=== PATIENT | male | born 1955 | race Caucasian/White ===

== ENCOUNTER 2016-07-08 16:25 | Emergency (ER) | payer OTHER ==
[~2016-07-08 16:25] MED LIST: ABH GEL TOP; ALBU1AER INH; ASPI81TA82 PO; ATOR10 PO; BUSP5 PO; CITA20 PO; GLUCTAB PO; LISI40TA PO; MECL-62 PO; METO50TA PO; NITR0.4S SL; NOVOLOGP2 SQ; OLAN5 PO; PALI156P IM; PHEN100S PO; SODI1 PO; TIMO0.5S29 EACH EYE; WARF5TAB PO; ZYPR10TA PO; ZYPR10TA9 PO
[2016-07-08 17:13] VITALS: BP 183/107; PULSE 86; RESP 16; TEMP 98.1; O2SAT 98
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
[2016-07-08] MEDS ORDERED: MI-ASUS PO (18:15)
[2016-07-08] MEDS ORDERED: METO50TA PO (18:15)
[2016-07-08] MEDS ORDERED: OLAN10TA11 SL (18:15)
[2016-07-08] MEDS ORDERED: TIMO0.5S5 EACH EYE (18:15)
[2016-07-08] MEDS ORDERED: LISI-515 PO (18:15)
[2016-07-08] MEDS ORDERED: PERM5CRE TOPICAL (18:15)
[2016-07-08] MEDS ORDERED: MILKSUS PO (18:15)
[2016-07-08] MEDS ORDERED: ASPI1TAB91 PO (18:15)
[2016-07-08] MEDS ORDERED: ALBUAER3 INH (18:15)
[2016-07-08] MEDS ORDERED: BUSP5TAB PO (18:15)
[2016-07-08] MEDS ORDERED: ATOR10TA15 PO (18:15)
[2016-07-08] MEDS ORDERED: [UNRECOGNIZED DRUG - CODE] TOPICAL (18:15)
[2016-07-08] MEDS ORDERED: TYLE650T9 PO (18:15)
[2016-07-08] MEDS ORDERED: IBUP-232 PO (18:15)
[2016-07-08] MEDS ORDERED: CITA20TA4 PO (18:15)
[2016-07-08] MEDS ORDERED: PALI156P IM (18:15)
[2016-07-08] MEDS ORDERED: DILA125S PO (18:15)
[2016-07-08] MEDS ORDERED: METF1000 PO (18:15)
[2016-07-08 19:20] VITALS: BP 169/78; PULSE 62; RESP 16; O2SAT 98
[2016-07-08 20:13] LABS: AUTOMATED NEUTROPHIL # 2.8 TH/MM3 (1.8-7.7); BASOPHIL % 0.7 % (0.0-2.0); EOSINOPHIL # 0.2 TH/MM3 (0-0.4); EOSINOPHIL % 3.8 % (0.0-4.0); HEMATOCRIT 37.6 % (39.0-51.0); LYMPH % 27.9 % (9.0-44.0); LYMPHOCYTE # 1.4 TH/MM3 (1.0-4.8); MEAN CELL VOLUME 94.9 FL (80.0-100.0); MEAN CORPUSCULAR HEMOGLOBIN 32.1 PG (27.0-34.0); MEAN CORPUSCULAR HGB CONC 33.8 % (32.0-36.0); MONO % 11.8 % (0.0-8.0); NEUT % 55.8 % (16.0-70.0); PLATELET COUNT 125 TH/MM3 (150-450); RED BLOOD COUNT 3.96 MIL/MM3 (4.50-5.90); RED CELL DISTRIBUTION WIDTH 14.8 % (11.6-17.2)
[2016-07-08 20:20] LABS: ANION GAP 6 MEQ/L (5-15)
[2016-07-08 20:23] LABS: ALKALINE PHOSPHATASE 71 U/L (45-117); ALT (GPT) 27 U/L (12-78); AST (GOT) 13 U/L (15-37); BICARBONATE 29.3 MEQ/L (21.0-32.0); BLOOD UREA NITROGEN 22 MG/DL (7-18); CHLORIDE 102 MEQ/L (98-107); GLOMERULAR FILTRATION RATE 117 ML/MIN (>89); POTASSIUM 3.7 MEQ/L (3.5-5.1); SODIUM (NA) 137 MEQ/L (136-145); TOTAL BILIRUBIN ADULT 0.2 MG/DL (0.2-1.0)
[2016-07-08 20:49] LABS: HEMO FLAGS AUTO DIFF
[2016-07-08 20:50] LABS: PLATELET ESTIMATE SMEAR LOW (NORMAL); PLATELET MORPHOLOGY NORMAL (NORMAL); SCAN/DIFF AUTO DIFF CONFIRMED
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
[2016-07-09 02:16] LABS: BLOOD, URINE SMALL (NEG); COMMENT (UR) CULTURE INDICATED; CULTURE IF INDICATED CULTURE INDICATED; GLUCOSE,URINE TRACE mg/dL (NEG); KETONE, URINE TRACE mg/dL (NEG); MUCUS URINE FEW /lpf (OCC); NITRITE,URINE NEG (NEG); SQUAMOUS EPITHELIAL CELL URINE 1 /hpf (0-5); URINE COLOR YELLOW (YELLW/STRAW)
[2016-07-09 03:30] VITALS: BP 152/74; PULSE 78; RESP 16; O2SAT 97
[2016-07-09 03:59] LABS: AMPHETAMINE, URINE NEG (NEG); BARBITURATES, URINE NEG (NEG); COCAINE, URINE NEG (NEG)
[2016-07-09 07:07] VITALS: BP 190/87; PULSE 93; RESP 18; TEMP 98.8; O2SAT 98
[2016-07-09 11:13] VITALS: BP 136/88; TEMP 97.8
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
== END 2016-07-09 11:00 ==
LOC: NEPA 16:25
DX: Z02.89 Encounter for other administrative examinations (principal); F25.0 Schizoaffective disorder, bipolar type; F03.90 Unspecified dementia, unspecified severity, without behavioral disturbance, psychotic disturbance, mood disturbance, and anxiety; N39.0 Urinary tract infection, site not specified; B95.2 Enterococcus as the cause of diseases classified elsewhere; I48.92 Unspecified atrial flutter; I10 Essential (primary) hypertension; E11.9 Type 2 diabetes mellitus without complications; E07.9 Disorder of thyroid, unspecified; Z79.84 Long term (current) use of oral hypoglycemic drugs; Z87.39 Personal history of other diseases of the musculoskeletal system and connective tissue; Z87.09 Personal history of other diseases of the respiratory system; Z86.59 Personal history of other mental and behavioral disorders; Z86.69 Personal history of other diseases of the nervous system and sense organs; Z87.448 Personal history of other diseases of urinary system
CPT/HCPCS: 80053; 80307; 80320; 81001; 85025; 87077; 87086; 87186; 99284

== ENCOUNTER 2016-07-17 15:38 | Inpatient (IN) | payer OTHER, MEDICAID ==
[~2016-07-17] VITALS: Ht 180.3 cm; Wt 81.0 kg
[~2016-07-17 15:38] MED LIST changes: -ABH GEL TOP; -ALBU1AER INH; +ALBUAER3 INH; +ASPI1TAB91 PO; -ASPI81TA82 PO; -ATOR10 PO; +ATOR10TA15 PO; -BUSP5 PO; +BUSP5TAB PO; -CITA20 PO; +CITA20TA4 PO; +DILA125S PO; -GLUCTAB PO; +IBUP-232 PO; +LISI-515 PO; -LISI40TA PO; -MECL-62 PO; +METF1000 PO; +MI-ASUS PO; +MILKSUS PO; -NITR0.4S SL; -NOVOLOGP2 SQ; +OLAN10TA11 SL; -OLAN5 PO; +PERM5CRE TOPICAL; -PHEN100S PO; -SODI1 PO; -TIMO0.5S29 EACH EYE; +TIMO0.5S5 EACH EYE; +TYLE650T9 PO; -WARF5TAB PO; -ZYPR10TA PO; -ZYPR10TA9 PO; +[UNRECOGNIZED DRUG - CODE] TOPICAL
[2016-07-17 16:27] VITALS: BP 149/89; PULSE 70; RESP 18; TEMP 96.6; O2SAT 95
--- NOTE | 2016-07-17 16:42 | PD ---
HPI Chief Complaint: Psychiatric Symptoms Time Seen by Provider: 16:42 Travel History International Travel<30 days: No (UNABLE TO OBTAIN) Contact w/Intl Traveler<30days: No Traveled to known affect area: No History of Present Illness HPI 60-year-old male is brought to the emergency department under [employer] act. Patient is not cooperative with my assessment. He yells no when I ask him if he is suicidal homicidal. Asked about alcohol consumption, he tells me "you are the one who drinks." Patient denies any current pain. Denies any acute medical needs. He wants to go home. PFSH Past Medical History Arthritis: Yes Asthma: Yes Blood Disorders: No Anxiety: Yes Depression: Yes Heart Rhythm Problems: Yes (ATRIAL FLUTTER) High Cholesterol: Yes Chest Pain: Yes Congestive Heart Failure: No COPD: Yes Cerebrovascular Accident: No Diabetes: Yes Diminished Hearing: No Endocrine: Yes Gastrointestinal Disorders: No Glaucoma: Yes Genitourinary: Yes Hypertension: Yes Implanted Vascular Access Dvce: Yes Musculoskeletal: Yes Neurologic: Yes Psychiatric: Yes Respiratory: Yes (PE/ASTHMA) Immunizations Current: Yes Radiation Therapy: Yes Schizophrenia: Yes Sleep Apnea: No Thyroid Disease: Yes Past Surgical History Cardiac Surgery: Yes (PACEMAKER) Neurologic Surgery: No Pacemaker: Yes Thoracic Surgery: Yes Other Surgery: Yes Family History Family Hypercholesterolemia: Yes Social History Alcohol Use: Yes (RARE) Tobacco Use: No Substance Use: Yes Allergies-Medications (Allergen,Severity, Reaction): Coded Allergies: Haldol (Verified Allergy, Severe, 07/17/16) Penicillin (Verified Allergy, Severe, 07/17/16) Phenothiazines (Verified Allergy, Severe, 07/17/16) Thorazine (Verified Allergy, Severe, 07/17/16) Uncoded Allergies: BUTYROPHENONES (Allergy, Severe, 01/09/12) Reported Meds & Prescriptions Reported Meds & Active Scripts Active Reported Ibuprofen 600 Mg Tab 600 Mg PO Q6H PRN Milk of Magnesia Liq (Magnesium Hydroxide) 400 Mg/5 Ml Susp 30 Ml PO DAILY PRN Mi-Acid Liq (Ffhsizqi-Muelcnmex-Wvxlasntwps Liq) 200-200-20 Mg/5 Ml Susp 30 Ml PO Q6HR PRN Take between meals or as directed. Shake well. Maximum 120 ml/24 hrs. Proair Hfa 8.5 GM Inh (Albuterol Sulfate) 90 Mcg/Act Aer 2 Puff INH Q4HR PRN 108 mcg/actuation Tylenol 8 Hour Arthritis (Acetaminophen) 650 Mg Tab 650 Mg PO Q4HR PRN Invega Sustenna Inj (Paliperidone Palmitate) 156 Mg/Ml Inj 156 Mg IM MONTHLY Olanzapine Odt (Olanzapine) 10 Mg Tab 10 Mg SL HS Atorvastatin (Atorvastatin Calcium) 10 Mg Tab 10 Mg PO HS Buspirone (Buspirone HCl) 5 Mg Tab 5 Mg PO TID Dilantin-125 Liq (Phenytoin) 125 Mg/5 Ml Susp 250 Mg PO TID Metoprolol Tartrate 50 Mg Tab 50 Mg PO BID Metformin (Metformin HCl) 1,000 Mg Tab 1,000 Mg PO BID With meals Qc Hydrocortisone (Hydrocortisone (Topical)) 1 % Cre 1 Applic TOPICAL BID Apply film to face Lisinopril 20 Mg Tab 20 Mg PO DAILY Aspirin Adult Low Strength (Aspirin) 81 Mg Tabdr 81 Mg PO DAILY Citalopram (Citalopram Hydrobromide) 20 Mg Tab 20 Mg PO DAILY Permethrin Topical (Permethrin) 5% Cream 1 Applic TOPICAL DAILY 7 Days Apply to affected kristy of the legs Timoptic Opth Drops (Timolol Opth Drops) 0.5 % Soln 1 Drop EACH EYE DAILY Review of Systems Except as stated in HPI: all other systems reviewed are Neg Physical Exam Narrative GENERAL: Well-nourished, well-developed elderly male patient, ambulatory no acute distress SKIN: Warm and dry. HEAD: Normocephalic. Atraumatic EYES: No scleral icterus. No injection or drainage. NECK: Supple, trachea midline. No JVD or lymphadenopathy. CARDIOVASCULAR: Regular rate and rhythm without murmurs, gallops, or rubs. RESPIRATORY: Breath sounds equal bilaterally. No accessory muscle use. GASTROINTESTINAL: Abdomen soft, non-tender, nondistended. MUSCULOSKELETAL: No cyanosis, or edema. BACK: Nontender without obvious deformity. No CVA tenderness. Data Data Last Documented VS Vital Signs Date Time Temp Pulse Resp B/P Pulse Ox O2 Delivery O2 Flow Rate FiO2 07/17/16 20:19 76 18 149/68 95 Room Air 07/17/16 16:27 96.6 Orders Complete Blood Count With Diff (07/17/16 15:58) Comprehensive Metabolic Panel (07/17/16 15:58) Urinalysis - C+S If Indicated (07/17/16 15:58) Drug Screen, Random Urine (07/17/16 15:58) Alcohol (Ethanol) (07/17/16 15:58) Psych Screen (07/17/16 15:58) Cath For Specimen (07/17/16 20:31) Labs Laboratory Tests Test 07/17/16 16:24 White Blood Count 3.3 TH/MM3 Red Blood Count 4.06 MIL/MM3 Hemoglobin 12.7 GM/DL Hematocrit 38.7 % Mean Corpuscular Volume 95.2 FL Mean Corpuscular Hemoglobin 31.2 PG Mean Corpuscular Hemoglobin 32.8 % Concent Red Cell Distribution Width 14.8 % Platelet Count 190 TH/MM3 Mean Platelet Volume 8.5 FL Neutrophils (%) (Auto) 55.9 % Lymphocytes (%) (Auto) 27.0 % Monocytes (%) (Auto) 10.6 % Eosinophils (%) (Auto) 5.5 % Basophils (%) (Auto) 1.0 % Neutrophils # (Auto) 1.9 TH/MM3 Lymphocytes # (Auto) 0.9 TH/MM3 Monocytes # (Auto) 0.4 TH/MM3 Eosinophils # (Auto) 0.2 TH/MM3 Basophils # (Auto) 0.0 TH/MM3 CBC Comment DIFF FINAL Differential Comment Sodium Level 140 MEQ/L Potassium Level 4.1 MEQ/L Chloride Level 104 MEQ/L Carbon Dioxide Level 30.5 MEQ/L Anion Gap 6 MEQ/L Blood Urea Nitrogen 19 MG/DL Creatinine 0.71 MG/DL Estimat Glomerular Filtration 113 ML/MIN Rate Random Glucose 146 MG/DL Calcium Level 8.7 MG/DL Total Bilirubin 0.2 MG/DL Aspartate Amino Transf 52 U/L (AST/SGOT) Alanine Aminotransferase 60 U/L (ALT/SGPT) Alkaline Phosphatase 72 U/L Total Protein 8.3 GM/DL Albumin 3.3 GM/DL Ethyl Alcohol Level LESS THAN 3 MG/DL MDM Medical Decision Making Medical Screen Exam Complete: Yes Emergency Medical Condition: Yes Medical Record Reviewed: Yes Differential Diagnosis Mood disorder versus personality disorder versus adjustment reaction disorder versus dementia Narrative Course 60-year-old male presents to emergency department for evaluation under [employer] act. Patient has history of dementia as well as schizoaffective disorder. He is uncooperative with exam but appears without distress. Vital signs are stable. Lab work is without acute concern. Patient is medically cleared to undergo psychiatric screening for further evaluation and disposition. Mental health screening discussed with the patient. Psychiatric screen ordered. Diagnosis Primary Impression: Dementia Qualified Code: F03.91 - Dementia with behavioral disturbance, unspecified dementia type Additional Impression: Schizoaffective disorder Qualified Code: F25.9 - Schizoaffective disorder, unspecified type Condition: Stable Ruth Alvarez Jul 17, 2016 16:42
[2016-07-17 18:22] LABS: AUTOMATED NEUTROPHIL # 1.9 TH/MM3 (1.8-7.7); EOSINOPHIL # 0.2 TH/MM3 (0-0.4); EOSINOPHIL % 5.5 % (0.0-4.0); HEMATOCRIT 38.7 % (39.0-51.0); HEMO FLAGS DIFF FINAL; LYMPHOCYTE # 0.9 TH/MM3 (1.0-4.8); MEAN CELL VOLUME 95.2 FL (80.0-100.0); MEAN CORPUSCULAR HEMOGLOBIN 31.2 PG (27.0-34.0); MEAN CORPUSCULAR HGB CONC 32.8 % (32.0-36.0); MONO % 10.6 % (0.0-8.0); NEUT % 55.9 % (16.0-70.0); PLATELET COUNT 190 TH/MM3 (150-450); RED BLOOD COUNT 4.06 MIL/MM3 (4.50-5.90); RED CELL DISTRIBUTION WIDTH 14.8 % (11.6-17.2); WHITE BLOOD COUNT 3.3 TH/MM3 (4.0-11.0)
[2016-07-17 18:29] LABS: ALKALINE PHOSPHATASE 72 U/L (45-117); TOTAL BILIRUBIN ADULT 0.2 MG/DL (0.2-1.0)
[2016-07-17 19:07] LABS: ALT (GPT) 60 U/L (12-78); ANION GAP 6 MEQ/L (5-15); AST (GOT) 52 U/L (15-37); BICARBONATE 30.5 MEQ/L (21.0-32.0); BLOOD UREA NITROGEN 19 MG/DL (7-18); CHLORIDE 104 MEQ/L (98-107); GLOMERULAR FILTRATION RATE 113 ML/MIN (>89); POTASSIUM 4.1 MEQ/L (3.5-5.1); SODIUM (NA) 140 MEQ/L (136-145)
[2016-07-17 20:19] VITALS: BP 149/68; PULSE 76; RESP 18; O2SAT 95
[2016-07-17 23:12] LABS: BACTERIA, URINE RARE /hpf; BLOOD, URINE NEG (NEG); COMMENT (UR) CULTURE INDICATED; CULTURE IF INDICATED CULTURE INDICATED; GLUCOSE,URINE TRACE mg/dL (NEG); KETONE, URINE 10 mg/dL (NEG); MUCUS URINE FEW /lpf (OCC); NITRITE,URINE NEG (NEG); URINE COLOR YELLOW (YELLW/STRAW)
[2016-07-17 23:14] LABS: AMPHETAMINE, URINE NEG (NEG); BARBITURATES, URINE NEG (NEG); COCAINE, URINE NEG (NEG)
[2016-07-17 23:28] VITALS: BP 165/75; PULSE 60; RESP 18; O2SAT 99
[2016-07-18 02:00] VITALS: BP 114/70; PULSE 51; RESP 18; O2SAT 98
[2016-07-18 06:39] VITALS: BP_SYST 190; BP_SYST 201; BP_DIAS 96; PULSE 66; RESP 18; O2SAT 99
[2016-07-18] MEDS ORDERED: LISINOPRIL 20 MG TAB PO ONE (06:45)
[2016-07-18] MEDS ORDERED: METOPROLOL TARTRATE 50 MG TAB PO ONE (06:45)
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
[2016-07-18] MEDS ORDERED: ALBUTEROL SULFATE 90 MCG/ACT HFA 8 GM INHALER INH PRN (17:30)
[2016-07-18 17:54] VITALS: BP 156/74; PULSE 72; RESP 16; O2SAT 99
[2016-07-18] MEDS: busPIRone HCL 5 MG TAB PO SCH (18:00)
[2016-07-18 18:53] VITALS: BP 159/90; PULSE 62; RESP 16; O2SAT 96
[2016-07-18] MEDS: metFORMIN HCL 500 MG TAB PO SCH (20:56)
[2016-07-18] MEDS: ATORVASTATIN 10 MG TAB PO SCH (20:56)
[2016-07-18] MEDS: PHENYTOIN SUSP 100 MG/4 ML CUP PO SCH (20:56)
[2016-07-18] MEDS: METOPROLOL TARTRATE 50 MG TAB PO SCH (20:56)
[2016-07-18] MEDS ORDERED: OLANZapine ODT 10 MG TAB SL SCH (21:00)
[2016-07-19 06:00] VITALS: BP 129/70; PULSE 63; RESP 18; TEMP 97.3; O2SAT 97
[2016-07-19 07:10] LABS: ANION GAP 8 MEQ/L (5-15); BICARBONATE 28.3 MEQ/L (21.0-32.0); BLOOD UREA NITROGEN 20 MG/DL (7-18); CHLORIDE 104 MEQ/L (98-107); GLOMERULAR FILTRATION RATE 117 ML/MIN (>89); HDL CHOLESTEROL 44.8 MG/DL (40.0-60.0); LDL CHOLESTEROL 108 MG/DL (0-99); POTASSIUM 4.5 MEQ/L (3.5-5.1); SODIUM (NA) 140 MEQ/L (136-145)
[2016-07-19] MEDS: busPIRone HCL 5 MG TAB PO SCH ×3 (10:04→17:22)
[2016-07-19] MEDS: CITALOPRAM HYDROBROMIDE 20 MG TAB PO SCH (10:05)
[2016-07-19] MEDS: metFORMIN HCL 500 MG TAB PO SCH ×2 (10:05→17:22)
[2016-07-19] MEDS: LISINOPRIL 20 MG TAB PO SCH (10:05)
[2016-07-19] MEDS: METOPROLOL TARTRATE 50 MG TAB PO SCH ×2 (10:05→20:31)
[2016-07-19] MEDS: ASPIRIN EC 81 MG TABEC PO SCH (10:06)
[2016-07-19] MEDS: PHENYTOIN SUSP 100 MG/4 ML CUP PO SCH ×3 (10:07→17:22)
[2016-07-19] MEDS: TIMOLOL MALEATE 0.5% OPHT SOLN 5 ML BTL EACH EYE SCH (10:08)
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
[2016-07-19 10:47] LABS: HEMOGLOBIN A1a 1.5 %; HEMOGLOBIN A1b 0.9 %; HEMOGLOBIN LA1C 1.9 %; HEMOGLOBIN P3 4.1 %
[2016-07-19] MEDS: PALIPERIDONE PALMITATE 156 MG/ML SYRINGE IM SCH ×2 (12:16→14:40)
--- NOTE | 2016-07-19 14:37 | PD.CONS ---
HPI Service [facility] Consult Requested By Psychiatry Reason for Consult Medical management, possible UTI Primary Care Physician Unknown Diagnoses: History of Present Illness This is a 60-year-old male with history of dementia, schizophrenia, depression, diabetes mellitus, hypertension, seizures, COPD, atrial flutter who presented to the ED because patient was aggressive, inappropriate behavior and belligerent. Patient was then transferred to psychiatry. Patient is a very poor historian. Denies any chest pain, shortness of breath, nausea, vomiting, urinary symptoms including dysuria, frequency or urgency. No fever or chills, no lower back pain, no lower abdominal pain. Patient says that he does not want to be restarted on Dilantin. Review of Systems ROS Limitations: Poor Historian, Other Past Family Social History Allergies: Coded Allergies: Haldol (Verified Allergy, Severe, 07/17/16) Penicillin (Verified Allergy, Severe, 07/17/16) Phenothiazines (Verified Allergy, Severe, 07/17/16) Thorazine (Verified Allergy, Severe, 07/17/16) Uncoded Allergies: BUTYROPHENONES (Allergy, Severe, 01/09/12) Past Medical History Dementia Schizophrenia Anxiety Depression Diabetes mellitus Hypertension Atrial flutter Dyslipidemia Seizures COPD Dyslipidemia Pulmonary embolism NSTEMI Past Surgical History Cardiac catheterization Reported Medications Ibuprofen 600 Mg Tab 600 Mg PO Q6H PRN Milk of Magnesia Liq (Magnesium Hydroxide) 400 Mg/5 Ml Susp 30 Ml PO DAILY PRN Mi-Acid Liq (Anpcdeds-Grjzdhqpk-Xculxytedni Liq) 200-200-20 Mg/5 Ml Susp 30 Ml PO Q6HR PRN Take between meals or as directed. Shake well. Maximum 120 ml/24 hrs. Proair Hfa 8.5 GM Inh (Albuterol Sulfate) 90 Mcg/Act Aer 2 Puff INH Q4HR PRN 108 mcg/actuation Tylenol 8 Hour Arthritis (Acetaminophen) 650 Mg Tab 650 Mg PO Q4HR PRN Invega Sustenna Inj (Paliperidone Palmitate) 156 Mg/Ml Inj 156 Mg IM MONTHLY Olanzapine Odt (Olanzapine) 10 Mg Tab 10 Mg SL HS Atorvastatin (Atorvastatin Calcium) 10 Mg Tab 10 Mg PO HS Buspirone (Buspirone HCl) 5 Mg Tab 5 Mg PO TID Dilantin-125 Liq (Phenytoin) 125 Mg/5 Ml Susp 250 Mg PO TID Metoprolol Tartrate 50 Mg Tab 50 Mg PO BID Metformin (Metformin HCl) 1,000 Mg Tab 1,000 Mg PO BID With meals Qc Hydrocortisone (Hydrocortisone (Topical)) 1 % Cre 1 Applic TOPICAL BID Apply film to face Lisinopril 20 Mg Tab 20 Mg PO DAILY Aspirin Adult Low Strength (Aspirin) 81 Mg Tabdr 81 Mg PO DAILY Citalopram (Citalopram Hydrobromide) 20 Mg Tab 20 Mg PO DAILY Permethrin Topical (Permethrin) 5% Cream 1 Applic TOPICAL DAILY 7 Days Apply to affected kristy of the legs Timoptic Opth Drops (Timolol Opth Drops) 0.5 % Soln 1 Drop EACH EYE DAILY Family History Father of a heart attack Social History Patient denies smoking, significant alcohol intake or use of any illicit drugs. Physical Exam Vital Signs Vital Signs Date Time Temp Pulse Resp B/P Pulse Ox O2 Delivery O2 Flow Rate FiO2 07/19/16 06:00 97.3 63 18 129/70 97 07/18/16 18:53 62 16 159/90 96 07/18/16 17:54 72 16 156/74 99 Physical Exam Not in distress, well-nourished, looks stated age PERRL, pink conjunctiva without injection, anicteric Nose without bleeding, airway patent, oropharynx clear Supple neck, no masses or thyromegaly, trachea midline Normal rate and regular rhythm, no murmurs gallops or rubs appreciated. Clear to auscultation and symmetric bilaterally, normal respiratory effort. Normal bowel sounds, soft, non-tender, nondistended, no guarding. Extremities without clubbing, cyanosis, or edema. No rash of generalized distribution. Skin is warm and dry. AAO x3, no cranial nerve deficits, moves all 4 extremities Laboratory Laboratory Tests Test 07/19/16 05:20 Sodium Level 140 Potassium Level 4.5 Chloride Level 104 Carbon Dioxide Level 28.3 Anion Gap 8 Blood Urea Nitrogen 20 Creatinine 0.69 Estimat Glomerular Filtration 117 Rate Random Glucose 105 Hemoglobin A1c 7.1 Calcium Level 8.8 Triglycerides Level 109 Cholesterol Level 175 LDL Cholesterol 108 HDL Cholesterol 44.8 Cholesterol/HDL Ratio 3.90 Date/Time Procedure Status Source Growth 07/17/16 21:25 Urine Culture - Preliminary Resulted Urine Random Urine Group D Enterococcus Result Diagram: 07/17/16 1624 07/19/16 0520 Assessment and Plan Assessment and Plan This is a 60-year-old male omitted the psych unit for schizoaffective disorder, we are being consulted for medical comanagement of COPD, atrial flutter and possible UTI. Schizoaffective disorder, bipolar type-further management per psychiatry UTI-possibly symptomatic UTI, review of previous records done, or analysis was positive, urine culture grew Enterococcus faecalis, sensitive to Macrobid, start Macrobid for 2 weeks. Check CBC and BMP. History of COPD-not in exacerbation, continue albuterol Dyslipidemia-restart statin History of seizures-continue phenytoin, check Dilantin levels. Hypertension-restart metoprolol, lisinopril, clonidine as needed Diabetes mellitus-restart metformin Thank you very much for this consult, will follow along with you. Ade Pandey MD Jul 19, 2016 14:37
[2016-07-19] MEDS ORDERED: cloNIDine HCL 0.1 MG TAB PO PRN (14:45)
[2016-07-19] MEDS: NITROFURANTOIN MONOHYD MACROCR 100 MG CAP PO SCH (17:22)
--- NOTE | 2016-07-19 17:33 | EKG ---
Date Performed: 07/19/2016 Time Performed: 11:46:49 PTAGE: 60 years EKG: SINUS BRADYCARDIA POSSIBLE LEFT ATRIAL ENLARGEMENT INDETERMINATE AXIS RIGHT BUNDLE BRANCH B LOCK When compared to previous tracing, the sinus tachycardia has Resolved and the premature atrial c ontractions are no longer Evident. the patient now actually has sinus Bradycardia, but when Allowing for the difference in technique there is probably no other Significant serial change. ABNORMAL ECG PREVIOUS TRACING : 12/21/2015 20.10 DOCTOR: Tahira Fraga Interpretating Date/Time 07/19/2016 17:32:51
[2016-07-19 19:34] VITALS: BP 142/82; PULSE 60; RESP 17; TEMP 98; O2SAT 98
[2016-07-19] MEDS: OLANZapine ODT 15 MG TAB SL SCH (20:30)
[2016-07-19] MEDS: ATORVASTATIN 10 MG TAB PO SCH (20:30)
[2016-07-20 05:12] VITALS: BP 127/60; PULSE 58; RESP 18; TEMP 97.8; O2SAT 98
[2016-07-20] MEDS: ASPIRIN EC 81 MG TABEC PO SCH (08:53)
[2016-07-20] MEDS: METOPROLOL TARTRATE 50 MG TAB PO SCH ×2 (08:54→21:21)
[2016-07-20] MEDS: LISINOPRIL 20 MG TAB PO SCH (08:54)
[2016-07-20] MEDS: NITROFURANTOIN MONOHYD MACROCR 100 MG CAP PO SCH ×2 (08:54→17:55)
[2016-07-20] MEDS: metFORMIN HCL 500 MG TAB PO SCH ×2 (08:54→17:55)
[2016-07-20] MEDS: busPIRone HCL 5 MG TAB PO SCH ×3 (08:54→17:55)
[2016-07-20] MEDS: PHENYTOIN SUSP 100 MG/4 ML CUP PO SCH ×3 (08:54→17:55)
[2016-07-20] MEDS: CITALOPRAM HYDROBROMIDE 20 MG TAB PO SCH (08:54)
[2016-07-20] MEDS: TIMOLOL MALEATE 0.5% OPHT SOLN 5 ML BTL EACH EYE SCH (09:00)
--- NOTE | 2016-07-20 13:07 | HHI.PR ---
Subjective Remarks Follow-up COPD, UTI, diabetes mellitus and seizure history. Patient seen in inpatient psychiatric center. Offers no specific complaints. Appears to be in no acute distress. Objective Vitals Vital Signs Date Time Temp Pulse Resp B/P Pulse Ox O2 Delivery O2 Flow Rate FiO2 07/20/16 05:12 97.8 58 18 127/60 98 07/19/16 19:34 98.0 60 17 142/82 98 I/O 07/19/16 07/19/16 07/19/16 07/20/16 07/20/16 07/20/16 07:00 15:00 23:00 07:00 15:00 23:00 Intake Total 590 ml Balance 590 ml Intake Oral 590 ml # Voids 1 Result Diagram: 07/17/16 1624 07/19/16 0520 Objective Remarks Not in distress, well-nourished, looks stated age PERRL, pink conjunctiva without injection, anicteric Nose without bleeding, airway patent, oropharynx clear Supple neck, no masses or thyromegaly, trachea midline Normal rate and regular rhythm, no murmurs gallops or rubs appreciated. Clear to auscultation and symmetric bilaterally, normal respiratory effort. Normal bowel sounds, soft, non-tender, nondistended, no guarding. Extremities without clubbing, cyanosis, or edema. No rash of generalized distribution. Skin is warm and dry. AAO x3, no cranial nerve deficits, moves all 4 extremities A/P Assessment and Plan This is a 60-year-old male omitted the psych unit for schizoaffective disorder, we are being consulted for medical comanagement of COPD, atrial flutter and possible UTI. Schizoaffective disorder, bipolar type-further management per psychiatry UTI-possibly symptomatic UTI, review of previous records done, Urine analysis was positive, urine culture grew Enterococcus faecalis, sensitive to Macrobid, start Macrobid for 2 weeks. History of COPD-not in exacerbation, continue albuterol Dyslipidemia- continue statin History of seizures-continue phenytoin, Dilantin levels ordered and pending. Hypertension-restart metoprolol, lisinopril, clonidine as needed Diabetes mellitus- continue metformin Hemoglobin A1c 7.1 Will add sliding scale insulin coverage and continue to monitor DVT prophylaxis patient is ambulatory Plan of care discussed with RN, patient and Dr. Pandey. Norah Yusuf Jul 20, 2016 13:07
[2016-07-20] MEDS ORDERED: GLUCAGON 1 MG/ML VIAL OTHER PRN (13:15)
[2016-07-20] MEDS ORDERED: DEXTROSE 50% IN WATER 50 ML VIAL(D50) IV PUSH PRN (13:15)
--- NOTE | 2016-07-20 15:56 | HHI.PYPN ---
Subjective Remarks This is a second opinion for Dr. Mckee. Patient was seen admission note reviewed. Patient received Invega Sustenna shot on 06/21 per record. Today, patient is very room mood irritable and threatening. He yells at me multiple times to get out of the room. Appears to have a rash on his right leg and is spending his time itching it. Possibly urinated on the floor. Urine drug screen was negative. Patient would not answer other questions. Last vital signs are stable Objective Alert: Yes [place]: Person (ox4) Mood: Other (labile) Affect: Other (labile) Memory Intact: Comment (no significant impairment) Hallucinations: Other (deneis any) Delusions: Yes (re a girlfriend at [employer] [facility] [facility] [facility]) Delusion Type: Paranoid Suicidal: Ideation (deneis any) Homicidal: Ideation (deneis any) Insight/Judgement Poor Labs Date/Time Procedure Status Source Growth 07/17/16 21:25 Urine Culture - Preliminary Resulted Urine Random Urine Group D Enterococcus Vitals/IOs Vital Signs Date Time Temp Pulse Resp B/P Pulse Ox O2 Delivery O2 Flow Rate FiO2 07/20/16 05:12 97.8 58 18 127/60 98 07/18/16 06:39 Room Air Intake and Output 07/19/16 07/19/16 07/20/16 08:00 16:00 00:00 Intake Total 590 ml Balance 590 ml Assessment & Plan Problem List: (1) Schizoaffective disorder, bipolar type ICD Code: F25.0 Assessment & Plan If last injection was in June 21 he is due for his next invega. Consider administrating on Friday. Continue to redirect patient. Hydrocortisone cream was ordered for a rash. Justification for Cont. Inpt. Patient would decompensate in a less restrictive setting Request HC Surrog/Guard Advoc?: No Vishnu Small DO Jul 20, 2016 15:56
[2016-07-20] MEDS: INSULIN ASPART SUPPLEMENTAL SCALE SQ SCH ×2 (16:00→21:00)
[2016-07-20] MEDS: HYDROCORTISONE 1% CREAM 30 GM TOPICAL SCH (17:00)
[2016-07-20] MEDS ORDERED: PERMETHRIN 5% CREAM 60 GM TOP ONE (18:00)
[2016-07-20 18:59] VITALS: BP 154/76; PULSE 64; RESP 18; O2SAT 98
[2016-07-20] MEDS: OLANZapine ODT 15 MG TAB SL SCH (21:00)
[2016-07-20] MEDS: ATORVASTATIN 10 MG TAB PO SCH (21:21)
[2016-07-21 05:30] VITALS: BP 131/83; PULSE 68; RESP 17; TEMP 98.6; O2SAT 97
[2016-07-21] MEDS: INSULIN ASPART SUPPLEMENTAL SCALE SQ SCH ×4 (06:21→21:00)
[2016-07-21] MEDS: HYDROCORTISONE 1% CREAM 30 GM TOPICAL SCH (09:00)
[2016-07-21] MEDS: TIMOLOL MALEATE 0.5% OPHT SOLN 5 ML BTL EACH EYE SCH (09:00)
[2016-07-21] MEDS: METOPROLOL TARTRATE 50 MG TAB PO SCH ×3 (09:03→21:13)
[2016-07-21] MEDS: NITROFURANTOIN MONOHYD MACROCR 100 MG CAP PO SCH ×2 (09:03→17:27)
[2016-07-21] MEDS: LISINOPRIL 20 MG TAB PO SCH (09:04)
[2016-07-21] MEDS: PHENYTOIN SUSP 100 MG/4 ML CUP PO SCH ×3 (09:04→17:27)
[2016-07-21] MEDS: busPIRone HCL 5 MG TAB PO SCH ×3 (09:04→17:27)
[2016-07-21] MEDS: metFORMIN HCL 500 MG TAB PO SCH ×2 (09:04→17:27)
[2016-07-21] MEDS: ASPIRIN EC 81 MG TABEC PO SCH (09:04)
[2016-07-21] MEDS: CITALOPRAM HYDROBROMIDE 20 MG TAB PO SCH (09:04)
--- NOTE | 2016-07-21 14:04 | HHI.PR ---
Subjective Remarks Follow-up UTI, Hypertension, Diabetes mellitus and ? scabies Alert to self, ambulating in halls with shuffling Gait. Patient refusing to be evaluated refusing to answer questions or participate in exam. Patient is also refused laboratory draws 2 days and is being selective on which medication he takes. Objective Vitals Vital Signs Date Time Temp Pulse Resp B/P Pulse Ox O2 Delivery O2 Flow Rate FiO2 07/21/16 05:30 98.6 68 17 131/83 97 07/20/16 18:59 64 18 154/76 98 I/O 07/20/16 07/20/16 07/20/16 07/21/16 07/21/16 07/21/16 07:00 15:00 23:00 07:00 15:00 23:00 Intake Total 150 ml Balance 150 ml Intake Oral 150 ml Result Diagram: 07/17/16 1624 07/19/16 0520 Objective Remarks Not in distress, well-nourished, looks stated age Extremities without clubbing, cyanosis, or edema. Unable to fully assess skin. Upper extremity secondary seen most down on and lower she weighs from knee down do not appear to have any rash or excoriated areas. moves all 4 extremities Seen ambulating in halls A/P Assessment and Plan This is a 60-year-old male patient in the psych unit for schizoaffective disorder, we are being consulted for medical comanagement of COPD, atrial flutter and possible UTI. Schizoaffective disorder, bipolar type-further management per psychiatry UTI-possibly symptomatic UTI, review of previous records done, Urine analysis was positive, urine culture grew Enterococcus faecalis, sensitive to Macrobid, start Macrobid for 2 weeks. History of COPD-not in exacerbation, continue albuterol Dyslipidemia- continue statin History of seizures-continue phenytoin, Dilantin levels ordered and pending. Hypertension-restart metoprolol, lisinopril, clonidine as needed Diabetes mellitus- continue metformin Hemoglobin A1c 7.1 Will add sliding scale insulin coverage and continue to monitor Question scabies treated with permethrin 1 recommend reevaluation in 14 days DVT prophylaxis patient is ambulatory Patient refusing to be evaluated refusing to answer questions or participate in exam. Patient is also refused laboratory draws 2 days and is being selective on which medication he takes. Plan of care discussed with RN Patient appears in no acute distress will sign off. Patient's condition changes or further assistance is needed please reconsult Written by Norah Yusuf, acting as scribe for Dr. Pandey on 07/21/16 at 14:00. The documentation accurately reflects the work performed [id number] by me on at 14:00 Norah Yusuf Jul 21, 2016 14:04 Ade Pandey MD Jul 21, 2016 14:32
--- NOTE | 2016-07-21 15:04 | HHI.PYPN ---
Subjective Remarks Patient was seen and case discussed with nursing. Patient's behavior has markedly improved. He is no longer confrontational irritable or rude. Asking about discharge. Continues to have poor insight into his admission. Not urinating on himself. Compliant with medications. Sexually inappropriate at times per nursing. Objective Alert: Yes [place]: Person (ox4) Mood: Other (labile) Affect: Other (labile) Memory Intact: Comment (no significant impairment) Hallucinations: Other (deneis any) Delusions: Yes (re a girlfriend at [facility]) Delusion Type: Paranoid Suicidal: Ideation (deneis any) Homicidal: Ideation (deneis any) Insight/Judgement Poor Labs Date/Time Procedure Status Source Growth 07/17/16 21:25 Urine Culture - Final Complete Urine Random Urine Enterococcus Faecalis Vitals/IOs Vital Signs Date Time Temp Pulse Resp B/P Pulse Ox O2 Delivery O2 Flow Rate FiO2 07/21/16 05:30 98.6 68 17 131/83 97 07/18/16 06:39 Room Air Intake and Output 07/20/16 07/20/16 07/21/16 08:00 16:00 00:00 Intake Total 150 ml Balance 150 ml Assessment & Plan Problem List: (1) Schizoaffective disorder, bipolar type ICD Code: F25.0 Assessment & Plan Continue current treatment plan Justification for Cont. Inpt. Patient would decompensate in a less restrictive setting Request HC Surrog/Guard Advoc?: No Vishnu Small DO Jul 21, 2016 15:04
[2016-07-21 18:41] VITALS: BP 137/62; PULSE 65; RESP 18; O2SAT 96
[2016-07-21] MEDS: ATORVASTATIN 10 MG TAB PO SCH ×2 (21:00→21:13)
[2016-07-21] MEDS: OLANZapine ODT 15 MG TAB SL SCH (21:00)
[2016-07-22 05:42] VITALS: PULSE 55; RESP 16; TEMP 97.7; O2SAT 96
[2016-07-22] MEDS: INSULIN ASPART SUPPLEMENTAL SCALE SQ SCH ×4 (06:38→21:00)
[2016-07-22] MEDS: TIMOLOL MALEATE 0.5% OPHT SOLN 5 ML BTL EACH EYE SCH (09:00)
[2016-07-22] MEDS: METOPROLOL TARTRATE 50 MG TAB PO SCH ×2 (09:00→21:00)
[2016-07-22] MEDS: metFORMIN HCL 500 MG TAB PO SCH ×2 (09:00→19:12)
[2016-07-22] MEDS: LISINOPRIL 20 MG TAB PO SCH (09:00)
[2016-07-22] MEDS: PHENYTOIN SUSP 100 MG/4 ML CUP PO SCH ×3 (09:00→18:00)
[2016-07-22] MEDS: ASPIRIN EC 81 MG TABEC PO SCH (09:00)
[2016-07-22] MEDS: CITALOPRAM HYDROBROMIDE 20 MG TAB PO SCH (09:00)
[2016-07-22] MEDS: busPIRone HCL 5 MG TAB PO SCH ×3 (09:00→19:12)
[2016-07-22] MEDS: HYDROCORTISONE 1% CREAM 30 GM TOPICAL SCH (09:00)
[2016-07-22] MEDS: NITROFURANTOIN MONOHYD MACROCR 100 MG CAP PO SCH ×2 (09:00→19:12)
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
[2016-07-22] MEDS: ATORVASTATIN 10 MG TAB PO SCH (21:00)
[2016-07-22] MEDS: OLANZapine ODT 15 MG TAB SL SCH (21:00)
[2016-07-23 05:49] VITALS: BP 132/83; PULSE 96; RESP 16; TEMP 97.9; O2SAT 96
[2016-07-23] MEDS: INSULIN ASPART SUPPLEMENTAL SCALE SQ SCH ×4 (07:00→20:56)
[2016-07-23 09:00] VITALS: BP 129/63; PULSE 86
[2016-07-23] MEDS: HYDROCORTISONE 1% CREAM 30 GM TOPICAL SCH (09:00)
[2016-07-23] MEDS: TIMOLOL MALEATE 0.5% OPHT SOLN 5 ML BTL EACH EYE SCH (09:00)
[2016-07-23] MEDS: PHENYTOIN SUSP 100 MG/4 ML CUP PO SCH ×3 (09:20→18:07)
[2016-07-23] MEDS: CITALOPRAM HYDROBROMIDE 20 MG TAB PO SCH (09:20)
[2016-07-23] MEDS: ASPIRIN EC 81 MG TABEC PO SCH (09:20)
[2016-07-23] MEDS: NITROFURANTOIN MONOHYD MACROCR 100 MG CAP PO SCH ×2 (09:20→18:10)
[2016-07-23] MEDS: busPIRone HCL 5 MG TAB PO SCH ×3 (09:21→18:10)
[2016-07-23] MEDS: metFORMIN HCL 500 MG TAB PO SCH ×2 (09:21→18:00)
[2016-07-23] MEDS: LISINOPRIL 20 MG TAB PO SCH (09:25)
[2016-07-23] MEDS: METOPROLOL TARTRATE 50 MG TAB PO SCH ×2 (09:25→20:52)
--- NOTE | 2016-07-23 14:54 | HHI.PYPN ---
Subjective Remarks Patient seen on unit with floor staff, continues angry irritable with mixed compliance with medication. There appears to be somewhat cooperative with the at bedtime Zyprexa will increase that to 20 mg at bedtime. Patient did get his Invega Sustenna injection. For now continue treatment Review of Systems Except as stated in HPI: all other systems reviewed are Neg Objective Alert: Yes [place]: Person (ox4) Mood: Other (labile) Affect: Other (labile) Memory Intact: Comment (no significant impairment) Hallucinations: Other (deneis any) Delusions: Yes (re a girlfriend at [employer]) Delusion Type: Paranoid Suicidal: Ideation (deneis any) Homicidal: Ideation (deneis any) Insight/Judgement Very poor Vitals/IOs Vital Signs Date Time Temp Pulse Resp B/P Pulse Ox O2 Delivery O2 Flow Rate FiO2 07/23/16 09:00 86 129/63 07/23/16 05:49 97.9 16 96 Intake and Output 07/22/16 07/22/16 07/23/16 08:00 16:00 00:00 Intake Total 360 ml Balance 360 ml Assessment & Plan Problem List: (1) Schizoaffective disorder, bipolar type ICD Code: F25.0 Assessment & Plan Estimated LOS: days patient continue psychotic angry irritable with poor compliance medication. Though he does seem to take his at bedtime Zyprexa will increase that to 20 mg Justification for Cont. Inpt. At this and the patient was really decompensate if placed in a lower level of care Discharge Planning To be determined Request HC Surrog/Guard Advoc?: No Phil Mckee MD Jul 23, 2016 14:54
[2016-07-23 20:00] VITALS: BP 112/79; PULSE 81; RESP 18; TEMP 98.2
[2016-07-23] MEDS: ATORVASTATIN 10 MG TAB PO SCH (20:52)
[2016-07-23] MEDS: OLANZapine ODT 20 MG TAB SL SCH (20:55)
[2016-07-24 06:20] VITALS: BP 101/63; PULSE 72; RESP 18; TEMP 99; O2SAT 96
[2016-07-24] MEDS: INSULIN ASPART SUPPLEMENTAL SCALE SQ SCH ×4 (06:29→21:00)
[2016-07-24] MEDS: ASPIRIN EC 81 MG TABEC PO SCH (08:35)
[2016-07-24] MEDS: TIMOLOL MALEATE 0.5% OPHT SOLN 5 ML BTL EACH EYE SCH (08:35)
[2016-07-24] MEDS: CITALOPRAM HYDROBROMIDE 20 MG TAB PO SCH (08:35)
[2016-07-24] MEDS: busPIRone HCL 5 MG TAB PO SCH ×4 (08:35→17:18)
[2016-07-24] MEDS: PHENYTOIN SUSP 100 MG/4 ML CUP PO SCH ×4 (08:35→17:18)
[2016-07-24] MEDS: metFORMIN HCL 500 MG TAB PO SCH ×2 (08:35→17:18)
[2016-07-24] MEDS: LISINOPRIL 20 MG TAB PO SCH (08:36)
[2016-07-24] MEDS: NITROFURANTOIN MONOHYD MACROCR 100 MG CAP PO SCH ×2 (08:36→17:18)
[2016-07-24] MEDS: HYDROCORTISONE 1% CREAM 30 GM TOPICAL SCH ×2 (08:36→11:05)
[2016-07-24] MEDS: METOPROLOL TARTRATE 50 MG TAB PO SCH ×2 (08:36→21:00)
--- NOTE | 2016-07-24 12:03 | HHI.PYPN ---
Subjective Remarks Patient seen in his room with nurse Juwan, chart reviewed. This time patient sitting quietly in his room calm cooperative with me with poor to fair eye contact. However earlier this morning patient became very angry and violent with nurse Juwan who is offering him his a.m. medications denying that he needs them, stating that approximately sleep, telling her to "get the fuck away from me", staff states she has also had some sexually inappropriate comments to female staff. With me he is somewhat grandiose with unrealistic expectations of wanting to leave getting a part-time job staying at the [employer], continues to show mixed compliance with medications. Patient is scheduled for [facility] tomorrow this may opinion with the patient's mood lability and irritability inappropriate behaviors and questionable compliance medication and his long history mental illness that he continues to meet criteria for involuntary hospitalization, thus will bring him to [facility] tomorrow Review of Systems Except as stated in HPI: all other systems reviewed are Neg Objective Alert: Yes [place]: Person (ox4) Mood: Other (labile) Affect: Other (labile) Memory Intact: Comment (no significant impairment) Hallucinations: Other (deneis any) Delusions: Yes (re a girlfriend at [facility]) Delusion Type: Paranoid Suicidal: Ideation (deneis any) Homicidal: Ideation (deneis any) Insight/Judgement Very poor Vitals/IOs Vital Signs Date Time Temp Pulse Resp B/P Pulse Ox O2 Delivery O2 Flow Rate FiO2 07/24/16 06:20 99.0 72 18 101/63 96 Assessment & Plan Problem List: (1) Schizoaffective disorder, bipolar type ICD Code: F25.0 Assessment & Plan Estimated LOS: days patient remains paranoid grandiose delusional, explosive and irritable, with partial compliance medication Justification for Cont. Inpt. At this time patient would significantly decompensate if placed in the lower level of care Discharge Planning To be determined Request HC Surrog/Guard Advoc?: No Phil Mckee MD Jul 24, 2016 12:03
[2016-07-24] MEDS: ATORVASTATIN 10 MG TAB PO SCH (21:00)
[2016-07-24] MEDS: OLANZapine ODT 20 MG TAB SL SCH (21:00)
[2016-07-25 06:05] VITALS: BP 139/95; PULSE 85; RESP 18; TEMP 98.5; O2SAT 97
[2016-07-25] MEDS: INSULIN ASPART SUPPLEMENTAL SCALE SQ SCH ×4 (06:42→21:00)
[2016-07-25] MEDS: LISINOPRIL 20 MG TAB PO SCH (09:00)
[2016-07-25] MEDS: NITROFURANTOIN MONOHYD MACROCR 100 MG CAP PO SCH ×2 (09:00→18:00)
[2016-07-25] MEDS: TIMOLOL MALEATE 0.5% OPHT SOLN 5 ML BTL EACH EYE SCH (09:00)
[2016-07-25] MEDS: metFORMIN HCL 500 MG TAB PO SCH ×2 (09:00→18:00)
[2016-07-25] MEDS: CITALOPRAM HYDROBROMIDE 20 MG TAB PO SCH (09:00)
[2016-07-25] MEDS: ASPIRIN EC 81 MG TABEC PO SCH (09:00)
[2016-07-25] MEDS: busPIRone HCL 5 MG TAB PO SCH ×3 (09:00→18:00)
[2016-07-25] MEDS: METOPROLOL TARTRATE 50 MG TAB PO SCH ×2 (09:00→21:00)
[2016-07-25] MEDS: PHENYTOIN SUSP 100 MG/4 ML CUP PO SCH ×3 (09:00→18:00)
--- NOTE | 2016-07-25 14:18 | HHI.PYPN ---
Subjective Remarks Patient seen in [place] [facility] today, retained by Judge Lopez, guardian advocate appointed. Patient continues to show no insight into his issues was loud at times somewhat irritable and angry. Staying all he wanted to do is get an apartment and get a part-time job. Denying any responsibility for his behaviors that led to this hospitalization. There is overall compliant with his medications Review of Systems Except as stated in HPI: all other systems reviewed are Neg Objective Alert: Yes [place]: Person (ox4) Mood: Other (labile) Affect: Other (labile) Memory Intact: Comment (no significant impairment) Hallucinations: Other (deneis any) Delusions: Yes (re a girlfriend at [facility]) Delusion Type: Paranoid Suicidal: Ideation (deneis any) Homicidal: Ideation (deneis any) Insight/Judgement Very poor Vitals/IOs Vital Signs Date Time Temp Pulse Resp B/P Pulse Ox O2 Delivery O2 Flow Rate FiO2 07/25/16 06:05 98.5 85 18 139/95 97 Assessment & Plan Problem List: (1) Schizoaffective disorder, bipolar type ICD Code: F25.0 Assessment & Plan Estimated LOS: days patient remained psychotic irritable angry and labile. Patient retained by Justice Lopez guardian advocate appointed Justification for Cont. Inpt. At this time patient will decompensate if placed in the lower level of care Discharge Planning To be determined Request HC Surrog/Guard Advoc?: No Phil Mckee MD Jul 25, 2016 14:18
[2016-07-25 18:00] VITALS: BP 100/73; PULSE 71; RESP 18; TEMP 97.2; O2SAT 96
[2016-07-25] MEDS: OLANZapine ODT 20 MG TAB SL SCH (21:00)
[2016-07-25] MEDS: ATORVASTATIN 10 MG TAB PO SCH (21:00)
[2016-07-26 05:50] VITALS: BP 132/76; PULSE 61; RESP 17; TEMP 98.4; O2SAT 98
[2016-07-26] MEDS: INSULIN ASPART SUPPLEMENTAL SCALE SQ SCH ×4 (06:56→20:55)
[2016-07-26] MEDS: metFORMIN HCL 500 MG TAB PO SCH ×2 (09:00→17:27)
[2016-07-26] MEDS: HYDROCORTISONE 1% CREAM 30 GM TOPICAL SCH (09:00)
[2016-07-26] MEDS: TIMOLOL MALEATE 0.5% OPHT SOLN 5 ML BTL EACH EYE SCH (09:00)
[2016-07-26] MEDS: PHENYTOIN SUSP 100 MG/4 ML CUP PO SCH ×3 (09:00→17:27)
[2016-07-26] MEDS: CITALOPRAM HYDROBROMIDE 20 MG TAB PO SCH (09:00)
[2016-07-26] MEDS: ASPIRIN EC 81 MG TABEC PO SCH (09:00)
[2016-07-26] MEDS: busPIRone HCL 5 MG TAB PO SCH ×3 (09:00→17:26)
[2016-07-26] MEDS: LISINOPRIL 20 MG TAB PO SCH (09:07)
[2016-07-26] MEDS: NITROFURANTOIN MONOHYD MACROCR 100 MG CAP PO SCH ×2 (09:08→17:27)
[2016-07-26] MEDS: METOPROLOL TARTRATE 50 MG TAB PO SCH ×2 (09:08→20:55)
--- NOTE | 2016-07-26 14:11 | HHI.PYPN ---
Subjective Remarks Patient seen in his room with nurse Juwan, chart review, patient continues labile irritable loud attempts to be intimidating and threatening, continues with an appropriate site for remarks focused towards female staff. Showing no insight into these issues. Will increase at bedtime Zyprexa to 40 mg. Review of Systems Except as stated in HPI: all other systems reviewed are Neg Objective Alert: Yes [place]: Person (ox4) Mood: Other (labile) Affect: Other (labile) Memory Intact: Comment (no significant impairment) Hallucinations: Other (deneis any) Delusions: Yes (re a girlfriend at [facility]) Delusion Type: Paranoid Suicidal: Ideation (deneis any) Homicidal: Ideation (deneis any) Insight/Judgement Very poor Vitals/IOs Vital Signs Date Time Temp Pulse Resp B/P Pulse Ox O2 Delivery O2 Flow Rate FiO2 07/26/16 05:50 98.4 61 17 132/76 98 Intake and Output 07/25/16 07/25/16 07/26/16 08:00 16:00 00:00 Intake Total 0 ml 360 ml Output Total 0 ml Balance 0 ml 360 ml Assessment & Plan Problem List: (1) Schizoaffective disorder, bipolar type ICD Code: F25.0 Assessment & Plan Estimated LOS: days patient continues loud and labile psychotic features with increased paranoia. Will increase at bedtime Zyprexa 40 mg Justification for Cont. Inpt. This time patient would significantly decompensated placed on the lower level of care Discharge Planning To be determined Request HC Surrog/Guard Advoc?: No Phil Mckee MD Jul 26, 2016 14:11
[2016-07-26 15:59] VITALS: BP 172/85; PULSE 83; RESP 16; TEMP 98.2; O2SAT 96
[2016-07-26] MEDS: ACETAMINOPHEN 325 MG TAB PO PRN (17:57)
[2016-07-26 18:59] VITALS: BP 127/67; PULSE 63; RESP 16; O2SAT 97
[2016-07-26] MEDS: OLANZapine ODT 20 MG TAB SL SCH (20:34)
[2016-07-26] MEDS: ATORVASTATIN 10 MG TAB PO SCH (20:55)
[2016-07-27] MEDS: INSULIN ASPART SUPPLEMENTAL SCALE SQ SCH ×4 (06:14→21:00)
[2016-07-27] MEDS: HYDROCORTISONE 1% CREAM 30 GM TOPICAL SCH (09:00)
[2016-07-27] MEDS: CITALOPRAM HYDROBROMIDE 20 MG TAB PO SCH (09:20)
[2016-07-27] MEDS: ASPIRIN EC 81 MG TABEC PO SCH (09:20)
[2016-07-27] MEDS: metFORMIN HCL 500 MG TAB PO SCH ×2 (09:21→17:54)
[2016-07-27] MEDS: METOPROLOL TARTRATE 50 MG TAB PO SCH ×2 (09:21→21:00)
[2016-07-27] MEDS: NITROFURANTOIN MONOHYD MACROCR 100 MG CAP PO SCH ×2 (09:21→17:54)
[2016-07-27] MEDS: TIMOLOL MALEATE 0.5% OPHT SOLN 5 ML BTL EACH EYE SCH (09:21)
[2016-07-27] MEDS: LISINOPRIL 20 MG TAB PO SCH (09:21)
[2016-07-27] MEDS: busPIRone HCL 5 MG TAB PO SCH ×3 (09:21→17:53)
[2016-07-27] MEDS: PHENYTOIN SUSP 100 MG/4 ML CUP PO SCH ×3 (09:37→17:53)
--- NOTE | 2016-07-27 18:11 | HHI.PYPN ---
Subjective Remarks Pt seen and discussed with staff. He is compliant with medications. Disorganization is decreasing and he is more cooperative with treatment. No SI/ HI Objective Alert: Yes [place]: Person, Place, Date Mood: Calm Affect: Flat Memory Intact: Comment (no significant impairment) Hallucinations: Other (deneis any) Delusions: Yes (re a girlfriend at [facility]) Delusion Type: Paranoid Suicidal: Ideation (deneis any) Homicidal: Ideation (deneis any) Insight/Judgement limited Vitals/IOs Vital Signs Date Time Temp Pulse Resp B/P Pulse Ox O2 Delivery O2 Flow Rate FiO2 07/26/16 18:59 63 16 127/67 97 07/26/16 15:59 98.2 Assessment & Plan Problem List: (1) Schizoaffective disorder, bipolar type ICD Code: F25.0 Assessment & Plan Continue current tx plan. Estimated LOS: days Justification for Cont. Inpt. impairments in reality, risk of decompensating. Request HC Surrog/Guard Advoc?: Carole Vazquez MD Jul 27, 2016 18:10
[2016-07-27] MEDS: ATORVASTATIN 10 MG TAB PO SCH (21:00)
[2016-07-27] MEDS: OLANZapine ODT 20 MG TAB SL SCH (21:00)
[2016-07-27 22:07] VITALS: BP 136/73; PULSE 83; RESP 16; O2SAT 95
[2016-07-28] MEDS: INSULIN ASPART SUPPLEMENTAL SCALE SQ SCH ×4 (06:27→20:03)
[2016-07-28] MEDS: PHENYTOIN SUSP 100 MG/4 ML CUP PO SCH ×3 (08:56→17:26)
[2016-07-28] MEDS: CITALOPRAM HYDROBROMIDE 20 MG TAB PO SCH (08:57)
[2016-07-28] MEDS: metFORMIN HCL 500 MG TAB PO SCH ×2 (08:57→17:27)
[2016-07-28] MEDS: ASPIRIN EC 81 MG TABEC PO SCH (08:57)
[2016-07-28] MEDS: LISINOPRIL 20 MG TAB PO SCH (08:57)
[2016-07-28] MEDS: METOPROLOL TARTRATE 50 MG TAB PO SCH ×2 (08:57→20:03)
[2016-07-28] MEDS: busPIRone HCL 5 MG TAB PO SCH ×3 (08:57→17:26)
[2016-07-28] MEDS: NITROFURANTOIN MONOHYD MACROCR 100 MG CAP PO SCH ×2 (08:57→17:26)
[2016-07-28] MEDS: TIMOLOL MALEATE 0.5% OPHT SOLN 5 ML BTL EACH EYE SCH (09:00)
[2016-07-28] MEDS: HYDROCORTISONE 1% CREAM 30 GM TOPICAL SCH (09:08)
--- NOTE | 2016-07-28 19:58 | HHI.PYPN ---
Subjective Remarks Pt seen and discussed with staff. He is compliant with medication and is tolerating them without side effects. No agitation or aggression. Insight into illness is poor. He expresses that he doesn't want to take medications because they will kill him. No SI/HI. Objective Alert: Yes [place]: Person, Place, Date Mood: Calm Affect: Flat Memory Intact: Comment (no significant impairment) Hallucinations: Other (deneis any) Delusions: Yes (re a girlfriend at [facility]) Delusion Type: Paranoid Suicidal: Ideation (deneis any) Homicidal: Ideation (deneis any) Insight/Judgement limited Vitals/IOs Vital Signs Date Time Temp Pulse Resp B/P Pulse Ox O2 Delivery O2 Flow Rate FiO2 07/27/16 22:07 83 16 136/73 95 07/26/16 15:59 98.2 Intake and Output 07/27/16 07/27/16 07/28/16 08:00 16:00 00:00 Intake Total 440 ml Balance 440 ml Assessment & Plan Problem List: (1) Schizoaffective disorder, bipolar type ICD Code: F25.0 Assessment & Plan Continue current tx plan. Estimated LOS: days Justification for Cont. Inpt. impairments in self care Request HC Surrog/Guard Advoc?: Carole Vazquez MD Jul 28, 2016 19:58
[2016-07-28] MEDS: OLANZapine ODT 20 MG TAB SL SCH (20:03)
[2016-07-28] MEDS: ATORVASTATIN 10 MG TAB PO SCH (20:03)
[2016-07-28 21:16] VITALS: BP 110/58; PULSE 75; TEMP 98.4; O2SAT 94
[2016-07-29 05:26] VITALS: BP 106/54; PULSE 56; RESP 15; TEMP 97.9; O2SAT 91
[2016-07-29] MEDS: INSULIN ASPART SUPPLEMENTAL SCALE SQ SCH ×4 (06:33→20:25)
[2016-07-29] MEDS: LISINOPRIL 20 MG TAB PO SCH (09:00)
[2016-07-29] MEDS: METOPROLOL TARTRATE 50 MG TAB PO SCH ×2 (09:00→20:25)
[2016-07-29] MEDS: TIMOLOL MALEATE 0.5% OPHT SOLN 5 ML BTL EACH EYE SCH (09:00)
[2016-07-29] MEDS: HYDROCORTISONE 1% CREAM 30 GM TOPICAL SCH (09:00)
[2016-07-29] MEDS: PHENYTOIN SUSP 100 MG/4 ML CUP PO SCH ×3 (09:35→17:40)
[2016-07-29] MEDS: CITALOPRAM HYDROBROMIDE 20 MG TAB PO SCH (09:35)
[2016-07-29] MEDS: busPIRone HCL 5 MG TAB PO SCH ×3 (09:35→17:40)
[2016-07-29] MEDS: NITROFURANTOIN MONOHYD MACROCR 100 MG CAP PO SCH ×2 (09:35→17:38)
[2016-07-29] MEDS: ASPIRIN EC 81 MG TABEC PO SCH (09:35)
[2016-07-29] MEDS: metFORMIN HCL 500 MG TAB PO SCH ×2 (09:35→17:39)
--- NOTE | 2016-07-29 15:19 | HHI.PYPN ---
Subjective Remarks Patient discussed with treatment team, chart review, patient seen on unit patient continues to be compliant with medications that resistance to acknowledging his need for compliance as an outpatient. He is on his angry with me today as last week, who still wishes to be in the community. Also still showing some sexually inappropriate behaviors, stating he is somewhat upset at the fact that female staff to not allow him to help them. For now continue medication no change Review of Systems Except as stated in HPI: all other systems reviewed are Neg Objective Alert: Yes [place]: Person, Place, Date Mood: Calm Affect: Flat Memory Intact: Comment (no significant impairment) Hallucinations: Other (deneis any) Delusions: Yes (re a girlfriend at [facility]) Delusion Type: Paranoid Suicidal: Ideation (deneis any) Homicidal: Ideation (deneis any) Insight/Judgement Poor Vitals/IOs Vital Signs Date Time Temp Pulse Resp B/P Pulse Ox O2 Delivery O2 Flow Rate FiO2 07/29/16 05:26 97.9 56 15 106/54 91 Assessment & Plan Problem List: (1) Schizoaffective disorder, bipolar type ICD Code: F25.0 Assessment & Plan Estimated LOS: days while patient's somewhat improved remains vigilant paranoid irritable with poor compliance medication Justification for Cont. Inpt. At this time patient would significantly decompensate if placed a lower level of care Discharge Planning To be determined Request HC Surrog/Guard Advoc?: No Phil Mckee MD Jul 29, 2016 15:19
[2016-07-29 19:00] VITALS: BP 112/64; PULSE 73; RESP 20; TEMP 98.4; O2SAT 97
[2016-07-29] MEDS: ALUMINUM/MAGNESIUM/SIMETH 30 ML CUP PO PRN (20:24)
[2016-07-29] MEDS: OLANZapine ODT 20 MG TAB SL SCH (20:24)
[2016-07-29] MEDS: ATORVASTATIN 10 MG TAB PO SCH (20:25)
[2016-07-30] MEDS: ACETAMINOPHEN 325 MG TAB PO PRN (06:04)
[2016-07-30] MEDS: INSULIN ASPART SUPPLEMENTAL SCALE SQ SCH ×4 (06:05→20:44)
[2016-07-30 06:29] VITALS: BP 135/81; PULSE 62; RESP 17; TEMP 99.1
--- NOTE | 2016-07-30 08:51 | HHI.PYPN ---
Subjective Remarks Patient seen in his room with nurse Genia, chart review, patient calmer and more cooperative with me decrease in the range and intensity of his affect. There is a marked increase also is vigilance and paranoia. He is now compliant with medications. Appears willing to discuss [facility] placement perhaps it Palma Solabal has supposed to Arlette holman Review of Systems Except as stated in HPI: all other systems reviewed are Neg Objective Alert: Yes [place]: Person, Place, Date Mood: Calm Affect: Flat Memory Intact: Comment (no significant impairment) Hallucinations: Other (deneis any) Delusions: Yes (re a girlfriend at [facility]) Delusion Type: Paranoid (slightly decreased) Suicidal: Ideation (deneis any) Homicidal: Ideation (deneis any) Insight/Judgement Poor Vitals/IOs Vital Signs Date Time Temp Pulse Resp B/P Pulse Ox O2 Delivery O2 Flow Rate FiO2 07/30/16 06:29 99.1 62 17 135/81 07/29/16 19:00 97 Assessment & Plan Problem List: (1) Schizoaffective disorder, bipolar type ICD Code: F25.0 Assessment & Plan Estimated LOS: days patient showing some improvement, his psychosis paranoia vigilance is somewhat softening, patient continues compliant with medications for now continue treatment Justification for Cont. Inpt. If this and the patient would significantly decompensate if placed in the lower level of care Discharge Planning To be determined Request HC Surrog/Guard Advoc?: No Phil Mckee MD Jul 30, 2016 08:51
[2016-07-30] MEDS: busPIRone HCL 5 MG TAB PO SCH ×3 (09:00→18:00)
[2016-07-30] MEDS: TIMOLOL MALEATE 0.5% OPHT SOLN 5 ML BTL EACH EYE SCH (09:00)
[2016-07-30] MEDS: PHENYTOIN SUSP 100 MG/4 ML CUP PO SCH ×3 (09:19→17:52)
[2016-07-30] MEDS: NITROFURANTOIN MONOHYD MACROCR 100 MG CAP PO SCH ×2 (09:20→17:53)
[2016-07-30] MEDS: HYDROCORTISONE 1% CREAM 30 GM TOPICAL SCH (09:20)
[2016-07-30] MEDS: LISINOPRIL 20 MG TAB PO SCH (09:21)
[2016-07-30] MEDS: metFORMIN HCL 500 MG TAB PO SCH ×2 (09:21→17:53)
[2016-07-30] MEDS: METOPROLOL TARTRATE 50 MG TAB PO SCH ×2 (09:21→20:44)
[2016-07-30] MEDS: ASPIRIN EC 81 MG TABEC PO SCH (09:21)
[2016-07-30] MEDS: CITALOPRAM HYDROBROMIDE 20 MG TAB PO SCH (09:22)
[2016-07-30] MEDS: ALUMINUM/MAGNESIUM/SIMETH 30 ML CUP PO PRN (10:40)
[2016-07-30 13:00] VITALS: TEMP 98.5
[2016-07-30 19:30] VITALS: BP 106/56; PULSE 54; RESP 18; TEMP 98.1; O2SAT 97
[2016-07-30] MEDS: OLANZapine ODT 20 MG TAB SL SCH (20:43)
[2016-07-30] MEDS: ATORVASTATIN 10 MG TAB PO SCH (20:44)
[2016-07-31 06:08] VITALS: BP 123/73; PULSE 63; RESP 18; TEMP 97.6; O2SAT 93
[2016-07-31] MEDS: INSULIN ASPART SUPPLEMENTAL SCALE SQ SCH ×4 (06:12→21:00)
[2016-07-31] MEDS: busPIRone HCL 5 MG TAB PO SCH ×3 (08:44→17:51)
[2016-07-31] MEDS: metFORMIN HCL 500 MG TAB PO SCH ×2 (08:44→17:51)
[2016-07-31] MEDS: ASPIRIN EC 81 MG TABEC PO SCH (08:44)
[2016-07-31] MEDS: LISINOPRIL 20 MG TAB PO SCH (08:44)
[2016-07-31] MEDS: METOPROLOL TARTRATE 50 MG TAB PO SCH ×2 (08:44→21:00)
[2016-07-31] MEDS: NITROFURANTOIN MONOHYD MACROCR 100 MG CAP PO SCH ×2 (08:44→17:51)
[2016-07-31] MEDS: PHENYTOIN SUSP 100 MG/4 ML CUP PO SCH ×3 (08:45→17:52)
[2016-07-31] MEDS: CITALOPRAM HYDROBROMIDE 20 MG TAB PO SCH (08:54)
[2016-07-31] MEDS: TIMOLOL MALEATE 0.5% OPHT SOLN 5 ML BTL EACH EYE SCH (09:00)
[2016-07-31] MEDS: HYDROCORTISONE 1% CREAM 30 GM TOPICAL SCH (09:00)
--- NOTE | 2016-07-31 13:35 | HHI.PYPN ---
Subjective Remarks Patient seen in his room with floor staff, chart review, patient compliant medications, will need to check his Dilantin level in a.m., continues to be quite willing to take his Zyprexa at bedtime. Is complaining of some nausea and upset in this in the morning he feels somewhat related to his medication. Though the only psychotropic is taking is a small dose of BuSpar in the morning. Still some focus on his past relationship with women though not as intense as prior. For now continue medication no change Review of Systems Except as stated in HPI: all other systems reviewed are Neg Objective Alert: Yes [place]: Person, Place, Date Mood: Calm Affect: Flat Memory Intact: Comment (no significant impairment) Hallucinations: Other (deneis any) Delusions: Yes (re a girlfriend at [facility]) Delusion Type: Paranoid (slightly decreased) Suicidal: Ideation (deneis any) Homicidal: Ideation (deneis any) Insight/Judgement Poor Vitals/IOs Vital Signs Date Time Temp Pulse Resp B/P Pulse Ox O2 Delivery O2 Flow Rate FiO2 07/31/16 06:08 97.6 63 18 123/73 93 Assessment & Plan Problem List: (1) Schizoaffective disorder, bipolar type ICD Code: F25.0 Assessment & Plan Estimated LOS: days patient continues somewhat paranoid vigilant and labile. Though softer today. Compliant medications. Counseling is continuing to work on placement issues Justification for Cont. Inpt. At this time patient will decompensate if placed in the lower level of care Discharge Planning To be determined Request HC Surrog/Guard Advoc?: No Phil Mckee MD Jul 31, 2016 13:35
[2016-07-31 18:52] VITALS: BP 125/66; PULSE 65; RESP 18; TEMP 97.5; O2SAT 97
[2016-07-31] MEDS: ATORVASTATIN 10 MG TAB PO SCH (21:00)
[2016-07-31] MEDS: OLANZapine ODT 20 MG TAB SL SCH (21:00)
[2016-08-01 05:00] VITALS: BP 158/74; PULSE 65; RESP 18; TEMP 98.3; O2SAT 98
[2016-08-01] MEDS: INSULIN ASPART SUPPLEMENTAL SCALE SQ SCH ×2 (06:38→11:00)
[2016-08-01] MEDS: TIMOLOL MALEATE 0.5% OPHT SOLN 5 ML BTL EACH EYE SCH (09:00)
[2016-08-01] MEDS: HYDROCORTISONE 1% CREAM 30 GM TOPICAL SCH (09:00)
[2016-08-01] MEDS: ASPIRIN EC 81 MG TABEC PO SCH (09:59)
[2016-08-01] MEDS: PHENYTOIN SUSP 100 MG/4 ML CUP PO SCH ×4 (09:59→18:00)
[2016-08-01] MEDS: LISINOPRIL 20 MG TAB PO SCH (09:59)
[2016-08-01] MEDS: CITALOPRAM HYDROBROMIDE 20 MG TAB PO SCH (10:00)
[2016-08-01] MEDS: metFORMIN HCL 500 MG TAB PO SCH ×2 (10:00→18:00)
[2016-08-01] MEDS: busPIRone HCL 5 MG TAB PO SCH ×4 (10:00→18:00)
[2016-08-01] MEDS: METOPROLOL TARTRATE 50 MG TAB PO SCH ×2 (10:00→20:56)
[2016-08-01] MEDS: NITROFURANTOIN MONOHYD MACROCR 100 MG CAP PO SCH ×2 (10:00→18:00)
[2016-08-01] MEDS: ONDANSETRON ODT 4 MG TAB PO PRN (12:18)
--- NOTE | 2016-08-01 12:55 | HHI.PYPN ---
Subjective Remarks Patient seen in his room with floor staff, patient sitting on chair by window, chart reviewed, it appears patient another episode of emesis around lunchtime. This is about his third in the past few days. Patient does not complain of any abdominal pain at this time he is calm pleasant cooperative with me. We will have the hospitalist reconsult to assess and treat. Patient continues to be willing to look at [facility] placements I have talked with counselor Amanuel and he states patient has been refused from a few [facility]. For now continue treatment Review of Systems Except as stated in HPI: all other systems reviewed are Neg Objective Alert: Yes [place]: Person, Place, Date Mood: Calm Affect: Flat Memory Intact: Comment (no significant impairment) Hallucinations: Other (deneis any) Delusions: Yes (re a girlfriend at [facility]) Delusion Type: Paranoid (slightly decreased) Suicidal: Ideation (deneis any) Homicidal: Ideation (deneis any) Insight/Judgement Poor Vitals/IOs Vital Signs Date Time Temp Pulse Resp B/P Pulse Ox O2 Delivery O2 Flow Rate FiO2 08/01/16 05:00 98.3 65 18 158/74 98 Assessment & Plan Problem List: (1) Schizoaffective disorder, bipolar type ICD Code: F25.0 Assessment & Plan Estimated LOS: days patient somewhat calmer at this time. Is coping with his somatic issues related to some fairly frequent episodes of emesis. We'll's reconsult Justification for Cont. Inpt. At this time the patient was significantly decompensate if placed in a lower level of care Discharge Planning To be determined Request HC Surrog/Guard Advoc?: No Phil Mckee MD Aug 01, 2016 12:55
--- NOTE | 2016-08-01 16:59 | HHI.PR ---
Subjective Remarks Follow-up UTI, Diabetes mellitus and reconsult for nausea/vomiting Patient evaluated resting in bed comfortably. Patient reports he had some nausea earlier but has resolved. Patient reports he does tend to get nausea and vomiting from time to time chronically this is nothing new or out of the ordinary. Patient denies diarrhea or abdominal pain. RN did witness vomitus material reports that is consistent with undigested food no signs of bright red blood or coffee-ground to the emesis. Patient denies chest pain shortness of breath fevers or chills Objective Vitals Vital Signs Date Time Temp Pulse Resp B/P Pulse Ox O2 Delivery O2 Flow Rate FiO2 08/01/16 05:00 98.3 65 18 158/74 98 07/31/16 18:52 97.5 65 18 125/66 97 Objective Remarks GENERAL: This is a well-nourished, well-developed patient, in no apparent distress. CARDIOVASCULAR: Regular rate and rhythm without murmurs, gallops, or rubs. RESPIRATORY: Clear to auscultation. Breath sounds equal bilaterally. No wheezes , rales, or rhonchi. GASTROINTESTINAL: Abdomen soft, non-tender, nondistended. Normal active bowel sounds MUSCULOSKELETAL: Extremities without clubbing, cyanosis, or edema. NEURO: No focal deficits identified Moves all ext x4 A/P Assessment and Plan This is a 60-year-old male patient in the psych unit for schizoaffective disorder, we are being consulted for medical comanagement of COPD, atrial flutter and possible UTI. Schizoaffective disorder, bipolar type-further management per psychiatry Nausea/vomiting Continue Zofran as needed Patient will complete his course of Macrobid 08/02/2016 which may be contributing to his GI upset Patient denies diarrhea We'll check CBC and CMP UTI-urine culture grew Enterococcus faecalis, sensitive to Macrobid- Macrobid. Date 08/02/2016 This may be continued contributing to patient's GI upset will discontinue tomorrow History of COPD-not in exacerbation Dyslipidemia- continue statin History of seizures-continue phenytoin, Dilantin levels ordered and pending. Continue metoprolol, lisinopril, clonidine as needed Diabetes mellitus- continue metformin Hemoglobin A1c 7.1 DC sliding scale insulin coverage as patient has not required coverage DVT prophylaxis patient is ambulatory Discussed plan of care with patient and RN Written by Norah Yusuf, acting as scribe for Dr. Wheatley on 08/01/16 at 15 :58. The documentation accurately reflects the work performed [id number] by me on at 15:58. Norah Yusuf Aug 01, 2016 16:59 Nahid Wheatley DO Aug 01, 2016 18:37
[2016-08-01 18:00] VITALS: BP 96/54; PULSE 67; RESP 20; TEMP 97.6; O2SAT 96
[2016-08-01] MEDS: ATORVASTATIN 10 MG TAB PO SCH (20:57)
[2016-08-01] MEDS: OLANZapine ODT 20 MG TAB SL SCH (20:57)
[2016-08-02 05:20] VITALS: BP 99/52; PULSE 57; RESP 15; TEMP 97.7
[2016-08-02] MEDS: PHENYTOIN SUSP 100 MG/4 ML CUP PO SCH ×3 (08:47→18:00)
[2016-08-02] MEDS: NITROFURANTOIN MONOHYD MACROCR 100 MG CAP PO SCH (08:51)
[2016-08-02] MEDS: metFORMIN HCL 500 MG TAB PO SCH ×2 (08:51→18:00)
[2016-08-02] MEDS: ASPIRIN EC 81 MG TABEC PO SCH (08:51)
[2016-08-02] MEDS: LISINOPRIL 20 MG TAB PO SCH (08:51)
[2016-08-02] MEDS: METOPROLOL TARTRATE 50 MG TAB PO SCH ×2 (08:51→20:22)
[2016-08-02] MEDS: CITALOPRAM HYDROBROMIDE 20 MG TAB PO SCH (08:52)
[2016-08-02] MEDS: busPIRone HCL 5 MG TAB PO SCH ×3 (08:52→18:00)
[2016-08-02] MEDS: TIMOLOL MALEATE 0.5% OPHT SOLN 5 ML BTL EACH EYE SCH (08:52)
[2016-08-02] MEDS: HYDROCORTISONE 1% CREAM 30 GM TOPICAL SCH (09:00)
--- NOTE | 2016-08-02 11:52 | HHI.PR ---
Blank section for building Patient continues to refuse lab work unable to obtain CBC or BMP for further evaluation. Patient is no longer having nausea or vomiting today appears medically stable will sign off. If further assistance is needed or patient's condition changes please reconsult. Thank you Norah Yusuf Aug 02, 2016 11:52
--- NOTE | 2016-08-02 13:55 | HHI.PYPN ---
Subjective Remarks Patient seen in room with nurse Madelin, chart reviewed, patient today shown no nausea or vomiting. His calm cooperative tolerated his breakfast and lunch without difficulty. He continues compliant with medications. Staff noticed that he has been somewhat "on stage" with all the student nurses on the unit at this time. Did advise him to maintain appropriate boundaries and do control this behavior. He responded positively to that Review of Systems Except as stated in HPI: all other systems reviewed are Neg Objective Alert: Yes [place]: Person, Place, Date Mood: Calm Affect: Flat Memory Intact: Comment (no significant impairment) Hallucinations: Other (deneis any) Delusions: Yes (re a girlfriend at [facility]) Delusion Type: Paranoid (slightly decreased) Suicidal: Ideation (deneis any) Homicidal: Ideation (deneis any) Insight/Judgement Poor Vitals/IOs Vital Signs Date Time Temp Pulse Resp B/P Pulse Ox O2 Delivery O2 Flow Rate FiO2 08/02/16 05:20 97.7 57 15 99/52 08/01/16 18:00 96 Assessment & Plan Problem List: (1) Schizoaffective disorder, bipolar type ICD Code: F25.0 Assessment & Plan Estimated LOS: days patient face somewhat labile although softening, compliant medications, nausea and vomiting appears to have diminished Justification for Cont. Inpt. At this time patient will decompensate if placed in the lower level of care Discharge Planning To be determined Request HC Surrog/Guard Advoc?: No Phil Mckee MD Aug 02, 2016 13:55
[2016-08-02 19:08] VITALS: BP 91/56; PULSE 72; RESP 17; TEMP 96.9; O2SAT 97
[2016-08-02] MEDS: OLANZapine ODT 20 MG TAB SL SCH (20:22)
[2016-08-02] MEDS: ATORVASTATIN 10 MG TAB PO SCH (20:22)
[2016-08-03 06:09] VITALS: BP 118/74; PULSE 56; RESP 18; TEMP 97.6
[2016-08-03] MEDS: ASPIRIN EC 81 MG TABEC PO SCH (08:49)
[2016-08-03] MEDS: busPIRone HCL 5 MG TAB PO SCH ×3 (08:49→17:10)
[2016-08-03] MEDS: TIMOLOL MALEATE 0.5% OPHT SOLN 5 ML BTL EACH EYE SCH (08:50)
[2016-08-03] MEDS: metFORMIN HCL 500 MG TAB PO SCH ×2 (08:50→17:10)
[2016-08-03] MEDS: LISINOPRIL 20 MG TAB PO SCH (08:50)
[2016-08-03] MEDS: PHENYTOIN SUSP 100 MG/4 ML CUP PO SCH ×3 (08:50→17:10)
[2016-08-03] MEDS: CITALOPRAM HYDROBROMIDE 20 MG TAB PO SCH (08:57)
[2016-08-03] MEDS: METOPROLOL TARTRATE 50 MG TAB PO SCH ×2 (08:57→21:42)
[2016-08-03] MEDS: HYDROCORTISONE 1% CREAM 30 GM TOPICAL SCH (08:57)
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
--- NOTE | 2016-08-03 17:48 | HHI.PR ---
Subjective Remarks Reconsult for rash. Patient evaluated in room with Dr. Rios and RN present. Limited exam due to patient's lack of cooperation. Patient denies itching, but visually scratching. Objective Vitals Vital Signs Date Time Temp Pulse Resp B/P Pulse Ox O2 Delivery O2 Flow Rate FiO2 08/03/16 06:09 97.6 56 18 118/74 08/02/16 19:08 96.9 72 17 91/56 97 Objective Remarks GENERAL: This is a well-nourished, well-developed patient, in no apparent distress. SKIN: exam limited due to patient lack of cooperation, multiple healing scabbed areas through bilateral lower extremities from area of midthigh down RESPIRATORY: equal rise bilaterally no use of accessory muscle use GASTROINTESTINAL: Abdomen soft, non-tender, nondistended. MUSCULOSKELETAL: Extremities without clubbing, cyanosis, or edema. NEURO: No focal deficits identified Moves all ext x4 A/P Assessment and Plan This is a 60-year-old male patient in the psych unit for schizoaffective disorder, we are being consulted for medical comanagement of COPD, atrial flutter and possible UTI. Schizoaffective disorder, bipolar type-further management per psychiatry Healing rash will retreat for scabies with permethrin last treatment07/20/2016 DC hydrocortisone as patient has been this since 07/20/2016 History of COPD-not in exacerbation Dyslipidemia- continue statin History of seizures-continue phenytoin, Dilantin levels ordered but patient refusing lab draw Continue metoprolol, lisinopril, clonidine as needed Diabetes mellitus- continue metformin Hemoglobin A1c 7.1 DVT prophylaxis patient is ambulatory Discussed plan of care with patient and RN Written by Norah Yusuf, acting as scribe for Dr. Rios on 08/03/16 at 17:47. Attending Statement patient was reevaluated for the rash. patient is not cooperative with the exam but rash noted on both lower extremities and he was scratching the rash at the time. will retreat with permethrin and monitor the response. rest of the assessment and plan as noted above. Norah Yusuf Aug 03, 2016 17:48 Toribio Rios MD Aug 03, 2016 18:02
[2016-08-03] MEDS ORDERED: PERMETHRIN 5% CREAM 60 GM TOPICAL ONE (18:00)
[2016-08-03 18:54] VITALS: BP 107/73; PULSE 77; RESP 18; TEMP 97.5; O2SAT 100
[2016-08-03] MEDS: OLANZapine ODT 20 MG TAB SL SCH (21:00)
[2016-08-03] MEDS: ATORVASTATIN 10 MG TAB PO SCH (21:42)
[2016-08-03] MEDS: IBUPROFEN 600 MG TAB PO PRN (21:42)
[2016-08-03 22:45] VITALS: BP 128/93; PULSE 77; RESP 16; TEMP 97.6; O2SAT 92
[2016-08-04] MEDS: IBUPROFEN 600 MG TAB PO PRN ×2 (00:23→22:00)
[2016-08-04 06:02] VITALS: BP 129/60; PULSE 51; RESP 18; TEMP 97.7; O2SAT 97
[2016-08-04] MEDS: busPIRone HCL 5 MG TAB PO SCH ×3 (08:36→17:43)
[2016-08-04] MEDS: metFORMIN HCL 500 MG TAB PO SCH ×2 (08:36→17:43)
[2016-08-04] MEDS: CITALOPRAM HYDROBROMIDE 20 MG TAB PO SCH (08:36)
[2016-08-04] MEDS: LISINOPRIL 20 MG TAB PO SCH (08:36)
[2016-08-04] MEDS: ASPIRIN EC 81 MG TABEC PO SCH (08:36)
[2016-08-04] MEDS: METOPROLOL TARTRATE 50 MG TAB PO SCH ×2 (08:36→21:00)
[2016-08-04] MEDS: TIMOLOL MALEATE 0.5% OPHT SOLN 5 ML BTL EACH EYE SCH (08:37)
[2016-08-04] MEDS: PHENYTOIN SUSP 100 MG/4 ML CUP PO SCH ×3 (08:37→17:43)
--- NOTE | 2016-08-04 13:08 | HHI.PYPN ---
Subjective Remarks Patient is seen and case discussed with nursing. Patient is less irritable today. He refuse to take his afternoon medications for the nurse. I asked him if he ate lunch and he said he did not. Patient said he is gaining his promise that if we give him lunch right now, he will take his medications. Denies auditory visual hallucinations. He remains perseverative on discharge Objective Alert: Yes [place]: Person, Place, Date Mood: Calm Affect: Flat Memory Intact: Comment (no significant impairment) Hallucinations: Other (deneis any) Delusions: Yes (re a girlfriend at [facility] [facility] [employer] [facility]) Delusion Type: Paranoid (slightly decreased) Suicidal: Ideation (deneis any) Homicidal: Ideation (deneis any) Insight/Judgement Poor Vitals/IOs Vital Signs Date Time Temp Pulse Resp B/P Pulse Ox O2 Delivery O2 Flow Rate FiO2 08/04/16 06:02 97.7 51 18 129/60 97 Assessment & Plan Problem List: (1) Schizoaffective disorder, bipolar type ICD Code: F25.0 Assessment & Plan Continue current treatment plan Justification for Cont. Inpt. Patient would decompensate in a less restrictive setting Request HC Surrog/Guard Advoc?: No Vishnu Small DO Aug 04, 2016 13:08
[2016-08-04 19:14] VITALS: BP 125/60; PULSE 69; RESP 18; TEMP 97.6; O2SAT 98
[2016-08-04] MEDS: ATORVASTATIN 10 MG TAB PO SCH (21:00)
[2016-08-04] MEDS: OLANZapine ODT 20 MG TAB SL SCH (21:00)
[2016-08-05 05:36] VITALS: BP 124/58; PULSE 50; RESP 16; TEMP 98; O2SAT 98
[2016-08-05] MEDS: TIMOLOL MALEATE 0.5% OPHT SOLN 5 ML BTL EACH EYE SCH (09:00)
[2016-08-05] MEDS: LISINOPRIL 20 MG TAB PO SCH (09:25)
[2016-08-05] MEDS: PHENYTOIN SUSP 100 MG/4 ML CUP PO SCH ×3 (09:25→17:19)
[2016-08-05] MEDS: metFORMIN HCL 500 MG TAB PO SCH ×2 (09:25→17:19)
[2016-08-05] MEDS: ASPIRIN EC 81 MG TABEC PO SCH (09:25)
[2016-08-05] MEDS: METOPROLOL TARTRATE 50 MG TAB PO SCH ×2 (09:25→20:10)
[2016-08-05] MEDS: CITALOPRAM HYDROBROMIDE 20 MG TAB PO SCH (09:26)
[2016-08-05] MEDS: busPIRone HCL 5 MG TAB PO SCH ×3 (09:26→17:18)
--- NOTE | 2016-08-05 11:46 | HHI.PR ---
Subjective Remarks Follow-up scabies Status post permethrin treatment 2 Patient reports occasional itching not as bad as it had been. Dry flaking skin evident. Patient offers no medical complaints denies chest pain shortness of breath nausea vomiting fevers chills diarrhea or constipation Objective Vitals Vital Signs Date Time Temp Pulse Resp B/P Pulse Ox O2 Delivery O2 Flow Rate FiO2 08/05/16 05:36 98.0 50 16 124/58 98 08/04/16 19:14 97.6 69 18 125/60 98 Objective Remarks GENERAL: This is a well-nourished, well-developed patient, in no apparent distress. SKIN: multiple healing scabbed areas through bilateral lower extremities, also dry scaling skin bilateral lower extremities noted RESPIRATORY: equal rise bilaterally no use of accessory muscle use Cardiovascular: Regular rate and rhythm no murmurs gallops or rubs GASTROINTESTINAL: Abdomen soft, non-tender, nondistended. MUSCULOSKELETAL: Extremities without clubbing, cyanosis, or edema. NEURO: No focal deficits identified Moves all ext x4 Psychiatric: calm and cooperative at this time A/P Assessment and Plan This is a 60-year-old male patient in the psych unit for schizoaffective disorder, we are being consulted for medical comanagement of COPD, atrial flutter and possible UTI. Schizoaffective disorder, bipolar type-further management per psychiatry Healing rash will retreat for scabies s/p permethrin x 2 DC hydrocortisone as patient has been this since 07/20/2016 Dry skin- Eucerin cream as needed History of COPD-not in exacerbation Dyslipidemia- continue statin History of seizures-continue phenytoin, Dilantin levels ordered but patient refusing lab draw Continue metoprolol, lisinopril, clonidine as needed Diabetes mellitus- continue metformin Hemoglobin A1c 7.1 DVT prophylaxis patient is ambulatory Discussed plan of care with patient and RN Patient appears medically stable will sign off. Patient's condition changes or further assistance is needed please reconsult. Thank you Written by Norah Yusuf, acting as scribe for Dr. Escalante on 08/05/16 at 11:45. The documentation accurately reflects the work performed [id number] by me on at 1145 Norah Yusuf Aug 05, 2016 11:46 Jerome Escalante MD Aug 06, 2016 08:54
--- NOTE | 2016-08-05 15:07 | HHI.PYPN ---
Subjective Remarks Patient discussed with treatment team, chart review, seen on unit. Patient continues somewhat volatile but calm with me continue to work on placement issues. Compliant medications. Review of Systems Except as stated in HPI: all other systems reviewed are Neg Objective Alert: Yes [place]: Person, Place, Date Mood: Calm Affect: Flat Memory Intact: Comment (no significant impairment) Hallucinations: Other (deneis any) Delusions: Yes (re a girlfriend at [facility]) Delusion Type: Paranoid (slightly decreased) Suicidal: Ideation (deneis any) Homicidal: Ideation (deneis any) Insight/Judgement Very poor Vitals/IOs Vital Signs Date Time Temp Pulse Resp B/P Pulse Ox O2 Delivery O2 Flow Rate FiO2 08/05/16 05:36 98.0 50 16 124/58 98 Assessment & Plan Problem List: (1) Schizoaffective disorder, bipolar type ICD Code: F25.0 Assessment & Plan Estimated LOS: days patient somewhat calmer today so still labile. Continues to agree with placement issues Justification for Cont. Inpt. At this time patient would significantly decompensated place to the lower level of care Discharge Planning To be determined Request HC Surrog/Guard Advoc?: No Phil Mckee MD Aug 05, 2016 15:07
[2016-08-05 19:57] VITALS: BP 118/63; PULSE 59; RESP 16; TEMP 97.5; O2SAT 98
[2016-08-05] MEDS: OLANZapine ODT 20 MG TAB SL SCH (20:09)
[2016-08-05] MEDS: ATORVASTATIN 10 MG TAB PO SCH (20:10)
[2016-08-06 05:40] VITALS: BP 106/59; PULSE 84; RESP 18; TEMP 98.4; O2SAT 100
[2016-08-06] MEDS: LISINOPRIL 20 MG TAB PO SCH (09:00)
[2016-08-06] MEDS: TIMOLOL MALEATE 0.5% OPHT SOLN 5 ML BTL EACH EYE SCH (09:00)
[2016-08-06] MEDS: METOPROLOL TARTRATE 50 MG TAB PO SCH ×2 (09:00→20:45)
[2016-08-06] MEDS: metFORMIN HCL 500 MG TAB PO SCH ×2 (09:10→17:22)
[2016-08-06] MEDS: CITALOPRAM HYDROBROMIDE 20 MG TAB PO SCH (09:10)
[2016-08-06] MEDS: busPIRone HCL 5 MG TAB PO SCH ×3 (09:10→17:21)
[2016-08-06] MEDS: PHENYTOIN SUSP 100 MG/4 ML CUP PO SCH ×3 (09:10→17:11)
[2016-08-06] MEDS: ASPIRIN EC 81 MG TABEC PO SCH (09:10)
--- NOTE | 2016-08-06 10:09 | HHI.PYPN ---
Subjective Remarks Patient seen in room with nurse Michael, chart review. It appears patient continues to be intrusive with females on the unit making and appropriate sexual remarks yesterday evening. Patient showing no insight into this continues to voice desire at times to live independently. Patient compliant with his Zyprexa. Upon review of medications patient did also take the Invega Sustenna on 07/19 at 156 mg. He tolerated that well. However I feel is still showing mood lability little insight. Will offer the Invega Sustenna at 3 weeks and increase the dose to 234 mg thus will offer him the medication on 08/09 continue other medications no change Review of Systems Except as stated in HPI: all other systems reviewed are Neg Objective Alert: Yes [place]: Person, Place, Date Mood: Calm Affect: Flat Memory Intact: Comment (no significant impairment) Hallucinations: Other (deneis any) Delusions: Yes (re a girlfriend at [facility]) Delusion Type: Paranoid (slightly decreased) Suicidal: Ideation (deneis any) Homicidal: Ideation (deneis any) Insight/Judgement Poor Vitals/IOs Vital Signs Date Time Temp Pulse Resp B/P Pulse Ox O2 Delivery O2 Flow Rate FiO2 08/06/16 05:40 98.4 84 18 106/59 100 Assessment & Plan Problem List: (1) Schizoaffective disorder, bipolar type ICD Code: F25.0 Assessment & Plan Estimated LOS: days patient continue somewhat psychotic, intrusive, with little insight. She medication adjustments above Justification for Cont. Inpt. At this time patient would significantly decompensate if placed in a lower level of care Discharge Planning To be determined Request HC Surrog/Guard Advoc?: No Phil Mckee MD Aug 06, 2016 10:09
[2016-08-06] MEDS: ATORVASTATIN 10 MG TAB PO SCH (20:45)
[2016-08-06] MEDS: OLANZapine ODT 20 MG TAB SL SCH (20:45)
[2016-08-06 21:15] VITALS: BP 143/70; PULSE 67; RESP 18; TEMP 98.9; O2SAT 96
[2016-08-06 22:35] VITALS: BP 139/89; PULSE 60; RESP 16; TEMP 97.6; O2SAT 94
[2016-08-06 23:30] VITALS: BP 104/50; PULSE 50; RESP 18; TEMP 97.6; O2SAT 94
[2016-08-07] VITALS (7 sets, daily range): BP systolic 110–138; BP diastolic 50–79; PULSE 56–85; RESP 14–18; TEMP 97.3–98.3; O2SAT 96–99
[2016-08-07] MEDS: metFORMIN HCL 500 MG TAB PO SCH ×2 (08:49→18:00)
[2016-08-07] MEDS: PHENYTOIN SUSP 100 MG/4 ML CUP PO SCH ×3 (08:49→18:00)
[2016-08-07] MEDS: TIMOLOL MALEATE 0.5% OPHT SOLN 5 ML BTL EACH EYE SCH (08:49)
[2016-08-07] MEDS: CITALOPRAM HYDROBROMIDE 20 MG TAB PO SCH (08:49)
[2016-08-07] MEDS: LISINOPRIL 20 MG TAB PO SCH (08:49)
[2016-08-07] MEDS: busPIRone HCL 5 MG TAB PO SCH ×3 (08:49→18:00)
[2016-08-07] MEDS: METOPROLOL TARTRATE 50 MG TAB PO SCH ×2 (08:49→21:36)
[2016-08-07] MEDS: ASPIRIN EC 81 MG TABEC PO SCH (08:49)
--- NOTE | 2016-08-07 13:55 | HHI.PYPN ---
Subjective Remarks Patient seen on 2499, patient transferred to this unit due to increasing falls. Stating he at times gets somewhat dizzy. At the present time patient seen in May with staff. Continues somewhat irritable and some inappropriate comments towards female staff and patients. I again advised him of the need to for appropriate respect and boundaries towards females. He also continues with some severely dry skin and rashes. We did discuss with the hospitalist reapply applying scabies treatment team he felt that at this time it was too soon since he had been treated on August 03July. Patient due for repeat in vagueness sustained on 2/3 Review of Systems Except as stated in HPI: all other systems reviewed are Neg Objective Alert: Yes [place]: Person, Place, Date Mood: Calm Affect: Flat Memory Intact: Comment (no significant impairment) Hallucinations: Other (deneis any) Delusions: Yes (re a girlfriend at [facility]) Delusion Type: Paranoid (slightly decreased) Suicidal: Ideation (deneis any) Homicidal: Ideation (deneis any) Insight/Judgement Very poor Vitals/IOs Vital Signs Date Time Temp Pulse Resp B/P Pulse Ox O2 Delivery O2 Flow Rate FiO2 08/07/16 06:05 98.3 56 18 117/68 98 Assessment & Plan Problem List: (1) Schizoaffective disorder, bipolar type ICD Code: F25.0 Assessment & Plan Estimated LOS: days patient continues irritable somewhat paranoid and inappropriate. The patient seen by the hospitalist now to for his pruritus of very dry skin. See see treatment changes and precautions above. After discussing patient's behavior and resistance to treatment. We feel it is appropriate to start state referral packet for this gentleman Justification for Cont. Inpt. At this time patient was significantly decompensated placed in a lower level of care Discharge Planning To be determined we'll start state referral packet Request HC Surrog/Guard Advoc?: No Phil Mckee MD Aug 07, 2016 13:55
[2016-08-07] MEDS: BETAMETHASONE/CLOTRIMAZOLE CREAM 15 GM TOPICAL SCH ×2 (14:00→21:37)
[2016-08-07] MEDS ORDERED: hydrOXYzine HCL 10 MG TAB PO PRN (14:00)
[2016-08-07] MEDS: LACTIC ACID (AMMONIUM LACTATE) 12% LOTION 225 GM BTL TOPICAL SCH ×2 (14:00→21:37)
[2016-08-07] MEDS: hydrOXYzine HCL 10 MG TAB PO SCH ×2 (14:00→21:36)
--- NOTE | 2016-08-07 16:27 | HHI.PR ---
Subjective Remarks Follow-up dermatitis. Requested by patient's attending to evaluated patient secondary to continued itching. Patient has been scratching anterior thighs. Objective Vitals Vital Signs Date Time Temp Pulse Resp B/P Pulse Ox O2 Delivery O2 Flow Rate FiO2 08/07/16 06:05 98.3 56 18 117/68 98 08/07/16 03:35 97.4 59 18 138/65 96 08/06/16 23:30 97.6 50 18 104/50 94 08/06/16 22:35 97.6 60 16 139/89 94 08/06/16 21:15 98.9 67 18 143/70 96 Objective Remarks GENERAL: This is a well-nourished, well-developed patient, in no apparent distress. SKIN: multiple healing scabbed areas through bilateral lower extremities, also dry scaling skin bilateral lower extremities noted RESPIRATORY: equal rise bilaterally no use of accessory muscle use Cardiovascular: Regular rate and rhythm no murmurs gallops or rubs GASTROINTESTINAL: Abdomen soft, non-tender, nondistended. MUSCULOSKELETAL: Extremities without clubbing, cyanosis, or edema. Tinea pedis noted NEURO: No focal deficits identified Moves all ext x4 Psychiatric: calm and cooperative at this time A/P Assessment and Plan This is a 60-year-old male patient in the psych unit for schizoaffective disorder, we are being consulted for medical comanagement of COPD, atrial flutter and possible UTI. Schizoaffective disorder, bipolar type-further management per psychiatry Healing rash from scabies s/p permethrin x 2 DC hydrocortisone as patient has been this since 07/20/2016 Dry skin- Eucerin cream as needed. Add Lac-Hydrin Tinea pedis. Lotrimin cream. History of COPD-not in exacerbation Dyslipidemia- continue statin History of seizures-continue phenytoin, Dilantin levels ordered but patient refusing lab draw Continue metoprolol, lisinopril, clonidine as needed Diabetes mellitus- continue metformin Hemoglobin A1c 7.1 DVT prophylaxis patient is ambulatory Jerome Escalante MD Aug 07, 2016 16:27 The documentation accurately reflects the work performed [id number] by me on at 1145 Inpatient MDM [No output description is provided] Norah Yusuf Aug 05, 2016 11:46 Jerome Escalante MD A/P Assessment and Plan This is a 60-year-old male patient in the psych unit for schizoaffective disorder, we are being consulted for medical comanagement of COPD, atrial flutter and possible UTI. Schizoaffective disorder, bipolar type-further management per psychiatry Healing rash will retreat for scabies s/p permethrin x 2 DC hydrocortisone as patient has been this since 07/20/2016 Dry skin- Eucerin cream as needed History of COPD-not in exacerbation Dyslipidemia- continue statin History of seizures-continue phenytoin, Dilantin levels ordered but patient refusing lab draw Continue metoprolol, lisinopril, clonidine as needed Diabetes mellitus- continue metformin Hemoglobin A1c 7.1 DVT prophylaxis patient is ambulatory Discussed plan of care with patient and RN Patient appears medically stable will sign off. Patient's condition changes or further assistance is needed please reconsult. Thank you Written by Norah Yusuf, acting as scribe for Dr. Escalante on 08/05/16 at 11:45. The documentation accurately reflects the work performed [id number] by me on at 1145 Jerome Escalante MD Aug 07, 2016 16:27
[2016-08-07] MEDS: OLANZapine ODT 20 MG TAB SL SCH (21:00)
[2016-08-07] MEDS: ATORVASTATIN 10 MG TAB PO SCH (21:36)
[2016-08-08 02:30] VITALS: BP 117/71; PULSE 57; RESP 16; TEMP 98.1; O2SAT 95
[2016-08-08] MEDS: hydrOXYzine HCL 10 MG TAB PO SCH ×2 (05:24→13:12)
[2016-08-08 05:38] VITALS: BP 164/82; PULSE 54; RESP 16; TEMP 97.2
[2016-08-08 06:11] VITALS: BP 164/82; PULSE 54; RESP 16; TEMP 97.2; O2SAT 94
[2016-08-08] MEDS: busPIRone HCL 5 MG TAB PO SCH ×3 (08:43→17:01)
[2016-08-08] MEDS: TIMOLOL MALEATE 0.5% OPHT SOLN 5 ML BTL EACH EYE SCH (08:43)
[2016-08-08] MEDS: CITALOPRAM HYDROBROMIDE 20 MG TAB PO SCH (08:44)
[2016-08-08] MEDS: ASPIRIN EC 81 MG TABEC PO SCH (08:48)
[2016-08-08] MEDS: METOPROLOL TARTRATE 50 MG TAB PO SCH ×2 (08:48→20:10)
[2016-08-08] MEDS: PHENYTOIN SUSP 100 MG/4 ML CUP PO SCH ×2 (08:48→13:00)
[2016-08-08] MEDS: metFORMIN HCL 500 MG TAB PO SCH ×2 (08:48→17:09)
[2016-08-08] MEDS: LACTIC ACID (AMMONIUM LACTATE) 12% LOTION 225 GM BTL TOPICAL SCH ×2 (08:49→20:11)
[2016-08-08] MEDS: LISINOPRIL 20 MG TAB PO SCH (08:49)
[2016-08-08] MEDS: BETAMETHASONE/CLOTRIMAZOLE CREAM 15 GM TOPICAL SCH ×2 (08:49→20:11)
--- NOTE | 2016-08-08 12:00 | HHI.PYPN ---
Subjective Remarks Patient seen in [address], patient retained by Carton Repairer Demetrius. Patient continues somewhat irritable labile tray no insight into his disease. Stating he wants to be discharged to his own apartment and get . Patient due for follow-up vagueness of stating injection tomorrow. Patient compliant medications Review of Systems Except as stated in HPI: all other systems reviewed are Neg Objective Alert: Yes [place]: Person, Place, Date Mood: Calm Affect: Flat Memory Intact: Comment (no significant impairment) Hallucinations: Other (deneis any) Delusions: Yes (re a girlfriend at [facility]) Delusion Type: Paranoid (slightly decreased) Suicidal: Ideation (deneis any) Homicidal: Ideation (deneis any) Insight/Judgement Poor Vitals/IOs Vital Signs Date Time Temp Pulse Resp B/P Pulse Ox O2 Delivery O2 Flow Rate FiO2 08/08/16 06:11 97.2 54 16 164/82 94 Intake and Output 08/07/16 08/07/16 08/08/16 08:00 16:00 00:00 Intake Total 630 ml Balance 630 ml Assessment & Plan Problem List: (1) Schizoaffective disorder, bipolar type ICD Code: F25.0 Assessment & Plan Estimated LOS: days patient continues labile irritable psychotic, compliant medications, for now continue treatment Justification for Cont. Inpt. At this time patient would decompensate if placed on the lower level of care Discharge Planning To be determined Request HC Surrog/Guard Advoc?: No Phil Mckee MD Aug 08, 2016 12:00
--- NOTE | 2016-08-08 14:49 | HHI.PR ---
Subjective Remarks Follow up visit dizziness, unsteadiness, pruritus/ urticaria, orthostatic BP. Pt. seen today. As per RN report, episode of dizziness and unsteady gait, ? fall with ambulation./ Pt. states he is not dizzy when he has walker but confirms that he is unsteady on his feet. Appears slightly drowsy and lethargic. Reports itching has improved. Started on atarax yesterday. Denies pain or discomfort. denies SOB/ dyspnea, fevers, chills, n/v/d. Denies chest pain, headaches, palpitations. Objective Vitals Vital Signs Date Time Temp Pulse Resp B/P Pulse Ox O2 Delivery O2 Flow Rate FiO2 08/08/16 06:11 97.2 54 16 164/82 94 08/08/16 05:38 97.2 54 16 164/82 08/08/16 02:30 98.1 57 16 117/71 95 08/07/16 22:30 69 16 136/72 98 111/67 113/66 08/07/16 19:20 97.3 85 18 119/67 99 08/07/16 18:00 69 110/59 117/70 119/68 I/O 08/07/16 08/07/16 08/07/16 08/08/16 08/08/16 08/08/16 07:00 15:00 23:00 07:00 15:00 23:00 Intake Total 630 ml 360 ml Balance 630 ml 360 ml Intake Oral 630 ml 360 ml # Voids 1 Objective Remarks GENERAL: This is a well-nourished, well-developed patient, in no apparent distress, drowsy. SKIN: multiple erythematous macular dermatitis, previously had scabies but was treated 2x. Dry skin. CARDIOVASCULAR: Regular rate and rhythm without murmurs, gallops, or rubs. RESPIRATORY: Clear to auscultation. Breath sounds equal bilaterally. No wheezes , rales, or rhonchi. GASTROINTESTINAL: Abdomen soft, non-tender, nondistended. Normal active bowel sounds MUSCULOSKELETAL: Extremities without clubbing, cyanosis, or edema. NEURO: Alert to name call and commands, drowsy. Moves all ext x4. A/P Problem List: (1) History of schizoaffective disorder ICD Code: Z86.59 Status: Acute (2) Orthostatic dizziness ICD Code: R42 Status: Chronic (3) Dyslipidemia ICD Code: E78.5 Status: Chronic (4) DM type 2 (diabetes mellitus, type 2) ICD Code: E11.9 Status: Chronic (5) Orthostatic hypotension ICD Code: I95.1 Status: Acute Assessment and Plan This is a 60-year-old male patient in the psych unit for schizoaffective disorder, we are being consulted for medical comanagement of COPD, atrial flutter and possible UTI. Schizoaffective disorder, bipolar type-further management per psychiatry HTN Orthostatic hypotension -dizziness, unsteady gait. - Repeat orthostatic BP - Parameters with BP meds - Check CBC, CMP, Dilantin level, magnesium - PT Healing rash from scabies s/p permethrin x 2 DC hydrocortisone as patient has been this since 07/20/2016 DC Atarax secondary to drowsiness, maybe attributing to dizziness and increased risk for fall Dry skin- Eucerin cream as needed. Add Lac-Hydrin Tinea pedis. Lotrimin cream. History of COPD-not in exacerbation Dyslipidemia- continue statin History of seizures-continue phenytoin, Dilantin levels ordered Continue metoprolol, lisinopril, clonidine as needed Diabetes mellitus- continue metformin Hemoglobin A1c 7.1 Written by Brett Walker, acting as scribe for Dr. Escalante on 08/08/16 at 14:31. The documentation accurately reflects the work performed [id number] by me on at 16:22. Brett Saez Aug 08, 2016 14:49 Jerome Escalante MD Aug 08, 2016 16:22
[2016-08-08 16:14] LABS: AUTOMATED NEUTROPHIL # 1.5 TH/MM3 (1.8-7.7); BASOPHIL % 0.9 % (0.0-2.0); EOSINOPHIL # 0.1 TH/MM3 (0-0.4); EOSINOPHIL % 4.2 % (0.0-4.0); HEMATOCRIT 33.5 % (39.0-51.0); HEMO FLAGS DIFF FINAL; LYMPH % 34.5 % (9.0-44.0); MEAN CELL VOLUME 96.8 FL (80.0-100.0); MEAN CORPUSCULAR HEMOGLOBIN 33.3 PG (27.0-34.0); MEAN CORPUSCULAR HGB CONC 34.4 % (32.0-36.0); MONO % 9.5 % (0.0-8.0); NEUT % 50.9 % (16.0-70.0); PLATELET COUNT 104 TH/MM3 (150-450); RED BLOOD COUNT 3.46 MIL/MM3 (4.50-5.90); RED CELL DISTRIBUTION WIDTH 14.8 % (11.6-17.2); WHITE BLOOD COUNT 2.9 TH/MM3 (4.0-11.0)
[2016-08-08 16:38] LABS: ALT (GPT) 23 U/L (12-78); ANION GAP 4 MEQ/L (5-15); AST (GOT) 11 U/L (15-37); BICARBONATE 32.2 MEQ/L (21.0-32.0); BLOOD UREA NITROGEN 20 MG/DL (7-18); CHLORIDE 99 MEQ/L (98-107); GLOMERULAR FILTRATION RATE 119 ML/MIN (>89); MAGNESIUM 1.4 MG/DL (1.5-2.5); POTASSIUM 4.2 MEQ/L (3.5-5.1); SODIUM (NA) 135 MEQ/L (136-145)
[2016-08-08 16:40] LABS: ALKALINE PHOSPHATASE 66 U/L (45-117); TOTAL BILIRUBIN ADULT 0.2 MG/DL (0.2-1.0)
[2016-08-08] MEDS: ATORVASTATIN 10 MG TAB PO SCH (20:11)
[2016-08-08] MEDS: OLANZapine ODT 20 MG TAB SL SCH (20:11)
[2016-08-08] MEDS: MAGNESIUM OXIDE 400 MG TAB PO SCH (20:13)
[2016-08-09] MEDS: ONDANSETRON ODT 4 MG TAB PO PRN ×3 (01:54→17:48)
[2016-08-09 05:09] VITALS: BP 131/77; PULSE 62; RESP 16; TEMP 97.6
[2016-08-09 07:05] LABS: BICARBONATE 32.7 MEQ/L (21.0-32.0); MAGNESIUM 1.5 MG/DL (1.5-2.5); POTASSIUM 5.1 MEQ/L (3.5-5.1)
[2016-08-09 08:00] VITALS: BP_SYST 134; BP_SYST 140; BP_SYST 141; BP_DIAS 67; BP_DIAS 71; BP_DIAS 73; PULSE 69; O2SAT 96
[2016-08-09] MEDS: LACTIC ACID (AMMONIUM LACTATE) 12% LOTION 225 GM BTL TOPICAL SCH ×2 (09:00→21:02)
[2016-08-09] MEDS: TIMOLOL MALEATE 0.5% OPHT SOLN 5 ML BTL EACH EYE SCH (09:00)
[2016-08-09] MEDS: LISINOPRIL 20 MG TAB PO SCH (09:00)
[2016-08-09] MEDS: MAGNESIUM OXIDE 400 MG TAB PO SCH ×2 (09:00→21:01)
[2016-08-09] MEDS: METOPROLOL TARTRATE 50 MG TAB PO SCH ×2 (09:00→21:02)
[2016-08-09] MEDS: BETAMETHASONE/CLOTRIMAZOLE CREAM 15 GM TOPICAL SCH ×2 (09:00→21:02)
[2016-08-09] MEDS: ASPIRIN EC 81 MG TABEC PO SCH (10:38)
[2016-08-09] MEDS: metFORMIN HCL 500 MG TAB PO SCH ×2 (10:38→17:48)
[2016-08-09] MEDS: busPIRone HCL 5 MG TAB PO SCH ×3 (10:40→17:48)
[2016-08-09] MEDS: CITALOPRAM HYDROBROMIDE 20 MG TAB PO SCH (10:40)
[2016-08-09] MEDS: IBUPROFEN 600 MG TAB PO PRN ×2 (10:42→17:48)
[2016-08-09 11:00] VITALS: BP_SYST 130; BP_SYST 136; BP_DIAS 69; BP_DIAS 70; BP_DIAS 71; PULSE 69; RESP 13; O2SAT 97
[2016-08-09] MEDS: PALIPERIDONE PALMITATE 234 MG/1.5 ML SYRINGE IM SCH (13:43)
--- NOTE | 2016-08-09 13:43 | HHI.PYPN ---
Subjective Remarks Patient seen in room with floor staff, patient continues somewhat irritable and nauseated. Of notices elevated Dilantin levels Marino's input on whole serial Dilantin levels on the process is level ordered for tomorrow morning. Otherwise continue other medications no change Review of Systems Except as stated in HPI: all other systems reviewed are Neg Objective Alert: Yes [place]: Person, Place, Date Mood: Calm Affect: Flat Memory Intact: Comment (no significant impairment) Hallucinations: Other (deneis any) Delusions: Yes (re a girlfriend at [facility]) Delusion Type: Paranoid (slightly decreased) Suicidal: Ideation (deneis any) Homicidal: Ideation (deneis any) Insight/Judgement Poor Labs Test 08/08/16 08/09/16 15:35 06:03 White Blood Count 2.9 TH/MM3 Red Blood Count 3.46 MIL/MM3 Hemoglobin 11.5 GM/DL Hematocrit 33.5 % Mean Corpuscular Volume 96.8 FL Mean Corpuscular Hemoglobin 33.3 PG Mean Corpuscular Hemoglobin 34.4 % Concent Red Cell Distribution Width 14.8 % Platelet Count 104 TH/MM3 Mean Platelet Volume 7.9 FL Neutrophils (%) (Auto) 50.9 % Lymphocytes (%) (Auto) 34.5 % Monocytes (%) (Auto) 9.5 % Eosinophils (%) (Auto) 4.2 % Basophils (%) (Auto) 0.9 % Neutrophils # (Auto) 1.5 TH/MM3 Lymphocytes # (Auto) 1.0 TH/MM3 Monocytes # (Auto) 0.3 TH/MM3 Eosinophils # (Auto) 0.1 TH/MM3 Basophils # (Auto) 0.0 TH/MM3 CBC Comment DIFF FINAL Differential Comment Sodium Level 135 MEQ/L 135 MEQ/L Potassium Level 4.2 MEQ/L 5.1 MEQ/L Chloride Level 99 MEQ/L 99 MEQ/L Carbon Dioxide Level 32.2 MEQ/L 32.7 MEQ/L Anion Gap 4 MEQ/L 3 MEQ/L Blood Urea Nitrogen 20 MG/DL 31 MG/DL Creatinine 0.68 MG/DL 0.90 MG/DL Estimat Glomerular Filtration 119 ML/MIN 86 ML/MIN Rate Random Glucose 104 MG/DL 108 MG/DL Calcium Level 8.4 MG/DL 8.6 MG/DL Magnesium Level 1.4 MG/DL 1.5 MG/DL Total Bilirubin 0.2 MG/DL Aspartate Amino Transf 11 U/L (AST/SGOT) Alanine Aminotransferase 23 U/L (ALT/SGPT) Alkaline Phosphatase 66 U/L Total Protein 7.4 GM/DL Albumin 3.0 GM/DL Phenytoin (Dilantin) Level 31.4 MCG/ML 30.6 MCG/ML Vitals/IOs Vital Signs Date Time Temp Pulse Resp B/P Pulse Ox O2 Delivery O2 Flow Rate FiO2 08/09/16 05:09 97.6 62 16 131/77 08/08/16 06:11 94 Intake and Output 08/08/16 08/08/16 08/09/16 08:00 16:00 00:00 Intake Total 360 ml 480 ml Balance 360 ml 480 ml Assessment & Plan Problem List: (1) Schizoaffective disorder, bipolar type ICD Code: F25.0 Assessment & Plan Estimated LOS: days patient continues somewhat irritable labile, though coping with our monitoring of his elevated Dilantin level. Level to be checked again tomorrow morning for now continue holding the Dilantin Justification for Cont. Inpt. At this point patient would significantly decompensate if placed in the lower level of care Discharge Planning To be determined Request HC Surrog/Guard Advoc?: No Phil Mckee MD Aug 09, 2016 13:43
[2016-08-09 15:26] VITALS: BP_SYST 133; BP_SYST 134; BP_SYST 143; BP_DIAS 56; BP_DIAS 63; BP_DIAS 65; PULSE 73; RESP 17; TEMP 98.7; O2SAT 96
--- NOTE | 2016-08-09 15:41 | HHI.PR ---
Subjective Remarks Follow-up Dilantin toxicity. He is more awake and alert today speech not slurred. Still unsteady on his feet with no fall today. Discussed with RN Objective Vitals Vital Signs Date Time Temp Pulse Resp B/P Pulse Ox O2 Delivery O2 Flow Rate FiO2 08/09/16 15:26 98.7 73 17 143/63 96 134/65 133/56 08/09/16 11:00 69 13 130/70 97 136/71 136/69 08/09/16 08:00 69 134/67 96 140/71 141/73 08/09/16 05:09 97.6 62 16 131/77 I/O 08/08/16 08/08/16 08/08/16 08/09/16 08/09/16 08/09/16 07:00 15:00 23:00 07:00 15:00 23:00 Intake Total 360 ml 480 ml 360 ml Balance 360 ml 480 ml 360 ml Intake Oral 360 ml 480 ml Lipid 360 ml # Voids 1 4 # Bowel Movements 1 Result Diagram: 08/08/16 1535 08/09/16 0603 Objective Remarks GENERAL: This is a well-nourished, well-developed patient, in no apparent distress. SKIN: multiple healing scabbed areas through bilateral lower extremities, also dry scaling skin bilateral lower extremities noted RESPIRATORY: equal rise bilaterally no use of accessory muscle use Cardiovascular: Regular rate and rhythm no murmurs gallops or rubs GASTROINTESTINAL: Abdomen soft, non-tender, nondistended. MUSCULOSKELETAL: Extremities without clubbing, cyanosis, or edema. Tinea pedis noted NEURO: No focal deficits identified Moves all ext x4 Psychiatric: calm and cooperative at this time Procedures none A/P Problem List: (1) History of schizoaffective disorder ICD Code: Z86.59 Status: Acute (2) Orthostatic dizziness ICD Code: R42 Status: Chronic (3) Dyslipidemia ICD Code: E78.5 Status: Chronic (4) DM type 2 (diabetes mellitus, type 2) ICD Code: E11.9 Status: Chronic (5) Orthostatic hypotension ICD Code: I95.1 Status: Acute Assessment and Plan This is a 60-year-old male patient in the psych unit for schizoaffective disorder, we are being consulted for medical comanagement of COPD, atrial flutter and possible UTI. Schizoaffective disorder, bipolar type-further management per psychiatry HTN Orthostatic hypotension -dizziness, unsteady gait secondary to Dilantin toxicity - Repeat orthostatic BP improved - Parameters with BP meds -Repeat corrective Dilantin 42. Continue to hold Dilantin once uncorrected level is 14 May restart 100 mg 3 times a day - PT. Fall precautions Healing rash from scabies s/p permethrin x 2 DC hydrocortisone as patient has been this since 07/20/2016 DC Atarax secondary to drowsiness, maybe attributing to dizziness and increased risk for fall. Start Claritin which is nonsedating Dry skin- Eucerin cream as needed. Add Lac-Hydrin Tinea pedis. Lotrimin cream. History of COPD-not in exacerbation Dyslipidemia- continue statin History of seizures-continue phenytoin, Dilantin levels ordered Continue metoprolol, lisinopril, clonidine as needed Diabetes mellitus- continue metformin Hemoglobin A1c 7.1 DVT prophylaxis with Lovenox Jerome Escalante MD Aug 09, 2016 15:41
[2016-08-09] MEDS: LORATADINE 10 MG TAB PO SCH (15:45)
[2016-08-09 19:30] VITALS: BP 143/63; PULSE 73; RESP 17; TEMP 98.7; O2SAT 96
[2016-08-09] MEDS: OLANZapine ODT 20 MG TAB SL SCH (21:00)
[2016-08-09] MEDS: ATORVASTATIN 10 MG TAB PO SCH (21:02)
[2016-08-10] MEDS: ENOXAPARIN SODIUM 40 MG/0.4 ML SYRINGE SQ SCH (05:41)
[2016-08-10 05:56] VITALS: BP 108/52; PULSE 54; RESP 16; TEMP 98; O2SAT 100
[2016-08-10] MEDS: METOPROLOL TARTRATE 50 MG TAB PO SCH ×2 (08:36→21:21)
[2016-08-10] MEDS: LISINOPRIL 20 MG TAB PO SCH (08:37)
[2016-08-10] MEDS: MAGNESIUM OXIDE 400 MG TAB PO SCH ×2 (09:17→21:20)
[2016-08-10] MEDS: metFORMIN HCL 500 MG TAB PO SCH ×2 (09:17→18:17)
[2016-08-10] MEDS: busPIRone HCL 5 MG TAB PO SCH ×3 (09:17→18:16)
[2016-08-10] MEDS: LORATADINE 10 MG TAB PO SCH (09:17)
[2016-08-10] MEDS: ASPIRIN EC 81 MG TABEC PO SCH (09:17)
[2016-08-10] MEDS: CITALOPRAM HYDROBROMIDE 20 MG TAB PO SCH (09:17)
[2016-08-10] MEDS: LACTIC ACID (AMMONIUM LACTATE) 12% LOTION 225 GM BTL TOPICAL SCH ×2 (09:23→21:00)
[2016-08-10] MEDS: MAGNESIUM HYDROXIDE SUSP 30 ML CUP PO PRN (09:23)
[2016-08-10] MEDS: EUCERIN CREAM 120 GM JAR TOPICAL PRN (09:24)
[2016-08-10] MEDS: BETAMETHASONE/CLOTRIMAZOLE CREAM 15 GM TOPICAL SCH ×2 (09:24→21:21)
[2016-08-10] MEDS: TIMOLOL MALEATE 0.5% OPHT SOLN 5 ML BTL EACH EYE SCH ×2 (09:25→18:03)
[2016-08-10] MEDS: ONDANSETRON ODT 4 MG TAB PO PRN (13:31)
--- NOTE | 2016-08-10 13:38 | HHI.PYPN ---
Subjective Remarks Pt seen and discussed with staff. He is compliant with medications and tolerating without side effects. He remains on 1:1 due to falls risk. No aggression or agitation. No SI/HI Objective Alert: Yes [place]: Person, Place, Date Mood: Calm Affect: Flat Memory Intact: Comment (no significant impairment) Hallucinations: Other (deneis any) Delusions: Yes (re a girlfriend at [facility]) Delusion Type: Paranoid (slightly decreased) Suicidal: Ideation (deneis any) Homicidal: Ideation (deneis any) Insight/Judgement limited Labs Test 08/10/16 08:27 Phenytoin (Dilantin) Level 27.1 MCG/ML Vitals/IOs Vital Signs Date Time Temp Pulse Resp B/P Pulse Ox O2 Delivery O2 Flow Rate FiO2 08/10/16 05:56 98.0 54 16 108/52 100 Intake and Output 08/09/16 08/09/16 08/10/16 08:00 16:00 00:00 Intake Total 360 ml 840 ml Balance 360 ml 840 ml Assessment & Plan Problem List: (1) Schizoaffective disorder, bipolar type ICD Code: F25.0 Assessment & Plan Continue current tx plan. Estimated LOS: days Justification for Cont. Inpt. impairments in self care. Request HC Surrog/Guard Advoc?: Carole Vazquez MD Aug 10, 2016 13:38
--- NOTE | 2016-08-10 15:36 | HHI.PR ---
Subjective Remarks Follow-up visit Dilantin toxicity, unsteady gait, dizziness, pruritus. Patient seen today. Awake and alert. Responsive and follows commands. Continue to have pruritus. Reports occasional dizziness. As per staff, continues to have unsteady gait, needs supervision when getting out of bed and with ambulation. Otherwise, denies pain and discomfort. Denies SOB/ dyspnea. Denies chest pain , palpitations, headaches. Denies fevers, chills, n/v/d. Objective Vitals Vital Signs Date Time Temp Pulse Resp B/P Pulse Ox O2 Delivery O2 Flow Rate FiO2 08/10/16 05:56 98.0 54 16 108/52 100 08/09/16 19:30 98.7 73 17 143/63 96 08/09/16 18:48 20 I/O 08/09/16 08/09/16 08/09/16 08/10/16 08/10/16 08/10/16 07:00 15:00 23:00 07:00 15:00 23:00 Intake Total 360 ml 840 ml 120 ml 600 ml Balance 360 ml 840 ml 120 ml 600 ml Intake Oral 840 ml 120 ml 600 ml Lipid 360 ml # Voids 2 2 # Bowel Movements 0 0 Result Diagram: 08/08/16 1535 08/09/16 0603 Objective Remarks GENERAL: This is a well-nourished, well-developed patient, in no apparent distress, drowsy. SKIN: multiple erythematous macular dermatitis, previously had scabies but was treated 2x. Dry skin. Improved. CARDIOVASCULAR: Regular rate and rhythm without murmurs, gallops, or rubs. RESPIRATORY: Clear to auscultation. Breath sounds equal bilaterally. No wheezes , rales, or rhonchi. GASTROINTESTINAL: Abdomen soft, non-tender, nondistended. Normal active bowel sounds MUSCULOSKELETAL: Extremities without clubbing, cyanosis, or edema. NEURO: Alert and awake and responsive to questions and commands. Moves all ext x4. Procedures none A/P Problem List: (1) History of schizoaffective disorder ICD Code: Z86.59 Status: Acute (2) Orthostatic dizziness ICD Code: R42 Status: Chronic (3) Dyslipidemia ICD Code: E78.5 Status: Chronic (4) DM type 2 (diabetes mellitus, type 2) ICD Code: E11.9 Status: Chronic (5) Orthostatic hypotension ICD Code: I95.1 Status: Acute Assessment and Plan This is a 60-year-old male patient in the psych unit for schizoaffective disorder, we are being consulted for medical comanagement of COPD, atrial flutter and possible UTI. Schizoaffective disorder, bipolar type-further management per psychiatry Dilantin toxicity - previous Dilantin level was 31.4, 30.6 --> 27.1 today - Continues to be dizzy. Monitor for increased risk for falls. - Continue to recheck Dilantin levels HTN Orthostatic hypotension -dizziness, unsteady gait. - Repeat orthostatic BP - Parameters with BP meds Healing rash from scabies s/p permethrin x 2 -DC hydrocortisone as patient has been this since 07/20/2016 -DC Atarax secondary to drowsiness, maybe attributing to dizziness and increased risk for fall - Start Claritin Dry skin- Eucerin cream as needed. Add Lac-Hydrin Tinea pedis. Lotrimin cream. History of COPD-not in exacerbation Dyslipidemia- continue statin History of seizures-continue phenytoin, Dilantin levels ordered Continue metoprolol, lisinopril, clonidine as needed Diabetes mellitus- continue metformin Hemoglobin A1c 7.1 DVT prophylaxis with Lovenox Written by Brett Walker, acting as scribe for Dr. Escalante on 08/10/16 at 14:51. The documentation accurately reflects the work performed [id number] by me on at 15:44. Brett Saez Aug 10, 2016 15:36 Jerome Escalante MD Aug 10, 2016 15:44
[2016-08-10 19:00] VITALS: BP 120/51; PULSE 66; RESP 16; TEMP 98.7; O2SAT 92
[2016-08-10] MEDS: OLANZapine ODT 20 MG TAB SL SCH (21:00)
[2016-08-10] MEDS: ATORVASTATIN 10 MG TAB PO SCH (21:21)
[2016-08-11 05:09] VITALS: BP 131/75; PULSE 57; RESP 18; TEMP 97.1; O2SAT 92
[2016-08-11] MEDS: ENOXAPARIN SODIUM 40 MG/0.4 ML SYRINGE SQ SCH (06:00)
[2016-08-11 09:27] VITALS: BP 140/80; PULSE 81
[2016-08-11] MEDS: LISINOPRIL 20 MG TAB PO SCH (09:28)
[2016-08-11] MEDS: LORATADINE 10 MG TAB PO SCH (09:29)
[2016-08-11] MEDS: busPIRone HCL 5 MG TAB PO SCH ×3 (09:29→18:00)
[2016-08-11] MEDS: METOPROLOL TARTRATE 50 MG TAB PO SCH ×2 (09:29→20:40)
[2016-08-11] MEDS: ASPIRIN EC 81 MG TABEC PO SCH (09:29)
[2016-08-11] MEDS: CITALOPRAM HYDROBROMIDE 20 MG TAB PO SCH (09:29)
[2016-08-11] MEDS: MAGNESIUM OXIDE 400 MG TAB PO SCH ×2 (09:29→20:40)
[2016-08-11] MEDS: metFORMIN HCL 500 MG TAB PO SCH ×2 (09:29→18:00)
[2016-08-11] MEDS: BETAMETHASONE/CLOTRIMAZOLE CREAM 15 GM TOPICAL SCH ×2 (09:33→20:41)
[2016-08-11] MEDS: LACTIC ACID (AMMONIUM LACTATE) 12% LOTION 225 GM BTL TOPICAL SCH ×2 (09:33→20:41)
--- NOTE | 2016-08-11 10:35 | HHI.PR ---
Subjective Remarks F/u dilantin toxicity. Refused lab draw but later consented. Less itching dw RN Objective Vitals Vital Signs Date Time Temp Pulse Resp B/P Pulse Ox O2 Delivery O2 Flow Rate FiO2 08/11/16 09:27 81 140/80 08/11/16 05:09 97.1 57 18 131/75 92 08/10/16 19:00 98.7 66 16 120/51 92 I/O 08/10/16 08/10/16 08/10/16 08/11/16 08/11/16 08/11/16 07:00 15:00 23:00 07:00 15:00 23:00 Intake Total 120 ml 1440 ml 960 ml 0 ml 480 ml Balance 120 ml 1440 ml 960 ml 0 ml 480 ml Intake Oral 120 ml 1440 ml 960 ml 0 ml 480 ml # Voids 2 4 1 1 # Bowel Movements 0 Result Diagram: 08/08/16 1535 08/09/16 0603 Objective Remarks GENERAL: This is a well-nourished, well-developed patient, in no apparent distress. SKIN: multiple healing scabbed areas through bilateral lower extremities, also dry scaling skin bilateral lower extremities noted RESPIRATORY: equal rise bilaterally no use of accessory muscle use Cardiovascular: Regular rate and rhythm no murmurs gallops or rubs GASTROINTESTINAL: Abdomen soft, non-tender, nondistended. MUSCULOSKELETAL: Extremities without clubbing, cyanosis, or edema. Tinea pedis noted NEURO: No focal deficits identified Moves all ext x4 Psychiatric: calm and cooperative at this time Procedures none A/P Problem List: (1) History of schizoaffective disorder ICD Code: Z86.59 Status: Acute (2) Orthostatic dizziness ICD Code: R42 Status: Chronic (3) Dyslipidemia ICD Code: E78.5 Status: Chronic (4) DM type 2 (diabetes mellitus, type 2) ICD Code: E11.9 Status: Chronic (5) Orthostatic hypotension ICD Code: I95.1 Status: Acute Assessment and Plan This is a 60-year-old male patient in the psych unit for schizoaffective disorder, we are being consulted for medical comanagement of COPD, atrial flutter and possible UTI. Schizoaffective disorder, bipolar type-further management per psychiatry Dilantin toxicity - previous Dilantin level was 31.4, 30.6 --> 27.1 today is pending - Continues to be dizzy. Monitor for increased risk for falls. - Continue to recheck Dilantin levels. Restart 100 mg tid when uncorrected level is 14 or less HTN Orthostatic hypotension -dizziness, unsteady gait. - Repeat orthostatic BP improved. Fall precautions - Parameters with BP meds Healing rash from scabies s/p permethrin x 2 -DC hydrocortisone as patient has been this since 07/20/2016 -DC Atarax secondary to drowsiness, maybe attributing to dizziness and increased risk for fall -Ct Claritin Dry skin- Eucerin cream as needed. Add Lac-Hydrin Tinea pedis. Lotrimin cream. History of COPD-not in exacerbation Dyslipidemia- continue statin History of seizures-restart phenytoin when level therapeutic. Counselled re compliance Continue metoprolol, lisinopril, clonidine as needed Diabetes mellitus- continue metformin Hemoglobin A1c 7.1 DVT prophylaxis with Lovenox Jerome Escalante MD Aug 11, 2016 10:35
--- NOTE | 2016-08-11 15:46 | HHI.PYPN ---
Subjective Remarks Pt seen and discussed with staff. He refused dilantin level this morning and states that he has too much medicines in his body. No SI/HI. No behavioral problems. Compliant with medications. Objective Alert: Yes [place]: Person, Place, Date Mood: Calm Affect: Flat Memory Intact: Comment (no significant impairment) Hallucinations: Other (deneis any) Delusions: Yes (re a girlfriend at [facility]) Delusion Type: Paranoid (slightly decreased) Suicidal: Ideation (deneis any) Homicidal: Ideation (deneis any) Insight/Judgement poor Vitals/IOs Vital Signs Date Time Temp Pulse Resp B/P Pulse Ox O2 Delivery O2 Flow Rate FiO2 08/11/16 09:27 81 140/80 08/11/16 05:09 97.1 18 92 Intake and Output 08/10/16 08/10/16 08/11/16 08:00 16:00 00:00 Intake Total 720 ml 840 ml 960 ml Balance 720 ml 840 ml 960 ml Assessment & Plan Problem List: (1) Schizoaffective disorder, bipolar type ICD Code: F25.0 Assessment & Plan Continue current tx plan. Discussed with pt importance of labs with pt who agrees to allow them. Estimated LOS: days Justification for Cont. Inpt. impairments in reality construction and risk of decompensation. Request HC Surrog/Guard Advoc?: No Carole Gold MD Aug 11, 2016 15:46
[2016-08-11 19:31] VITALS: BP 117/64; PULSE 68; RESP 16
[2016-08-11] MEDS: OLANZapine ODT 20 MG TAB SL SCH (20:40)
[2016-08-11] MEDS: ATORVASTATIN 10 MG TAB PO SCH (20:40)
[2016-08-12 05:14] VITALS: BP 107/63; PULSE 49; RESP 18; TEMP 98.2; O2SAT 97
[2016-08-12] MEDS: ENOXAPARIN SODIUM 40 MG/0.4 ML SYRINGE SQ SCH (06:00)
[2016-08-12] MEDS: METOPROLOL TARTRATE 50 MG TAB PO SCH ×2 (09:00→21:15)
[2016-08-12] MEDS: MAGNESIUM OXIDE 400 MG TAB PO SCH ×2 (09:07→21:16)
[2016-08-12] MEDS: LORATADINE 10 MG TAB PO SCH (09:08)
[2016-08-12] MEDS: metFORMIN HCL 500 MG TAB PO SCH ×2 (09:08→18:09)
[2016-08-12] MEDS: CITALOPRAM HYDROBROMIDE 20 MG TAB PO SCH (09:08)
[2016-08-12] MEDS: busPIRone HCL 5 MG TAB PO SCH ×3 (09:09→18:09)
[2016-08-12] MEDS: ASPIRIN EC 81 MG TABEC PO SCH (09:09)
[2016-08-12] MEDS: LISINOPRIL 20 MG TAB PO SCH (09:09)
[2016-08-12] MEDS: TIMOLOL MALEATE 0.5% OPHT SOLN 5 ML BTL EACH EYE SCH (09:11)
[2016-08-12] MEDS: BETAMETHASONE/CLOTRIMAZOLE CREAM 15 GM TOPICAL SCH ×2 (09:11→21:17)
[2016-08-12] MEDS: LACTIC ACID (AMMONIUM LACTATE) 12% LOTION 225 GM BTL TOPICAL SCH ×2 (09:12→21:17)
[2016-08-12] MEDS: PHENYTOIN SUSP 100 MG/4 ML CUP PO SCH ×2 (14:33→21:17)
--- NOTE | 2016-08-12 15:40 | HHI.PR ---
Subjective Remarks Follow-up visit Dilantin toxicity, unsteady gait, dizziness, pruritus. Patient seen today. Awake and alert. Reports less itching. Denies any dizziness, headache. Denies pain and discomfort. Denies SOB/ dyspnea. Denies chest pain, palpitations. Denies fevers, chills, n/v/d. Objective Vitals Vital Signs Date Time Temp Pulse Resp B/P Pulse Ox O2 Delivery O2 Flow Rate FiO2 08/12/16 05:14 98.2 49 18 107/63 97 08/11/16 19:31 68 16 117/64 I/O 08/11/16 08/11/16 08/11/16 08/12/16 08/12/16 08/12/16 07:00 15:00 23:00 07:00 15:00 23:00 Intake Total 0 ml 480 ml 360 ml Balance 0 ml 480 ml 360 ml Intake Oral 0 ml 480 ml Oral Supplement 360 ml # Voids 1 2 3 Result Diagram: 08/08/16 1535 08/09/16 0603 Objective Remarks GENERAL: This is a well-nourished, well-developed patient, in no apparent distress. SKIN: multiple erythematous macular dermatitis, previously had scabies, healed. Dry skin. Improved. CARDIOVASCULAR: Regular rate and rhythm without murmurs, gallops, or rubs. RESPIRATORY: Clear to auscultation. Breath sounds equal bilaterally. No wheezes , rales, or rhonchi. GASTROINTESTINAL: Abdomen soft, non-tender, nondistended. Normal active bowel sounds MUSCULOSKELETAL: Extremities without clubbing, cyanosis, or edema. NEURO: Alert and awake and responsive to questions and commands. Moves all ext x4. Procedures none A/P Problem List: (1) History of schizoaffective disorder ICD Code: Z86.59 Status: Acute (2) Orthostatic dizziness ICD Code: R42 Status: Chronic (3) Dyslipidemia ICD Code: E78.5 Status: Chronic (4) DM type 2 (diabetes mellitus, type 2) ICD Code: E11.9 Status: Chronic (5) Orthostatic hypotension ICD Code: I95.1 Status: Acute Assessment and Plan This is a 60-year-old male patient in the psych unit for schizoaffective disorder, we are being consulted for medical comanagement of COPD, atrial flutter and possible UTI. Schizoaffective disorder, bipolar type-further management per psychiatry Dilantin toxicity - previous Dilantin level was 31.4, 30.6 --> 27.1 --> 15.3 today - Denies dizziness. Continue to have unsteady gait, risk for falls. Continue with walker use. Assist with ambulation/ and ADLs - Restart Dilantin 200 mg every 8 hours. - Recheck levels tomorrow HTN Orthostatic hypotension -dizziness, unsteady gait. - Parameters with BP meds lisinopril, metoprolol. Healing rash from scabies s/p permethrin x 2 -DC hydrocortisone as patient has been this since 07/20/2016 -DC Atarax secondary to drowsiness, maybe attributing to dizziness and increased risk for fall - continue Claritin. Improving Dry skin- Eucerin cream as needed. Add Lac-Hydrin Tinea pedis. Lotrimin cream. History of COPD-not in exacerbation Dyslipidemia- continue statin History of seizures-continue phenytoin, Dilantin levels ordered Continue metoprolol, lisinopril, clonidine as needed Diabetes mellitus- continue metformin Hemoglobin A1c 7.1 Written by Brett Walker, acting as scribe for Dr. Magana on 08/12/16 at 14: 50. The documentation accurately reflects the work performed [id number] by me, Dr. Magana on 08/12/16 at 14:50. Brett Saez Aug 12, 2016 15:39 Salvador Magana MD Aug 23, 2016 12:34
--- NOTE | 2016-08-12 15:59 | HHI.PYPN ---
Subjective Remarks Patient discussed with treatment team and medical student Merlene, chart review , patient seen on unit. Patient somewhat calm with me today this was reluctant to cooperate with labs needed to monitor his Dilantin level. Still very little insight. For now continue treatment no change Review of Systems Except as stated in HPI: all other systems reviewed are Neg Objective Alert: Yes [place]: Person, Place, Date Mood: Calm Affect: Flat Memory Intact: Comment (no significant impairment) Hallucinations: Other (deneis any) Delusions: Yes (re a girlfriend at [employer]) Delusion Type: Paranoid (slightly decreased) Suicidal: Ideation (deneis any) Homicidal: Ideation (deneis any) Insight/Judgement Very poor Labs Test 08/12/16 06:37 Phenytoin (Dilantin) Level 15.3 MCG/ML Vitals/IOs Vital Signs Date Time Temp Pulse Resp B/P Pulse Ox O2 Delivery O2 Flow Rate FiO2 08/12/16 05:14 98.2 49 18 107/63 97 Intake and Output 08/11/16 08/11/16 08/12/16 08:00 16:00 00:00 Intake Total 480 ml 360 ml Balance 480 ml 360 ml Assessment & Plan Problem List: (1) Schizoaffective disorder, bipolar type ICD Code: F25.0 Assessment & Plan Estimated LOS: days patient continues somewhat confused irritable with mixed compliance medication and treatment Justification for Cont. Inpt. At this time patient would significantly decompensate if placed in the lower level of care Discharge Planning To be determined Request HC Surrog/Guard Advoc?: No Phil Mckee MD Aug 12, 2016 15:59
[2016-08-12 20:00] VITALS: BP_SYST 127; BP_SYST 157; BP_SYST 170; BP_DIAS 75; BP_DIAS 83; BP_DIAS 86
[2016-08-12] MEDS: OLANZapine ODT 20 MG TAB SL SCH (21:00)
[2016-08-12] MEDS: ATORVASTATIN 10 MG TAB PO SCH (21:17)
[2016-08-12 21:27] VITALS: BP 120/63; PULSE 71; RESP 18; TEMP 98.8; O2SAT 96
[2016-08-13] MEDS: PHENYTOIN SUSP 100 MG/4 ML CUP PO SCH ×3 (05:52→21:27)
[2016-08-13] MEDS: ENOXAPARIN SODIUM 40 MG/0.4 ML SYRINGE SQ SCH (05:58)
[2016-08-13 06:10] VITALS: BP 144/76; PULSE 58; RESP 18; TEMP 96.9; O2SAT 98
[2016-08-13] MEDS: CITALOPRAM HYDROBROMIDE 20 MG TAB PO SCH (09:01)
[2016-08-13] MEDS: busPIRone HCL 5 MG TAB PO SCH ×3 (09:01→18:03)
[2016-08-13] MEDS: metFORMIN HCL 500 MG TAB PO SCH ×2 (09:01→18:04)
[2016-08-13] MEDS: MAGNESIUM OXIDE 400 MG TAB PO SCH ×2 (09:01→20:41)
[2016-08-13] MEDS: METOPROLOL TARTRATE 50 MG TAB PO SCH ×2 (09:02→20:52)
[2016-08-13] MEDS: TIMOLOL MALEATE 0.5% OPHT SOLN 5 ML BTL EACH EYE SCH (09:02)
[2016-08-13] MEDS: ASPIRIN EC 81 MG TABEC PO SCH (09:02)
[2016-08-13] MEDS: LISINOPRIL 20 MG TAB PO SCH (09:02)
[2016-08-13] MEDS: LORATADINE 10 MG TAB PO SCH (09:02)
[2016-08-13] MEDS: BETAMETHASONE/CLOTRIMAZOLE CREAM 15 GM TOPICAL SCH ×2 (09:05→20:43)
[2016-08-13] MEDS: LACTIC ACID (AMMONIUM LACTATE) 12% LOTION 225 GM BTL TOPICAL SCH ×2 (09:06→20:43)
--- NOTE | 2016-08-13 15:53 | HHI.PYPN ---
Subjective Remarks Patient seen in his room with nurse Lisa medical student Gabbi. chart reviewed. Patient calm cooperative, just had good telephone conversation with his sister. He appears somewhat more focused today now denying voices denying suicidality, vital signs have been stable also. For now continue treatment no change Review of Systems Except as stated in HPI: all other systems reviewed are Neg Objective Alert: Yes [place]: Person, Place, Date Mood: Calm Affect: Flat Memory Intact: Comment (no significant impairment) Hallucinations: Other (deneis any) Delusions: Yes (re a girlfriend at [facility]) Delusion Type: Paranoid (slightly decreased) Suicidal: Ideation (deneis any) Homicidal: Ideation (deneis any) Insight/Judgement Poor Vitals/IOs Vital Signs Date Time Temp Pulse Resp B/P Pulse Ox O2 Delivery O2 Flow Rate FiO2 08/13/16 06:10 96.9 58 18 144/76 98 Intake and Output 08/12/16 08/12/16 08/13/16 08:00 16:00 00:00 Intake Total 390 ml Balance 390 ml Assessment & Plan Problem List: (1) Schizoaffective disorder, bipolar type ICD Code: F25.0 Assessment & Plan Estimated LOS: days patient continues somewhat vigilant though softer, more appropriate responses with me. Compliant medications. Justification for Cont. Inpt. At this time patient will decompensate if placed in a lower level of care Discharge Planning To be determined Request HC Surrog/Guard Advoc?: No Phil Mckee MD Aug 13, 2016 15:53
[2016-08-13 19:03] LABS: AUTOMATED NEUTROPHIL # 1.4 TH/MM3 (1.8-7.7); BASOPHIL % 0.5 % (0.0-2.0); EOSINOPHIL # 0.1 TH/MM3 (0-0.4); EOSINOPHIL % 3.7 % (0.0-4.0); HEMATOCRIT 33.8 % (39.0-51.0); HEMO FLAGS DIFF FINAL; LYMPH % 37.7 % (9.0-44.0); LYMPHOCYTE # 1.1 TH/MM3 (1.0-4.8); MEAN CELL VOLUME 104.3 FL (80.0-100.0); MEAN CORPUSCULAR HEMOGLOBIN 32.9 PG (27.0-34.0); MEAN CORPUSCULAR HGB CONC 31.5 % (32.0-36.0); MONO % 9.4 % (0.0-8.0); NEUT % 48.7 % (16.0-70.0); PLATELET COUNT 106 TH/MM3 (150-450); RED BLOOD COUNT 3.24 MIL/MM3 (4.50-5.90); RED CELL DISTRIBUTION WIDTH 15.1 % (11.6-17.2); WHITE BLOOD COUNT 2.9 TH/MM3 (4.0-11.0)
[2016-08-13 19:28] LABS: POTASSIUM 4.4 MEQ/L (3.5-5.1)
[2016-08-13 19:31] VITALS: BP 83/79; PULSE 60; RESP 18; TEMP 98.3; O2SAT 96
[2016-08-13] MEDS: ATORVASTATIN 10 MG TAB PO SCH (20:42)
[2016-08-13] MEDS: OLANZapine ODT 20 MG TAB SL SCH (20:42)
[2016-08-14 05:45] VITALS: BP 117/65; PULSE 56; RESP 15; TEMP 98.1; O2SAT 95
[2016-08-14] MEDS: ENOXAPARIN SODIUM 40 MG/0.4 ML SYRINGE SQ SCH (06:00)
[2016-08-14] MEDS: PHENYTOIN SUSP 100 MG/4 ML CUP PO SCH ×3 (06:09→20:41)
[2016-08-14] MEDS: BETAMETHASONE/CLOTRIMAZOLE CREAM 15 GM TOPICAL SCH ×3 (09:00→21:00)
[2016-08-14] MEDS: TIMOLOL MALEATE 0.5% OPHT SOLN 5 ML BTL EACH EYE SCH (09:00)
[2016-08-14] MEDS: metFORMIN HCL 500 MG TAB PO SCH ×2 (09:30→17:43)
[2016-08-14] MEDS: ASPIRIN EC 81 MG TABEC PO SCH (09:30)
[2016-08-14] MEDS: CITALOPRAM HYDROBROMIDE 20 MG TAB PO SCH (09:30)
[2016-08-14] MEDS: LISINOPRIL 20 MG TAB PO SCH (09:30)
[2016-08-14] MEDS: MAGNESIUM OXIDE 400 MG TAB PO SCH ×2 (09:30→20:42)
[2016-08-14] MEDS: busPIRone HCL 5 MG TAB PO SCH ×3 (09:30→17:42)
[2016-08-14] MEDS: METOPROLOL TARTRATE 50 MG TAB PO SCH ×2 (09:30→20:42)
[2016-08-14] MEDS: LACTIC ACID (AMMONIUM LACTATE) 12% LOTION 225 GM BTL TOPICAL SCH ×3 (09:31→21:00)
[2016-08-14] MEDS: LORATADINE 10 MG TAB PO SCH (09:31)
--- NOTE | 2016-08-14 12:34 | HHI.PYPN ---
Subjective Remarks Patient seen in day room with nurse Park, chart reviewed. Patient overall calm cooperative the been marked decrease in his outbursts. He has been more stable no falls noted recently. Patient compliant medications. For now continue treatment Review of Systems Except as stated in HPI: all other systems reviewed are Neg Objective Alert: Yes [place]: Person, Place, Date Mood: Calm Affect: Flat Memory Intact: Comment (no significant impairment) Hallucinations: Other (deneis any) Delusions: Yes (re a girlfriend at [facility]) Delusion Type: Paranoid (slightly decreased) Suicidal: Ideation (deneis any) Homicidal: Ideation (deneis any) Insight/Judgement Poor Labs Test 08/13/16 18:50 White Blood Count 2.9 TH/MM3 Red Blood Count 3.24 MIL/MM3 Hemoglobin 10.7 GM/DL Hematocrit 33.8 % Mean Corpuscular Volume 104.3 FL Mean Corpuscular Hemoglobin 32.9 PG Mean Corpuscular Hemoglobin 31.5 % Concent Red Cell Distribution Width 15.1 % Platelet Count 106 TH/MM3 Mean Platelet Volume 7.7 FL Neutrophils (%) (Auto) 48.7 % Lymphocytes (%) (Auto) 37.7 % Monocytes (%) (Auto) 9.4 % Eosinophils (%) (Auto) 3.7 % Basophils (%) (Auto) 0.5 % Neutrophils # (Auto) 1.4 TH/MM3 Lymphocytes # (Auto) 1.1 TH/MM3 Monocytes # (Auto) 0.3 TH/MM3 Eosinophils # (Auto) 0.1 TH/MM3 Basophils # (Auto) 0.0 TH/MM3 CBC Comment DIFF FINAL Differential Comment Sodium Level 134 MEQ/L Potassium Level 4.4 MEQ/L Chloride Level 97 MEQ/L Carbon Dioxide Level 32.0 MEQ/L Anion Gap 5 MEQ/L Blood Urea Nitrogen 24 MG/DL Creatinine 0.72 MG/DL Estimat Glomerular Filtration 111 ML/MIN Rate Random Glucose 132 MG/DL Calcium Level 8.3 MG/DL Phenytoin (Dilantin) Level 18.0 MCG/ML Vitals/IOs Vital Signs Date Time Temp Pulse Resp B/P Pulse Ox O2 Delivery O2 Flow Rate FiO2 08/14/16 05:45 98.1 56 15 117/65 95 Intake and Output 08/13/16 08/13/16 08/13/16 07:59 15:59 23:59 Intake Total 120 ml 480 ml 1020 ml Balance 120 ml 480 ml 1020 ml Assessment & Plan Problem List: (1) Schizoaffective disorder, bipolar type ICD Code: F25.0 Assessment & Plan Estimated LOS: days patient continues somewhat irritable confused but calmer more appropriate, no falls, compliant medications Justification for Cont. Inpt. At this time the patient will decompensate if placed in the lower level of care Discharge Planning To be determined Request HC Surrog/Guard Advoc?: No Phil Mckee MD Aug 14, 2016 12:34
--- NOTE | 2016-08-14 15:35 | HHI.PR ---
Subjective Remarks Follow-up visit Dilantin toxicity, unsteady gait, dizziness, pruritus. Patient seen today, reports feeling, "pretty good." Awake and alert. Reports less itching. Denies any dizziness, headache. Denies pain and discomfort. Denies SOB/ dyspnea. Denies chest pain, palpitations. Denies fevers, chills, n/v/d. Objective Vitals Vital Signs Date Time Temp Pulse Resp B/P Pulse Ox O2 Delivery O2 Flow Rate FiO2 08/14/16 05:45 98.1 56 15 117/65 95 08/13/16 19:31 98.3 60 18 83/79 96 I/O 08/13/16 08/13/16 08/13/16 08/14/16 08/14/16 08/14/16 07:00 15:00 23:00 07:00 15:00 23:00 Intake Total 120 ml 480 ml 1020 ml 360 ml Balance 120 ml 480 ml 1020 ml 360 ml Intake Oral 120 ml 480 ml 1020 ml 360 ml # Voids 1 5 Result Diagram: 08/13/16184908/13/161849 Objective Remarks GENERAL: This is a well-nourished, well-developed patient, in no apparent distress. SKIN: multiple erythematous macular dermatitis, previously had scabies, healed. Dry skin. Improved. CARDIOVASCULAR: Regular rate and rhythm without murmurs, gallops, or rubs. RESPIRATORY: Clear to auscultation. Breath sounds equal bilaterally. No wheezes , rales, or rhonchi. GASTROINTESTINAL: Abdomen soft, non-tender, nondistended. Normal active bowel sounds MUSCULOSKELETAL: Extremities without clubbing, cyanosis, or edema. NEURO: Alert and awake and responsive to questions and commands. Moves all ext x4. Procedures none A/P Problem List: (1) History of schizoaffective disorder ICD Code: Z86.59 Status: Acute (2) Orthostatic dizziness ICD Code: R42 Status: Chronic (3) Dyslipidemia ICD Code: E78.5 Status: Chronic (4) DM type 2 (diabetes mellitus, type 2) ICD Code: E11.9 Status: Chronic (5) Orthostatic hypotension ICD Code: I95.1 Status: Acute Assessment and Plan This is a 60-year-old male patient in the psych unit for schizoaffective disorder, we are being consulted for medical comanagement of COPD, atrial flutter and possible UTI. Schizoaffective disorder, bipolar type-further management per psychiatry Dilantin toxicity - previous Dilantin level was 31.4, 30.6 --> 27.1 --> 15.3 --> 18.0 - Denies dizziness. Continue with walker use. Assist with ambulation/ and ADLs - Restart Dilantin 200 mg every 8 hours. - Recheck levels in 3 days HTN Orthostatic hypotension -dizziness, unsteady gait. - Parameters with BP meds lisinopril, metoprolol. Healing rash from scabies s/p permethrin x 2 -DC hydrocortisone as patient has been this since 07/20/2016 -DC Atarax secondary to drowsiness, maybe attributing to dizziness and increased risk for fall - continue Claritin. Improving Dry skin- Eucerin cream as needed. Tinea pedis. Lotrimin cream. History of COPD-not in exacerbation Dyslipidemia- continue statin History of seizures-continue phenytoin, Dilantin levels ordered Continue metoprolol, lisinopril, clonidine as needed Diabetes mellitus- continue metformin Hemoglobin A1c 7.1 Discussed with patient, RN and Norah Davison Aug 14, 2016 15:35 Salvador Magana MD Aug 23, 2016 12:37
[2016-08-14 18:16] VITALS: BP 130/62; PULSE 66; RESP 18; TEMP 99.4; O2SAT 95
[2016-08-14] MEDS: OLANZapine ODT 20 MG TAB SL SCH (20:42)
[2016-08-14] MEDS: ATORVASTATIN 10 MG TAB PO SCH (20:42)
[2016-08-15] MEDS: ENOXAPARIN SODIUM 40 MG/0.4 ML SYRINGE SQ SCH (06:00)
[2016-08-15 06:18] VITALS: BP 131/60; PULSE 60; RESP 18; TEMP 98.2; O2SAT 98
[2016-08-15] MEDS: PHENYTOIN SUSP 100 MG/4 ML CUP PO SCH ×3 (06:34→22:19)
[2016-08-15] MEDS: metFORMIN HCL 500 MG TAB PO SCH ×2 (08:42→17:37)
[2016-08-15] MEDS: busPIRone HCL 5 MG TAB PO SCH ×3 (08:42→17:37)
[2016-08-15] MEDS: ASPIRIN EC 81 MG TABEC PO SCH (08:42)
[2016-08-15] MEDS: METOPROLOL TARTRATE 50 MG TAB PO SCH ×2 (08:42→22:19)
[2016-08-15] MEDS: CITALOPRAM HYDROBROMIDE 20 MG TAB PO SCH (08:42)
[2016-08-15] MEDS: LACTIC ACID (AMMONIUM LACTATE) 12% LOTION 225 GM BTL TOPICAL SCH ×2 (08:42→22:31)
[2016-08-15] MEDS: MAGNESIUM OXIDE 400 MG TAB PO SCH ×2 (08:42→22:19)
[2016-08-15] MEDS: LISINOPRIL 20 MG TAB PO SCH (08:42)
[2016-08-15] MEDS: LORATADINE 10 MG TAB PO SCH (08:42)
[2016-08-15] MEDS: TIMOLOL MALEATE 0.5% OPHT SOLN 5 ML BTL EACH EYE SCH (08:42)
[2016-08-15] MEDS: BETAMETHASONE/CLOTRIMAZOLE CREAM 15 GM TOPICAL SCH ×2 (08:42→22:31)
--- NOTE | 2016-08-15 12:59 | HHI.PYPN ---
Subjective Remarks Patient seen in his room, the floor staff, chart reviewed, patient continues calm cooperative with me though somewhat isolating. Compliant medications. Continue to work with placement issues Review of Systems Except as stated in HPI: all other systems reviewed are Neg Objective Alert: Yes [place]: Person, Place, Date Mood: Calm Affect: Flat Memory Intact: Comment (no significant impairment) Hallucinations: Other (deneis any) Delusions: Yes (re a girlfriend at [facility]) Delusion Type: Paranoid (slightly decreased) Suicidal: Ideation (deneis any) Homicidal: Ideation (deneis any) Insight/Judgement Very poor Vitals/IOs Vital Signs Date Time Temp Pulse Resp B/P Pulse Ox O2 Delivery O2 Flow Rate FiO2 08/15/16 06:18 98.2 60 18 131/60 98 Intake and Output 08/14/16 08/14/16 08/15/16 08:00 16:00 00:00 Intake Total 360 ml 960 ml Balance 360 ml 960 ml Assessment & Plan Problem List: (1) Schizoaffective disorder, bipolar type ICD Code: F25.0 Assessment & Plan Estimated LOS: days patient continues somewhat vigilant and isolative the no significant behavioral problems at this time Justification for Cont. Inpt. At this time patient was significantly decompensate if placed in a lower level of care Discharge Planning To be determined Request HC Surrog/Guard Advoc?: No Phil Mckee MD Aug 15, 2016 12:59
[2016-08-15 20:00] VITALS: BP 136/68; PULSE 79; RESP 18; TEMP 99.3; O2SAT 98
[2016-08-15] MEDS: OLANZapine ODT 20 MG TAB SL SCH (21:00)
[2016-08-15] MEDS: ATORVASTATIN 10 MG TAB PO SCH (22:19)
[2016-08-16 05:18] VITALS: BP 136/63; PULSE 51; RESP 18; TEMP 97.8; O2SAT 99
[2016-08-16] MEDS: PHENYTOIN SUSP 100 MG/4 ML CUP PO SCH ×3 (05:52→21:17)
[2016-08-16] MEDS: ENOXAPARIN SODIUM 40 MG/0.4 ML SYRINGE SQ SCH (05:53)
[2016-08-16] MEDS: METOPROLOL TARTRATE 50 MG TAB PO SCH ×2 (09:00→21:00)
[2016-08-16] MEDS: busPIRone HCL 5 MG TAB PO SCH ×3 (09:48→18:29)
[2016-08-16] MEDS: ASPIRIN EC 81 MG TABEC PO SCH (09:48)
[2016-08-16] MEDS: LORATADINE 10 MG TAB PO SCH (09:49)
[2016-08-16] MEDS: LACTIC ACID (AMMONIUM LACTATE) 12% LOTION 225 GM BTL TOPICAL SCH ×2 (09:49→21:18)
[2016-08-16] MEDS: BETAMETHASONE/CLOTRIMAZOLE CREAM 15 GM TOPICAL SCH ×2 (09:49→21:17)
[2016-08-16] MEDS: MAGNESIUM OXIDE 400 MG TAB PO SCH ×2 (09:49→21:18)
[2016-08-16] MEDS: CITALOPRAM HYDROBROMIDE 20 MG TAB PO SCH (09:49)
[2016-08-16] MEDS: TIMOLOL MALEATE 0.5% OPHT SOLN 5 ML BTL EACH EYE SCH (09:49)
[2016-08-16 09:54] VITALS: BP 119/66; PULSE 69
[2016-08-16] MEDS: LISINOPRIL 20 MG TAB PO SCH (09:55)
[2016-08-16] MEDS: metFORMIN HCL 500 MG TAB PO SCH ×2 (09:56→18:30)
--- NOTE | 2016-08-16 12:10 | HHI.PYPN ---
Subjective Remarks Patient seen in day room with nurse Savannah and medical student Gabbi, patient calm cooperative me marked decrease intensity with his affect no signs of paranoia at this time her behavioral issues. Compliant medications. For now continue treatment Review of Systems Except as stated in HPI: all other systems reviewed are Neg Objective Alert: Yes [place]: Person, Place, Date Mood: Calm Affect: Flat Memory Intact: Comment (no significant impairment) Hallucinations: Other (deneis any) Delusions: Yes (re a girlfriend at [facility]) Delusion Type: Paranoid (slightly decreased) Suicidal: Ideation (deneis any) Homicidal: Ideation (deneis any) Insight/Judgement Poor Vitals/IOs Vital Signs Date Time Temp Pulse Resp B/P Pulse Ox O2 Delivery O2 Flow Rate FiO2 08/16/16 09:54 69 119/66 08/16/16 05:18 97.8 18 99 Intake and Output 08/15/16 08/15/16 08/16/16 08:00 16:00 00:00 Intake Total 0 ml 720 ml 360 ml Balance 0 ml 720 ml 360 ml Assessment & Plan Problem List: (1) Schizoaffective disorder, bipolar type ICD Code: F25.0 Assessment & Plan Estimated LOS: days patient continue somewhat confused and psychotic though softening. Compliant medications Justification for Cont. Inpt. At this time patient will decompensate placed in a lower level of care Discharge Planning To be determined Request HC Surrog/Guard Advoc?: No Phil Mckee MD Aug 16, 2016 12:10
[2016-08-16] MEDS: EUCERIN CREAM 120 GM JAR TOPICAL PRN (18:34)
[2016-08-16 18:39] VITALS: BP 127/63; PULSE 66; RESP 17; TEMP 98.1; O2SAT 95
[2016-08-16] MEDS: ATORVASTATIN 10 MG TAB PO SCH (21:00)
[2016-08-16] MEDS: OLANZapine ODT 20 MG TAB SL SCH (21:00)
[2016-08-16] MEDS: IBUPROFEN 600 MG TAB PO PRN ×2 (21:18→22:20)
[2016-08-17 05:42] VITALS: BP 147/70; PULSE 55; RESP 18; TEMP 97.3; O2SAT 97
[2016-08-17] MEDS: ENOXAPARIN SODIUM 40 MG/0.4 ML SYRINGE SQ SCH (06:00)
[2016-08-17] MEDS: PHENYTOIN SUSP 100 MG/4 ML CUP PO SCH (06:35)
[2016-08-17] MEDS: EUCERIN CREAM 120 GM JAR TOPICAL PRN (08:31)
[2016-08-17] MEDS: CITALOPRAM HYDROBROMIDE 20 MG TAB PO SCH (08:32)
[2016-08-17] MEDS: ASPIRIN EC 81 MG TABEC PO SCH (08:32)
[2016-08-17] MEDS: metFORMIN HCL 500 MG TAB PO SCH ×2 (08:32→17:14)
[2016-08-17] MEDS: METOPROLOL TARTRATE 50 MG TAB PO SCH ×2 (08:32→20:32)
[2016-08-17] MEDS: busPIRone HCL 5 MG TAB PO SCH ×3 (08:32→17:14)
[2016-08-17] MEDS: LORATADINE 10 MG TAB PO SCH (08:32)
[2016-08-17] MEDS: MAGNESIUM OXIDE 400 MG TAB PO SCH ×2 (08:33→20:31)
[2016-08-17] MEDS: LISINOPRIL 20 MG TAB PO SCH (08:33)
[2016-08-17] MEDS: BETAMETHASONE/CLOTRIMAZOLE CREAM 15 GM TOPICAL SCH ×2 (08:33→20:32)
[2016-08-17] MEDS: LACTIC ACID (AMMONIUM LACTATE) 12% LOTION 225 GM BTL TOPICAL SCH ×2 (08:34→20:32)
[2016-08-17] MEDS: TIMOLOL MALEATE 0.5% OPHT SOLN 5 ML BTL EACH EYE SCH (08:35)
--- NOTE | 2016-08-17 12:34 | HHI.PYPN ---
Subjective Remarks Patient was seen and case discussed with nursing. Patient is disheveled and disorganized. He is however, not aggressive or labile and pleasant during this interview. I does medications. Patient's Dilantin level is again mildly elevated and I spoke with medicine and they are evaluating his treatment. Appears to have pancytopenia with low WBC, hemoglobin, and ANC. Objective Alert: Yes [place]: Person, Place, Date Mood: Calm Affect: Flat Memory Intact: Comment (no significant impairment) Hallucinations: Other (deneis any) Delusions: Yes (re a girlfriend at [facility]) Delusion Type: Paranoid (slightly decreased) Suicidal: Ideation (deneis any) Homicidal: Ideation (deneis any) Insight/Judgement poor Labs Test 08/17/16 07:50 Phenytoin (Dilantin) Level 25.7 MCG/ML Vitals/IOs Vital Signs Date Time Temp Pulse Resp B/P Pulse Ox O2 Delivery O2 Flow Rate FiO2 08/17/16 05:42 97.3 55 18 147/70 97 Intake and Output 08/16/16 08/16/16 08/17/16 08:00 16:00 00:00 Intake Total 480 ml 480 ml Balance 480 ml 480 ml Assessment & Plan Problem List: (1) Schizoaffective disorder, bipolar type ICD Code: F25.0 Assessment & Plan Consult hematology for pancytopenia Justification for Cont. Inpt. Patient will decompensate in a less restrictive setting Request HC Surrog/Guard Advoc?: No Vishnu Small DO Aug 17, 2016 12:34
--- NOTE | 2016-08-17 13:34 | HHI.PR ---
Subjective Remarks Follow-up visit Dilantin toxicity, unsteady gait, dizziness, pruritus. Patient seen today in day room, reports feeling- a little more steady and a little stronger. Awake and alert. Itching about the same. Denies any dizziness, headache. Denies pain and discomfort. Denies SOB/ dyspnea. Denies chest pain, palpitations. Denies fevers, chills, n/v/d. Dilantin level elevated 25.7 Objective Vitals Vital Signs Date Time Temp Pulse Resp B/P Pulse Ox O2 Delivery O2 Flow Rate FiO2 08/17/16 05:42 97.3 55 18 147/70 97 08/16/16 18:39 98.1 66 17 127/63 95 I/O 08/16/16 08/16/16 08/16/16 08/17/16 08/17/16 08/17/16 07:00 15:00 23:00 07:00 15:00 23:00 Intake Total 480 ml 480 ml 120 ml 360 ml Balance 480 ml 480 ml 120 ml 360 ml Intake Oral 480 ml 480 ml 120 ml 360 ml # Voids 3 5 1 # Bowel Movements 1 Result Diagram: 08/13/16184908/13/161849 Objective Remarks GENERAL: This is a well-nourished, well-developed patient, in no apparent distress. SKIN: multiple erythematous macular dermatitis, previously had scabies, healed. Dry skin. Improved. CARDIOVASCULAR: Regular rate and rhythm without murmurs, gallops, or rubs. RESPIRATORY: Clear to auscultation. Breath sounds equal bilaterally. No wheezes , rales, or rhonchi. GASTROINTESTINAL: Abdomen soft, non-tender, nondistended. Normal active bowel sounds MUSCULOSKELETAL: Extremities without clubbing, cyanosis, or edema. NEURO: Alert and awake and responsive to questions and commands. Moves all ext x4. Procedures none A/P Problem List: (1) History of schizoaffective disorder ICD Code: Z86.59 Status: Acute (2) Orthostatic dizziness ICD Code: R42 Status: Chronic (3) Dyslipidemia ICD Code: E78.5 Status: Chronic (4) DM type 2 (diabetes mellitus, type 2) ICD Code: E11.9 Status: Chronic (5) Orthostatic hypotension ICD Code: I95.1 Status: Acute Assessment and Plan This is a 60-year-old male patient in the psych unit for schizoaffective disorder, we are being consulted for medical comanagement of COPD, atrial flutter and possible UTI. Schizoaffective disorder, bipolar type-further management per psychiatry Dilantin toxicity - Dilantin level was 31.4, 30.6 --> 27.1 --> 15.3 -->18.0 --> 25.7 - Denies dizziness. Continue with walker use. Assist with ambulation/ and ADLs - Hold Dilantin this evening -Restart Dilantin 200 mg twice a day in a.m. - Recheck levels in AM HTN Orthostatic hypotension -dizziness, unsteady gait. - Parameters with BP meds lisinopril, metoprolol. Healing rash from scabies s/p permethrin x 2 -DC hydrocortisone as patient has been this since 07/20/2016 -DC Atarax secondary to drowsiness, maybe attributing to dizziness and increased risk for fall - continue Claritin. Dry skin- Eucerin cream as needed. Tinea pedis. Lotrimin cream. History of COPD-not in exacerbation Dyslipidemia- continue statin History of seizures- phenytoin on hold secondary to elevated levels 25.7 today Continue metoprolol, lisinopril, clonidine as needed Diabetes mellitus- continue metformin Hemoglobin A1c 7.1 pancytopenia- Primary team has consulted hematology Thrombocytopenia platelet count 112 Lovenox DC'd DVT prophylaxis patient is ambulatory Discussed with patient, RN and Norah Davison Aug 17, 2016 13:34 Salvador Magana MD Aug 23, 2016 12:38
[2016-08-17 16:10] LABS: AUTOMATED NEUTROPHIL # 1.5 TH/MM3 (1.8-7.7); BASOPHIL % 0.8 % (0.0-2.0); EOSINOPHIL # 0.1 TH/MM3 (0-0.4); EOSINOPHIL % 3.6 % (0.0-4.0); HEMATOCRIT 32.1 % (39.0-51.0); HEMO FLAGS DIFF FINAL; LYMPH % 28.8 % (9.0-44.0); LYMPHOCYTE # 0.8 TH/MM3 (1.0-4.8); MEAN CELL VOLUME 97.5 FL (80.0-100.0); MEAN CORPUSCULAR HEMOGLOBIN 33.2 PG (27.0-34.0); MEAN CORPUSCULAR HGB CONC 34.1 % (32.0-36.0); NEUT % 57.8 % (16.0-70.0); PLATELET COUNT 112 TH/MM3 (150-450); RED CELL DISTRIBUTION WIDTH 15.2 % (11.6-17.2); WHITE BLOOD COUNT 2.6 TH/MM3 (4.0-11.0)
[2016-08-17 20:10] VITALS: BP 138/68; PULSE 59; RESP 18; TEMP 97.2; O2SAT 95
[2016-08-17] MEDS: ATORVASTATIN 10 MG TAB PO SCH (20:31)
[2016-08-17] MEDS: OLANZapine ODT 20 MG TAB SL SCH (20:32)
[2016-08-17] MEDS: IBUPROFEN 600 MG TAB PO PRN (20:32)
[2016-08-17 20:40] VITALS: PULSE 68
--- NOTE | 2016-08-18 04:19 | MB ---
cc: PARK TIMMONS DATE OF CONSULTATION: 08/17/2016 REASON FOR CONSULTATION: Low white blood cell count PATIENT PROFILE: The patient is a 60 year-old male. He is schizophrenic. The history comes from speaking to the patient, the nursing staff and reviewing the chart. He was born in [facility]. He has lived in [place] for 30 years. He is currently residing in a half-way. He cannot work. 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 He does not smoke. Currently he does not drink but apparently there is a history of excessive alcohol intake in the past. HISTORY OF PRESENT ILLNESS: The patient is a 60 year-old male who suffers from severe schizophrenia. He is on multiple medications and prior to coming to the hospital these medications included olanzapine, Paliperidone, and Dilantin. He was hospitalized due to confusion and exacerbation of his schizophrenia. He had a slightly falling white cell count. On 08/17/2016,hemoglobin 11, white count 2,600 and platelets 112,000. I am asked to see him due to the falling white cell count. In looking back over his CBC and platelet counts, this is not new. On August 06, 2012, he had a white count of 3000. On 03/19/2015 he had a white count of 3,300. His current differential is 57% neutrophils, 28% lymphocytes, 9% monocytes. Other studies include BUN 24, creatinine 0.7. PAST SURGICAL HISTORY: 1. Cardiac catheterization which he recollects occurred on two occasions. PAST MEDICAL HISTORY: 1. According to the nursing staff, history alcoholism. 2. Schizophrenia. 3. Depression. 4. Diabetes. 5. Hypertension. 6. Cardiac arrhythmia. ? atrial fibrillation. 7. Seizure disorder. 8. Pulmonary embolus with CT pulmonary angiogram in July of 2015, showing a saddle embolus in the left main pulmonary artery. CURRENT MEDICATIONS: 1. Dilantin. 2. Claritin. 3. Paliperidone 4. Magnesium oxide. 5. Zofran p.r.n. 6. Zyprexa 40 milligrams 7. Ibuprofen p.r.n. 8. Aspirin 9. Celexa. 10. Prinivil 11. Atorvastatin 12. Lopressor 13. Metformin 14. BuSpar ALLERGIES Listed as: THORAZINE PENICILLIN, HALDOL. FAMILY HISTORY Noncontributory. REVIEW OF SYSTEMS: Review of systems is difficult to obtain. The patient's only major complaint is that when he walks his gait is not as steady as he would like it to be. Of note, he had a Dilantin level of 31 on 08/08/2016. PHYSICAL EXAMINATION: The physical exam reveals a disheveled male much older than his stated age. He was able to converse with me fairly well but did not have a good recollection for recent history. VITAL SIGNS: Blood pressure was 140/70, respiratory rate 18, pulse 60 afebrile, 97% saturation. HEAD: Head is normocephalic. Sclerae and conjunctiva normal. Oropharynx, hygiene poor. There is no adenopathy. Heart: Regular rhythm. Lungs: Clear. Abdomen: No hepatosplenomegaly. Extremities: Trace edema. Neurologic: No focal weakness. ASSESSMENT The patient is a 60-year-old male who has a hemoglobin of 11 and white count 2600, platelets 112,000 with a normal differential. In the past he has had white counts similar to this although this is a little lower. Given the normal differential it is reassuring that it is unlikely that we are dealing with a significant hematologic problem. He is currently taking three medications which can affect the white count as well as the other lines. These medications include Dilantin, Paliperidone, and olanzapine. At this point I would not do anything different. I would follow his CBC and platelet count, and if there is a significant fall in the white count which is sustained then we will need to stop some of the medications to see which one is likely to be the culprit. Will check B12, folic acid and ferritin. At the present time it appears that he needs to have these medicines. The degree of neutropenia is not worrisome unless it were to significantly worsen and hopefully it will partially correct over time. I would recommend that he have a CBC and platelet count every two or three weeks to make sure that the downward trend does not continue. MD ALFRED Cantu/KUMAR /7:53 PM /3:51 AM [facility]
[2016-08-18 05:50] VITALS: BP 134/65; PULSE 51; RESP 16; TEMP 97.7; O2SAT 98
[2016-08-18 08:51] VITALS: BP 134/65; PULSE 51; RESP 16; TEMP 97.7; O2SAT 98
[2016-08-18] MEDS: ASPIRIN EC 81 MG TABEC PO SCH (08:56)
[2016-08-18] MEDS: metFORMIN HCL 500 MG TAB PO SCH ×2 (08:56→18:00)
[2016-08-18] MEDS: LORATADINE 10 MG TAB PO SCH (08:56)
[2016-08-18] MEDS: busPIRone HCL 5 MG TAB PO SCH ×3 (08:56→18:00)
[2016-08-18] MEDS: LISINOPRIL 20 MG TAB PO SCH (08:56)
[2016-08-18] MEDS: MAGNESIUM OXIDE 400 MG TAB PO SCH ×2 (08:57→20:50)
[2016-08-18] MEDS: CITALOPRAM HYDROBROMIDE 20 MG TAB PO SCH (08:57)
[2016-08-18] MEDS: METOPROLOL TARTRATE 50 MG TAB PO SCH ×2 (08:57→20:50)
[2016-08-18] MEDS: PHENYTOIN SODIUM 100 MG CAP PO SCH ×2 (08:57→20:49)
[2016-08-18] MEDS: LACTIC ACID (AMMONIUM LACTATE) 12% LOTION 225 GM BTL TOPICAL SCH ×2 (09:00→20:50)
[2016-08-18] MEDS: BETAMETHASONE/CLOTRIMAZOLE CREAM 15 GM TOPICAL SCH ×2 (09:00→20:50)
[2016-08-18] MEDS: TIMOLOL MALEATE 0.5% OPHT SOLN 5 ML BTL EACH EYE SCH (09:00)
[2016-08-18] MEDS ORDERED: CYANOCOBALAMIN 1000 MCG/ML VIAL IM ONE (12:00)
[2016-08-18] MEDS ORDERED: CYANOCOBALAMIN 1000 MCG/ML VIAL IM SCH (12:15)
--- NOTE | 2016-08-18 12:24 | PD.ONC.PN ---
Subjective Subjective Remarks Afebrile overnight. Pt resting in bed. He states he cannot remember if he has ever been low before on his B12. He has no complaints today. Objective Data Date Time Temp Pulse Resp B/P Pulse Ox O2 Delivery O2 Flow Rate FiO2 08/18/16 08:51 97.7 51 16 134/65 98 08/18/16 05:50 97.7 51 16 134/65 98 08/17/16 20:40 68 08/17/16 20:10 97.2 59 18 138/68 95 Result Diagram: 08/17/16 1604 Laboratory Results Laboratory Tests Test 08/17/16 08/18/16 16:04 06:01 White Blood Count 2.6 TH/MM3 Red Blood Count 3.30 MIL/MM3 Hemoglobin 11.0 GM/DL Hematocrit 32.1 % Mean Corpuscular Volume 97.5 FL Mean Corpuscular Hemoglobin 33.2 PG Mean Corpuscular Hemoglobin 34.1 % Concent Red Cell Distribution Width 15.2 % Platelet Count 112 TH/MM3 Mean Platelet Volume 7.7 FL Neutrophils (%) (Auto) 57.8 % Lymphocytes (%) (Auto) 28.8 % Monocytes (%) (Auto) 9.0 % Eosinophils (%) (Auto) 3.6 % Basophils (%) (Auto) 0.8 % Neutrophils # (Auto) 1.5 TH/MM3 Lymphocytes # (Auto) 0.8 TH/MM3 Monocytes # (Auto) 0.2 TH/MM3 Eosinophils # (Auto) 0.1 TH/MM3 Basophils # (Auto) 0.0 TH/MM3 CBC Comment DIFF FINAL Differential Comment Ferritin 140 NG/ML Vitamin B12 Level 62 PG/ML Folate 3.4 NG/ML Phenytoin (Dilantin) Level 20.1 MCG/ML Administered Medications Medications (Trade) Dose Ordered Sig/Dorina Route PRN Reason Start Time Stop Time Status Last Admin Dose Admin Acetaminophen (Tylenol) 650 mg Q4H PRN PO Pain 1-5 or Temp >101F 07/18/16 17:30 07/30/16 06:04 Magnesium Hydroxide (Milk Of Magnesia Liq) 30 ml DAILY PRN PO CONSTIPATION 07/18/16 17:30 08/10/16 09:23 Al Hydrox/Mg Hydrox/Simethicone (Mag-Al Plus Susp Liq) 30 ml Q6H PRN PO DYSPEPSIA 07/18/16 17:30 07/30/16 10:40 Aspirin (Ecotrin Ec) 81 mg DAILY PO 07/19/16 09:00 08/18/16 08:56 Atorvastatin Calcium (Lipitor) 10 mg HS PO 07/18/16 21:00 08/17/16 20:31 Buspirone HCl (Buspar) 5 mg TID PO 07/18/16 18:00 08/18/16 08:56 Citalopram Hydrobromide (CeleXA) 20 mg DAILY PO 07/19/16 09:00 08/18/16 08:57 Lisinopril (Prinivil) 20 mg DAILY PO 07/19/16 09:00 08/18/16 08:56 Metformin HCl (Glucophage) 1,000 mg BIDPC PO 07/18/16 18:30 08/18/16 08:56 Metoprolol Tartrate (Lopressor) 50 mg BID PO 07/18/16 21:00 08/18/16 08:57 Timolol Maleate (Timoptic 0.5% Opth Soln) 1 drop DAILY EACH EYE 07/19/16 09:00 08/18/16 09:00 Ibuprofen (Motrin) 600 mg Q6H PRN PO PAIN/INFLAMMATION 3-10 07/19/16 14:45 08/17/16 20:32 Clonidine (Catapres) 0.1 mg Q6H PRN PO SBP greater than 160 07/19/16 14:45 07/24/16 22:41 Olanzapine (ZyPREXA ZYDIS ODT) 40 mg HS SL 07/26/16 21:00 08/17/16 20:32 Ondansetron HCl (Zofran Odt) 4 mg Q4H PRN PO NAUSEA OR VOMITING 07/30/16 16:15 08/10/16 13:31 Multi-Ingredient Ointment (Eucerin Cream) 1 applic Q6H PRN TOPICAL DRY SKIN/ ITCHING 08/05/16 11:45 08/17/16 08:31 Paliperidone Palmitate (Invega Sustenna Inj) 234 mg Q21D IM 08/09/16 07:30 08/09/16 13:43 Lactic Acid (Lac-Hydrin 12% Lotion) 1 applic BID TOPICAL 08/07/16 14:00 08/17/16 20:32 Betamethasone/ Clotrimazole (Lotrisone Cream) 1 applic Q12HR TOPICAL 08/07/16 14:00 08/17/16 20:32 Magnesium Oxide (Mag-Ox) 400 mg Q12HR PO 08/08/16 21:00 08/18/16 08:57 Loratadine (Claritin) 10 mg DAILY PO 08/09/16 15:45 08/18/16 08:56 Phenytoin (Dilantin) 200 mg BID PO 08/18/16 09:00 08/18/16 08:57 Objective Remarks GENERAL: Disheveled older gentleman, lying in bed in no distress. SKIN: Warm and dry. HEAD: Normocephalic. EYES: No injection or drainage. NECK: Supple, trachea midline. CARDIOVASCULAR: +S1/S2. No murmur appreciated. RESPIRATORY: Breath sounds equal bilaterally. No accessory muscle use. GASTROINTESTINAL: Abdomen soft, non-tender, nondistended. EXTREMITIES: No edema. NEUROLOGICAL: Moving all extremities. No obvious focal deficit. Assessment/Plan Assessment 60 y/o male who presents to the ER under a [place] Act. Hematology consulted for cytopenias. Plan B12 level was found to be low. A low B12 level may also contribute to cytopenias. We will replenish his low level with 1000mcg B12 IM x 3 days. After this, there are two options for who may be following with patient: 1) He should get monthly B12 1000mcg injections, or 2) He should get B12 supplement 1000 mcg po daily. We would recommend a CBC once a week while hospitalized to monitor blood counts. Attending Statement The exam, history, and the medical decision-making described in the above note were completed with the assistance of the mid-level provider. I reviewed and agree with the findings presented. I attest that I had a [id number] encounter with the patient on the same day, and personally performed and documented my assessment and findings in the medical record. I spoke with him about taking B12 and he would prefer taking the pills on discharge. ON DISCHARGE GIVE HIM A PRESCRIPTION FOR B12 1 MG OR 1000MC DAILY WITH AN INFINITE NUMBER OF REFILLS. WOULD ADVISE CHECKING A B12 LEVEL IN 4 MONTHS. The degree of B12 deficiency is not great or we would see elevated LDH, bilirubin and other abnormalities. At this point will see prn. thanks. Nikia Forte Aug 18, 2016 12:24 Jax Gregg MD Aug 18, 2016 15:31
[2016-08-18] MEDS: ALUMINUM/MAGNESIUM/SIMETH 30 ML CUP PO PRN (12:34)
[2016-08-18] MEDS: CYANOCOBALAMIN 1000 MCG/ML VIAL IM SCH (14:00)
--- NOTE | 2016-08-18 15:32 | HHI.PYPN ---
Subjective Remarks Patient was seen and case discussed with nursing. Patient is pleasant and cooperative with exam. His behaving well on the unit and is no longer irritable or agitated. His mood is stable at this time. He is compliant with medications. He was seen by the acid extractor and B12 shot was recommended Objective Alert: Yes [place]: Person, Place, Date Mood: Calm Affect: Flat Memory Intact: Comment (no significant impairment) Hallucinations: Other (deneis any) Delusions: Yes (re a girlfriend at [facility]) Delusion Type: Paranoid (slightly decreased) Suicidal: Ideation (deneis any) Homicidal: Ideation (deneis any) Insight/Judgement Poor Labs Test 08/17/16 08/18/16 16:04 06:01 White Blood Count 2.6 TH/MM3 Red Blood Count 3.30 MIL/MM3 Hemoglobin 11.0 GM/DL Hematocrit 32.1 % Mean Corpuscular Volume 97.5 FL Mean Corpuscular Hemoglobin 33.2 PG Mean Corpuscular Hemoglobin 34.1 % Concent Red Cell Distribution Width 15.2 % Platelet Count 112 TH/MM3 Mean Platelet Volume 7.7 FL Neutrophils (%) (Auto) 57.8 % Lymphocytes (%) (Auto) 28.8 % Monocytes (%) (Auto) 9.0 % Eosinophils (%) (Auto) 3.6 % Basophils (%) (Auto) 0.8 % Neutrophils # (Auto) 1.5 TH/MM3 Lymphocytes # (Auto) 0.8 TH/MM3 Monocytes # (Auto) 0.2 TH/MM3 Eosinophils # (Auto) 0.1 TH/MM3 Basophils # (Auto) 0.0 TH/MM3 CBC Comment DIFF FINAL Differential Comment Ferritin 140 NG/ML Vitamin B12 Level 62 PG/ML Folate 3.4 NG/ML Phenytoin (Dilantin) Level 20.1 MCG/ML Vitals/IOs Vital Signs Date Time Temp Pulse Resp B/P Pulse Ox O2 Delivery O2 Flow Rate FiO2 08/18/16 08:51 97.7 51 16 134/65 98 Intake and Output 08/17/16 08/17/16 08/18/16 08:00 16:00 00:00 Intake Total 120 ml 1560 ml 480 ml Balance 120 ml 1560 ml 480 ml Assessment & Plan Problem List: (1) Schizoaffective disorder, bipolar type ICD Code: F25.0 Assessment & Plan Continue current treatment plan Justification for Cont. Inpt. Patient will decompensate in a less restrictive setting Request HC Surrog/Guard Advoc?: No Vishnu Small DO Aug 18, 2016 15:32
[2016-08-18] MEDS: OLANZapine ODT 20 MG TAB SL SCH (20:49)
[2016-08-18] MEDS: ATORVASTATIN 10 MG TAB PO SCH (20:49)
[2016-08-19 05:52] VITALS: BP 150/70; PULSE 57; RESP 17; TEMP 97.5; O2SAT 97
[2016-08-19] MEDS: TIMOLOL MALEATE 0.5% OPHT SOLN 5 ML BTL EACH EYE SCH (09:00)
[2016-08-19] MEDS: BETAMETHASONE/CLOTRIMAZOLE CREAM 15 GM TOPICAL SCH ×3 (09:51→21:00)
[2016-08-19] MEDS: CYANOCOBALAMIN 1000 MCG/ML VIAL IM SCH (09:51)
[2016-08-19] MEDS: busPIRone HCL 5 MG TAB PO SCH ×3 (09:51→18:00)
[2016-08-19] MEDS: metFORMIN HCL 500 MG TAB PO SCH ×2 (09:51→18:11)
[2016-08-19] MEDS: LORATADINE 10 MG TAB PO SCH (09:52)
[2016-08-19] MEDS: PHENYTOIN SODIUM 100 MG CAP PO SCH (09:52)
[2016-08-19] MEDS: METOPROLOL TARTRATE 50 MG TAB PO SCH ×3 (09:52→21:00)
[2016-08-19] MEDS: LISINOPRIL 20 MG TAB PO SCH (09:52)
[2016-08-19] MEDS: CITALOPRAM HYDROBROMIDE 20 MG TAB PO SCH (09:52)
[2016-08-19] MEDS: MAGNESIUM OXIDE 400 MG TAB PO SCH ×3 (09:52→21:00)
[2016-08-19] MEDS: ASPIRIN EC 81 MG TABEC PO SCH (09:52)
[2016-08-19] MEDS: LACTIC ACID (AMMONIUM LACTATE) 12% LOTION 225 GM BTL TOPICAL SCH ×3 (09:53→21:00)
--- NOTE | 2016-08-19 12:28 | HHI.PR ---
Subjective Remarks Follow-up visit Dilantin toxicity, unsteady gait, dizziness, pruritus. Patient seen today reports feeling-ok today. Awake and alert. Itching about the same. Denies any dizziness, headache. Denies pain and discomfort. Denies SOB/ dyspnea. Denies chest pain, palpitations. Denies fevers, chills, n/v/d. Dilantin level elevated pending Objective Vitals Vital Signs Date Time Temp Pulse Resp B/P Pulse Ox O2 Delivery O2 Flow Rate FiO2 08/19/16 05:52 97.5 57 17 150/70 97 I/O 08/18/16 08/18/16 08/18/16 08/19/16 08/19/16 08/19/16 07:00 15:00 23:00 07:00 15:00 23:00 Intake Total 1740 ml 240 ml Balance 1740 ml 240 ml Intake Oral 1740 ml 240 ml # Voids 1 4 2 Result Diagram: 08/17/16 1604 Objective Remarks GENERAL: This is a well-nourished, well-developed patient, in no apparent distress. SKIN: multiple erythematous macular dermatitis, previously had scabies, healed. Dry skin. Improved. CARDIOVASCULAR: Regular rate and rhythm without murmurs, gallops, or rubs. RESPIRATORY: Clear to auscultation. Breath sounds equal bilaterally. No wheezes , rales, or rhonchi. GASTROINTESTINAL: Abdomen soft, non-tender, nondistended. Normal active bowel sounds MUSCULOSKELETAL: Extremities without clubbing, cyanosis, or edema. NEURO: Alert and awake and responsive to questions and commands. Moves all ext x4. Procedures none A/P Problem List: (1) History of schizoaffective disorder ICD Code: Z86.59 Status: Acute (2) Orthostatic dizziness ICD Code: R42 Status: Chronic (3) Dyslipidemia ICD Code: E78.5 Status: Chronic (4) DM type 2 (diabetes mellitus, type 2) ICD Code: E11.9 Status: Chronic (5) Orthostatic hypotension ICD Code: I95.1 Status: Acute Assessment and Plan This is a 60-year-old male patient in the psych unit for schizoaffective disorder, we are being consulted for medical comanagement of COPD, atrial flutter and possible UTI. Schizoaffective disorder, bipolar type-further management per psychiatry History of seizures- phenytoin Dilantin toxicity - Dilantin level was 31.4, 30.6 --> 27.1 --> 15.3 -->18.0 --> 25.7 --> 20.1 (albumin correct phenytoin level 27- upper limit of phenytoin level because of low albumin 14.0) Patient refused phenytoin level this AM. - Denies dizziness. Continue with walker use. Assist with ambulation/ and ADLs -Hold Dilantin - Recheck levels for this AM pending HTN Orthostatic hypotension -dizziness, unsteady gait. - Parameters with BP meds lisinopril, metoprolol. Healing rash from scabies s/p permethrin x 2 -DC hydrocortisone as patient has been this since 07/20/2016 -DC Atarax secondary to drowsiness, maybe attributing to dizziness and increased risk for fall - continue Claritin. Dry skin- Eucerin cream as needed. Tinea pedis. Lotrimin cream. History of COPD-not in exacerbation Dyslipidemia- continue statin Continue metoprolol, lisinopril, clonidine as needed Diabetes mellitus- continue metformin Hemoglobin A1c 7.1 pancytopenia- Primary team has consulted hematology- recommends monitoring CBC and platelet count of 2-3 weeks low B12 recomendations per hematology "B12 level was found to be low. A low B12 level may also contribute to cytopenias. 1000mcg B12 IM x 3 days. After this, there are two options for who may be following with patient: 1) He should get monthly B12 1000mcg injections, or 2) He should get B12 supplement 1000 mcg po daily. We would recommend a CBC once a week while hospitalized to monitor blood counts. ON DISCHARGE GIVE HIM A PRESCRIPTION FOR B12 1 MG OR 1000MC DAILY WITH AN INFINITE NUMBER OF REFILLS. WOULD ADVISE CHECKING A B12 LEVEL IN 4 MONTHS. The degree of B12 deficiency is not great or we would see elevated LDH, bilirubin and other abnormalities" Thrombocytopenia platelet count 112 Lovenox DC'd DVT prophylaxis patient is ambulatory Discussed with patient, RN Written by Norah Yusuf, acting as scribe for Dr. Escalante on 08/19/16 at 12:27. The documentation accurately reflects the work performed [id number] by me on at 16:39. Norah Yusuf Aug 19, 2016 12:28 Jerome Escalante MD Aug 19, 2016 16:39
--- NOTE | 2016-08-19 17:12 | HHI.PYPN ---
Subjective Remarks Patient discussed with treatment team and medical student Gabbi, chart review , patient seen on unit. Patient well somewhat irritable and feistiness morning continues to recognize me and is pleasant with me. Patient compliant with medications albeit at times somewhat reluctantly. For now continue treatment Review of Systems Except as stated in HPI: all other systems reviewed are Neg Objective Alert: Yes [place]: Person, Place, Date Mood: Calm Affect: Flat Memory Intact: Comment (no significant impairment) Hallucinations: Other (deneis any) Delusions: Yes (re a girlfriend at [facility]) Delusion Type: Paranoid (slightly decreased) Suicidal: Ideation (deneis any) Homicidal: Ideation (deneis any) Insight/Judgement Poor Vitals/IOs Vital Signs Date Time Temp Pulse Resp B/P Pulse Ox O2 Delivery O2 Flow Rate FiO2 08/19/16 05:52 97.5 57 17 150/70 97 Intake and Output 08/18/16 08/18/16 08/19/16 08:00 16:00 00:00 Intake Total 960 ml 780 ml Balance 960 ml 780 ml Assessment & Plan Problem List: (1) Schizoaffective disorder, bipolar type ICD Code: F25.0 Assessment & Plan Estimated LOS: days patient continue somewhat irritable but softer, compliant medications. Placement remains somewhat problematic Justification for Cont. Inpt. At this time patient will decompensate placed a lower level of care Discharge Planning To be determined Request HC Surrog/Guard Advoc?: No Phil Mckee MD Aug 19, 2016 17:12
[2016-08-19 18:00] VITALS: BP 137/69; PULSE 77; RESP 16; TEMP 98; O2SAT 95
[2016-08-19] MEDS: ATORVASTATIN 10 MG TAB PO SCH ×2 (20:46→21:00)
[2016-08-19] MEDS: OLANZapine ODT 20 MG TAB SL SCH ×2 (20:46→21:00)
[2016-08-20 05:31] VITALS: BP 165/83; PULSE 74; RESP 16; TEMP 98.4; O2SAT 97
[2016-08-20] MEDS: BETAMETHASONE/CLOTRIMAZOLE CREAM 15 GM TOPICAL SCH ×2 (09:00→21:00)
[2016-08-20] MEDS: TIMOLOL MALEATE 0.5% OPHT SOLN 5 ML BTL EACH EYE SCH (09:00)
[2016-08-20] MEDS: LACTIC ACID (AMMONIUM LACTATE) 12% LOTION 225 GM BTL TOPICAL SCH ×2 (09:00→21:00)
[2016-08-20] MEDS: metFORMIN HCL 500 MG TAB PO SCH ×2 (10:03→18:28)
[2016-08-20] MEDS: METOPROLOL TARTRATE 50 MG TAB PO SCH ×2 (10:03→20:46)
[2016-08-20] MEDS: CYANOCOBALAMIN 1000 MCG/ML VIAL IM SCH (10:03)
[2016-08-20] MEDS: ASPIRIN EC 81 MG TABEC PO SCH (10:04)
[2016-08-20] MEDS: busPIRone HCL 5 MG TAB PO SCH ×3 (10:04→18:28)
[2016-08-20] MEDS: LORATADINE 10 MG TAB PO SCH (10:04)
[2016-08-20] MEDS: CITALOPRAM HYDROBROMIDE 20 MG TAB PO SCH (10:04)
[2016-08-20] MEDS: MAGNESIUM OXIDE 400 MG TAB PO SCH ×2 (10:04→20:46)
[2016-08-20] MEDS: LISINOPRIL 20 MG TAB PO SCH (10:04)
--- NOTE | 2016-08-20 10:42 | HHI.PYPN ---
Subjective Remarks Patient seen in his room with nurse Lisa and medical student Gabbi, patient showing some mild increased irritability has refused his at bedtime Zyprexa 2 days in a row. They did take his in [place] sustain a on 2. The patient other significant behavioral problems at this time. For now continue treatment Review of Systems Except as stated in HPI: all other systems reviewed are Neg Objective Alert: Yes [place]: Person, Place, Date Mood: Calm Affect: Flat Memory Intact: Comment (no significant impairment) Hallucinations: Other (deneis any) Delusions: Yes (re a girlfriend at [facility]) Delusion Type: Paranoid (slightly decreased) Suicidal: Ideation (deneis any) Homicidal: Ideation (deneis any) Insight/Judgement Poor Vitals/IOs Vital Signs Date Time Temp Pulse Resp B/P Pulse Ox O2 Delivery O2 Flow Rate FiO2 08/20/16 05:31 98.4 74 16 165/83 97 Intake and Output 08/19/16 08/19/16 08/20/16 08:00 16:00 00:00 Intake Total 240 ml 840 ml Balance 240 ml 840 ml Assessment & Plan Problem List: (1) Schizoaffective disorder, bipolar type ICD Code: F25.0 Assessment & Plan Estimated LOS: days patient continues irritable somewhat paranoid with mixed compliance medication Justification for Cont. Inpt. This time patient would decompensate placed in the lower level of care Discharge Planning To be determined Request HC Surrog/Guard Advoc?: No Phil Mckee MD Aug 20, 2016 10:41
--- NOTE | 2016-08-20 10:55 | HHI.PR ---
Subjective Remarks Follow-up visit Dilantin toxicity, unsteady gait, dizziness, pruritus. Patient seen today. Reports he is doing fine but sleepy. Itching about the same. Denies any dizziness, headache. Denies pain and discomfort. Denies SOB/ dyspnea. Denies chest pain, palpitations. Denies fevers, chills, n/v/d. Objective Vitals Vital Signs Date Time Temp Pulse Resp B/P Pulse Ox O2 Delivery O2 Flow Rate FiO2 08/20/16 05:31 98.4 74 16 165/83 97 08/19/16 18:00 98.0 77 16 137/69 95 I/O 08/19/16 08/19/16 08/19/16 08/20/16 08/20/16 08/20/16 07:00 15:00 23:00 07:00 15:00 23:00 Intake Total 240 ml 840 ml 240 ml Balance 240 ml 840 ml 240 ml Intake Oral 240 ml 840 ml 240 ml # Voids 2 2 Result Diagram: 08/17/16 1604 Objective Remarks GENERAL: This is a well-nourished, well-developed patient, in no apparent distress. SKIN: multiple erythematous macular dermatitis, previously had scabies, healed. Dry skin. Improved. CARDIOVASCULAR: Regular rate and rhythm without murmurs, gallops, or rubs. RESPIRATORY: Clear to auscultation. Breath sounds equal bilaterally. No wheezes , rales, or rhonchi. GASTROINTESTINAL: Abdomen soft, non-tender, nondistended. Normal active bowel sounds MUSCULOSKELETAL: Extremities without clubbing, cyanosis, or edema. NEURO: Awake and responsive to questions and commands. Moves all ext x4. Procedures none A/P Problem List: (1) History of schizoaffective disorder ICD Code: Z86.59 Status: Acute (2) Orthostatic dizziness ICD Code: R42 Status: Chronic (3) Dyslipidemia ICD Code: E78.5 Status: Chronic (4) DM type 2 (diabetes mellitus, type 2) ICD Code: E11.9 Status: Chronic (5) Orthostatic hypotension ICD Code: I95.1 Status: Acute Assessment and Plan This is a 60-year-old male patient in the psych unit for schizoaffective disorder, we are being consulted for medical comanagement of COPD, atrial flutter and possible UTI. Schizoaffective disorder, bipolar type-further management per psychiatry Dilantin toxicity - previous Dilantin level was 31.4, 30.6 --> 27.1 --> 15.3 -- > 20.4 today - Denies dizziness. Continue to have unsteady gait, risk for falls. Continue with walker use. Assist with ambulation/ and ADLs - Hold Dilantin - Recheck levels tomorrow HTN Orthostatic hypotension -dizziness, unsteady gait. - Parameters with BP meds lisinopril, metoprolol. - Continue metoprolol, lisinopril, clonidine as needed Healing rash from scabies s/p permethrin x 2 -DC hydrocortisone as patient has been this since 07/20/2016 -DC Atarax secondary to drowsiness, maybe attributing to dizziness and increased risk for fall - continue Claritin. Improving Dry skin- Eucerin cream as needed. Add Lac-Hydrin Tinea pedis. Lotrimin cream. History of COPD-not in exacerbation Dyslipidemia- continue statin Diabetes mellitus- continue metformin Hemoglobin A1c 7.1 Pancytopenia- Primary team has consulted hematology- recommends monitoring CBC and platelet count of 2-3 weeks Low B12 recomendations per hematology "B12 level was found to be low. A low B12 level may also contribute to cytopenias. 1000mcg B12 IM x 3 days. - After this, there are two options for who may be following with patient: 1) He should get monthly B12 1000mcg injections, or 2) He should get B12 supplement 1000 mcg po daily. We would recommend a CBC once a week while hospitalized to monitor blood counts. ON DISCHARGE GIVE HIM A PRESCRIPTION FOR B12 1 MG OR 1000MC DAILY WITH AN INFINITE NUMBER OF REFILLS. WOULD ADVISE CHECKING A B12 LEVEL IN 4 MONTHS. The degree of B12 deficiency is not great or we would see elevated LDH, bilirubin and other abnormalities. Thrombocytopenia platelet count 112 Lovenox DC'd DVT prophylaxis patient is ambulatory Discussed with patient, nursing Written by Brett Walker, acting as scribe for Dr. Escalante on 08/20/16 at 10: 34. The documentation accurately reflects the work performed [id number] by me on at 16:32. Brett Saez Aug 20, 2016 10:55 Jerome Escalante MD Aug 20, 2016 16:32
[2016-08-20] MEDS: MAGNESIUM HYDROXIDE SUSP 30 ML CUP PO PRN (13:43)
[2016-08-20 20:27] VITALS: BP 126/70; PULSE 75; RESP 16; TEMP 97.8; O2SAT 97
[2016-08-20] MEDS: OLANZapine ODT 20 MG TAB SL SCH (20:46)
[2016-08-20] MEDS: ATORVASTATIN 10 MG TAB PO SCH (20:46)
[2016-08-21 05:35] VITALS: BP 168/70; PULSE 55; RESP 16; TEMP 98.1; O2SAT 94
[2016-08-21] MEDS: TIMOLOL MALEATE 0.5% OPHT SOLN 5 ML BTL EACH EYE SCH (08:45)
[2016-08-21] MEDS: CYANOCOBALAMIN 1000 MCG/ML VIAL IM SCH (08:46)
[2016-08-21] MEDS: LISINOPRIL 20 MG TAB PO SCH (08:46)
[2016-08-21] MEDS: METOPROLOL TARTRATE 50 MG TAB PO SCH ×2 (08:46→22:36)
[2016-08-21] MEDS: LORATADINE 10 MG TAB PO SCH (08:46)
[2016-08-21] MEDS: ASPIRIN EC 81 MG TABEC PO SCH (08:46)
[2016-08-21] MEDS: busPIRone HCL 5 MG TAB PO SCH ×3 (08:47→17:37)
[2016-08-21] MEDS: MAGNESIUM OXIDE 400 MG TAB PO SCH ×2 (08:47→21:37)
[2016-08-21] MEDS: CITALOPRAM HYDROBROMIDE 20 MG TAB PO SCH (08:47)
[2016-08-21] MEDS: metFORMIN HCL 500 MG TAB PO SCH ×2 (08:47→17:37)
[2016-08-21] MEDS: LACTIC ACID (AMMONIUM LACTATE) 12% LOTION 225 GM BTL TOPICAL SCH ×2 (08:53→21:00)
[2016-08-21] MEDS: BETAMETHASONE/CLOTRIMAZOLE CREAM 15 GM TOPICAL SCH ×2 (08:54→21:00)
[2016-08-21] MEDS: PHENYTOIN SODIUM 100 MG CAP PO SCH ×2 (14:25→22:37)
--- NOTE | 2016-08-21 14:25 | HHI.PYPN ---
Subjective Remarks Patient seen in room with nurse Lisa, chart reviewed, patient compliant medications. Patient calm with me that time she has been somewhat irritable with staff. Though overall no significant behavioral problems. Placement remains quite problematic Review of Systems Except as stated in HPI: all other systems reviewed are Neg Objective Alert: Yes [place]: Person, Place, Date Mood: Calm Affect: Flat Memory Intact: Comment (no significant impairment) Hallucinations: Other (deneis any) Delusions: Yes (re a girlfriend at [facility]) Delusion Type: Paranoid (slightly decreased) Suicidal: Ideation (deneis any) Homicidal: Ideation (deneis any) Insight/Judgement Very poor Labs Test 08/21/16 08:15 Phenytoin (Dilantin) Level 16.0 MCG/ML Vitals/IOs Vital Signs Date Time Temp Pulse Resp B/P Pulse Ox O2 Delivery O2 Flow Rate FiO2 08/21/16 05:35 98.1 55 16 168/70 94 Intake and Output 08/20/16 08/20/16 08/21/16 08:00 16:00 00:00 Intake Total 960 ml 480 ml Balance 960 ml 480 ml Assessment & Plan Problem List: (1) Schizoaffective disorder, bipolar type ICD Code: F25.0 Assessment & Plan Estimated LOS: days patient somewhat calm with me other times showing behavioral issues. The is somewhat reluctantly compliant with medications. Placement remains problematic at this time Justification for Cont. Inpt. At this time patient would decompensate if placed in a lower level of care Discharge Planning To be determined Request HC Surrog/Guard Advoc?: No Phil Mckee MD Aug 21, 2016 14:25
[2016-08-21 18:00] VITALS: BP 120/72; PULSE 64; RESP 16; TEMP 98.3; O2SAT 96
[2016-08-21] MEDS: OLANZapine ODT 20 MG TAB SL SCH (21:00)
[2016-08-21] MEDS: ATORVASTATIN 10 MG TAB PO SCH (22:36)
[2016-08-22] MEDS: PHENYTOIN SODIUM 100 MG CAP PO SCH ×2 (05:45→12:16)
[2016-08-22 06:33] VITALS: BP 136/60; PULSE 47; RESP 16; TEMP 98.3; O2SAT 95
[2016-08-22] MEDS: CYANOCOBALAMIN 1000 MCG/ML VIAL IM SCH (09:00)
[2016-08-22] MEDS: TIMOLOL MALEATE 0.5% OPHT SOLN 5 ML BTL EACH EYE SCH (09:00)
[2016-08-22] MEDS: BETAMETHASONE/CLOTRIMAZOLE CREAM 15 GM TOPICAL SCH ×2 (09:00→21:00)
[2016-08-22] MEDS: busPIRone HCL 5 MG TAB PO SCH ×3 (09:00→17:56)
[2016-08-22] MEDS: LISINOPRIL 20 MG TAB PO SCH (09:00)
[2016-08-22] MEDS: METOPROLOL TARTRATE 50 MG TAB PO SCH ×3 (09:54→21:35)
[2016-08-22] MEDS: MAGNESIUM OXIDE 400 MG TAB PO SCH ×2 (09:54→21:36)
[2016-08-22] MEDS: CITALOPRAM HYDROBROMIDE 20 MG TAB PO SCH (09:55)
[2016-08-22] MEDS: ASPIRIN EC 81 MG TABEC PO SCH (09:55)
[2016-08-22] MEDS: LORATADINE 10 MG TAB PO SCH (09:55)
[2016-08-22] MEDS: metFORMIN HCL 500 MG TAB PO SCH ×2 (09:55→17:56)
[2016-08-22] MEDS: LACTIC ACID (AMMONIUM LACTATE) 12% LOTION 225 GM BTL TOPICAL SCH ×2 (09:57→21:00)
--- NOTE | 2016-08-22 11:16 | EKG ---
Date Performed: 08/22/2016 Time Performed: 10:12:29 PTAGE: 60 years EKG: Sinus rhythm INDETERMINATE AXIS RIGHT BUNDLE BRANCH BLOCK ABNORMAL ECG PREVIOUS TRACING : 07/19/2016 11.46 DOCTOR: Colin Park Interpretating Date/Time 08/22/2016 11:15:34
--- NOTE | 2016-08-22 15:05 | HHI.PR ---
Subjective Remarks Follow-up visit Dilantin toxicity, unsteady gait, dizziness, pruritus. Patient seen today. Reports he is doing well. Denies any dizziness, headache. Denies pain and discomfort. Denies SOB/ dyspnea. Denies chest pain, palpitations. Denies fevers, chills, n/v/d. Objective Vitals Vital Signs Date Time Temp Pulse Resp B/P Pulse Ox O2 Delivery O2 Flow Rate FiO2 08/22/16 06:33 98.3 47 16 136/60 95 08/21/16 18:00 98.3 64 16 120/72 96 I/O 08/21/16 08/21/16 08/21/16 08/22/16 08/22/16 08/22/16 07:00 15:00 23:00 07:00 15:00 23:00 Intake Total 720 ml 880 ml 960 ml Balance 720 ml 880 ml 960 ml Intake Oral 720 ml 880 ml 960 ml # Voids 4 3 2 Objective Remarks GENERAL: This is a well-nourished, well-developed patient, in no apparent distress. SKIN: multiple erythematous macular dermatitis, previously had scabies, healed. Dry skin. Improved. CARDIOVASCULAR: Regular rate and rhythm without murmurs, gallops, or rubs. RESPIRATORY: Clear to auscultation. Breath sounds equal bilaterally. No wheezes , rales, or rhonchi. GASTROINTESTINAL: Abdomen soft, non-tender, nondistended. Normal active bowel sounds MUSCULOSKELETAL: Extremities without clubbing, cyanosis, or edema. NEURO: Awake and responsive to questions and commands. Moves all ext x4. Procedures none A/P Problem List: (1) History of schizoaffective disorder ICD Code: Z86.59 Status: Acute (2) Orthostatic dizziness ICD Code: R42 Status: Chronic (3) Dyslipidemia ICD Code: E78.5 Status: Chronic (4) DM type 2 (diabetes mellitus, type 2) ICD Code: E11.9 Status: Chronic (5) Orthostatic hypotension ICD Code: I95.1 Status: Acute Assessment and Plan This is a 60-year-old male patient in the psych unit for schizoaffective disorder, we are being consulted for medical comanagement of COPD, atrial flutter and possible UTI. Schizoaffective disorder, bipolar type-further management per psychiatry Dilantin toxicity - previous Dilantin level was 31.4, 30.6 --> 27.1 --> 15.3 -- > 20.4 -->16.0 --> 14.8 today - Denies dizziness. Continue to have unsteady gait, risk for falls. Continue with walker use. Assist with ambulation/ and ADLs - Dilantin 100mg q8 hrs restarted - Recheck levels HTN Orthostatic hypotension -dizziness, unsteady gait. - Parameters with BP meds lisinopril, metoprolol. - Continue metoprolol, lisinopril, clonidine as needed Healing rash from scabies s/p permethrin x 2 -DC hydrocortisone as patient has been this since 07/20/2016 -DC Atarax secondary to drowsiness, maybe attributing to dizziness and increased risk for fall - continue Claritin. Improving Dry skin- Eucerin cream as needed. Add Lac-Hydrin Tinea pedis. Lotrimin cream. History of COPD-not in exacerbation Dyslipidemia- continue statin Diabetes mellitus- continue metformin Hemoglobin A1c 7.1 Pancytopenia- Primary team has consulted hematology- recommends monitoring CBC and platelet count of 2-3 weeks Low B12 recomendations per hematology "B12 level was found to be low. A low B12 level may also contribute to cytopenias. 1000mcg B12 IM x 3 days. - After this, there are two options for who may be following with patient: 1) He should get monthly B12 1000mcg injections, or 2) He should get B12 supplement 1000 mcg po daily. We would recommend a CBC once a week while hospitalized to monitor blood counts. ON DISCHARGE GIVE HIM A PRESCRIPTION FOR B12 1 MG OR 1000MC DAILY WITH AN INFINITE NUMBER OF REFILLS. WOULD ADVISE CHECKING A B12 LEVEL IN 4 MONTHS. The degree of B12 deficiency is not great or we would see elevated LDH, bilirubin and other abnormalities. Thrombocytopenia platelet count 112 Lovenox DC'd DVT prophylaxis patient is ambulatory Discussed with patient, nursing Written by Brett Walker, acting as scribe for Dr. Escalante on 08/22/16 at 11: 34. The documentation accurately reflects the work performed [id number] by me on at 15:24. Brett Saez Aug 22, 2016 15:04 Jerome Escalante MD Aug 22, 2016 15:24
--- NOTE | 2016-08-22 15:16 | HHI.PYPN ---
Subjective Remarks Patient seen in day room with medical student Gabbi patient up ambulating with walker he has calm pleasant with me though still showing some focus on discharge and went to get his own apartment so they can Gina his girlfriend. However patient behaviors are under control at this time he is compliant with medication Review of Systems Except as stated in HPI: all other systems reviewed are Neg Objective Alert: Yes [place]: Person, Place, Date Mood: Calm Affect: Flat Memory Intact: Comment (no significant impairment) Hallucinations: Other (deneis any) Delusions: Yes (re a girlfriend at [facility]) Delusion Type: Paranoid (slightly decreased) Suicidal: Ideation (deneis any) Homicidal: Ideation (deneis any) Insight/Judgement Poor Labs Test 08/22/16 06:41 Phenytoin (Dilantin) Level 14.8 MCG/ML Vitals/IOs Vital Signs Date Time Temp Pulse Resp B/P Pulse Ox O2 Delivery O2 Flow Rate FiO2 08/22/16 06:33 98.3 47 16 136/60 95 Intake and Output 08/21/16 08/21/16 08/22/16 08:00 16:00 00:00 Intake Total 720 ml 880 ml Balance 720 ml 880 ml Assessment & Plan Problem List: (1) Schizoaffective disorder, bipolar type ICD Code: F25.0 Assessment & Plan Estimated LOS: days patient continues paranoid at times irritable but somewhat softer today. Compliant medications. For now continue treatment Justification for Cont. Inpt. At this time patient would decompensate if placed in a lower level of care Discharge Planning To be determined Request HC Surrog/Guard Advoc?: No Phil Mckee MD Aug 22, 2016 15:16
[2016-08-22] MEDS ORDERED: Custom Consult Pharmacy 1 EA OTHER SCH (15:30)
[2016-08-22 19:43] VITALS: BP 103/62; PULSE 75; RESP 16; TEMP 97.9; O2SAT 97
[2016-08-22] MEDS: OLANZapine ODT 20 MG TAB SL SCH (21:00)
[2016-08-22] MEDS: ATORVASTATIN 10 MG TAB PO SCH (21:36)
[2016-08-23] MEDS: PHENYTOIN SODIUM 100 MG CAP PO SCH ×2 (05:36→12:43)
[2016-08-23 05:58] VITALS: BP 130/65; PULSE 58; RESP 16; TEMP 98.6; O2SAT 95
[2016-08-23] MEDS: BETAMETHASONE/CLOTRIMAZOLE CREAM 15 GM TOPICAL SCH ×2 (09:33→21:00)
[2016-08-23] MEDS: MAGNESIUM OXIDE 400 MG TAB PO SCH ×2 (09:34→21:29)
[2016-08-23] MEDS: LORATADINE 10 MG TAB PO SCH (09:35)
[2016-08-23] MEDS: CITALOPRAM HYDROBROMIDE 20 MG TAB PO SCH (09:35)
[2016-08-23] MEDS: ASPIRIN EC 81 MG TABEC PO SCH (09:35)
[2016-08-23] MEDS: metFORMIN HCL 500 MG TAB PO SCH ×2 (09:35→18:00)
[2016-08-23] MEDS: METOPROLOL TARTRATE 50 MG TAB PO SCH ×2 (09:35→21:29)
[2016-08-23] MEDS: LISINOPRIL 20 MG TAB PO SCH (09:35)
[2016-08-23] MEDS: busPIRone HCL 5 MG TAB PO SCH ×3 (09:35→18:00)
[2016-08-23] MEDS: CYANOCOBALAMIN 1000 MCG/ML VIAL IM SCH (09:36)
[2016-08-23] MEDS: TIMOLOL MALEATE 0.5% OPHT SOLN 5 ML BTL EACH EYE SCH (09:37)
[2016-08-23] MEDS: LACTIC ACID (AMMONIUM LACTATE) 12% LOTION 225 GM BTL TOPICAL SCH ×2 (09:37→21:00)
--- NOTE | 2016-08-23 13:56 | HHI.PYPN ---
Subjective Remarks Patient seen in his room with medical student Gabbi, chart review, patient continues is some intermittent compliance with medication. Did refuse his Dilantin earlier. Patient showing little insight into this though overall cooperative in no behavioral problem Review of Systems Except as stated in HPI: all other systems reviewed are Neg Objective Alert: Yes [place]: Person, Place, Date Mood: Calm Affect: Flat Memory Intact: Comment (no significant impairment) Hallucinations: Other (deneis any) Delusions: Yes (re a girlfriend at [facility]) Delusion Type: Paranoid (slightly decreased) Suicidal: Ideation (deneis any) Homicidal: Ideation (deneis any) Insight/Judgement Very poor Labs Test 08/23/16 12:15 Albumin 3.0 GM/DL Phenytoin (Dilantin) Level 14.2 MCG/ML Vitals/IOs Vital Signs Date Time Temp Pulse Resp B/P Pulse Ox O2 Delivery O2 Flow Rate FiO2 08/23/16 05:58 98.6 58 16 130/65 95 Intake and Output 08/22/16 08/22/16 08/23/16 08:00 16:00 00:00 Intake Total 960 ml 840 ml Balance 960 ml 840 ml Assessment & Plan Problem List: (1) Schizoaffective disorder, bipolar type ICD Code: F25.0 Assessment & Plan Estimated LOS: days patient continues irritable somewhat vigilant psychotic though no significant behavioral problems. Trying mixed compliance with medication Justification for Cont. Inpt. At this time patient was show significant decompensation to place to the lower level of care Discharge Planning To be determined Request HC Surrog/Guard Advoc?: No Phil Mckee MD Aug 23, 2016 13:56
[2016-08-23 18:06] VITALS: BP 138/58; PULSE 65; RESP 16; TEMP 97.5; O2SAT 96
[2016-08-23] MEDS: OLANZapine ODT 20 MG TAB SL SCH (21:00)
[2016-08-23] MEDS: ATORVASTATIN 10 MG TAB PO SCH (21:29)
[2016-08-24] MEDS: PHENYTOIN SODIUM 100 MG CAP PO SCH ×3 (05:08→12:37)
[2016-08-24 06:05] VITALS: BP 114/62; PULSE 58; RESP 18; TEMP 97.6; O2SAT 96
[2016-08-24] MEDS: LORATADINE 10 MG TAB PO SCH (09:00)
[2016-08-24] MEDS: BETAMETHASONE/CLOTRIMAZOLE CREAM 15 GM TOPICAL SCH ×2 (09:00→21:21)
[2016-08-24] MEDS: LACTIC ACID (AMMONIUM LACTATE) 12% LOTION 225 GM BTL TOPICAL SCH ×2 (09:00→21:21)
[2016-08-24] MEDS: TIMOLOL MALEATE 0.5% OPHT SOLN 5 ML BTL EACH EYE SCH (09:00)
[2016-08-24] MEDS: CYANOCOBALAMIN 1000 MCG/ML VIAL IM SCH (09:57)
[2016-08-24] MEDS: CITALOPRAM HYDROBROMIDE 20 MG TAB PO SCH (09:57)
[2016-08-24] MEDS: MAGNESIUM OXIDE 400 MG TAB PO SCH ×2 (09:58→21:20)
[2016-08-24] MEDS: busPIRone HCL 5 MG TAB PO SCH ×4 (09:58→17:46)
[2016-08-24] MEDS: metFORMIN HCL 500 MG TAB PO SCH ×2 (09:58→17:46)
[2016-08-24] MEDS: METOPROLOL TARTRATE 50 MG TAB PO SCH ×2 (09:58→21:19)
[2016-08-24] MEDS: ASPIRIN EC 81 MG TABEC PO SCH (09:58)
[2016-08-24] MEDS: LISINOPRIL 20 MG TAB PO SCH (09:59)
[2016-08-24 18:00] VITALS: BP 116/56; PULSE 67; RESP 18; TEMP 98.5; O2SAT 95
--- NOTE | 2016-08-24 18:54 | HHI.PYPN ---
Subjective Remarks Pt seen and discussed with staff. Pt refused medications and labs today. He has been more paranoid today. No SI/HI. No medication side effects. Objective Alert: Yes [place]: Person, Place, Date Mood: Calm Affect: Flat Memory Intact: Comment (no significant impairment) Hallucinations: Other (deneis any) Delusions: Yes (re a girlfriend at [facility]) Delusion Type: Paranoid (slightly decreased) Suicidal: Ideation (deneis any) Homicidal: Ideation (deneis any) Insight/Judgement poor Vitals/IOs Vital Signs Date Time Temp Pulse Resp B/P Pulse Ox O2 Delivery O2 Flow Rate FiO2 08/24/16 18:00 98.5 67 18 116/56 95 Intake and Output 08/23/16 08/23/16 08/24/16 08:00 16:00 00:00 Intake Total 0 ml 1440 ml 480 ml Balance 0 ml 1440 ml 480 ml Assessment & Plan Problem List: (1) Schizoaffective disorder, bipolar type ICD Code: F25.0 Assessment & Plan Continue current tx plan. Estimated LOS: days Justification for Cont. Inpt. impairments in self care Request HC Surrog/Guard Advoc?: Carole Vazquez MD Aug 24, 2016 18:54
[2016-08-24] MEDS: OLANZapine ODT 20 MG TAB SL SCH (21:00)
[2016-08-24] MEDS: ATORVASTATIN 10 MG TAB PO SCH (21:19)
[2016-08-25] MEDS: PHENYTOIN SODIUM 100 MG CAP PO SCH ×2 (02:13→14:34)
[2016-08-25 05:10] VITALS: BP 110/58; PULSE 50; RESP 16; TEMP 97.9; O2SAT 98
[2016-08-25] MEDS: busPIRone HCL 5 MG TAB PO SCH ×3 (09:00→17:49)
[2016-08-25] MEDS: LACTIC ACID (AMMONIUM LACTATE) 12% LOTION 225 GM BTL TOPICAL SCH ×2 (09:00→20:33)
[2016-08-25] MEDS: BETAMETHASONE/CLOTRIMAZOLE CREAM 15 GM TOPICAL SCH ×2 (09:00→20:33)
[2016-08-25] MEDS: CYANOCOBALAMIN 1000 MCG/ML VIAL IM SCH (09:19)
[2016-08-25] MEDS: metFORMIN HCL 500 MG TAB PO SCH ×2 (09:20→17:48)
[2016-08-25] MEDS: METOPROLOL TARTRATE 50 MG TAB PO SCH ×2 (09:20→20:32)
[2016-08-25] MEDS: MAGNESIUM OXIDE 400 MG TAB PO SCH ×2 (09:21→20:32)
[2016-08-25] MEDS: LISINOPRIL 20 MG TAB PO SCH (09:21)
[2016-08-25] MEDS: ASPIRIN EC 81 MG TABEC PO SCH (09:21)
[2016-08-25] MEDS: CITALOPRAM HYDROBROMIDE 20 MG TAB PO SCH (09:21)
[2016-08-25] MEDS: LORATADINE 10 MG TAB PO SCH (09:21)
[2016-08-25] MEDS: TIMOLOL MALEATE 0.5% OPHT SOLN 5 ML BTL EACH EYE SCH (09:22)
--- NOTE | 2016-08-25 19:22 | HHI.PYPN ---
Subjective Remarks Pt seen and discussed with staff. Pt has been more cooperative today and less paranoid. He took medications today without difficulty and has been compliant with care. No SI/HI. Objective Alert: Yes [place]: Person, Place, Date Mood: Calm Affect: Flat Memory Intact: Comment (no significant impairment) Hallucinations: Other (deneis any) Delusions: Yes (re a girlfriend at [facility]) Delusion Type: Paranoid (slightly decreased) Suicidal: Ideation (deneis any) Homicidal: Ideation (deneis any) Insight/Judgement poor Labs Test 08/25/16 06:23 Phenytoin (Dilantin) Level 10.2 MCG/ML Vitals/IOs Vital Signs Date Time Temp Pulse Resp B/P Pulse Ox O2 Delivery O2 Flow Rate FiO2 08/25/16 05:10 97.9 50 16 110/58 98 Intake and Output 08/24/16 08/24/16 08/25/16 08:00 16:00 00:00 Intake Total 480 ml 720 ml 720 ml Balance 480 ml 720 ml 720 ml Assessment & Plan Problem List: (1) Schizoaffective disorder, bipolar type ICD Code: F25.0 Assessment & Plan Continue current tx plan Estimated LOS: days Justification for Cont. Inpt. impairments in selfcare Request HC Surrog/Guard Advoc?: Carole Vazquez MD Aug 25, 2016 19:22
[2016-08-25] MEDS: ATORVASTATIN 10 MG TAB PO SCH (20:32)
[2016-08-25 20:33] VITALS: BP 118/78; PULSE 78; RESP 20; TEMP 98.4; O2SAT 97
[2016-08-25] MEDS: OLANZapine ODT 20 MG TAB SL SCH (20:33)
[2016-08-26] MEDS: PHENYTOIN SODIUM 100 MG CAP PO SCH ×2 (02:00→13:36)
[2016-08-26 05:40] VITALS: BP 121/62; PULSE 58; RESP 16; TEMP 97.8; O2SAT 96
[2016-08-26] MEDS: LACTIC ACID (AMMONIUM LACTATE) 12% LOTION 225 GM BTL TOPICAL SCH ×2 (09:00→21:36)
[2016-08-26] MEDS: TIMOLOL MALEATE 0.5% OPHT SOLN 5 ML BTL EACH EYE SCH (09:00)
[2016-08-26] MEDS: busPIRone HCL 5 MG TAB PO SCH ×3 (09:50→17:09)
[2016-08-26] MEDS: MAGNESIUM OXIDE 400 MG TAB PO SCH ×2 (09:50→21:34)
[2016-08-26] MEDS: LORATADINE 10 MG TAB PO SCH (09:50)
[2016-08-26] MEDS: metFORMIN HCL 500 MG TAB PO SCH ×2 (09:50→17:09)
[2016-08-26] MEDS: ASPIRIN EC 81 MG TABEC PO SCH (09:50)
[2016-08-26] MEDS: CITALOPRAM HYDROBROMIDE 20 MG TAB PO SCH (09:50)
[2016-08-26] MEDS: METOPROLOL TARTRATE 50 MG TAB PO SCH ×2 (09:50→21:00)
[2016-08-26] MEDS: CYANOCOBALAMIN 1,000 MCG TAB PO SCH (09:50)
[2016-08-26] MEDS: LISINOPRIL 20 MG TAB PO SCH (09:50)
[2016-08-26] MEDS: BETAMETHASONE/CLOTRIMAZOLE CREAM 15 GM TOPICAL SCH ×2 (09:51→21:36)
--- NOTE | 2016-08-26 14:06 | HHI.PYPN ---
Subjective Remarks Patient discussed with treatment team and medical student Gabbi patient seen on unit after treatment team. Chart reviewed. Patient showing some less irritability and increased cooperation has been compliant with medication. For now continue treatment. Placement continues to be problematic Review of Systems Except as stated in HPI: all other systems reviewed are Neg Objective Alert: Yes [place]: Person, Place, Date Mood: Calm Affect: Flat Memory Intact: Comment (no significant impairment) Hallucinations: Other (deneis any) Delusions: Yes (re a girlfriend at [facility]) Delusion Type: Paranoid (slightly decreased) Suicidal: Ideation (deneis any) Homicidal: Ideation (deneis any) Insight/Judgement Very poor Vitals/IOs Vital Signs Date Time Temp Pulse Resp B/P Pulse Ox O2 Delivery O2 Flow Rate FiO2 08/26/16 05:40 97.8 58 16 121/62 96 Intake and Output 08/25/16 08/25/16 08/26/16 08:00 16:00 00:00 Intake Total 0 ml 780 ml Balance 0 ml 780 ml Assessment & Plan Problem List: (1) Schizoaffective disorder, bipolar type ICD Code: F25.0 Assessment & Plan Estimated LOS: days patient remains somewhat intrusive and irritable bowel he is coming. Pliant medications. Placement remains quite problematic Justification for Cont. Inpt. At this time patient would decompensate if placed in a lower level of care Request HC Surrog/Guard Advoc?: No Phil Mckee MD Aug 26, 2016 14:06
[2016-08-26 18:00] VITALS: BP 121/63; PULSE 56; RESP 16; TEMP 97.6; O2SAT 98
[2016-08-26] MEDS: OLANZapine ODT 20 MG TAB SL SCH (21:00)
[2016-08-26] MEDS: ATORVASTATIN 10 MG TAB PO SCH (21:34)
[2016-08-27] MEDS: PHENYTOIN SODIUM 100 MG CAP PO SCH ×2 (01:20→13:16)
[2016-08-27 06:11] VITALS: BP 113/69; PULSE 58; RESP 16; TEMP 97.6; O2SAT 97
[2016-08-27] MEDS: BETAMETHASONE/CLOTRIMAZOLE CREAM 15 GM TOPICAL SCH ×3 (09:00→21:24)
[2016-08-27] MEDS: TIMOLOL MALEATE 0.5% OPHT SOLN 5 ML BTL EACH EYE SCH ×2 (09:00→09:04)
[2016-08-27] MEDS: LACTIC ACID (AMMONIUM LACTATE) 12% LOTION 225 GM BTL TOPICAL SCH ×3 (09:00→21:24)
[2016-08-27] MEDS: ASPIRIN EC 81 MG TABEC PO SCH (09:02)
[2016-08-27] MEDS: LISINOPRIL 20 MG TAB PO SCH (09:02)
[2016-08-27] MEDS: MAGNESIUM OXIDE 400 MG TAB PO SCH ×2 (09:02→21:23)
[2016-08-27] MEDS: busPIRone HCL 5 MG TAB PO SCH ×3 (09:02→17:10)
[2016-08-27] MEDS: LORATADINE 10 MG TAB PO SCH (09:02)
[2016-08-27] MEDS: CYANOCOBALAMIN 1,000 MCG TAB PO SCH (09:02)
[2016-08-27] MEDS: CITALOPRAM HYDROBROMIDE 20 MG TAB PO SCH (09:02)
[2016-08-27] MEDS: METOPROLOL TARTRATE 50 MG TAB PO SCH ×2 (09:02→21:25)
[2016-08-27] MEDS: metFORMIN HCL 500 MG TAB PO SCH ×2 (09:02→17:10)
--- NOTE | 2016-08-27 13:45 | HHI.PYPN ---
Subjective Remarks Patient seen in his room with medical student Gabbi, chart reviewed, patient compliant medications. No syncope behavioral problems. Patientto be willing to go back to [facility] if placement is available there. Will have counselor check of that patient is showing some improvement of his psychosis is resolving mother still is little insight into his behaviors that led to him being hospitalized Review of Systems Except as stated in HPI: all other systems reviewed are Neg Objective Alert: Yes [place]: Person, Place, Date Mood: Calm Affect: Flat Memory Intact: Comment (no significant impairment) Hallucinations: Other (deneis any) Delusions: Yes (re a girlfriend at [facility]) Delusion Type: Paranoid (slightly decreased) Suicidal: Ideation (deneis any) Homicidal: Ideation (deneis any) Insight/Judgement Poor Vitals/IOs Vital Signs Date Time Temp Pulse Resp B/P Pulse Ox O2 Delivery O2 Flow Rate FiO2 08/27/16 06:11 97.6 58 16 113/69 97 Intake and Output 08/26/16 08/26/16 08/26/16 07:59 15:59 23:59 Intake Total 0 ml 1080 ml 510 ml Balance 0 ml 1080 ml 510 ml Assessment & Plan Problem List: (1) Schizoaffective disorder, bipolar type ICD Code: F25.0 Assessment & Plan Estimated LOS: days patient continues somewhat vigilant and paranoid though softening, compliant medications, nor appears willing to return to [facility] if placement available at the facility Justification for Cont. Inpt. At this time the patient will decompensate if placed in a lower level of care Discharge Planning To be determined Request HC Surrog/Guard Advoc?: No Phil Mckee MD Aug 27, 2016 13:45
[2016-08-27 18:15] VITALS: BP 132/70; PULSE 72; RESP 16; TEMP 97.9; O2SAT 97
[2016-08-27] MEDS: OLANZapine ODT 20 MG TAB SL SCH (21:00)
[2016-08-27] MEDS: ATORVASTATIN 10 MG TAB PO SCH (21:24)
[2016-08-28] MEDS: PHENYTOIN SODIUM 100 MG CAP PO SCH ×2 (02:47→12:42)
[2016-08-28 06:19] VITALS: BP 125/57; PULSE 46; RESP 18; TEMP 98; O2SAT 98
[2016-08-28] MEDS: LACTIC ACID (AMMONIUM LACTATE) 12% LOTION 225 GM BTL TOPICAL SCH ×2 (09:00→20:59)
[2016-08-28] MEDS: BETAMETHASONE/CLOTRIMAZOLE CREAM 15 GM TOPICAL SCH ×2 (09:00→21:00)
[2016-08-28] MEDS: TIMOLOL MALEATE 0.5% OPHT SOLN 5 ML BTL EACH EYE SCH (09:00)
[2016-08-28] MEDS: LORATADINE 10 MG TAB PO SCH (09:29)
[2016-08-28] MEDS: CYANOCOBALAMIN 1,000 MCG TAB PO SCH (09:30)
[2016-08-28] MEDS: metFORMIN HCL 500 MG TAB PO SCH ×2 (09:30→17:11)
[2016-08-28] MEDS: METOPROLOL TARTRATE 50 MG TAB PO SCH ×2 (09:30→20:59)
[2016-08-28] MEDS: busPIRone HCL 5 MG TAB PO SCH ×3 (09:30→17:11)
[2016-08-28] MEDS: MAGNESIUM OXIDE 400 MG TAB PO SCH ×2 (09:30→20:59)
[2016-08-28] MEDS: LISINOPRIL 20 MG TAB PO SCH (09:30)
[2016-08-28] MEDS: CITALOPRAM HYDROBROMIDE 20 MG TAB PO SCH (09:30)
[2016-08-28] MEDS: ASPIRIN EC 81 MG TABEC PO SCH (09:31)
--- NOTE | 2016-08-28 10:10 | HHI.PYPN ---
Subjective Remarks Patient seen in room with nurse Lisa, chart review, patient compliant medications. The same patient continues somewhat intrusive and less irritable, continues to need redirection especially with his walking and need to use the walker. Placement continues to be quite problematic Review of Systems Except as stated in HPI: all other systems reviewed are Neg Objective Alert: Yes [place]: Person, Place, Date Mood: Calm Affect: Flat Memory Intact: Comment (no significant impairment) Hallucinations: Other (deneis any) Delusions: Yes (re a girlfriend at [facility]) Delusion Type: Paranoid (slightly decreased) Suicidal: Ideation (deneis any) Homicidal: Ideation (deneis any) Insight/Judgement Very poor Vitals/IOs Vital Signs Date Time Temp Pulse Resp B/P Pulse Ox O2 Delivery O2 Flow Rate FiO2 08/28/16 06:19 98.0 46 18 125/57 98 Intake and Output 08/27/16 08/27/16 08/28/16 08:00 16:00 00:00 Intake Total 360 ml 240 ml 1140 ml Balance 360 ml 240 ml 1140 ml Assessment & Plan Problem List: (1) Schizoaffective disorder, bipolar type ICD Code: F25.0 Assessment & Plan Estimated LOS: days patient remains somewhat intrusive and irritable, compliant medications, needing redirection. Placement remains problematic Justification for Cont. Inpt. At this time patient will decompensate placed in a lower level of care Discharge Planning To be determined Request HC Surrog/Guard Advoc?: No Phil Mckee MD Aug 28, 2016 10:10
[2016-08-28 18:00] VITALS: BP 129/64; PULSE 67; RESP 16; TEMP 97.7; O2SAT 100
[2016-08-28] MEDS: OLANZapine ODT 20 MG TAB SL SCH (21:00)
[2016-08-28] MEDS: ATORVASTATIN 10 MG TAB PO SCH (21:00)
[2016-08-29] MEDS: PHENYTOIN SODIUM 100 MG CAP PO SCH ×2 (02:30→14:36)
[2016-08-29 05:44] VITALS: BP 136/57; PULSE 46; RESP 16; TEMP 97.9; O2SAT 99
[2016-08-29 09:35] VITALS: PULSE 82; O2SAT 97
[2016-08-29] MEDS: metFORMIN HCL 500 MG TAB PO SCH ×2 (09:39→17:51)
[2016-08-29] MEDS: busPIRone HCL 5 MG TAB PO SCH ×3 (09:39→17:51)
[2016-08-29] MEDS: CYANOCOBALAMIN 1,000 MCG TAB PO SCH (09:39)
[2016-08-29] MEDS: ASPIRIN EC 81 MG TABEC PO SCH (09:39)
[2016-08-29] MEDS: LISINOPRIL 20 MG TAB PO SCH (09:39)
[2016-08-29] MEDS: MAGNESIUM OXIDE 400 MG TAB PO SCH ×2 (09:39→20:29)
[2016-08-29] MEDS: LORATADINE 10 MG TAB PO SCH (09:39)
[2016-08-29] MEDS: CITALOPRAM HYDROBROMIDE 20 MG TAB PO SCH (09:40)
[2016-08-29] MEDS: METOPROLOL TARTRATE 50 MG TAB PO SCH ×2 (09:40→20:30)
[2016-08-29] MEDS: TIMOLOL MALEATE 0.5% OPHT SOLN 5 ML BTL EACH EYE SCH (09:43)
[2016-08-29] MEDS: LACTIC ACID (AMMONIUM LACTATE) 12% LOTION 225 GM BTL TOPICAL SCH ×2 (09:44→20:29)
[2016-08-29] MEDS: BETAMETHASONE/CLOTRIMAZOLE CREAM 15 GM TOPICAL SCH ×2 (09:44→20:29)
--- NOTE | 2016-08-29 14:39 | HHI.PYPN ---
Subjective Remarks Patient seen in [address] today patient 3 hearing continued again as to work on placement issues. Patient overall cooperative with that though showing some mild irritability and resistance. Compliant medications. For now continue treatment. Placement remains problematic Review of Systems Except as stated in HPI: all other systems reviewed are Neg Objective Alert: Yes [place]: Person, Place, Date Mood: Calm Affect: Flat Memory Intact: Comment (no significant impairment) Hallucinations: Other (deneis any) Delusions: Yes (re a girlfriend at [facility]) Delusion Type: Paranoid (slightly decreased) Suicidal: Ideation (deneis any) Homicidal: Ideation (deneis any) Insight/Judgement Very poor Vitals/IOs Vital Signs Date Time Temp Pulse Resp B/P Pulse Ox O2 Delivery O2 Flow Rate FiO2 08/29/16 09:35 82 97 08/29/16 05:44 97.9 16 136/57 Intake and Output 08/28/16 08/28/16 08/29/16 08:00 16:00 00:00 Intake Total 120 ml 720 ml 840 ml Balance 120 ml 720 ml 840 ml Assessment & Plan Problem List: (1) Schizoaffective disorder, bipolar type ICD Code: F25.0 Assessment & Plan Estimated LOS: days patient remains somewhat psychotic and intense though overall behaviors have markedly improved. For now continue working on placement issues Justification for Cont. Inpt. At this time patient will decompensate if placed in a lower level of care Discharge Planning To be determined Request HC Surrog/Guard Advoc?: No Phil Mckee MD Aug 29, 2016 14:39
[2016-08-29 18:38] VITALS: BP 99/57; PULSE 63; RESP 17; TEMP 97.7; O2SAT 98
[2016-08-29] MEDS: OLANZapine ODT 20 MG TAB SL SCH (20:29)
[2016-08-29] MEDS: ATORVASTATIN 10 MG TAB PO SCH (20:29)
[2016-08-30] MEDS: PHENYTOIN SODIUM 100 MG CAP PO SCH ×3 (02:00→20:46)
[2016-08-30 05:58] VITALS: BP 143/65; PULSE 98; RESP 17; TEMP 97.5; O2SAT 97
[2016-08-30] MEDS: PALIPERIDONE PALMITATE 234 MG/1.5 ML SYRINGE IM SCH (07:30)
[2016-08-30] MEDS: BETAMETHASONE/CLOTRIMAZOLE CREAM 15 GM TOPICAL SCH ×2 (09:00→20:36)
[2016-08-30] MEDS: TIMOLOL MALEATE 0.5% OPHT SOLN 5 ML BTL EACH EYE SCH (09:00)
[2016-08-30] MEDS: LACTIC ACID (AMMONIUM LACTATE) 12% LOTION 225 GM BTL TOPICAL SCH ×2 (09:00→20:33)
[2016-08-30] MEDS: ASPIRIN EC 81 MG TABEC PO SCH (09:24)
[2016-08-30] MEDS: LISINOPRIL 20 MG TAB PO SCH (09:24)
[2016-08-30] MEDS: CITALOPRAM HYDROBROMIDE 20 MG TAB PO SCH (09:24)
[2016-08-30] MEDS: METOPROLOL TARTRATE 50 MG TAB PO SCH ×2 (09:24→20:34)
[2016-08-30] MEDS: CYANOCOBALAMIN 1,000 MCG TAB PO SCH (09:24)
[2016-08-30] MEDS: LORATADINE 10 MG TAB PO SCH (09:24)
[2016-08-30] MEDS: MAGNESIUM OXIDE 400 MG TAB PO SCH ×2 (09:24→20:34)
[2016-08-30] MEDS: busPIRone HCL 5 MG TAB PO SCH ×3 (09:24→18:22)
[2016-08-30] MEDS: metFORMIN HCL 500 MG TAB PO SCH ×2 (09:24→18:22)
[2016-08-30] MEDS ORDERED: PHENYTOIN SODIUM 100 MG CAP PO ONE (14:00)
--- NOTE | 2016-08-30 14:42 | HHI.PYPN ---
Subjective Remarks Patient was seen and case discussed with nursing. Patient is behaving well. He is bright and cheerful during the interview. His compliant with his medications. Denies auditory visual hallucinations. Denies suicidal/homicidal ideations intent or plan Objective Alert: Yes [place]: Person, Place, Date Mood: Calm Affect: Flat Memory Intact: Comment (no significant impairment) Hallucinations: Other (deneis any) Delusions: Yes (re a girlfriend at [facility]) Delusion Type: Paranoid (slightly decreased) Suicidal: Ideation (deneis any) Homicidal: Ideation (deneis any) Insight/Judgement Poor Vitals/IOs Vital Signs Date Time Temp Pulse Resp B/P Pulse Ox O2 Delivery O2 Flow Rate FiO2 08/30/16 05:58 97.5 98 17 143/65 97 Intake and Output 08/29/16 08/29/16 08/30/16 08:00 16:00 00:00 Intake Total 720 ml 840 ml Balance 720 ml 840 ml Assessment & Plan Problem List: (1) Schizoaffective disorder, bipolar type ICD Code: F25.0 Assessment & Plan Continue current treatment plan Justification for Cont. Inpt. Patient will decompensate in a less restrictive setting Request HC Surrog/Guard Advoc?: No Vishnu Small DO Aug 30, 2016 14:42
[2016-08-30 17:59] VITALS: BP 136/63; PULSE 86; RESP 17; TEMP 98; O2SAT 96
[2016-08-30] MEDS: ATORVASTATIN 10 MG TAB PO SCH (20:34)
[2016-08-30] MEDS: OLANZapine ODT 20 MG TAB SL SCH (20:36)
[2016-08-31 06:40] VITALS: BP 117/60; PULSE 50; RESP 18; TEMP 98; O2SAT 97
[2016-08-31] MEDS: CYANOCOBALAMIN 1,000 MCG TAB PO SCH (08:53)
[2016-08-31] MEDS: PHENYTOIN SODIUM 100 MG CAP PO SCH ×2 (08:53→20:39)
[2016-08-31] MEDS: LISINOPRIL 20 MG TAB PO SCH (08:53)
[2016-08-31] MEDS: LORATADINE 10 MG TAB PO SCH (08:53)
[2016-08-31] MEDS: busPIRone HCL 5 MG TAB PO SCH ×3 (08:53→17:24)
[2016-08-31] MEDS: ASPIRIN EC 81 MG TABEC PO SCH (08:54)
[2016-08-31] MEDS: TIMOLOL MALEATE 0.5% OPHT SOLN 5 ML BTL EACH EYE SCH (08:54)
[2016-08-31] MEDS: CITALOPRAM HYDROBROMIDE 20 MG TAB PO SCH (08:54)
[2016-08-31] MEDS: metFORMIN HCL 500 MG TAB PO SCH ×2 (08:54→17:24)
[2016-08-31] MEDS: MAGNESIUM OXIDE 400 MG TAB PO SCH ×2 (08:54→20:39)
[2016-08-31] MEDS: BETAMETHASONE/CLOTRIMAZOLE CREAM 15 GM TOPICAL SCH ×2 (08:54→20:39)
[2016-08-31] MEDS: METOPROLOL TARTRATE 50 MG TAB PO SCH ×3 (08:54→20:38)
[2016-08-31] MEDS: LACTIC ACID (AMMONIUM LACTATE) 12% LOTION 225 GM BTL TOPICAL SCH ×2 (08:54→20:39)
--- NOTE | 2016-08-31 11:48 | HHI.PYPN ---
Subjective Remarks Patient was seen and case discussed with nursing. Patient is pleasant and cooperative with exam. He is sleeping well. Looking forward to a discharge next week. Patient says "medication is working good." Doing well per sitter. Objective Alert: Yes [place]: Person, Place, Date Mood: Calm Affect: Flat Memory Intact: Comment (no significant impairment) Hallucinations: Other (deneis any) Delusions: Yes (re a girlfriend at [facility]) Delusion Type: Paranoid (slightly decreased) Suicidal: Ideation (deneis any) Homicidal: Ideation (deneis any) Insight/Judgement Improving Vitals/IOs Vital Signs Date Time Temp Pulse Resp B/P Pulse Ox O2 Delivery O2 Flow Rate FiO2 08/31/16 06:40 98.0 50 18 117/60 97 Intake and Output 08/30/16 08/30/16 08/31/16 08:00 16:00 00:00 Intake Total 0 ml 960 ml 720 ml Balance 0 ml 960 ml 720 ml Assessment & Plan Problem List: (1) Schizoaffective disorder, bipolar type ICD Code: F25.0 Assessment & Plan Continue current treatment plan Justification for Cont. Inpt. Patient will decompensate in a less restrictive setting Request HC Surrog/Guard Advoc?: No Vishnu Small DO Aug 31, 2016 11:48
[2016-08-31 18:00] VITALS: BP 129/58; PULSE 71; RESP 17; TEMP 97.8; O2SAT 97
[2016-08-31] MEDS: ATORVASTATIN 10 MG TAB PO SCH (20:38)
[2016-08-31] MEDS: OLANZapine ODT 20 MG TAB SL SCH (20:39)
[2016-09-01 06:37] VITALS: BP 114/65; PULSE 60; RESP 18; TEMP 97.7; O2SAT 95
[2016-09-01] MEDS: LORATADINE 10 MG TAB PO SCH (08:50)
[2016-09-01] MEDS: metFORMIN HCL 500 MG TAB PO SCH ×2 (08:50→16:52)
[2016-09-01] MEDS: LISINOPRIL 20 MG TAB PO SCH (08:50)
[2016-09-01] MEDS: busPIRone HCL 5 MG TAB PO SCH ×3 (08:50→16:52)
[2016-09-01] MEDS: ASPIRIN EC 81 MG TABEC PO SCH (08:50)
[2016-09-01] MEDS: MAGNESIUM OXIDE 400 MG TAB PO SCH ×2 (08:51→21:00)
[2016-09-01] MEDS: BETAMETHASONE/CLOTRIMAZOLE CREAM 15 GM TOPICAL SCH ×2 (08:51→21:00)
[2016-09-01] MEDS: METOPROLOL TARTRATE 50 MG TAB PO SCH ×2 (08:51→21:00)
[2016-09-01] MEDS: CITALOPRAM HYDROBROMIDE 20 MG TAB PO SCH (08:51)
[2016-09-01] MEDS: TIMOLOL MALEATE 0.5% OPHT SOLN 5 ML BTL EACH EYE SCH (08:51)
[2016-09-01] MEDS: CYANOCOBALAMIN 1,000 MCG TAB PO SCH (08:51)
[2016-09-01] MEDS: LACTIC ACID (AMMONIUM LACTATE) 12% LOTION 225 GM BTL TOPICAL SCH (08:51)
[2016-09-01] MEDS: PHENYTOIN SODIUM 100 MG CAP PO SCH ×2 (08:51→21:01)
--- NOTE | 2016-09-01 13:10 | HHI.PYPN ---
Subjective Remarks Patient was seen and case discussed with nursing. Patient is pleasant and cooperative with exam. Per nursing has been pleasant and cordial all day. Compliant with medications. Less perseverative on discharge. Is going outside. Itching has improved Objective Alert: Yes [place]: Person, Place, Date Mood: Calm Affect: Flat Memory Intact: Comment (no significant impairment) Hallucinations: Other (deneis any) Delusions: Yes (re a girlfriend at [facility]) Delusion Type: Paranoid (slightly decreased) Suicidal: Ideation (deneis any) Homicidal: Ideation (deneis any) Insight/Judgement Poor Vitals/IOs Vital Signs Date Time Temp Pulse Resp B/P Pulse Ox O2 Delivery O2 Flow Rate FiO2 09/01/16 06:37 97.7 60 18 114/65 95 Intake and Output 08/31/16 08/31/16 09/01/16 08:00 16:00 00:00 Intake Total 360 ml 480 ml 1200 ml Balance 360 ml 480 ml 1200 ml Assessment & Plan Problem List: (1) Schizoaffective disorder, bipolar type ICD Code: F25.0 Assessment & Plan Continue current treatment plan Justification for Cont. Inpt. Patient will decompensate in a less restrictive setting Request HC Surrog/Guard Advoc?: No Vishnu Small DO Sep 01, 2016 13:10
[2016-09-01 18:18] VITALS: BP 100/53; PULSE 62; RESP 18; TEMP 96.9; O2SAT 96
[2016-09-01] MEDS: ATORVASTATIN 10 MG TAB PO SCH (21:00)
[2016-09-01] MEDS: OLANZapine ODT 20 MG TAB SL SCH (21:00)
[2016-09-02 06:05] VITALS: BP 94/48; PULSE 50; RESP 16; TEMP 97.9; O2SAT 96
[2016-09-02] MEDS: TIMOLOL MALEATE 0.5% OPHT SOLN 5 ML BTL EACH EYE SCH (09:00)
[2016-09-02] MEDS: LISINOPRIL 20 MG TAB PO SCH (09:00)
[2016-09-02] MEDS: METOPROLOL TARTRATE 50 MG TAB PO SCH ×2 (09:00→21:23)
[2016-09-02] MEDS: BETAMETHASONE/CLOTRIMAZOLE CREAM 15 GM TOPICAL SCH ×2 (09:00→21:00)
[2016-09-02] MEDS: PHENYTOIN SODIUM 100 MG CAP PO SCH ×2 (09:33→21:23)
[2016-09-02] MEDS: LORATADINE 10 MG TAB PO SCH (09:34)
[2016-09-02] MEDS: busPIRone HCL 5 MG TAB PO SCH ×3 (09:34→17:35)
[2016-09-02] MEDS: MAGNESIUM OXIDE 400 MG TAB PO SCH ×2 (09:34→21:22)
[2016-09-02] MEDS: CYANOCOBALAMIN 1,000 MCG TAB PO SCH (09:34)
[2016-09-02] MEDS: metFORMIN HCL 500 MG TAB PO SCH ×2 (09:34→17:35)
[2016-09-02] MEDS: ASPIRIN EC 81 MG TABEC PO SCH (09:34)
[2016-09-02] MEDS: CITALOPRAM HYDROBROMIDE 20 MG TAB PO SCH (09:34)
[2016-09-02] MEDS: LACTIC ACID (AMMONIUM LACTATE) 12% LOTION 225 GM BTL TOPICAL SCH ×2 (09:35→21:00)
--- NOTE | 2016-09-02 16:11 | HHI.PYPN ---
Subjective Remarks Patient discussed with treatment team and medical student Huma, chart reviewed , patient seen on unit. Patient is at times somewhat irritable but overall calm with me. Compliant medications. Patient to continue on one-to-one observation though with being in continue eye contact while awake Review of Systems Except as stated in HPI: all other systems reviewed are Neg Objective Alert: Yes [place]: Person, Place, Date Mood: Calm Affect: Flat Memory Intact: Comment (no significant impairment) Hallucinations: Other (deneis any) Delusions: Yes (re a girlfriend at [facility]) Delusion Type: Paranoid (slightly decreased) Suicidal: Ideation (deneis any) Homicidal: Ideation (deneis any) Insight/Judgement Very poor Vitals/IOs Vital Signs Date Time Temp Pulse Resp B/P Pulse Ox O2 Delivery O2 Flow Rate FiO2 09/02/16 06:05 97.9 50 16 94/48 96 Intake and Output 09/01/16 09/01/16 09/02/16 08:00 16:00 00:00 Intake Total 0 ml Balance 0 ml Assessment & Plan Problem List: (1) Schizoaffective disorder, bipolar type ICD Code: F25.0 Assessment & Plan Estimated LOS: days patient continues intrusive somewhat confused mildly psychotic, compliant medications for now continue treatment, Place and remains problematic Justification for Cont. Inpt. At this time patient decompensated place to the lower level of care Discharge Planning To be determined Request HC Surrog/Guard Advoc?: No Phil Mckee MD Sep 02, 2016 16:11
[2016-09-02 19:14] VITALS: BP 151/75; PULSE 76; RESP 18; TEMP 97.6; O2SAT 99
[2016-09-02] MEDS: OLANZapine ODT 20 MG TAB SL SCH (21:00)
[2016-09-02] MEDS: ATORVASTATIN 10 MG TAB PO SCH (21:23)
[2016-09-03 06:38] VITALS: BP 96/58; PULSE 52; RESP 16; TEMP 97.9; O2SAT 94
[2016-09-03] MEDS: LISINOPRIL 20 MG TAB PO SCH (09:00)
[2016-09-03] MEDS: BETAMETHASONE/CLOTRIMAZOLE CREAM 15 GM TOPICAL SCH ×2 (09:00→21:55)
[2016-09-03] MEDS: METOPROLOL TARTRATE 50 MG TAB PO SCH ×2 (09:00→21:51)
[2016-09-03] MEDS: TIMOLOL MALEATE 0.5% OPHT SOLN 5 ML BTL EACH EYE SCH (09:00)
[2016-09-03] MEDS: LACTIC ACID (AMMONIUM LACTATE) 12% LOTION 225 GM BTL TOPICAL SCH ×2 (09:00→21:55)
[2016-09-03] MEDS: metFORMIN HCL 500 MG TAB PO SCH ×2 (10:06→17:49)
[2016-09-03] MEDS: CITALOPRAM HYDROBROMIDE 20 MG TAB PO SCH (10:06)
[2016-09-03] MEDS: PHENYTOIN SODIUM 100 MG CAP PO SCH ×2 (10:06→21:51)
[2016-09-03] MEDS: CYANOCOBALAMIN 1,000 MCG TAB PO SCH (10:06)
[2016-09-03] MEDS: busPIRone HCL 5 MG TAB PO SCH ×3 (10:07→21:51)
[2016-09-03] MEDS: ASPIRIN EC 81 MG TABEC PO SCH (10:07)
[2016-09-03] MEDS: LORATADINE 10 MG TAB PO SCH (10:07)
[2016-09-03] MEDS: MAGNESIUM OXIDE 400 MG TAB PO SCH ×2 (10:07→21:51)
--- NOTE | 2016-09-03 14:18 | HHI.PYPN ---
Subjective Remarks Patient seen in his room with nurse Shyann and medical student Huma, patient overall calm cooperative pleased himself after having shaved his jackson. He complains of some sedation feels it might be related to the BuSpar. He is not taking 5 mg 3 times a day will decrease that to 5 mg twice a day. Continue the Zyprexa no change. Placement continues to be problematic Review of Systems Except as stated in HPI: all other systems reviewed are Neg Objective Alert: Yes [place]: Person, Place, Date Mood: Calm Affect: Flat Memory Intact: Comment (no significant impairment) Hallucinations: Other (deneis any) Delusions: Yes (re a girlfriend at [facility]) Delusion Type: Paranoid (slightly decreased) Suicidal: Ideation (deneis any) Homicidal: Ideation (deneis any) Insight/Judgement Poor Vitals/IOs Vital Signs Date Time Temp Pulse Resp B/P Pulse Ox O2 Delivery O2 Flow Rate FiO2 09/03/16 06:38 97.9 52 16 96/58 94 Intake and Output 09/02/16 09/02/16 09/03/16 08:00 16:00 00:00 Intake Total 600 ml Balance 600 ml Assessment & Plan Problem List: (1) Schizoaffective disorder, bipolar type ICD Code: F25.0 Assessment & Plan Estimated LOS: days patient continues vigilant isolative though no significant behavioral problems at this time. Compliant medications. See medication management Justification for Cont. Inpt. At this time patient would significantly decompensate if placed in a lower level of care Discharge Planning To be determined Request HC Surrog/Guard Advoc?: No Phil Mckee MD Sep 03, 2016 14:18
[2016-09-03 18:00] VITALS: BP 128/75; PULSE 70; RESP 17; TEMP 99.2; O2SAT 99
[2016-09-03] MEDS: ATORVASTATIN 10 MG TAB PO SCH (21:51)
[2016-09-03] MEDS: OLANZapine ODT 20 MG TAB SL SCH (21:52)
[2016-09-04 05:57] VITALS: BP 140/73; PULSE 47; RESP 18; TEMP 97.6; O2SAT 95
[2016-09-04] MEDS: TIMOLOL MALEATE 0.5% OPHT SOLN 5 ML BTL EACH EYE SCH (09:00)
[2016-09-04] MEDS: BETAMETHASONE/CLOTRIMAZOLE CREAM 15 GM TOPICAL SCH ×2 (09:00→21:00)
[2016-09-04] MEDS: LACTIC ACID (AMMONIUM LACTATE) 12% LOTION 225 GM BTL TOPICAL SCH ×2 (09:00→21:00)
[2016-09-04] MEDS: PHENYTOIN SODIUM 100 MG CAP PO SCH ×3 (09:47→21:29)
[2016-09-04] MEDS: CYANOCOBALAMIN 1,000 MCG TAB PO SCH (09:47)
[2016-09-04] MEDS: LORATADINE 10 MG TAB PO SCH (09:48)
[2016-09-04] MEDS: ASPIRIN EC 81 MG TABEC PO SCH (09:48)
[2016-09-04] MEDS: metFORMIN HCL 500 MG TAB PO SCH ×2 (09:48→18:10)
[2016-09-04] MEDS: CITALOPRAM HYDROBROMIDE 20 MG TAB PO SCH (09:49)
[2016-09-04] MEDS: busPIRone HCL 5 MG TAB PO SCH ×3 (09:49→21:30)
[2016-09-04] MEDS: MAGNESIUM OXIDE 400 MG TAB PO SCH ×2 (09:49→21:00)
[2016-09-04] MEDS: LISINOPRIL 20 MG TAB PO SCH (09:51)
[2016-09-04] MEDS: METOPROLOL TARTRATE 50 MG TAB PO SCH ×2 (09:51→21:30)
--- NOTE | 2016-09-04 14:19 | HHI.PYPN ---
Subjective Remarks Patient seen on unit with floor staff, chart reviewed, patient continues overall calm cooperative though still little insight into his issues. At times show some vigilance. Compliant medications For now continue treatment Review of Systems Except as stated in HPI: all other systems reviewed are Neg Objective Alert: Yes [place]: Person, Place, Date Mood: Calm Affect: Flat Memory Intact: Comment (no significant impairment) Hallucinations: Other (deneis any) Delusions: Yes (re a girlfriend at [facility]) Delusion Type: Paranoid (slightly decreased) Suicidal: Ideation (deneis any) Homicidal: Ideation (deneis any) Insight/Judgement Very poor Vitals/IOs Vital Signs Date Time Temp Pulse Resp B/P Pulse Ox O2 Delivery O2 Flow Rate FiO2 09/04/16 05:57 97.6 47 18 140/73 95 Intake and Output 09/03/16 09/03/16 09/04/16 08:00 16:00 00:00 Intake Total 1440 ml Balance 1440 ml Assessment & Plan Problem List: (1) Schizoaffective disorder, bipolar type ICD Code: F25.0 Assessment & Plan Estimated LOS: days patient continues vigilant at times somewhat irritable but overall cooperative, compliant medications. For now continue treatment placement remains problematic Justification for Cont. Inpt. At this time patient will decompensate if placed in a lower level of care Discharge Planning To be determined Request HC Surrog/Guard Advoc?: Phil Case MD Sep 04, 2016 14:19
[2016-09-04 18:00] VITALS: BP 127/63; PULSE 69; RESP 18; TEMP 97.9; O2SAT 96
[2016-09-04 18:36] LABS: HEMOGLOBIN A1a 1.4 %; HEMOGLOBIN A1b 1.9 %; HEMOGLOBIN Ao 83.2 %; HEMOGLOBIN LA1C 2.3 %; HEMOGLOBIN P3 4.2 %
[2016-09-04] MEDS: OLANZapine ODT 20 MG TAB SL SCH (21:00)
[2016-09-04] MEDS: ATORVASTATIN 10 MG TAB PO SCH (21:00)
[2016-09-05 06:00] VITALS: BP 139/67; PULSE 53; RESP 16; TEMP 97.6; O2SAT 99
[2016-09-05] MEDS: BETAMETHASONE/CLOTRIMAZOLE CREAM 15 GM TOPICAL SCH ×2 (09:00→21:06)
[2016-09-05] MEDS: LACTIC ACID (AMMONIUM LACTATE) 12% LOTION 225 GM BTL TOPICAL SCH ×2 (09:00→21:05)
[2016-09-05] MEDS: LISINOPRIL 20 MG TAB PO SCH (10:05)
[2016-09-05] MEDS: ASPIRIN EC 81 MG TABEC PO SCH (10:06)
[2016-09-05] MEDS: CITALOPRAM HYDROBROMIDE 20 MG TAB PO SCH (10:06)
[2016-09-05] MEDS: CYANOCOBALAMIN 1,000 MCG TAB PO SCH (10:06)
[2016-09-05] MEDS: LORATADINE 10 MG TAB PO SCH (10:06)
[2016-09-05] MEDS: metFORMIN HCL 500 MG TAB PO SCH ×2 (10:06→18:09)
[2016-09-05] MEDS: METOPROLOL TARTRATE 50 MG TAB PO SCH ×2 (10:06→21:07)
[2016-09-05] MEDS: MAGNESIUM OXIDE 400 MG TAB PO SCH ×2 (10:07→21:06)
[2016-09-05] MEDS: PHENYTOIN SODIUM 100 MG CAP PO SCH ×2 (10:07→21:06)
[2016-09-05] MEDS: busPIRone HCL 5 MG TAB PO SCH ×2 (10:07→21:06)
[2016-09-05] MEDS: TIMOLOL MALEATE 0.5% OPHT SOLN 5 ML BTL EACH EYE SCH (10:43)
--- NOTE | 2016-09-05 14:16 | HHI.PYPN ---
Subjective Remarks Patient seen in his room with nurse Park and medical student Huma, patient calm pleasant with me though acknowledges some continued intermittent auditory hallucinations. He continues to show little insight into his issues. For now continue treatment Review of Systems Except as stated in HPI: all other systems reviewed are Neg Objective Alert: Yes [place]: Person, Place, Date Mood: Calm Affect: Flat Memory Intact: Comment (no significant impairment) Hallucinations: Other (deneis any) Delusions: Yes (re a girlfriend at [facility]) Delusion Type: Paranoid (slightly decreased) Suicidal: Ideation (deneis any) Homicidal: Ideation (deneis any) Insight/Judgement Very poor Labs Test 09/04/16 14:15 Albumin 3.0 GM/DL Phenytoin (Dilantin) Level 7.0 MCG/ML Vitals/IOs Vital Signs Date Time Temp Pulse Resp B/P Pulse Ox O2 Delivery O2 Flow Rate FiO2 09/05/16 06:00 97.6 53 16 139/67 99 Assessment & Plan Problem List: (1) Schizoaffective disorder, bipolar type ICD Code: F25.0 Assessment & Plan Estimated LOS: days patient continues somewhat confused with auditory hallucinations, but no behavior problems. Compliant medications. Placement remains problematic Justification for Cont. Inpt. At this time patient was significantly decompensated if placed in a lower level of care Discharge Planning To be determined Request HC Surrog/Guard Advoc?: No Phil Mckee MD Sep 05, 2016 14:16
[2016-09-05 18:25] VITALS: BP 118/58; PULSE 60; RESP 16; TEMP 97.3; O2SAT 97
[2016-09-05] MEDS: OLANZapine ODT 20 MG TAB SL SCH (21:00)
[2016-09-05] MEDS: ATORVASTATIN 10 MG TAB PO SCH (21:06)
[2016-09-06 06:48] VITALS: BP 103/58; PULSE 61; RESP 16; TEMP 97.2; O2SAT 97
[2016-09-06] MEDS: ASPIRIN EC 81 MG TABEC PO SCH (08:56)
[2016-09-06] MEDS: metFORMIN HCL 500 MG TAB PO SCH ×2 (08:56→18:25)
[2016-09-06] MEDS: CYANOCOBALAMIN 1,000 MCG TAB PO SCH (08:56)
[2016-09-06] MEDS: busPIRone HCL 5 MG TAB PO SCH ×2 (08:56→20:25)
[2016-09-06] MEDS: CITALOPRAM HYDROBROMIDE 20 MG TAB PO SCH (08:56)
[2016-09-06] MEDS: LORATADINE 10 MG TAB PO SCH (08:56)
[2016-09-06] MEDS: MAGNESIUM OXIDE 400 MG TAB PO SCH ×2 (08:57→20:25)
[2016-09-06] MEDS: PHENYTOIN SODIUM 100 MG CAP PO SCH ×2 (08:57→20:25)
[2016-09-06] MEDS: LISINOPRIL 20 MG TAB PO SCH (08:58)
[2016-09-06] MEDS: BETAMETHASONE/CLOTRIMAZOLE CREAM 15 GM TOPICAL SCH ×2 (08:58→20:26)
[2016-09-06] MEDS: METOPROLOL TARTRATE 50 MG TAB PO SCH ×2 (08:58→20:25)
[2016-09-06] MEDS: LACTIC ACID (AMMONIUM LACTATE) 12% LOTION 225 GM BTL TOPICAL SCH ×2 (08:58→20:27)
[2016-09-06] MEDS: TIMOLOL MALEATE 0.5% OPHT SOLN 5 ML BTL EACH EYE SCH (08:59)
[2016-09-06 09:00] VITALS: BP 118/60; PULSE 75; RESP 20; O2SAT 95
[2016-09-06] MEDS ORDERED: PHENYTOIN SODIUM 100 MG CAP PO ONE (16:15)
--- NOTE | 2016-09-06 16:32 | HHI.PYPN ---
Subjective Remarks Patient seen in his room with nurse Park and medical student Huma, chart review, patient continues somewhat confused vigilant, continues to acknowledge the voices, continue somewhat delusional the same focusing on but may benefit old girlfriend. Compliant medications. Review of Systems Except as stated in HPI: all other systems reviewed are Neg Objective Alert: Yes [place]: Person, Place, Date Mood: Calm Affect: Flat Memory Intact: Comment (no significant impairment) Hallucinations: Other (deneis any) Delusions: Yes (re a girlfriend at [facility]) Delusion Type: Paranoid (slightly decreased) Suicidal: Ideation (deneis any) Homicidal: Ideation (deneis any) Insight/Judgement Very poor Vitals/IOs Vital Signs Date Time Temp Pulse Resp B/P Pulse Ox O2 Delivery O2 Flow Rate FiO2 09/06/16 09:00 75 20 118/60 95 09/06/16 06:48 97.2 Intake and Output 09/05/16 09/05/16 09/06/16 08:00 16:00 00:00 Intake Total 0 ml 840 ml 480 ml Balance 0 ml 840 ml 480 ml Assessment & Plan Problem List: (1) Schizoaffective disorder, bipolar type ICD Code: F25.0 Assessment & Plan Estimated LOS: days patient remains delusional and psychotic, though behaviors have calmed, compliant medications, Justification for Cont. Inpt. At this time patient was significantly decompensated placed in a lower level of care Discharge Planning To be determined Request HC Surrog/Guard Advoc?: No Phil Mckee MD Sep 06, 2016 16:32
[2016-09-06] MEDS: ATORVASTATIN 10 MG TAB PO SCH (20:24)
[2016-09-06] MEDS: OLANZapine ODT 20 MG TAB SL SCH (20:24)
[2016-09-06 20:46] VITALS: BP 148/74; PULSE 78; RESP 16; TEMP 98.1; O2SAT 97
[2016-09-07] MEDS: busPIRone HCL 5 MG TAB PO SCH ×2 (10:09→21:26)
[2016-09-07] MEDS: MAGNESIUM OXIDE 400 MG TAB PO SCH ×2 (10:09→21:26)
[2016-09-07] MEDS: METOPROLOL TARTRATE 50 MG TAB PO SCH ×2 (10:09→21:26)
[2016-09-07] MEDS: CYANOCOBALAMIN 1,000 MCG TAB PO SCH (10:09)
[2016-09-07] MEDS: metFORMIN HCL 500 MG TAB PO SCH ×2 (10:09→18:08)
[2016-09-07] MEDS: LORATADINE 10 MG TAB PO SCH (10:10)
[2016-09-07] MEDS: LISINOPRIL 20 MG TAB PO SCH (10:10)
[2016-09-07] MEDS: CITALOPRAM HYDROBROMIDE 20 MG TAB PO SCH (10:10)
[2016-09-07] MEDS: LACTIC ACID (AMMONIUM LACTATE) 12% LOTION 225 GM BTL TOPICAL SCH ×2 (10:11→21:00)
[2016-09-07] MEDS: TIMOLOL MALEATE 0.5% OPHT SOLN 5 ML BTL EACH EYE SCH (10:11)
[2016-09-07] MEDS: BETAMETHASONE/CLOTRIMAZOLE CREAM 15 GM TOPICAL SCH ×2 (10:11→21:00)
[2016-09-07] MEDS: PHENYTOIN SODIUM 100 MG CAP PO SCH ×2 (10:15→21:26)
[2016-09-07] MEDS: ASPIRIN EC 81 MG TABEC PO SCH (10:15)
[2016-09-07 18:00] VITALS: BP 166/75; PULSE 83; RESP 17; TEMP 98.7; O2SAT 99
--- NOTE | 2016-09-07 20:23 | HHI.PYPN ---
Subjective Remarks Pt seen and discussed with staff. He has been more organized and in a better mood today. Compliant with treatment. No aggression. Objective Alert: Yes [place]: Person, Place, Date Mood: Calm Affect: Flat Memory Intact: Comment (no significant impairment) Hallucinations: Other (deneis any) Delusions: Yes (re a girlfriend at [facility]) Delusion Type: Paranoid (slightly decreased) Suicidal: Ideation (deneis any) Homicidal: Ideation (deneis any) Insight/Judgement poor Vitals/IOs Vital Signs Date Time Temp Pulse Resp B/P Pulse Ox O2 Delivery O2 Flow Rate FiO2 09/06/16 20:46 98.1 78 16 148/74 97 Intake and Output 09/06/16 09/06/16 09/07/16 08:00 16:00 00:00 Intake Total 240 ml 360 ml Balance 240 ml 360 ml Assessment & Plan Problem List: (1) Schizoaffective disorder, bipolar type ICD Code: F25.0 Assessment & Plan continue current tx plan. Estimated LOS: days Justification for Cont. Inpt. risk of decompensation. Request HC Surrog/Guard Advoc?: Carole Vazquez MD Sep 07, 2016 20:23
[2016-09-07] MEDS: OLANZapine ODT 20 MG TAB SL SCH (21:00)
[2016-09-07] MEDS: ATORVASTATIN 10 MG TAB PO SCH (21:26)
[2016-09-08 05:11] VITALS: BP 164/88; PULSE 77; RESP 18; TEMP 97.8; O2SAT 98
[2016-09-08] MEDS: LACTIC ACID (AMMONIUM LACTATE) 12% LOTION 225 GM BTL TOPICAL SCH ×2 (09:00→21:00)
[2016-09-08] MEDS: BETAMETHASONE/CLOTRIMAZOLE CREAM 15 GM TOPICAL SCH ×2 (09:00→21:00)
[2016-09-08] MEDS: TIMOLOL MALEATE 0.5% OPHT SOLN 5 ML BTL EACH EYE SCH (10:00)
[2016-09-08] MEDS: CITALOPRAM HYDROBROMIDE 20 MG TAB PO SCH (10:01)
[2016-09-08] MEDS: CYANOCOBALAMIN 1,000 MCG TAB PO SCH (10:01)
[2016-09-08] MEDS: LISINOPRIL 20 MG TAB PO SCH (10:01)
[2016-09-08] MEDS: ASPIRIN EC 81 MG TABEC PO SCH (10:01)
[2016-09-08] MEDS: busPIRone HCL 5 MG TAB PO SCH ×2 (10:01→21:49)
[2016-09-08] MEDS: metFORMIN HCL 500 MG TAB PO SCH ×2 (10:01→17:33)
[2016-09-08] MEDS: LORATADINE 10 MG TAB PO SCH (10:01)
[2016-09-08] MEDS: PHENYTOIN SODIUM 100 MG CAP PO SCH ×2 (10:01→21:49)
[2016-09-08] MEDS: MAGNESIUM OXIDE 400 MG TAB PO SCH ×2 (10:02→21:49)
[2016-09-08] MEDS: METOPROLOL TARTRATE 50 MG TAB PO SCH ×2 (10:02→21:49)
--- NOTE | 2016-09-08 13:18 | HHI.PYPN ---
Subjective Remarks Pt seen and discussed with staff. Pt he remains seclusive to room, but has not been agitated. He is compliant with medications and denies side effects. Objective Alert: Yes [place]: Person, Place, Date Mood: Calm Affect: Flat Memory Intact: Comment (no significant impairment) Hallucinations: Other (deneis any) Delusions: Yes (re a girlfriend at [facility]) Delusion Type: Paranoid (slightly decreased) Suicidal: Ideation (deneis any) Homicidal: Ideation (deneis any) Insight/Judgement poor Vitals/IOs Vital Signs Date Time Temp Pulse Resp B/P Pulse Ox O2 Delivery O2 Flow Rate FiO2 09/08/16 05:11 97.8 77 18 164/88 98 Intake and Output 09/07/16 09/07/16 09/08/16 08:00 16:00 00:00 Intake Total 360 ml 480 ml 2640 ml Balance 360 ml 480 ml 2640 ml Assessment & Plan Problem List: (1) Schizoaffective disorder, bipolar type ICD Code: F25.0 Assessment & Plan Continue current tx plan. Estimated LOS: days Justification for Cont. Inpt. risk of decompensation Request HC Surrog/Guard Advoc?: No Carole Gold MD Sep 08, 2016 13:18
[2016-09-08 18:00] VITALS: BP 187/95; PULSE 92; RESP 18; TEMP 98.2; O2SAT 99
[2016-09-08] MEDS: OLANZapine ODT 20 MG TAB SL SCH (21:00)
[2016-09-08] MEDS: ATORVASTATIN 10 MG TAB PO SCH (21:00)
[2016-09-09 05:00] VITALS: BP 147/80; PULSE 96; RESP 18; TEMP 98.1; O2SAT 96
[2016-09-09] MEDS: TIMOLOL MALEATE 0.5% OPHT SOLN 5 ML BTL EACH EYE SCH (09:00)
[2016-09-09] MEDS: LACTIC ACID (AMMONIUM LACTATE) 12% LOTION 225 GM BTL TOPICAL SCH ×2 (09:00→21:14)
[2016-09-09] MEDS: BETAMETHASONE/CLOTRIMAZOLE CREAM 15 GM TOPICAL SCH ×2 (09:00→21:14)
[2016-09-09] MEDS: PHENYTOIN SODIUM 100 MG CAP PO SCH ×3 (09:30→21:25)
[2016-09-09] MEDS: CITALOPRAM HYDROBROMIDE 20 MG TAB PO SCH (09:30)
[2016-09-09] MEDS: LORATADINE 10 MG TAB PO SCH (09:31)
[2016-09-09] MEDS: CYANOCOBALAMIN 1,000 MCG TAB PO SCH (09:31)
[2016-09-09] MEDS: ASPIRIN EC 81 MG TABEC PO SCH (09:31)
[2016-09-09] MEDS: busPIRone HCL 5 MG TAB PO SCH ×2 (09:31→21:15)
[2016-09-09] MEDS: metFORMIN HCL 500 MG TAB PO SCH ×2 (09:31→16:51)
[2016-09-09] MEDS: MAGNESIUM OXIDE 400 MG TAB PO SCH ×2 (09:31→21:14)
[2016-09-09] MEDS: METOPROLOL TARTRATE 50 MG TAB PO SCH ×2 (09:31→21:16)
[2016-09-09] MEDS: LISINOPRIL 20 MG TAB PO SCH (09:31)
[2016-09-09] MEDS: ALUMINUM/MAGNESIUM/SIMETH 30 ML CUP PO PRN (13:37)
--- NOTE | 2016-09-09 14:52 | HHI.PYPN ---
Subjective Remarks Patient discussed with treatment team, chart reviewed, patient seen on unit. Patient continues calm but confused but pleasant with me. Compliant medications. Stay packet is being sent 10 Review of Systems Except as stated in HPI: all other systems reviewed are Neg Objective Alert: Yes [place]: Person, Place, Date Mood: Calm Affect: Flat Memory Intact: Comment (no significant impairment) Hallucinations: Other (deneis any) Delusions: Yes (re a girlfriend at [facility]) Delusion Type: Paranoid (slightly decreased) Suicidal: Ideation (deneis any) Homicidal: Ideation (deneis any) Insight/Judgement Very poor Labs Test 09/09/16 06:48 Albumin 3.4 GM/DL Phenytoin (Dilantin) Level 6.9 MCG/ML Vitals/IOs Vital Signs Date Time Temp Pulse Resp B/P Pulse Ox O2 Delivery O2 Flow Rate FiO2 09/09/16 05:00 98.1 96 18 147/80 96 Intake and Output 09/08/16 09/08/16 09/09/16 08:00 16:00 00:00 Intake Total 120 ml 480 ml 0 ml Balance 120 ml 480 ml 0 ml Assessment & Plan Problem List: (1) Schizoaffective disorder, bipolar type ICD Code: F25.0 Assessment & Plan Estimated LOS: days patient continues confused somewhat delusional though most given behavior problems. Compliant medications. Justification for Cont. Inpt. At this time patient will decompensate if placed a lower level of care Discharge Planning To be determined Request HC Surrog/Guard Advoc?: No Phil Mckee MD Sep 09, 2016 14:51
[2016-09-09 18:00] VITALS: BP 130/58; PULSE 75; RESP 18; TEMP 97.6; O2SAT 95
[2016-09-09] MEDS: OLANZapine ODT 20 MG TAB SL SCH (21:00)
[2016-09-09] MEDS: ATORVASTATIN 10 MG TAB PO SCH (21:15)
[2016-09-10] MEDS: PHENYTOIN SODIUM 100 MG CAP PO SCH ×3 (05:41→21:27)
[2016-09-10 06:00] VITALS: BP 137/73; PULSE 78; RESP 17; TEMP 97.4; O2SAT 100
[2016-09-10] MEDS: METOPROLOL TARTRATE 50 MG TAB PO SCH ×3 (09:00→21:26)
[2016-09-10] MEDS: LACTIC ACID (AMMONIUM LACTATE) 12% LOTION 225 GM BTL TOPICAL SCH ×2 (09:00→21:27)
[2016-09-10] MEDS: BETAMETHASONE/CLOTRIMAZOLE CREAM 15 GM TOPICAL SCH ×2 (09:00→21:27)
[2016-09-10] MEDS: TIMOLOL MALEATE 0.5% OPHT SOLN 5 ML BTL EACH EYE SCH (09:21)
[2016-09-10] MEDS: ASPIRIN EC 81 MG TABEC PO SCH (09:23)
[2016-09-10] MEDS: CYANOCOBALAMIN 1,000 MCG TAB PO SCH (09:23)
[2016-09-10] MEDS: busPIRone HCL 5 MG TAB PO SCH ×2 (09:23→21:27)
[2016-09-10] MEDS: LORATADINE 10 MG TAB PO SCH (09:23)
[2016-09-10] MEDS: CITALOPRAM HYDROBROMIDE 20 MG TAB PO SCH (09:23)
[2016-09-10] MEDS: MAGNESIUM OXIDE 400 MG TAB PO SCH ×2 (09:23→21:26)
[2016-09-10] MEDS: metFORMIN HCL 500 MG TAB PO SCH (09:23)
[2016-09-10] MEDS: LISINOPRIL 20 MG TAB PO SCH (09:24)
--- NOTE | 2016-09-10 16:04 | HHI.PYPN ---
Subjective Remarks Patient seen in his room with nurse Lisa and medical student Huma, patient calm cooperative though somewhat confused today placement remains problematic state packet is been sent Review of Systems Except as stated in HPI: all other systems reviewed are Neg Objective Alert: Yes [place]: Person, Place, Date Mood: Calm Affect: Flat Memory Intact: Comment (no significant impairment) Hallucinations: Other (deneis any) Delusions: Yes (re a girlfriend at [facility]) Delusion Type: Paranoid (slightly decreased) Suicidal: Ideation (deneis any) Homicidal: Ideation (deneis any) Insight/Judgement Very poor Vitals/IOs Vital Signs Date Time Temp Pulse Resp B/P Pulse Ox O2 Delivery O2 Flow Rate FiO2 09/10/16 06:00 97.4 78 17 137/73 100 Intake and Output 09/09/16 09/09/16 09/10/16 08:00 16:00 00:00 Intake Total 1740 ml Balance 1740 ml Assessment & Plan Problem List: (1) Schizoaffective disorder, bipolar type ICD Code: F25.0 Assessment & Plan Estimated LOS: days patient is somewhat vigilant and guarded, though no behavior problems at this time. For now continue treatment placement remains problematic Justification for Cont. Inpt. At this time patient will decompensate if placed a lower level of care Discharge Planning To be determined Request HC Surrog/Guard Advoc?: No Phil Mckee MD Sep 10, 2016 16:03
[2016-09-10 18:15] VITALS: BP 110/55; PULSE 65; RESP 17; TEMP 98.7
[2016-09-10] MEDS: OLANZapine ODT 20 MG TAB SL SCH (21:00)
[2016-09-10] MEDS: ATORVASTATIN 10 MG TAB PO SCH (21:26)
[2016-09-11] MEDS: PHENYTOIN SODIUM 100 MG CAP PO SCH ×3 (05:54→21:36)
[2016-09-11 06:09] VITALS: BP 132/66; PULSE 74; RESP 20; TEMP 97.9; O2SAT 100
[2016-09-11] MEDS: BETAMETHASONE/CLOTRIMAZOLE CREAM 15 GM TOPICAL SCH ×2 (09:00→21:00)
[2016-09-11] MEDS: LACTIC ACID (AMMONIUM LACTATE) 12% LOTION 225 GM BTL TOPICAL SCH ×2 (09:47→21:00)
[2016-09-11] MEDS: LISINOPRIL 20 MG TAB PO SCH (09:48)
[2016-09-11] MEDS: LORATADINE 10 MG TAB PO SCH (09:48)
[2016-09-11] MEDS: METOPROLOL TARTRATE 50 MG TAB PO SCH ×2 (09:48→20:46)
[2016-09-11] MEDS: MAGNESIUM OXIDE 400 MG TAB PO SCH ×2 (09:48→20:47)
[2016-09-11] MEDS: CITALOPRAM HYDROBROMIDE 20 MG TAB PO SCH (09:48)
[2016-09-11] MEDS: CYANOCOBALAMIN 1,000 MCG TAB PO SCH (09:48)
[2016-09-11] MEDS: TIMOLOL MALEATE 0.5% OPHT SOLN 5 ML BTL EACH EYE SCH (09:48)
[2016-09-11] MEDS: busPIRone HCL 5 MG TAB PO SCH ×2 (09:48→20:46)
[2016-09-11] MEDS: metFORMIN HCL 500 MG TAB PO SCH ×2 (09:49→17:11)
[2016-09-11] MEDS: ASPIRIN EC 81 MG TABEC PO SCH (10:22)
--- NOTE | 2016-09-11 10:36 | HHI.PYPN ---
Subjective Remarks Patient seen in his room with nurse Karla, chart reviewed. It appears patient had an episode of dyscontrol last night showing some increased aggression, it appears he threw water at staff and also through his walker across the room. At this time he is resting quietly in his bed, calm and cooperative with me. For now continue treatment no change observed behaviors persist need to consider adjustment of his medications Review of Systems Except as stated in HPI: all other systems reviewed are Neg Objective Alert: Yes [place]: Person, Place, Date Mood: Calm Affect: Flat Memory Intact: Comment (no significant impairment) Hallucinations: Other (deneis any) Delusions: Yes (re a girlfriend at [facility]) Delusion Type: Paranoid (slightly decreased) Suicidal: Ideation (deneis any) Homicidal: Ideation (deneis any) Insight/Judgement Very poor Vitals/IOs Vital Signs Date Time Temp Pulse Resp B/P Pulse Ox O2 Delivery O2 Flow Rate FiO2 09/11/16 06:09 97.9 74 20 132/66 100 Intake and Output 09/10/16 09/10/16 09/11/16 08:00 16:00 00:00 Intake Total 1330 ml Balance 1330 ml Assessment & Plan Problem List: (1) Schizoaffective disorder, bipolar type ICD Code: F25.0 Assessment & Plan Estimated LOS: days patient continues somewhat psychotic and with some dyscontrol last night. Though he remains compliant with medications. For now continue treatment Justification for Cont. Inpt. At this time patient will decompensate the place to the lower level of care Discharge Planning To be determined Request HC Surrog/Guard Advoc?: Phil Case MD Sep 11, 2016 10:36
[2016-09-11 16:07] LABS: HEMOGLOBIN A1a 1.1 %; HEMOGLOBIN Ao 84.1 %; HEMOGLOBIN F 0.9 %; HEMOGLOBIN LA1C 1.9 %; HEMOGLOBIN P3 4.1 %
[2016-09-11 19:57] VITALS: BP 105/55; PULSE 69; RESP 20; TEMP 98.1; O2SAT 99
[2016-09-11] MEDS: ATORVASTATIN 10 MG TAB PO SCH (20:46)
[2016-09-11] MEDS: OLANZapine ODT 20 MG TAB SL SCH (20:47)
[2016-09-12] MEDS: PHENYTOIN SODIUM 100 MG CAP PO SCH ×3 (05:33→21:08)
[2016-09-12 06:15] VITALS: BP 130/62; PULSE 60; RESP 18; TEMP 97.7; O2SAT 98
[2016-09-12] MEDS: LACTIC ACID (AMMONIUM LACTATE) 12% LOTION 225 GM BTL TOPICAL SCH ×2 (09:00→20:26)
[2016-09-12] MEDS: BETAMETHASONE/CLOTRIMAZOLE CREAM 15 GM TOPICAL SCH ×2 (09:00→20:26)
[2016-09-12] MEDS: CITALOPRAM HYDROBROMIDE 20 MG TAB PO SCH (10:02)
[2016-09-12] MEDS: MAGNESIUM OXIDE 400 MG TAB PO SCH ×2 (10:02→20:25)
[2016-09-12] MEDS: CYANOCOBALAMIN 1,000 MCG TAB PO SCH (10:03)
[2016-09-12] MEDS: METOPROLOL TARTRATE 50 MG TAB PO SCH ×2 (10:03→20:26)
[2016-09-12] MEDS: metFORMIN HCL 500 MG TAB PO SCH ×2 (10:03→17:10)
[2016-09-12] MEDS: LISINOPRIL 20 MG TAB PO SCH (10:03)
[2016-09-12] MEDS: LORATADINE 10 MG TAB PO SCH (10:03)
[2016-09-12] MEDS: TIMOLOL MALEATE 0.5% OPHT SOLN 5 ML BTL EACH EYE SCH (10:04)
[2016-09-12] MEDS: ASPIRIN EC 81 MG TABEC PO SCH (10:04)
[2016-09-12] MEDS: busPIRone HCL 5 MG TAB PO SCH ×2 (10:04→20:25)
--- NOTE | 2016-09-12 14:17 | HHI.PYPN ---
Subjective Remarks Patient seen in his room with nurse Shyann and medical student Huma, patient sitting calmly on his bed says he wants discharge that he can live independently , patient continues somewhat confused and disoriented, no behavior problems noted at the present time, compliant medications, Review of Systems Except as stated in HPI: all other systems reviewed are Neg Objective Alert: Yes [place]: Person, Place, Date Mood: Calm Affect: Flat Memory Intact: Comment (no significant impairment) Hallucinations: Other (deneis any) Delusions: Yes (re a girlfriend at [facility]) Delusion Type: Paranoid (slightly decreased) Suicidal: Ideation (deneis any) Homicidal: Ideation (deneis any) Insight/Judgement Very poor Labs Test 09/12/16 05:33 Albumin 2.9 GM/DL Phenytoin (Dilantin) Level 7.0 MCG/ML Vitals/IOs Vital Signs Date Time Temp Pulse Resp B/P Pulse Ox O2 Delivery O2 Flow Rate FiO2 09/12/16 06:15 97.7 60 18 130/62 98 Intake and Output 09/11/16 09/11/16 09/12/16 08:00 16:00 00:00 Intake Total 240 ml 960 ml Balance 240 ml 960 ml Assessment & Plan Problem List: (1) Schizoaffective disorder, bipolar type ICD Code: F25.0 Assessment & Plan Estimated LOS: days patient continues somewhat disorganized vigilant and isolating, placement remains problematic Justification for Cont. Inpt. At this time patient will decompensate if place to the lower level of care Discharge Planning To be determined Request HC Surrog/Guard Advoc?: Phil Case MD Sep 12, 2016 14:17
[2016-09-12 18:44] VITALS: BP 131/58; PULSE 90; RESP 18; TEMP 99.2; O2SAT 96
[2016-09-12] MEDS: ATORVASTATIN 10 MG TAB PO SCH (20:25)
[2016-09-12] MEDS: OLANZapine ODT 20 MG TAB SL SCH (20:26)
[2016-09-13] MEDS: PHENYTOIN SODIUM 100 MG CAP PO SCH ×3 (06:02→21:29)
[2016-09-13 06:43] VITALS: BP 127/61; PULSE 56; RESP 18; TEMP 97.8; O2SAT 98
[2016-09-13] MEDS: LORATADINE 10 MG TAB PO SCH (09:17)
[2016-09-13] MEDS: busPIRone HCL 5 MG TAB PO SCH ×2 (09:17→21:17)
[2016-09-13] MEDS: MAGNESIUM OXIDE 400 MG TAB PO SCH ×2 (09:17→21:17)
[2016-09-13] MEDS: CITALOPRAM HYDROBROMIDE 20 MG TAB PO SCH (09:18)
[2016-09-13] MEDS: ASPIRIN EC 81 MG TABEC PO SCH (09:18)
[2016-09-13] MEDS: CYANOCOBALAMIN 1,000 MCG TAB PO SCH (09:18)
[2016-09-13] MEDS: METOPROLOL TARTRATE 50 MG TAB PO SCH ×2 (09:19→21:17)
[2016-09-13] MEDS: BETAMETHASONE/CLOTRIMAZOLE CREAM 15 GM TOPICAL SCH ×2 (09:19→21:16)
[2016-09-13] MEDS: LISINOPRIL 20 MG TAB PO SCH (09:19)
[2016-09-13] MEDS: TIMOLOL MALEATE 0.5% OPHT SOLN 5 ML BTL EACH EYE SCH (09:19)
[2016-09-13] MEDS: LACTIC ACID (AMMONIUM LACTATE) 12% LOTION 225 GM BTL TOPICAL SCH ×2 (09:20→21:16)
[2016-09-13] MEDS: metFORMIN HCL 500 MG TAB PO SCH ×2 (09:30→18:00)
--- NOTE | 2016-09-13 13:06 | HHI.PYPN ---
Subjective Remarks Patient seen in his room with nurse Naye medical student Huma, patient continues calm no significant behavioral problems also somewhat diffusely confused. Overall compliant medications Review of Systems Except as stated in HPI: all other systems reviewed are Neg Objective Alert: Yes [place]: Person, Place, Date Mood: Calm Affect: Flat Memory Intact: Comment (no significant impairment) Hallucinations: Other (deneis any) Delusions: Yes (re a girlfriend at [facility]) Delusion Type: Paranoid (slightly decreased) Suicidal: Ideation (deneis any) Homicidal: Ideation (deneis any) Insight/Judgement Very poor Vitals/IOs Vital Signs Date Time Temp Pulse Resp B/P Pulse Ox O2 Delivery O2 Flow Rate FiO2 09/13/16 06:43 97.8 56 18 127/61 98 Intake and Output 09/12/16 09/12/16 09/13/16 08:00 16:00 00:00 Intake Total 480 ml 1500 ml Balance 480 ml 1500 ml Assessment & Plan Problem List: (1) Schizoaffective disorder, bipolar type ICD Code: F25.0 Assessment & Plan Estimated LOS: days patient continues somewhat paranoid, isolating, though no behavior problems at this time. For now continue treatment Justification for Cont. Inpt. At this time patient would significantly decompensate with placed a lower level of care Discharge Planning To be determined Request HC Surrog/Guard Advoc?: No Phil Mckee MD Sep 13, 2016 13:06
[2016-09-13 18:15] VITALS: BP 128/58; PULSE 64; RESP 18; TEMP 98.6; O2SAT 94
[2016-09-13] MEDS: OLANZapine ODT 20 MG TAB SL SCH (21:00)
[2016-09-13] MEDS: ATORVASTATIN 10 MG TAB PO SCH (21:17)
[2016-09-14 06:00] VITALS: BP 140/69; PULSE 54; RESP 16; TEMP 98; O2SAT 96
[2016-09-14] MEDS: PHENYTOIN SODIUM 100 MG CAP PO SCH ×3 (06:04→21:03)
[2016-09-14] MEDS: BETAMETHASONE/CLOTRIMAZOLE CREAM 15 GM TOPICAL SCH ×2 (09:00→21:00)
[2016-09-14] MEDS: TIMOLOL MALEATE 0.5% OPHT SOLN 5 ML BTL EACH EYE SCH (09:00)
[2016-09-14] MEDS: LISINOPRIL 20 MG TAB PO SCH (09:42)
[2016-09-14] MEDS: CITALOPRAM HYDROBROMIDE 20 MG TAB PO SCH (09:42)
[2016-09-14] MEDS: busPIRone HCL 5 MG TAB PO SCH ×2 (09:42→21:03)
[2016-09-14] MEDS: metFORMIN HCL 500 MG TAB PO SCH ×2 (09:42→17:32)
[2016-09-14] MEDS: LACTIC ACID (AMMONIUM LACTATE) 12% LOTION 225 GM BTL TOPICAL SCH ×2 (09:43→21:00)
[2016-09-14] MEDS: CYANOCOBALAMIN 1,000 MCG TAB PO SCH (09:43)
[2016-09-14] MEDS: MAGNESIUM OXIDE 400 MG TAB PO SCH ×2 (09:43→21:03)
[2016-09-14] MEDS: METOPROLOL TARTRATE 50 MG TAB PO SCH ×2 (09:43→21:05)
[2016-09-14] MEDS: LORATADINE 10 MG TAB PO SCH (09:43)
[2016-09-14] MEDS: ASPIRIN EC 81 MG TABEC PO SCH (09:43)
--- NOTE | 2016-09-14 13:25 | HHI.PYPN ---
Subjective Remarks Patient was seen and case discussed with nursing. He is pleasant and cooperative with exam. His compliant with his medications. Alert and oriented 2. Asking for an antidepressant. However he denies being depressed. Denies suicidal ideations intent or plan Objective Alert: Yes [place]: Person, Place Mood: Happy Affect: Blunted Memory Intact: Comment (no significant impairment) Hallucinations: Other (deneis any) Delusions: Yes (re a girlfriend at [facility]) Delusion Type: Paranoid (improving) Suicidal: Ideation (deneis any) Homicidal: Ideation (deneis any) Insight/Judgement Poor Vitals/IOs Vital Signs Date Time Temp Pulse Resp B/P Pulse Ox O2 Delivery O2 Flow Rate FiO2 09/14/16 06:00 98.0 54 16 140/69 96 Intake and Output 09/13/16 09/13/16 09/14/16 08:00 16:00 00:00 Intake Total 360 ml 960 ml 960 ml Balance 360 ml 960 ml 960 ml Assessment & Plan Problem List: (1) Schizoaffective disorder, bipolar type ICD Code: F25.0 Assessment & Plan Continue current treatment plan Justification for Cont. Inpt. Patient will decompensate in a less restrictive setting Request HC Surrog/Guard Advoc?: No Vishnu Small DO Sep 14, 2016 13:25
[2016-09-14 18:35] VITALS: BP 104/61; PULSE 87; RESP 19; TEMP 97.9; O2SAT 98
[2016-09-14] MEDS: OLANZapine ODT 20 MG TAB SL SCH (21:00)
[2016-09-14] MEDS: ATORVASTATIN 10 MG TAB PO SCH (21:03)
[2016-09-15] MEDS: PHENYTOIN SODIUM 100 MG CAP PO SCH ×3 (06:05→21:27)
[2016-09-15 06:08] VITALS: BP 134/62; PULSE 65; RESP 18; TEMP 99.2; O2SAT 96
[2016-09-15] MEDS: CITALOPRAM HYDROBROMIDE 20 MG TAB PO SCH (08:17)
[2016-09-15] MEDS: LORATADINE 10 MG TAB PO SCH (08:17)
[2016-09-15] MEDS: TIMOLOL MALEATE 0.5% OPHT SOLN 5 ML BTL EACH EYE SCH (08:18)
[2016-09-15] MEDS: BETAMETHASONE/CLOTRIMAZOLE CREAM 15 GM TOPICAL SCH ×2 (08:18→21:00)
[2016-09-15] MEDS: CYANOCOBALAMIN 1,000 MCG TAB PO SCH (08:18)
[2016-09-15] MEDS: LISINOPRIL 20 MG TAB PO SCH (08:18)
[2016-09-15] MEDS: busPIRone HCL 5 MG TAB PO SCH ×2 (08:18→21:23)
[2016-09-15] MEDS: LACTIC ACID (AMMONIUM LACTATE) 12% LOTION 225 GM BTL TOPICAL SCH ×2 (08:18→21:00)
[2016-09-15] MEDS: MAGNESIUM OXIDE 400 MG TAB PO SCH ×2 (08:18→21:24)
[2016-09-15] MEDS: ASPIRIN EC 81 MG TABEC PO SCH (08:18)
[2016-09-15] MEDS: metFORMIN HCL 500 MG TAB PO SCH ×2 (08:18→17:17)
[2016-09-15] MEDS: METOPROLOL TARTRATE 50 MG TAB PO SCH ×2 (08:18→21:24)
--- NOTE | 2016-09-15 13:16 | HHI.PYPN ---
Subjective Remarks Patient was seen and case discussed with nursing. Patient is friendly and cooperative with exam. Mood remains stable. Says he feels tired throughout the day. Asking about discharge. Compliant with his medications and tolerating them well. Denies auditory visual hallucinations. Alert and oriented 3 Objective Alert: Yes [place]: Person, Place, Date Mood: Happy Affect: Euthymic Memory Intact: Comment (no significant impairment) Hallucinations: Other (deneis any) Delusions: Yes (re a girlfriend at [facility]) Delusion Type: Paranoid (improving) Suicidal: Ideation (deneis any) Homicidal: Ideation (deneis any) Insight/Judgement Improving Vitals/IOs Vital Signs Date Time Temp Pulse Resp B/P Pulse Ox O2 Delivery O2 Flow Rate FiO2 09/15/16 06:08 99.2 65 18 134/62 96 Intake and Output 09/14/16 09/14/16 09/15/16 08:00 16:00 00:00 Intake Total 720 ml 2710 ml Balance 720 ml 2710 ml Assessment & Plan Problem List: (1) Schizoaffective disorder, bipolar type ICD Code: F25.0 Assessment & Plan Continue current treatment plan Justification for Cont. Inpt. Patient will decompensate in a less restrictive setting Request HC Surrog/Guard Advoc?: No Vishnu Small DO Sep 15, 2016 13:16
[2016-09-15 20:30] VITALS: BP 115/55; PULSE 66; RESP 19; TEMP 98.6; O2SAT 96
[2016-09-15] MEDS: OLANZapine ODT 20 MG TAB SL SCH (21:00)
[2016-09-15] MEDS: ATORVASTATIN 10 MG TAB PO SCH (21:23)
[2016-09-16 05:13] VITALS: BP 131/59; PULSE 54; RESP 16; TEMP 97; O2SAT 97
[2016-09-16] MEDS: PHENYTOIN SODIUM 100 MG CAP PO SCH ×3 (05:37→21:59)
[2016-09-16 08:58] VITALS: BP_SYST 105; BP_SYST 115; BP_DIAS 55; PULSE 53
[2016-09-16] MEDS: METOPROLOL TARTRATE 50 MG TAB PO SCH ×2 (08:59→20:05)
[2016-09-16] MEDS: LISINOPRIL 20 MG TAB PO SCH (08:59)
[2016-09-16] MEDS: BETAMETHASONE/CLOTRIMAZOLE CREAM 15 GM TOPICAL SCH ×2 (09:00→20:06)
[2016-09-16] MEDS: LACTIC ACID (AMMONIUM LACTATE) 12% LOTION 225 GM BTL TOPICAL SCH ×2 (09:00→20:06)
[2016-09-16] MEDS: MAGNESIUM OXIDE 400 MG TAB PO SCH ×2 (09:43→20:05)
[2016-09-16] MEDS: ASPIRIN EC 81 MG TABEC PO SCH (09:43)
[2016-09-16] MEDS: busPIRone HCL 5 MG TAB PO SCH ×2 (09:43→20:05)
[2016-09-16] MEDS: CITALOPRAM HYDROBROMIDE 20 MG TAB PO SCH (09:43)
[2016-09-16] MEDS: LORATADINE 10 MG TAB PO SCH (09:43)
[2016-09-16] MEDS: metFORMIN HCL 500 MG TAB PO SCH ×2 (09:43→18:19)
[2016-09-16] MEDS: CYANOCOBALAMIN 1,000 MCG TAB PO SCH (09:43)
[2016-09-16] MEDS: TIMOLOL MALEATE 0.5% OPHT SOLN 5 ML BTL EACH EYE SCH (12:41)
--- NOTE | 2016-09-16 16:36 | HHI.PYPN ---
Subjective Remarks Patient discussed with treatment team, chart review, seen on unit. Patient no significant behavioral problems though continues confused and and vigilant. At this time placement remains quite problematic Review of Systems Except as stated in HPI: all other systems reviewed are Neg Objective Alert: Yes [place]: Person, Place, Date Mood: Happy Affect: Euthymic Memory Intact: Comment (no significant impairment) Hallucinations: Other (deneis any) Delusions: Yes (re a girlfriend at [facility]) Delusion Type: Paranoid (improving) Suicidal: Ideation (deneis any) Homicidal: Ideation (deneis any) Insight/Judgement Very poor Vitals/IOs Vital Signs Date Time Temp Pulse Resp B/P Pulse Ox O2 Delivery O2 Flow Rate FiO2 09/16/16 08:58 53 105/55 09/16/16 05:13 97.0 16 97 Intake and Output 09/15/16 09/15/16 09/16/16 08:00 16:00 00:00 Intake Total 790 ml 1320 ml Balance 790 ml 1320 ml Assessment & Plan Problem List: (1) Schizoaffective disorder, bipolar type ICD Code: F25.0 Assessment & Plan Estimated LOS: days patient continues somewhat irritable labile, but no significant behavioral problems. Placement remains quite problematic patient showing no insight into his issues Justification for Cont. Inpt. At this time patient would significantly decompensated placed in the lower level of care Discharge Planning To be determined Request HC Surrog/Guard Advoc?: No Phil Mckee MD Sep 16, 2016 16:36
[2016-09-16 18:47] VITALS: BP 149/82; PULSE 72; RESP 16; TEMP 99; O2SAT 96
[2016-09-16] MEDS: ATORVASTATIN 10 MG TAB PO SCH (20:05)
[2016-09-16] MEDS: OLANZapine ODT 20 MG TAB SL SCH (20:05)
[2016-09-17] MEDS: PHENYTOIN SODIUM 100 MG CAP PO SCH ×3 (05:58→22:00)
[2016-09-17 06:17] VITALS: BP 128/68; PULSE 65; RESP 18; TEMP 97.6; O2SAT 98
[2016-09-17] MEDS: CYANOCOBALAMIN 1,000 MCG TAB PO SCH (08:52)
[2016-09-17] MEDS: LACTIC ACID (AMMONIUM LACTATE) 12% LOTION 225 GM BTL TOPICAL SCH ×2 (08:52→21:00)
[2016-09-17] MEDS: LORATADINE 10 MG TAB PO SCH (08:52)
[2016-09-17] MEDS: LISINOPRIL 20 MG TAB PO SCH (08:52)
[2016-09-17] MEDS: METOPROLOL TARTRATE 50 MG TAB PO SCH ×2 (08:52→21:00)
[2016-09-17] MEDS: busPIRone HCL 5 MG TAB PO SCH ×2 (08:52→21:00)
[2016-09-17] MEDS: ASPIRIN EC 81 MG TABEC PO SCH (08:52)
[2016-09-17] MEDS: metFORMIN HCL 500 MG TAB PO SCH ×2 (08:52→18:03)
[2016-09-17] MEDS: MAGNESIUM OXIDE 400 MG TAB PO SCH ×2 (08:52→21:00)
[2016-09-17] MEDS: CITALOPRAM HYDROBROMIDE 20 MG TAB PO SCH (08:52)
[2016-09-17] MEDS: BETAMETHASONE/CLOTRIMAZOLE CREAM 15 GM TOPICAL SCH ×2 (09:00→21:00)
--- NOTE | 2016-09-17 09:56 | HHI.PYPN ---
Subjective Remarks Patient seen in his room with nurse Shyann medical student Huma, chart review, patient continues calm cooperative less irritable than yesterday. Compliant medications. Placement continues to be problematic Review of Systems Except as stated in HPI: all other systems reviewed are Neg Objective Alert: Yes [place]: Person, Place, Date Mood: Happy Affect: Euthymic Memory Intact: Comment (no significant impairment) Hallucinations: Other (deneis any) Delusions: Yes (re a girlfriend at [facility]) Delusion Type: Paranoid (improving) Suicidal: Ideation (deneis any) Homicidal: Ideation (deneis any) Insight/Judgement Poor Vitals/IOs Vital Signs Date Time Temp Pulse Resp B/P Pulse Ox O2 Delivery O2 Flow Rate FiO2 09/17/16 06:17 97.6 65 18 128/68 98 Intake and Output 09/16/16 09/16/16 09/17/16 08:00 16:00 00:00 Intake Total 480 ml 2040 ml Balance 480 ml 2040 ml Assessment & Plan Problem List: (1) Schizoaffective disorder, bipolar type ICD Code: F25.0 Assessment & Plan Estimated LOS: days patient less irritable today though continues somewhat vigilant and paranoid. Compliant medications. Placement remains problematic Justification for Cont. Inpt. At this time patient decompensate if placed in the lower level of care Discharge Planning To be determined Request HC Surrog/Guard Advoc?: Phil Case MD Sep 17, 2016 09:56
[2016-09-17] MEDS: TIMOLOL MALEATE 0.5% OPHT SOLN 5 ML BTL EACH EYE SCH (10:22)
[2016-09-17 18:00] VITALS: BP 144/63; PULSE 69; RESP 18; TEMP 96.9; O2SAT 99
[2016-09-17] MEDS: ACETAMINOPHEN 325 MG TAB PO PRN (21:00)
[2016-09-17] MEDS: OLANZapine ODT 20 MG TAB SL SCH (21:00)
[2016-09-17] MEDS: ATORVASTATIN 10 MG TAB PO SCH (21:00)
[2016-09-18] MEDS: PHENYTOIN SODIUM 100 MG CAP PO SCH ×3 (05:35→21:33)
[2016-09-18 05:47] VITALS: BP 105/55; PULSE 50; RESP 20; TEMP 97.3; O2SAT 96
[2016-09-18] MEDS: LISINOPRIL 20 MG TAB PO SCH (08:17)
[2016-09-18] MEDS: METOPROLOL TARTRATE 50 MG TAB PO SCH ×2 (08:17→21:30)
[2016-09-18] MEDS: LACTIC ACID (AMMONIUM LACTATE) 12% LOTION 225 GM BTL TOPICAL SCH ×2 (09:00→21:30)
[2016-09-18] MEDS: BETAMETHASONE/CLOTRIMAZOLE CREAM 15 GM TOPICAL SCH ×2 (09:00→21:30)
[2016-09-18] MEDS: LORATADINE 10 MG TAB PO SCH (09:04)
[2016-09-18] MEDS: MAGNESIUM OXIDE 400 MG TAB PO SCH ×2 (09:05→21:30)
[2016-09-18] MEDS: TIMOLOL MALEATE 0.5% OPHT SOLN 5 ML BTL EACH EYE SCH (09:05)
[2016-09-18] MEDS: CITALOPRAM HYDROBROMIDE 20 MG TAB PO SCH (09:05)
[2016-09-18] MEDS: ASPIRIN EC 81 MG TABEC PO SCH (09:05)
[2016-09-18] MEDS: CYANOCOBALAMIN 1,000 MCG TAB PO SCH (09:05)
[2016-09-18] MEDS: metFORMIN HCL 500 MG TAB PO SCH ×2 (09:05→17:23)
[2016-09-18] MEDS: busPIRone HCL 5 MG TAB PO SCH ×2 (09:06→21:30)
--- NOTE | 2016-09-18 13:27 | HHI.PYPN ---
Subjective Remarks Patient seen in day room with nurse Vidhya in family practice resident Semaj, compliant medications, continue somewhat vigilant, paranoid though no behavioral problems. For now continue treatment Review of Systems Except as stated in HPI: all other systems reviewed are Neg Objective Alert: Yes [place]: Person, Place, Date Mood: Happy, Other (irritable) Affect: Euthymic Memory Intact: Comment (no significant impairment) Hallucinations: Other (deneis any) Delusions: Yes (re a girlfriend at [facility]) Delusion Type: Paranoid (improving) Suicidal: Ideation (deneis any) Homicidal: Ideation (deneis any) Insight/Judgement Very poor Vitals/IOs Vital Signs Date Time Temp Pulse Resp B/P Pulse Ox O2 Delivery O2 Flow Rate FiO2 09/18/16 05:47 97.3 50 20 105/55 96 Intake and Output 09/17/16 09/17/16 09/18/16 08:00 16:00 00:00 Intake Total 1320 ml 2160 ml 480 ml Balance 1320 ml 2160 ml 480 ml Assessment & Plan Problem List: (1) Schizoaffective disorder, bipolar type ICD Code: F25.0 Assessment & Plan Estimated LOS: days patient remains somewhat psychotic and paranoid, the significantbehavioralproblems.Compliantmedications Justification for Cont. Inpt. At this time patient will decompensate if placed in a lower level of care Discharge Planning To be determined Request HC Surrog/Guard Advoc?: No Phil Mckee MD Sep 18, 2016 13:26
[2016-09-18 19:09] VITALS: BP 192/89; PULSE 70; RESP 17; TEMP 97.4; O2SAT 99
[2016-09-18 19:25] VITALS: BP 115/56
[2016-09-18] MEDS: OLANZapine ODT 20 MG TAB SL SCH (21:00)
[2016-09-18] MEDS: ATORVASTATIN 10 MG TAB PO SCH (21:30)
[2016-09-19 06:04] VITALS: BP 110/71; PULSE 51; RESP 18; TEMP 97.4
[2016-09-19] MEDS: PHENYTOIN SODIUM 100 MG CAP PO SCH ×3 (06:27→21:59)
[2016-09-19] MEDS: LACTIC ACID (AMMONIUM LACTATE) 12% LOTION 225 GM BTL TOPICAL SCH ×2 (09:00→20:35)
[2016-09-19] MEDS: BETAMETHASONE/CLOTRIMAZOLE CREAM 15 GM TOPICAL SCH ×2 (09:00→20:35)
[2016-09-19] MEDS: metFORMIN HCL 500 MG TAB PO SCH ×2 (09:13→17:02)
[2016-09-19] MEDS: LORATADINE 10 MG TAB PO SCH (09:13)
[2016-09-19] MEDS: MAGNESIUM OXIDE 400 MG TAB PO SCH ×2 (09:14→20:33)
[2016-09-19] MEDS: CITALOPRAM HYDROBROMIDE 20 MG TAB PO SCH (09:14)
[2016-09-19] MEDS: CYANOCOBALAMIN 1,000 MCG TAB PO SCH (09:14)
[2016-09-19] MEDS: busPIRone HCL 5 MG TAB PO SCH ×2 (09:15→20:33)
[2016-09-19] MEDS: LISINOPRIL 20 MG TAB PO SCH (09:15)
[2016-09-19] MEDS: METOPROLOL TARTRATE 50 MG TAB PO SCH ×2 (09:15→20:33)
[2016-09-19] MEDS: ASPIRIN EC 81 MG TABEC PO SCH (09:15)
[2016-09-19] MEDS: TIMOLOL MALEATE 0.5% OPHT SOLN 5 ML BTL EACH EYE SCH (09:16)
--- NOTE | 2016-09-19 11:47 | HHI.PYPN ---
Subjective Remarks Patient seen in day room with nurse Vidhya, patient calm though somewhat vigilant walking into day room. Is somewhat short tempered with me today. Compliant medications. Review of Systems Except as stated in HPI: all other systems reviewed are Neg Objective Alert: Yes [place]: Person, Place, Date Mood: Happy, Other (irritable) Affect: Euthymic, Restricted (somewhat restricted today) Memory Intact: Comment (no significant impairment) Hallucinations: Other (deneis any) Delusions: Yes (re a girlfriend at [facility]) Delusion Type: Paranoid (improving) Suicidal: Ideation (deneis any) Homicidal: Ideation (deneis any) Insight/Judgement Very poor Labs Test 09/19/16 06:55 Creatinine 0.50 MG/DL Estimat Glomerular Filtration 170 ML/MIN Rate Albumin 2.9 GM/DL Phenytoin (Dilantin) Level 10.4 MCG/ML Vitals/IOs Vital Signs Date Time Temp Pulse Resp B/P Pulse Ox O2 Delivery O2 Flow Rate FiO2 09/19/16 06:04 97.4 51 18 110/71 09/18/16 19:09 99 Intake and Output 09/18/16 09/18/16 09/19/16 08:00 16:00 00:00 Intake Total 480 ml 960 ml 600 ml Output Total 1 ml Balance 479 ml 960 ml 600 ml Assessment & Plan Problem List: (1) Schizoaffective disorder, bipolar type ICD Code: F25.0 Assessment & Plan Estimated LOS: days patient is vigilance and irritability slightly softer today , compliant medications. For now continue treatment Justification for Cont. Inpt. At this time patient will decompensate placed in a lower level of care Discharge Planning To be determined Request HC Surrog/Guard Advoc?: No Phil Mckee MD Sep 19, 2016 11:47
[2016-09-19 19:27] VITALS: BP 117/62; PULSE 62; RESP 18; TEMP 97.4; O2SAT 96
[2016-09-19] MEDS: ATORVASTATIN 10 MG TAB PO SCH (20:33)
[2016-09-19] MEDS: OLANZapine ODT 20 MG TAB SL SCH (20:35)
[2016-09-20] MEDS: PHENYTOIN SODIUM 100 MG CAP PO SCH ×3 (05:10→21:43)
[2016-09-20 05:28] VITALS: BP 140/61; PULSE 49; RESP 18; TEMP 97.8; O2SAT 96
[2016-09-20] MEDS: metFORMIN HCL 500 MG TAB PO SCH ×2 (08:40→17:13)
[2016-09-20] MEDS: CITALOPRAM HYDROBROMIDE 20 MG TAB PO SCH (08:40)
[2016-09-20] MEDS: busPIRone HCL 5 MG TAB PO SCH ×2 (08:41→20:24)
[2016-09-20] MEDS: LORATADINE 10 MG TAB PO SCH (08:41)
[2016-09-20] MEDS: LISINOPRIL 20 MG TAB PO SCH (08:41)
[2016-09-20] MEDS: MAGNESIUM OXIDE 400 MG TAB PO SCH ×2 (08:41→20:25)
[2016-09-20] MEDS: METOPROLOL TARTRATE 50 MG TAB PO SCH ×2 (08:41→20:25)
[2016-09-20] MEDS: ASPIRIN EC 81 MG TABEC PO SCH (08:41)
[2016-09-20] MEDS: BETAMETHASONE/CLOTRIMAZOLE CREAM 15 GM TOPICAL SCH ×2 (08:42→20:26)
[2016-09-20] MEDS: LACTIC ACID (AMMONIUM LACTATE) 12% LOTION 225 GM BTL TOPICAL SCH ×2 (08:43→20:27)
[2016-09-20] MEDS: TIMOLOL MALEATE 0.5% OPHT SOLN 5 ML BTL EACH EYE SCH (08:43)
[2016-09-20] MEDS: PALIPERIDONE PALMITATE 234 MG/1.5 ML SYRINGE IM SCH (08:43)
[2016-09-20] MEDS: CYANOCOBALAMIN 1,000 MCG TAB PO SCH (09:00)
--- NOTE | 2016-09-20 11:20 | HHI.PYPN ---
Subjective Remarks Patient seen in his room with nurse Karla, chart review, patient continues to isolate, somewhat vigilant, though compliant medications. Review of Systems Except as stated in HPI: all other systems reviewed are Neg Objective Alert: Yes [place]: Person, Place, Date Mood: Other (less irritable today but still somewhat restricted) Affect: Euthymic, Restricted (somewhat restricted today) Memory Intact: Comment (no significant impairment) Hallucinations: Other (deneis any) Delusions: Yes (re a girlfriend at [facility]) Delusion Type: Paranoid (improving) Suicidal: Ideation (deneis any) Homicidal: Ideation (deneis any) Insight/Judgement Poor Vitals/IOs Vital Signs Date Time Temp Pulse Resp B/P Pulse Ox O2 Delivery O2 Flow Rate FiO2 09/20/16 05:28 97.8 49 18 140/61 96 Intake and Output 09/19/16 09/19/16 09/20/16 08:00 16:00 00:00 Intake Total 1320 ml Balance 1320 ml Assessment & Plan Problem List: (1) Schizoaffective disorder, bipolar type ICD Code: F25.0 Assessment & Plan Estimated LOS: days patient continues to isolate, is mildly paranoid but less so today. Compliant medications Justification for Cont. Inpt. At this time patient would decompensate if placed in the lower level of care Discharge Planning To be determined Request HC Surrog/Guard Advoc?: Phil Case MD Sep 20, 2016 11:19
[2016-09-20 18:43] VITALS: BP 93/53; PULSE 67; RESP 18; TEMP 97.4; O2SAT 98
[2016-09-20] MEDS: ATORVASTATIN 10 MG TAB PO SCH (20:25)
[2016-09-20] MEDS: OLANZapine ODT 20 MG TAB SL SCH (20:26)
[2016-09-21] MEDS: PHENYTOIN SODIUM 100 MG CAP PO SCH ×3 (05:33→22:00)
[2016-09-21 06:04] VITALS: BP 136/68; PULSE 51; RESP 16; TEMP 96.9; O2SAT 95
[2016-09-21] MEDS: BETAMETHASONE/CLOTRIMAZOLE CREAM 15 GM TOPICAL SCH ×2 (09:00→20:29)
[2016-09-21] MEDS: LACTIC ACID (AMMONIUM LACTATE) 12% LOTION 225 GM BTL TOPICAL SCH ×2 (09:00→20:28)
[2016-09-21 09:57] VITALS: BP 116/82; PULSE 82
[2016-09-21] MEDS: busPIRone HCL 5 MG TAB PO SCH ×2 (09:57→20:25)
[2016-09-21] MEDS: ASPIRIN EC 81 MG TABEC PO SCH (09:58)
[2016-09-21] MEDS: LISINOPRIL 20 MG TAB PO SCH (09:58)
[2016-09-21] MEDS: CITALOPRAM HYDROBROMIDE 20 MG TAB PO SCH (09:58)
[2016-09-21] MEDS: CYANOCOBALAMIN 1,000 MCG TAB PO SCH (09:58)
[2016-09-21] MEDS: metFORMIN HCL 500 MG TAB PO SCH ×2 (09:58→17:25)
[2016-09-21] MEDS: MAGNESIUM OXIDE 400 MG TAB PO SCH ×2 (09:58→20:25)
[2016-09-21] MEDS: LORATADINE 10 MG TAB PO SCH (09:58)
[2016-09-21] MEDS: METOPROLOL TARTRATE 50 MG TAB PO SCH ×2 (09:58→20:25)
[2016-09-21] MEDS: TIMOLOL MALEATE 0.5% OPHT SOLN 5 ML BTL EACH EYE SCH (10:00)
--- NOTE | 2016-09-21 14:48 | HHI.PYPN ---
Subjective Remarks Pt seen and discussed with staff. He remains isolative to his room despite staff encouragement to come out and socialize and participate in activities. He is compliant with medication. No medication side effects. No agitation or aggression. No SI/HI. Objective Alert: Yes [place]: Person, Place, Date Mood: Calm Affect: Restricted Memory Intact: Comment (no significant impairment) Hallucinations: Other (none) Delusions: Yes Delusion Type: Paranoid (mild) Suicidal: Ideation (denies) Homicidal: Ideation (denies) Insight/Judgement poor Vitals/IOs Vital Signs Date Time Temp Pulse Resp B/P Pulse Ox O2 Delivery O2 Flow Rate FiO2 09/21/16 09:57 82 116/82 09/21/16 06:04 96.9 16 95 Intake and Output 09/20/16 09/20/16 09/21/16 08:00 16:00 00:00 Intake Total 0 ml 2400 ml Balance 0 ml 2400 ml Assessment & Plan Problem List: (1) Schizoaffective disorder, bipolar type ICD Code: F25.0 Assessment & Plan Pt improving continue current tx plan. [facility] Estimated LOS: days Justification for Cont. Inpt. risks of decompensation at lower level of care. Request HC Surrog/Guard Advoc?: Carole Vazquez MD Sep 21, 2016 14:48
[2016-09-21 18:10] VITALS: BP 115/70; PULSE 83; RESP 18; TEMP 97.6; O2SAT 95
[2016-09-21] MEDS: ATORVASTATIN 10 MG TAB PO SCH (20:25)
[2016-09-21] MEDS: OLANZapine ODT 20 MG TAB SL SCH (20:28)
[2016-09-22] MEDS: PHENYTOIN SODIUM 100 MG CAP PO SCH ×3 (05:24→21:17)
[2016-09-22 06:00] VITALS: BP 122/56; PULSE 50; RESP 16; TEMP 98.3; O2SAT 96
[2016-09-22] MEDS: METOPROLOL TARTRATE 50 MG TAB PO SCH ×3 (08:21→21:17)
[2016-09-22] MEDS: BETAMETHASONE/CLOTRIMAZOLE CREAM 15 GM TOPICAL SCH ×2 (09:00→21:18)
[2016-09-22] MEDS: LACTIC ACID (AMMONIUM LACTATE) 12% LOTION 225 GM BTL TOPICAL SCH ×2 (09:00→21:00)
[2016-09-22] MEDS: CITALOPRAM HYDROBROMIDE 20 MG TAB PO SCH (09:39)
[2016-09-22] MEDS: MAGNESIUM OXIDE 400 MG TAB PO SCH ×2 (09:39→21:17)
[2016-09-22] MEDS: CYANOCOBALAMIN 1,000 MCG TAB PO SCH (09:39)
[2016-09-22] MEDS: ASPIRIN EC 81 MG TABEC PO SCH (09:40)
[2016-09-22] MEDS: metFORMIN HCL 500 MG TAB PO SCH ×2 (09:40→18:00)
[2016-09-22] MEDS: busPIRone HCL 5 MG TAB PO SCH ×2 (09:40→21:17)
[2016-09-22] MEDS: TIMOLOL MALEATE 0.5% OPHT SOLN 5 ML BTL EACH EYE SCH (09:40)
[2016-09-22] MEDS: LISINOPRIL 20 MG TAB PO SCH (09:40)
[2016-09-22] MEDS: LORATADINE 10 MG TAB PO SCH (09:40)
--- NOTE | 2016-09-22 15:29 | HHI.PYPN ---
Subjective Remarks Pt seen and discussed with staff. He remains seclusive to room, coming out for meals, snacks and requests. He states that he doesn't go out because he is afraid he might get sad. Compliant with medications and care. Objective Alert: Yes [place]: Person, Place, Date Mood: Calm Affect: Restricted Memory Intact: Comment (no significant impairment) Hallucinations: Other (none) Delusions: Yes Delusion Type: Paranoid (mild) Suicidal: Ideation (denies) Homicidal: Ideation (denies) Insight/Judgement poor Vitals/IOs Vital Signs Date Time Temp Pulse Resp B/P Pulse Ox O2 Delivery O2 Flow Rate FiO2 09/22/16 06:00 98.3 50 16 122/56 96 Intake and Output 09/21/16 09/21/16 09/22/16 08:00 16:00 00:00 Intake Total 360 ml 1680 ml Balance 360 ml 1680 ml Assessment & Plan Problem List: (1) Schizoaffective disorder, bipolar type ICD Code: F25.0 Assessment & Plan Continue current tx plan. Has been referred to state Estimated LOS: days Justification for Cont. Inpt. risk of decompensation Request HC Surrog/Guard Advoc?: No Carole Gold MD Sep 22, 2016 15:29
[2016-09-22 18:32] VITALS: BP 121/47; PULSE 57; RESP 17; TEMP 97.1; O2SAT 99
[2016-09-22] MEDS: OLANZapine ODT 20 MG TAB SL SCH (21:00)
[2016-09-22] MEDS: ATORVASTATIN 10 MG TAB PO SCH (21:17)
[2016-09-23] MEDS: PHENYTOIN SODIUM 100 MG CAP PO SCH ×3 (05:30→21:41)
[2016-09-23 05:56] VITALS: BP_SYST 101; BP_SYST 134; BP_DIAS 58; BP_DIAS 59; PULSE 53; RESP 16; TEMP 97.7; O2SAT 97
[2016-09-23] MEDS: BETAMETHASONE/CLOTRIMAZOLE CREAM 15 GM TOPICAL SCH ×2 (09:00→21:41)
[2016-09-23] MEDS: LACTIC ACID (AMMONIUM LACTATE) 12% LOTION 225 GM BTL TOPICAL SCH ×2 (09:00→21:41)
[2016-09-23] MEDS: ASPIRIN EC 81 MG TABEC PO SCH (09:09)
[2016-09-23] MEDS: MAGNESIUM OXIDE 400 MG TAB PO SCH ×2 (09:09→21:40)
[2016-09-23] MEDS: CITALOPRAM HYDROBROMIDE 20 MG TAB PO SCH (09:09)
[2016-09-23] MEDS: LORATADINE 10 MG TAB PO SCH (09:09)
[2016-09-23] MEDS: CYANOCOBALAMIN 1,000 MCG TAB PO SCH (09:09)
[2016-09-23] MEDS: LISINOPRIL 20 MG TAB PO SCH (09:09)
[2016-09-23] MEDS: METOPROLOL TARTRATE 50 MG TAB PO SCH ×2 (09:09→21:00)
[2016-09-23] MEDS: busPIRone HCL 5 MG TAB PO SCH ×2 (09:10→21:41)
[2016-09-23] MEDS: metFORMIN HCL 500 MG TAB PO SCH ×2 (09:10→18:00)
[2016-09-23] MEDS: TIMOLOL MALEATE 0.5% OPHT SOLN 5 ML BTL EACH EYE SCH (09:10)
--- NOTE | 2016-09-23 15:42 | HHI.PYPN ---
Subjective Remarks Patient reviewed with treatment team, chart reviewed, patient seen on unit, patient continues to isolate at times. Vigilant and somewhat irritable, compliant medications, for now continue treatment Review of Systems Except as stated in HPI: all other systems reviewed are Neg Objective Alert: Yes [place]: Person, Place, Date Mood: Calm Affect: Restricted Memory Intact: Comment (no significant impairment) Hallucinations: Other (none) Delusions: Yes Delusion Type: Paranoid (mild) Suicidal: Ideation (denies) Homicidal: Ideation (denies) Insight/Judgement Very poor Vitals/IOs Vital Signs Date Time Temp Pulse Resp B/P Pulse Ox O2 Delivery O2 Flow Rate FiO2 09/23/16 05:56 97.7 53 16 101/58 97 Intake and Output 09/22/16 09/22/16 09/23/16 08:00 16:00 00:00 Intake Total 800 ml 480 ml Balance 800 ml 480 ml Assessment & Plan Problem List: (1) Schizoaffective disorder, bipolar type ICD Code: F25.0 Assessment & Plan Estimated LOS: days patient continues somewhat isolative, vigilant, though no significant behavior problems. Compliant medications Justification for Cont. Inpt. At this time patient will decompensate if placed in a lower level of care Discharge Planning To be determined Request HC Surrog/Guard Advoc?: No Phil Mckee MD Sep 23, 2016 15:42
[2016-09-23 18:55] VITALS: BP 151/73; PULSE 58; RESP 16; TEMP 98; O2SAT 97
[2016-09-23] MEDS: OLANZapine ODT 20 MG TAB SL SCH (21:00)
[2016-09-23] MEDS: ATORVASTATIN 10 MG TAB PO SCH (21:40)
[2016-09-24] MEDS: PHENYTOIN SODIUM 100 MG CAP PO SCH ×3 (05:52→21:36)
[2016-09-24 06:13] VITALS: BP 141/68; PULSE 60; RESP 18; TEMP 98; O2SAT 94
[2016-09-24] MEDS: metFORMIN HCL 500 MG TAB PO SCH ×2 (09:13→17:07)
[2016-09-24] MEDS: METOPROLOL TARTRATE 50 MG TAB PO SCH ×2 (09:13→21:00)
[2016-09-24] MEDS: CITALOPRAM HYDROBROMIDE 20 MG TAB PO SCH (09:13)
[2016-09-24] MEDS: CYANOCOBALAMIN 1,000 MCG TAB PO SCH (09:13)
[2016-09-24] MEDS: ASPIRIN EC 81 MG TABEC PO SCH (09:13)
[2016-09-24] MEDS: LORATADINE 10 MG TAB PO SCH (09:13)
[2016-09-24] MEDS: LISINOPRIL 20 MG TAB PO SCH (09:14)
[2016-09-24] MEDS: busPIRone HCL 5 MG TAB PO SCH ×2 (09:14→21:37)
[2016-09-24] MEDS: MAGNESIUM OXIDE 400 MG TAB PO SCH ×2 (09:14→21:36)
[2016-09-24] MEDS: TIMOLOL MALEATE 0.5% OPHT SOLN 5 ML BTL EACH EYE SCH (09:14)
[2016-09-24] MEDS: LACTIC ACID (AMMONIUM LACTATE) 12% LOTION 225 GM BTL TOPICAL SCH ×2 (09:15→21:00)
[2016-09-24] MEDS: EUCERIN CREAM 120 GM JAR TOPICAL PRN (09:15)
[2016-09-24] MEDS: BETAMETHASONE/CLOTRIMAZOLE CREAM 15 GM TOPICAL SCH ×2 (09:15→21:39)
--- NOTE | 2016-09-24 11:24 | HHI.PYPN ---
Subjective Remarks Patient seen in his room with nurse Karla. Patient calm pleasant with me today. Today states he does not want to go the [facility]. I did explain to him the difficulties related to placement the multiple denials that he has had in the past. He is compliant medications at this time does deny voices or visions suicidality homicidality Review of Systems Except as stated in HPI: all other systems reviewed are Neg Objective Alert: Yes [place]: Person, Place, Date Mood: Calm Affect: Restricted Memory Intact: Comment (no significant impairment) Hallucinations: Other (none) Delusions: Yes Delusion Type: Paranoid (mild) Suicidal: Ideation (denies) Homicidal: Ideation (denies) Insight/Judgement Poor Vitals/IOs Vital Signs Date Time Temp Pulse Resp B/P Pulse Ox O2 Delivery O2 Flow Rate FiO2 09/24/16 06:13 98.0 60 18 141/68 94 Intake and Output 09/23/16 09/23/16 09/24/16 08:00 16:00 00:00 Intake Total 1860 ml Balance 1860 ml Assessment & Plan Problem List: (1) Schizoaffective disorder, bipolar type ICD Code: F25.0 Assessment & Plan Estimated LOS: days patient somewhat copper today the while still somewhat vigilant is softer with it. Justification for Cont. Inpt. At this time patient will decompensate the placed in a lower level of care Discharge Planning To be determined Request HC Surrog/Guard Advoc?: No Phil Mckee MD Sep 24, 2016 11:24
[2016-09-24 20:27] VITALS: BP 109/53; PULSE 56; RESP 18; TEMP 97.3; O2SAT 94
[2016-09-24] MEDS: OLANZapine ODT 20 MG TAB SL SCH (21:00)
[2016-09-24] MEDS: ATORVASTATIN 10 MG TAB PO SCH (21:36)
[2016-09-25 06:00] VITALS: BP 148/65; PULSE 75; RESP 16; TEMP 98.1; O2SAT 96
[2016-09-25] MEDS: PHENYTOIN SODIUM 100 MG CAP PO SCH ×3 (06:12→21:12)
[2016-09-25] MEDS: metFORMIN HCL 500 MG TAB PO SCH ×2 (08:59→13:36)
[2016-09-25] MEDS: LISINOPRIL 20 MG TAB PO SCH (08:59)
[2016-09-25] MEDS: MAGNESIUM OXIDE 400 MG TAB PO SCH ×2 (09:00→20:20)
[2016-09-25] MEDS: LORATADINE 10 MG TAB PO SCH (09:00)
[2016-09-25] MEDS: LACTIC ACID (AMMONIUM LACTATE) 12% LOTION 225 GM BTL TOPICAL SCH ×2 (09:00→20:18)
[2016-09-25] MEDS: CITALOPRAM HYDROBROMIDE 20 MG TAB PO SCH (09:00)
[2016-09-25] MEDS: METOPROLOL TARTRATE 50 MG TAB PO SCH ×2 (09:00→20:20)
[2016-09-25] MEDS: TIMOLOL MALEATE 0.5% OPHT SOLN 5 ML BTL EACH EYE SCH (09:00)
[2016-09-25] MEDS: BETAMETHASONE/CLOTRIMAZOLE CREAM 15 GM TOPICAL SCH ×2 (09:00→20:18)
[2016-09-25] MEDS: CYANOCOBALAMIN 1,000 MCG TAB PO SCH (09:00)
[2016-09-25] MEDS: ASPIRIN EC 81 MG TABEC PO SCH (09:01)
[2016-09-25] MEDS: busPIRone HCL 5 MG TAB PO SCH ×2 (09:01→20:21)
--- NOTE | 2016-09-25 12:24 | HHI.PYPN ---
Subjective Remarks Patient discussed with treatment team including diagnosis medication management , discharge planning, and placement. Chart reviewed. Patient seen on unit. Patient is to isolate somewhat in his room though there is been no behavioral problems noted. Patient overall compliant with his medications Review of Systems Except as stated in HPI: all other systems reviewed are Neg Objective Alert: Yes [place]: Person, Place, Date Mood: Calm Affect: Restricted Memory Intact: Comment (no significant impairment) Hallucinations: Other (none) Delusions: Yes Delusion Type: Paranoid (mild) Suicidal: Ideation (denies) Homicidal: Ideation (denies) Insight/Judgement Poor Vitals/IOs Vital Signs Date Time Temp Pulse Resp B/P Pulse Ox O2 Delivery O2 Flow Rate FiO2 09/25/16 06:00 98.1 75 16 148/65 96 Intake and Output 09/24/16 09/24/16 09/25/16 08:00 16:00 00:00 Intake Total 960 ml 720 ml Balance 960 ml 720 ml Assessment & Plan Problem List: (1) Schizoaffective disorder, bipolar type ICD Code: F25.0 Assessment & Plan Estimated LOS: days patient continues to isolate, somewhat vigilant but no behavioral problems, compliant medications. Justification for Cont. Inpt. At this time patient will decompensate place to the lower level of care Discharge Planning To be determined Request HC Surrog/Guard Advoc?: No Phil Mckee MD Sep 25, 2016 12:24
[2016-09-25 20:00] VITALS: BP 110/60; PULSE 55; RESP 16; TEMP 98.1; O2SAT 94
[2016-09-25] MEDS: OLANZapine ODT 20 MG TAB SL SCH (20:21)
[2016-09-25] MEDS: ATORVASTATIN 10 MG TAB PO SCH (20:23)
[2016-09-26 05:16] VITALS: BP 109/54; PULSE 53; RESP 16; TEMP 98.5; O2SAT 95
[2016-09-26] MEDS: PHENYTOIN SODIUM 100 MG CAP PO SCH ×3 (06:06→22:00)
[2016-09-26] MEDS: METOPROLOL TARTRATE 50 MG TAB PO SCH ×2 (09:00→20:21)
[2016-09-26] MEDS: LISINOPRIL 20 MG TAB PO SCH (09:00)
[2016-09-26] MEDS: TIMOLOL MALEATE 0.5% OPHT SOLN 5 ML BTL EACH EYE SCH (09:00)
[2016-09-26] MEDS: BETAMETHASONE/CLOTRIMAZOLE CREAM 15 GM TOPICAL SCH ×2 (09:00→20:21)
[2016-09-26] MEDS: LORATADINE 10 MG TAB PO SCH (09:19)
[2016-09-26] MEDS: CYANOCOBALAMIN 1,000 MCG TAB PO SCH (09:19)
[2016-09-26] MEDS: MAGNESIUM OXIDE 400 MG TAB PO SCH ×2 (09:20→20:21)
[2016-09-26] MEDS: busPIRone HCL 5 MG TAB PO SCH ×2 (09:20→20:20)
[2016-09-26] MEDS: CITALOPRAM HYDROBROMIDE 20 MG TAB PO SCH (09:20)
[2016-09-26] MEDS: ASPIRIN EC 81 MG TABEC PO SCH (09:20)
[2016-09-26] MEDS: metFORMIN HCL 500 MG TAB PO SCH ×2 (09:20→17:30)
[2016-09-26] MEDS: LACTIC ACID (AMMONIUM LACTATE) 12% LOTION 225 GM BTL TOPICAL SCH ×2 (09:22→20:21)
--- NOTE | 2016-09-26 12:17 | HHI.PYPN ---
Subjective Remarks Patient seen in his room with nurse Lisa, patient calm cooperative continues to isolate but no behavior problems. Compliant medications. For now continue treatment Review of Systems Except as stated in HPI: all other systems reviewed are Neg Objective Alert: Yes [place]: Person, Place, Date Mood: Calm Affect: Restricted Memory Intact: Comment (no significant impairment) Hallucinations: Other (none) Delusions: Yes Delusion Type: Paranoid (mild) Suicidal: Ideation (denies) Homicidal: Ideation (denies) Insight/Judgement Poor Labs Test 09/26/16 07:10 Creatinine 0.60 MG/DL Estimat Glomerular Filtration 137 ML/MIN Rate Albumin 3.0 GM/DL Phenytoin (Dilantin) Level 14.6 MCG/ML Vitals/IOs Vital Signs Date Time Temp Pulse Resp B/P Pulse Ox O2 Delivery O2 Flow Rate FiO2 09/26/16 05:16 98.5 53 16 109/54 95 Intake and Output 09/25/16 09/25/16 09/26/16 08:00 16:00 00:00 Intake Total 480 ml Balance 480 ml Assessment & Plan Problem List: (1) Schizoaffective disorder, bipolar type ICD Code: F25.0 Assessment & Plan Estimated LOS: days patient continues to isolate, is mildly vigilant with no behavioral problems. Compliant medications. Justification for Cont. Inpt. At this time patient will decompensate if placed in a lower level of care Discharge Planning To be determined Request HC Surrog/Guard Advoc?: No Phil Mckee MD Sep 26, 2016 12:17
[2016-09-26 18:00] VITALS: BP 159/91; PULSE 63; RESP 18; TEMP 97.6; O2SAT 96
[2016-09-26] MEDS: ATORVASTATIN 10 MG TAB PO SCH (20:21)
[2016-09-26] MEDS: OLANZapine ODT 20 MG TAB SL SCH (20:21)
[2016-09-27] MEDS: PHENYTOIN SODIUM 100 MG CAP PO SCH ×3 (05:11→21:45)
[2016-09-27 06:00] VITALS: BP 157/92; PULSE 60; RESP 16; TEMP 97.2
[2016-09-27] MEDS: TIMOLOL MALEATE 0.5% OPHT SOLN 5 ML BTL EACH EYE SCH (09:00)
[2016-09-27] MEDS: LISINOPRIL 20 MG TAB PO SCH (09:00)
[2016-09-27] MEDS: BETAMETHASONE/CLOTRIMAZOLE CREAM 15 GM TOPICAL SCH ×2 (09:00→21:00)
[2016-09-27] MEDS: CITALOPRAM HYDROBROMIDE 20 MG TAB PO SCH (10:08)
[2016-09-27] MEDS: metFORMIN HCL 500 MG TAB PO SCH ×2 (10:08→17:44)
[2016-09-27] MEDS: CYANOCOBALAMIN 1,000 MCG TAB PO SCH (10:08)
[2016-09-27] MEDS: METOPROLOL TARTRATE 50 MG TAB PO SCH ×2 (10:08→21:46)
[2016-09-27] MEDS: LORATADINE 10 MG TAB PO SCH (10:08)
[2016-09-27] MEDS: busPIRone HCL 5 MG TAB PO SCH ×2 (10:08→21:45)
[2016-09-27] MEDS: ASPIRIN EC 81 MG TABEC PO SCH (10:09)
[2016-09-27] MEDS: MAGNESIUM OXIDE 400 MG TAB PO SCH ×2 (10:09→21:45)
[2016-09-27] MEDS: LACTIC ACID (AMMONIUM LACTATE) 12% LOTION 225 GM BTL TOPICAL SCH ×2 (10:11→21:00)
--- NOTE | 2016-09-27 14:55 | HHI.PYPN ---
Subjective Remarks Patient seen in his room with floor staff, chart review, patient continues to isolate, but no significant behavioral problems. Compliant medications. For now continue treatment Review of Systems Except as stated in HPI: all other systems reviewed are Neg Objective Alert: Yes [place]: Person, Place, Date Mood: Calm Affect: Restricted Memory Intact: Comment (no significant impairment) Hallucinations: Other (none) Delusions: Yes Delusion Type: Paranoid (mild) Suicidal: Ideation (denies) Homicidal: Ideation (denies) Insight/Judgement Very poor Vitals/IOs Vital Signs Date Time Temp Pulse Resp B/P Pulse Ox O2 Delivery O2 Flow Rate FiO2 09/27/16 06:00 97.2 60 16 157/92 09/26/16 18:00 96 Intake and Output 09/26/16 09/26/16 09/27/16 08:00 16:00 00:00 Intake Total 480 ml 960 ml 600 ml Balance 480 ml 960 ml 600 ml Assessment & Plan Problem List: (1) Schizoaffective disorder, bipolar type ICD Code: F25.0 Assessment & Plan Estimated LOS: days patient continues to isolate, showing some vigilance at times. But no significant behavioral problems Justification for Cont. Inpt. At this time patient will decompensate if placed in a lower level of care Discharge Planning To be determined Request HC Surrog/Guard Advoc?: No Phil Mckee MD Sep 27, 2016 14:55
[2016-09-27 18:00] VITALS: BP 160/78; PULSE 90; RESP 16; TEMP 97.8; O2SAT 99
[2016-09-27] MEDS: OLANZapine ODT 20 MG TAB SL SCH (21:00)
[2016-09-27] MEDS: ATORVASTATIN 10 MG TAB PO SCH (21:46)
[2016-09-28 05:27] VITALS: BP 132/60; PULSE 50; RESP 18; TEMP 98.4; O2SAT 97
[2016-09-28] MEDS: PHENYTOIN SODIUM 100 MG CAP PO SCH ×3 (06:00→21:47)
[2016-09-28] MEDS: TIMOLOL MALEATE 0.5% OPHT SOLN 5 ML BTL EACH EYE SCH (09:00)
[2016-09-28] MEDS: LACTIC ACID (AMMONIUM LACTATE) 12% LOTION 225 GM BTL TOPICAL SCH ×2 (09:00→21:00)
[2016-09-28] MEDS: BETAMETHASONE/CLOTRIMAZOLE CREAM 15 GM TOPICAL SCH ×2 (09:00→21:00)
[2016-09-28] MEDS: LORATADINE 10 MG TAB PO SCH (09:03)
[2016-09-28] MEDS: MAGNESIUM OXIDE 400 MG TAB PO SCH ×2 (09:03→21:43)
[2016-09-28] MEDS: METOPROLOL TARTRATE 50 MG TAB PO SCH ×3 (09:03→21:43)
[2016-09-28] MEDS: busPIRone HCL 5 MG TAB PO SCH ×2 (09:04→21:43)
[2016-09-28] MEDS: ASPIRIN EC 81 MG TABEC PO SCH (09:04)
[2016-09-28] MEDS: metFORMIN HCL 500 MG TAB PO SCH ×2 (09:04→18:00)
[2016-09-28] MEDS: CITALOPRAM HYDROBROMIDE 20 MG TAB PO SCH (09:04)
[2016-09-28] MEDS: LISINOPRIL 20 MG TAB PO SCH (09:04)
[2016-09-28] MEDS: CYANOCOBALAMIN 1,000 MCG TAB PO SCH (09:04)
--- NOTE | 2016-09-28 14:19 | HHI.PYPN ---
Subjective Remarks Patient was seen and case discussed with nursing. Patient is pleasant and cooperative with exam. Largely seclusive to room. He is in behaving well on the unit. Is compliant with his medications. He is awaiting placement at this time. Denies any psychotic symptoms. Mood is "good." Objective Alert: Yes [place]: Person, Place, Date Mood: Calm Affect: Blunted Memory Intact: Comment (no significant impairment) Hallucinations: Other (none) Delusions: Yes Delusion Type: Paranoid (improving) Suicidal: Ideation (denies) Homicidal: Ideation (denies) Insight/Judgement Improving Labs Test 09/28/16 06:46 Phenytoin (Dilantin) Level 13.8 MCG/ML Vitals/IOs Vital Signs Date Time Temp Pulse Resp B/P Pulse Ox O2 Delivery O2 Flow Rate FiO2 09/28/16 05:27 98.4 50 18 132/60 97 Intake and Output 09/27/16 09/27/16 09/28/16 08:00 16:00 00:00 Intake Total 480 ml 480 ml Balance 480 ml 480 ml Assessment & Plan Problem List: (1) Schizoaffective disorder, bipolar type ICD Code: F25.0 Assessment & Plan Continue current treatment plan Justification for Cont. Inpt. Patient will decompensate in a less restrictive setting Request HC Surrog/Guard Advoc?: No Vishnu Small DO Sep 28, 2016 14:19
[2016-09-28 18:46] VITALS: BP 97/57; PULSE 66; RESP 16; TEMP 97.8; O2SAT 97
[2016-09-28] MEDS: OLANZapine ODT 20 MG TAB SL SCH (21:00)
[2016-09-28] MEDS: IBUPROFEN 600 MG TAB PO PRN (21:42)
[2016-09-28] MEDS: ATORVASTATIN 10 MG TAB PO SCH (21:42)
[2016-09-29 06:32] VITALS: BP 121/60; PULSE 51; RESP 16; TEMP 97.3; O2SAT 93
[2016-09-29] MEDS: PHENYTOIN SODIUM 100 MG CAP PO SCH ×3 (07:00→21:05)
[2016-09-29] MEDS: TIMOLOL MALEATE 0.5% OPHT SOLN 5 ML BTL EACH EYE SCH (09:00)
[2016-09-29] MEDS: CITALOPRAM HYDROBROMIDE 20 MG TAB PO SCH (09:00)
[2016-09-29] MEDS: CYANOCOBALAMIN 1,000 MCG TAB PO SCH (09:00)
[2016-09-29] MEDS: LISINOPRIL 20 MG TAB PO SCH (09:00)
[2016-09-29] MEDS: LACTIC ACID (AMMONIUM LACTATE) 12% LOTION 225 GM BTL TOPICAL SCH ×2 (09:00→20:57)
[2016-09-29] MEDS: metFORMIN HCL 500 MG TAB PO SCH ×2 (09:00→18:00)
[2016-09-29] MEDS: ASPIRIN EC 81 MG TABEC PO SCH (09:00)
[2016-09-29] MEDS: BETAMETHASONE/CLOTRIMAZOLE CREAM 15 GM TOPICAL SCH ×2 (09:00→20:57)
[2016-09-29] MEDS: LORATADINE 10 MG TAB PO SCH (09:00)
[2016-09-29] MEDS: METOPROLOL TARTRATE 50 MG TAB PO SCH ×2 (09:00→20:56)
[2016-09-29] MEDS: busPIRone HCL 5 MG TAB PO SCH ×2 (09:00→20:57)
[2016-09-29] MEDS: MAGNESIUM OXIDE 400 MG TAB PO SCH ×2 (09:00→20:57)
--- NOTE | 2016-09-29 11:49 | HHI.PYPN ---
Subjective Remarks Patient was seen and case discussed with nursing. Patient remains pleasant and cooperative. Bright and cheerful during the interview. Compliant with his medications and behaving well on the unit. No psychosis elicited today Objective Alert: Yes [place]: Person, Place, Situation Mood: Calm Affect: Restricted Memory Intact: Comment (no significant impairment) Hallucinations: Other (none) Delusions: Yes Delusion Type: Paranoid (improving) Suicidal: Ideation (denies) Homicidal: Ideation (denies) Insight/Judgement Poor Vitals/IOs Vital Signs Date Time Temp Pulse Resp B/P Pulse Ox O2 Delivery O2 Flow Rate FiO2 09/29/16 06:32 97.3 51 16 121/60 93 Intake and Output 09/28/16 09/28/16 09/29/16 08:00 16:00 00:00 Intake Total 36 ml 840 ml 1080 ml Output Total 1 ml Balance 35 ml 840 ml 1080 ml Assessment & Plan Problem List: (1) Schizoaffective disorder, bipolar type ICD Code: F25.0 Assessment & Plan Continue current treatment plan Justification for Cont. Inpt. Patient will decompensate in a less restrictive setting Request HC Surrog/Guard Advoc?: No Vishnu Small DO Sep 29, 2016 11:49
[2016-09-29 19:02] VITALS: BP 103/56; PULSE 59; RESP 17; TEMP 97.9; O2SAT 96
[2016-09-29] MEDS: ATORVASTATIN 10 MG TAB PO SCH (20:57)
[2016-09-29] MEDS: OLANZapine ODT 20 MG TAB SL SCH (20:57)
[2016-09-30] MEDS: PHENYTOIN SODIUM 100 MG CAP PO SCH ×3 (05:01→21:56)
[2016-09-30 05:25] VITALS: BP 120/65; PULSE 54; RESP 15; TEMP 97.8; O2SAT 96
[2016-09-30] MEDS: METOPROLOL TARTRATE 50 MG TAB PO SCH ×2 (08:54→21:39)
[2016-09-30] MEDS: TIMOLOL MALEATE 0.5% OPHT SOLN 5 ML BTL EACH EYE SCH (09:00)
[2016-09-30] MEDS: LACTIC ACID (AMMONIUM LACTATE) 12% LOTION 225 GM BTL TOPICAL SCH ×2 (09:00→21:00)
[2016-09-30] MEDS: BETAMETHASONE/CLOTRIMAZOLE CREAM 15 GM TOPICAL SCH ×2 (09:00→21:00)
[2016-09-30] MEDS: ASPIRIN EC 81 MG TABEC PO SCH (09:45)
[2016-09-30] MEDS: MAGNESIUM OXIDE 400 MG TAB PO SCH ×2 (09:45→21:38)
[2016-09-30] MEDS: busPIRone HCL 5 MG TAB PO SCH ×2 (09:45→21:38)
[2016-09-30] MEDS: CITALOPRAM HYDROBROMIDE 20 MG TAB PO SCH (09:45)
[2016-09-30] MEDS: CYANOCOBALAMIN 1,000 MCG TAB PO SCH (09:46)
[2016-09-30] MEDS: LORATADINE 10 MG TAB PO SCH (09:46)
[2016-09-30] MEDS: metFORMIN HCL 500 MG TAB PO SCH ×3 (09:46→18:35)
[2016-09-30] MEDS: LISINOPRIL 20 MG TAB PO SCH (09:46)
--- NOTE | 2016-09-30 16:07 | HHI.PYPN ---
Subjective Remarks Patient discussed with treatment team, chart review, patient seen on unit. Patient no significant problem, but at times show some mild resistance to medications. Compliant medications. For now continue treatment Review of Systems Except as stated in HPI: all other systems reviewed are Neg Objective Alert: Yes [place]: Person, Place, Situation Mood: Calm Affect: Restricted Memory Intact: Comment (no significant impairment) Hallucinations: Other (none) Delusions: Yes Delusion Type: Paranoid (improving) Suicidal: Ideation (denies) Homicidal: Ideation (denies) Insight/Judgement Poor Vitals/IOs Vital Signs Date Time Temp Pulse Resp B/P Pulse Ox O2 Delivery O2 Flow Rate FiO2 09/30/16 05:25 97.8 54 15 120/65 96 Intake and Output 09/29/16 09/29/16 09/30/16 08:00 16:00 00:00 Intake Total 360 ml 600 ml 600 ml Balance 360 ml 600 ml 600 ml Assessment & Plan Problem List: (1) Schizoaffective disorder, bipolar type ICD Code: F25.0 Assessment & Plan Estimated LOS: days patient continues to isolate, compliant medications, at times somewhat intrusive and resistant to treatment. Justification for Cont. Inpt. At this time patient will decompensate with placed a lower level of care Discharge Planning To be determined Request HC Surrog/Guard Advoc?: No Phil Mckee MD Sep 30, 2016 16:07
[2016-09-30 18:00] VITALS: BP 125/55; PULSE 74; RESP 16; TEMP 97.7; O2SAT 97
[2016-09-30] MEDS: OLANZapine ODT 20 MG TAB SL SCH (21:00)
[2016-09-30] MEDS: ATORVASTATIN 10 MG TAB PO SCH (21:38)
[2016-10-01 06:00] VITALS: BP 121/73; PULSE 52; RESP 17; TEMP 98.2; O2SAT 99
[2016-10-01] MEDS: PHENYTOIN SODIUM 100 MG CAP PO SCH ×4 (06:00→22:00)
[2016-10-01] MEDS: METOPROLOL TARTRATE 50 MG TAB PO SCH ×2 (09:00→10:27)
[2016-10-01] MEDS: BETAMETHASONE/CLOTRIMAZOLE CREAM 15 GM TOPICAL SCH ×2 (09:00→20:56)
[2016-10-01] MEDS: LACTIC ACID (AMMONIUM LACTATE) 12% LOTION 225 GM BTL TOPICAL SCH ×2 (09:00→20:56)
[2016-10-01] MEDS: TIMOLOL MALEATE 0.5% OPHT SOLN 5 ML BTL EACH EYE SCH (09:00)
[2016-10-01] MEDS: LISINOPRIL 20 MG TAB PO SCH (10:27)
[2016-10-01] MEDS: LORATADINE 10 MG TAB PO SCH (10:27)
[2016-10-01] MEDS: CITALOPRAM HYDROBROMIDE 20 MG TAB PO SCH (10:27)
[2016-10-01] MEDS: busPIRone HCL 5 MG TAB PO SCH ×2 (10:27→20:56)
[2016-10-01] MEDS: ASPIRIN EC 81 MG TABEC PO SCH (10:27)
[2016-10-01] MEDS: MAGNESIUM OXIDE 400 MG TAB PO SCH ×2 (10:27→20:55)
[2016-10-01] MEDS: metFORMIN HCL 500 MG TAB PO SCH ×2 (10:28→17:43)
[2016-10-01] MEDS: CYANOCOBALAMIN 1,000 MCG TAB PO SCH (10:28)
--- NOTE | 2016-10-01 15:17 | HHI.PYPN ---
Subjective Remarks Patient seen in day room with nurse Michael, chart review, patient calm cooperative today though now is in day room eating breakfast. Otherwise he isolates. Compliant medications. For now continue treatment Review of Systems Except as stated in HPI: all other systems reviewed are Neg Objective Alert: Yes [place]: Person, Place, Situation Mood: Calm Affect: Restricted Memory Intact: Comment (no significant impairment) Hallucinations: Other (none) Delusions: Yes Delusion Type: Paranoid (improving) Suicidal: Ideation (denies) Homicidal: Ideation (denies) Insight/Judgement Very poor Vitals/IOs Vital Signs Date Time Temp Pulse Resp B/P Pulse Ox O2 Delivery O2 Flow Rate FiO2 10/01/16 06:00 98.2 52 17 121/73 99 Intake and Output 09/30/16 09/30/16 10/01/16 08:00 16:00 00:00 Intake Total 0 ml 240 ml 1080 ml Balance 0 ml 240 ml 1080 ml Assessment & Plan Problem List: (1) Schizoaffective disorder, bipolar type ICD Code: F25.0 Assessment & Plan Estimated LOS: days patient continues to isolate somewhat vigilant at times somewhat confused. Compliant medications Justification for Cont. Inpt. At this time patient will decompensate if placed in a lower level of care Discharge Planning To be determined Request HC Surrog/Guard Advoc?: No Phil Mckee MD Oct 01, 2016 15:17
[2016-10-01] MEDS: IBUPROFEN 600 MG TAB PO PRN (17:45)
[2016-10-01 18:00] VITALS: BP 131/82; PULSE 84; RESP 17; TEMP 98.8; O2SAT 99
[2016-10-01] MEDS: ATORVASTATIN 10 MG TAB PO SCH (20:56)
[2016-10-01] MEDS: OLANZapine ODT 20 MG TAB SL SCH (20:56)
[2016-10-02 05:25] VITALS: BP 148/70; PULSE 49; RESP 18; TEMP 96.9; O2SAT 95
[2016-10-02] MEDS: PHENYTOIN SODIUM 100 MG CAP PO SCH ×3 (05:59→21:04)
[2016-10-02] MEDS: LACTIC ACID (AMMONIUM LACTATE) 12% LOTION 225 GM BTL TOPICAL SCH ×2 (09:00→20:55)
[2016-10-02] MEDS: TIMOLOL MALEATE 0.5% OPHT SOLN 5 ML BTL EACH EYE SCH (09:00)
[2016-10-02] MEDS: BETAMETHASONE/CLOTRIMAZOLE CREAM 15 GM TOPICAL SCH ×2 (09:00→20:56)
[2016-10-02] MEDS: CITALOPRAM HYDROBROMIDE 20 MG TAB PO SCH (09:45)
[2016-10-02] MEDS: metFORMIN HCL 500 MG TAB PO SCH ×2 (09:45→17:49)
[2016-10-02] MEDS: busPIRone HCL 5 MG TAB PO SCH ×2 (09:47→20:53)
[2016-10-02] MEDS: MAGNESIUM OXIDE 400 MG TAB PO SCH ×2 (09:47→20:53)
[2016-10-02] MEDS: ASPIRIN EC 81 MG TABEC PO SCH (09:47)
[2016-10-02] MEDS: LORATADINE 10 MG TAB PO SCH (09:47)
[2016-10-02] MEDS: LISINOPRIL 20 MG TAB PO SCH (09:47)
[2016-10-02] MEDS: CYANOCOBALAMIN 1,000 MCG TAB PO SCH (09:47)
[2016-10-02] MEDS: METOPROLOL TARTRATE 50 MG TAB PO SCH ×2 (09:47→20:54)
--- NOTE | 2016-10-02 10:56 | HHI.PYPN ---
Subjective Remarks Patient seen in his room with nurse Park and family practice resident nic , chart reviewed. Patient compliant medications, although he also continues to isolate is a vagueness about any possible continued auditory hallucinations. No significant behavioral problems noted Review of Systems Except as stated in HPI: all other systems reviewed are Neg Objective Alert: Yes [place]: Person, Place, Situation Mood: Calm Affect: Restricted Memory Intact: Comment (no significant impairment) Hallucinations: Other (none) Delusions: Yes Delusion Type: Paranoid (improving) Suicidal: Ideation (denies) Homicidal: Ideation (denies) Insight/Judgement Very poor Vitals/IOs Vital Signs Date Time Temp Pulse Resp B/P Pulse Ox O2 Delivery O2 Flow Rate FiO2 10/02/16 05:25 96.9 49 18 148/70 95 Intake and Output 10/01/16 10/01/16 10/02/16 08:00 16:00 00:00 Intake Total 120 ml 1380 ml Balance 120 ml 1380 ml Assessment & Plan Problem List: (1) Schizoaffective disorder, bipolar type ICD Code: F25.0 Assessment & Plan Estimated LOS: days patient continues to isolate strength vague auditory hallucinations, compliant medications. For now continue treatment Justification for Cont. Inpt. At this time patient will decompensate if placed in a lower level of care Discharge Planning To be determined Request HC Surrog/Guard Advoc?: No Phil Mckee MD Oct 02, 2016 10:56
[2016-10-02 18:51] VITALS: BP 114/56; PULSE 63; RESP 18; TEMP 98.6; O2SAT 97
[2016-10-02] MEDS: OLANZapine ODT 20 MG TAB SL SCH (20:54)
[2016-10-02] MEDS: ATORVASTATIN 10 MG TAB PO SCH (20:54)
[2016-10-03 05:23] VITALS: BP 117/61; PULSE 73; RESP 16; TEMP 99.1; O2SAT 93
[2016-10-03] MEDS: PHENYTOIN SODIUM 100 MG CAP PO SCH ×3 (06:15→21:22)
[2016-10-03] MEDS: ASPIRIN EC 81 MG TABEC PO SCH (09:00)
[2016-10-03] MEDS: LORATADINE 10 MG TAB PO SCH (09:00)
[2016-10-03] MEDS: TIMOLOL MALEATE 0.5% OPHT SOLN 5 ML BTL EACH EYE SCH (09:00)
[2016-10-03] MEDS: CYANOCOBALAMIN 1,000 MCG TAB PO SCH (09:00)
[2016-10-03] MEDS: BETAMETHASONE/CLOTRIMAZOLE CREAM 15 GM TOPICAL SCH ×2 (09:00→20:40)
[2016-10-03] MEDS: metFORMIN HCL 500 MG TAB PO SCH ×2 (09:00→16:49)
[2016-10-03] MEDS: CITALOPRAM HYDROBROMIDE 20 MG TAB PO SCH (09:00)
[2016-10-03] MEDS: busPIRone HCL 5 MG TAB PO SCH ×2 (09:00→20:39)
[2016-10-03] MEDS: LACTIC ACID (AMMONIUM LACTATE) 12% LOTION 225 GM BTL TOPICAL SCH ×2 (09:00→20:40)
[2016-10-03] MEDS: LISINOPRIL 20 MG TAB PO SCH (09:00)
[2016-10-03] MEDS: MAGNESIUM OXIDE 400 MG TAB PO SCH ×2 (09:00→20:38)
[2016-10-03] MEDS: METOPROLOL TARTRATE 50 MG TAB PO SCH ×2 (09:00→20:40)
--- NOTE | 2016-10-03 15:15 | HHI.PYPN ---
Subjective Remarks Patient seen in his room and floor staff, chart review, patient compliant medications. Patient is hopeful that a placement could be found for him. Though he shows little insight into his need for improvement in his behaviors to improve his chances of success placement. Compliant medications For now continue treatment Review of Systems Except as stated in HPI: all other systems reviewed are Neg Objective Alert: Yes [place]: Person, Place, Situation Mood: Calm Affect: Restricted Memory Intact: Comment (no significant impairment) Hallucinations: Other (none) Delusions: Yes Delusion Type: Paranoid (improving) Suicidal: Ideation (denies) Homicidal: Ideation (denies) Insight/Judgement Poor Labs Test 10/03/16 06:50 Creatinine 0.76 MG/DL Estimat Glomerular Filtration 104 ML/MIN Rate Albumin 2.8 GM/DL Phenytoin (Dilantin) Level 13.4 MCG/ML Vitals/IOs Vital Signs Date Time Temp Pulse Resp B/P Pulse Ox O2 Delivery O2 Flow Rate FiO2 10/03/16 05:23 99.1 73 16 117/61 93 Intake and Output 10/02/16 10/02/16 10/03/16 08:00 16:00 00:00 Intake Total 360 ml 840 ml 410 ml Balance 360 ml 840 ml 410 ml Assessment & Plan Problem List: (1) Schizoaffective disorder, bipolar type ICD Code: F25.0 Assessment & Plan Estimated LOS: days patient continues somewhat vigilant and isolating but no behavioral issues. For now continue treatment Justification for Cont. Inpt. At this time patient will decompensate if place to the lower level of care Discharge Planning To be determined Request HC Surrog/Guard Advoc?: No Phil Mckee MD Oct 03, 2016 15:15
[2016-10-03 18:01] VITALS: BP 126/66; PULSE 92; RESP 16; TEMP 97.8; O2SAT 99
[2016-10-03] MEDS: ATORVASTATIN 10 MG TAB PO SCH (20:40)
[2016-10-03] MEDS: OLANZapine ODT 20 MG TAB SL SCH (20:41)
[2016-10-04 05:04] VITALS: BP 111/60; PULSE 55; RESP 16; TEMP 98.1; O2SAT 93
[2016-10-04] MEDS: PHENYTOIN SODIUM 100 MG CAP PO SCH ×3 (05:42→21:03)
[2016-10-04] MEDS: TIMOLOL MALEATE 0.5% OPHT SOLN 5 ML BTL EACH EYE SCH (09:00)
[2016-10-04] MEDS: BETAMETHASONE/CLOTRIMAZOLE CREAM 15 GM TOPICAL SCH ×2 (09:00→21:00)
[2016-10-04] MEDS: busPIRone HCL 5 MG TAB PO SCH ×2 (09:09→21:01)
[2016-10-04] MEDS: MAGNESIUM OXIDE 400 MG TAB PO SCH ×2 (09:09→21:00)
[2016-10-04] MEDS: METOPROLOL TARTRATE 50 MG TAB PO SCH ×2 (09:09→21:00)
[2016-10-04] MEDS: CITALOPRAM HYDROBROMIDE 20 MG TAB PO SCH (09:09)
[2016-10-04] MEDS: CYANOCOBALAMIN 1,000 MCG TAB PO SCH (09:09)
[2016-10-04] MEDS: LISINOPRIL 20 MG TAB PO SCH (09:09)
[2016-10-04] MEDS: LORATADINE 10 MG TAB PO SCH (09:09)
[2016-10-04] MEDS: ASPIRIN EC 81 MG TABEC PO SCH (09:09)
[2016-10-04] MEDS: LACTIC ACID (AMMONIUM LACTATE) 12% LOTION 225 GM BTL TOPICAL SCH ×2 (09:10→21:00)
[2016-10-04] MEDS: metFORMIN HCL 500 MG TAB PO SCH ×2 (09:10→17:57)
--- NOTE | 2016-10-04 13:09 | HHI.PYPN ---
Subjective Remarks Patient seen in his room with nurse Park, chart reviewed, patient calm cooperative and pleasant no behavioral problems. Continues to isolate. Awaiting response from correction but interviewed him yesterday Review of Systems Except as stated in HPI: all other systems reviewed are Neg Objective Alert: Yes [place]: Person, Place, Situation Mood: Calm Affect: Restricted Memory Intact: Comment (no significant impairment) Hallucinations: Other (none) Delusions: Yes Delusion Type: Paranoid (improving) Suicidal: Ideation (denies) Homicidal: Ideation (denies) Insight/Judgement Poor Vitals/IOs Vital Signs Date Time Temp Pulse Resp B/P Pulse Ox O2 Delivery O2 Flow Rate FiO2 10/04/16 05:04 98.1 55 16 111/60 93 Intake and Output 10/03/16 10/03/16 10/04/16 08:00 16:00 00:00 Intake Total 600 ml 480 ml Balance 600 ml 480 ml Assessment & Plan Problem List: (1) Schizoaffective disorder, bipolar type ICD Code: F25.0 Assessment & Plan Estimated LOS: days patient continues to isolate, somewhat vigilant, but no significant behavioral problems. Continue to await word from possible placement Justification for Cont. Inpt. At this time patient could decompensate if placed in the lower level of care unit Discharge Planning To be determined Request HC Surrog/Guard Advoc?: No Phil Mckee MD Oct 04, 2016 13:08
[2016-10-04 17:45] VITALS: BP 103/50; PULSE 68; RESP 16; TEMP 99.4; O2SAT 96
[2016-10-04 19:16] VITALS: BP 103/50; PULSE 68; RESP 16; TEMP 99.4; O2SAT 96
[2016-10-04] MEDS: OLANZapine ODT 20 MG TAB SL SCH (21:00)
[2016-10-04] MEDS: ATORVASTATIN 10 MG TAB PO SCH (21:01)
[2016-10-05] MEDS: PHENYTOIN SODIUM 100 MG CAP PO SCH ×3 (05:48→21:19)
[2016-10-05 06:18] VITALS: BP 135/60; PULSE 55; RESP 16; TEMP 98.7; O2SAT 94
[2016-10-05] MEDS: BETAMETHASONE/CLOTRIMAZOLE CREAM 15 GM TOPICAL SCH ×2 (09:00→21:00)
[2016-10-05] MEDS: METOPROLOL TARTRATE 50 MG TAB PO SCH ×2 (09:00→21:18)
[2016-10-05] MEDS: TIMOLOL MALEATE 0.5% OPHT SOLN 5 ML BTL EACH EYE SCH (09:00)
[2016-10-05] MEDS: metFORMIN HCL 500 MG TAB PO SCH ×2 (10:06→17:30)
[2016-10-05] MEDS: ASPIRIN EC 81 MG TABEC PO SCH (10:06)
[2016-10-05] MEDS: LORATADINE 10 MG TAB PO SCH (10:06)
[2016-10-05] MEDS: MAGNESIUM OXIDE 400 MG TAB PO SCH ×2 (10:06→21:18)
[2016-10-05] MEDS: LISINOPRIL 20 MG TAB PO SCH (10:06)
[2016-10-05] MEDS: busPIRone HCL 5 MG TAB PO SCH ×2 (10:06→21:18)
[2016-10-05] MEDS: CYANOCOBALAMIN 1,000 MCG TAB PO SCH (10:06)
[2016-10-05] MEDS: CITALOPRAM HYDROBROMIDE 20 MG TAB PO SCH (10:06)
[2016-10-05] MEDS: LACTIC ACID (AMMONIUM LACTATE) 12% LOTION 225 GM BTL TOPICAL SCH ×2 (10:07→21:17)
--- NOTE | 2016-10-05 14:25 | HHI.PYPN ---
Subjective Remarks Pt seen and discussed with staff. No behavioral problems on unit. Pt is cooperative [facility] care. He reports that he is in a good mood today. He remains isolative to his room. No medication side effects. No SI/HI Objective Alert: Yes [place]: Person, Place, Situation Mood: Calm Affect: Restricted Memory Intact: Comment (no significant impairment) Hallucinations: Other (none) Delusions: Yes Delusion Type: Paranoid (mild) Suicidal: Ideation (denies) Homicidal: Ideation (denies) Insight/Judgement poor Vitals/IOs Vital Signs Date Time Temp Pulse Resp B/P Pulse Ox O2 Delivery O2 Flow Rate FiO2 10/05/16 06:18 98.7 55 16 135/60 94 Intake and Output 10/04/16 10/04/16 10/05/16 08:00 16:00 00:00 Intake Total 0 ml 840 ml 960 ml Balance 0 ml 840 ml 960 ml Assessment & Plan Problem List: (1) Schizoaffective disorder, bipolar type ICD Code: F25.0 Assessment & Plan continue current tx plan. Estimated LOS: days Justification for Cont. Inpt. risk of decompensation Request HC Surrog/Guard Advoc?: Carole Vazquez MD Oct 05, 2016 14:25
[2016-10-05] MEDS: OLANZapine ODT 20 MG TAB SL SCH (21:00)
[2016-10-05 21:06] VITALS: BP 96/52; PULSE 64; TEMP 97.4; O2SAT 94
[2016-10-05] MEDS: ATORVASTATIN 10 MG TAB PO SCH (21:18)
[2016-10-06 05:19] VITALS: BP 100/54; PULSE 62; RESP 18; TEMP 96.9; O2SAT 97
[2016-10-06] MEDS: PHENYTOIN SODIUM 100 MG CAP PO SCH ×3 (06:37→20:50)
[2016-10-06] MEDS: METOPROLOL TARTRATE 50 MG TAB PO SCH ×2 (08:26→20:50)
[2016-10-06] MEDS: LISINOPRIL 20 MG TAB PO SCH (09:00)
[2016-10-06] MEDS: LACTIC ACID (AMMONIUM LACTATE) 12% LOTION 225 GM BTL TOPICAL SCH ×2 (09:00→20:50)
[2016-10-06] MEDS: TIMOLOL MALEATE 0.5% OPHT SOLN 5 ML BTL EACH EYE SCH (09:00)
[2016-10-06] MEDS: BETAMETHASONE/CLOTRIMAZOLE CREAM 15 GM TOPICAL SCH ×2 (09:00→20:50)
[2016-10-06] MEDS: CYANOCOBALAMIN 1,000 MCG TAB PO SCH (09:38)
[2016-10-06] MEDS: MAGNESIUM OXIDE 400 MG TAB PO SCH ×2 (09:38→20:49)
[2016-10-06] MEDS: CITALOPRAM HYDROBROMIDE 20 MG TAB PO SCH (09:39)
[2016-10-06] MEDS: LORATADINE 10 MG TAB PO SCH (09:39)
[2016-10-06] MEDS: busPIRone HCL 5 MG TAB PO SCH ×2 (09:39→20:50)
[2016-10-06] MEDS: ASPIRIN EC 81 MG TABEC PO SCH (09:39)
[2016-10-06] MEDS: metFORMIN HCL 500 MG TAB PO SCH ×2 (09:39→17:29)
--- NOTE | 2016-10-06 15:57 | HHI.PYPN ---
Subjective Remarks Pt seen and discussed with staff. Pt reports that he is tolerating medication well and denies side effects. Mood has been brighter today and he has been more interactive with staff. No behavioral problems on unit. No SI/HI Objective Alert: Yes [place]: Person, Place, Situation Mood: Calm Affect: Restricted Memory Intact: Comment (no significant impairment) Hallucinations: Other (none) Delusions: No Delusion Type: Other (no delusional content elicited today) Suicidal: Ideation (denies) Homicidal: Ideation (denies) Insight/Judgement poor Vitals/IOs Vital Signs Date Time Temp Pulse Resp B/P Pulse Ox O2 Delivery O2 Flow Rate FiO2 10/06/16 05:19 96.9 62 18 100/54 97 Intake and Output 10/05/16 10/05/16 10/06/16 08:00 16:00 00:00 Intake Total 240 ml 960 ml 720 ml Balance 240 ml 960 ml 720 ml Assessment & Plan Problem List: (1) Schizoaffective disorder, bipolar type ICD Code: F25.0 Assessment & Plan continue current tx plan. Estimated LOS: days Justification for Cont. Inpt. risk of decompensation Request HC Surrog/Guard Advoc?: No Caroel Gold MD Oct 06, 2016 3:57 pm
[2016-10-06 19:44] VITALS: BP 132/62; PULSE 64; RESP 16; TEMP 98.1; O2SAT 95
[2016-10-06] MEDS: ATORVASTATIN 10 MG TAB PO SCH (20:50)
[2016-10-06] MEDS: OLANZapine ODT 20 MG TAB SL SCH (20:50)
[2016-10-07 05:38] VITALS: BP 166/72; PULSE 63; RESP 18; TEMP 97.5; O2SAT 98
[2016-10-07] MEDS: PHENYTOIN SODIUM 100 MG CAP PO SCH ×3 (06:19→20:57)
[2016-10-07] MEDS: TIMOLOL MALEATE 0.5% OPHT SOLN 5 ML BTL EACH EYE SCH (09:00)
[2016-10-07] MEDS: BETAMETHASONE/CLOTRIMAZOLE CREAM 15 GM TOPICAL SCH ×2 (09:00→21:00)
[2016-10-07] MEDS: LACTIC ACID (AMMONIUM LACTATE) 12% LOTION 225 GM BTL TOPICAL SCH ×2 (09:00→21:00)
[2016-10-07] MEDS: METOPROLOL TARTRATE 50 MG TAB PO SCH ×2 (09:14→20:57)
[2016-10-07] MEDS: busPIRone HCL 5 MG TAB PO SCH ×2 (09:14→20:57)
[2016-10-07] MEDS: MAGNESIUM OXIDE 400 MG TAB PO SCH ×2 (09:14→20:57)
[2016-10-07] MEDS: CITALOPRAM HYDROBROMIDE 20 MG TAB PO SCH (09:14)
[2016-10-07] MEDS: ASPIRIN EC 81 MG TABEC PO SCH (09:14)
[2016-10-07] MEDS: CYANOCOBALAMIN 1,000 MCG TAB PO SCH (09:14)
[2016-10-07] MEDS: LORATADINE 10 MG TAB PO SCH (09:14)
[2016-10-07] MEDS: metFORMIN HCL 500 MG TAB PO SCH ×2 (09:14→18:00)
[2016-10-07] MEDS: LISINOPRIL 20 MG TAB PO SCH (09:14)
[2016-10-07 16:34] VITALS: BP 113/56; PULSE 68; RESP 18; TEMP 98.7; O2SAT 99
--- NOTE | 2016-10-07 17:12 | HHI.PYPN ---
Subjective Remarks Patient discussed with treatment team, chart reviewed, patient seen on unit with the floor staff. Patient continues no significant behavioral problems. He continues to isolate at times showing some mild paranoia and in the appropriate comments. Compliant medications. Review of Systems Except as stated in HPI: all other systems reviewed are Neg Objective Alert: Yes [place]: Person, Place, Situation Mood: Calm Affect: Restricted Memory Intact: Comment (no significant impairment) Hallucinations: Other (none) Delusions: No Delusion Type: Other (no delusional content elicited today) Suicidal: Ideation (denies) Homicidal: Ideation (denies) Insight/Judgement Very poor Vitals/IOs Vital Signs Date Time Temp Pulse Resp B/P Pulse Ox O2 Delivery O2 Flow Rate FiO2 10/07/16 16:34 98.7 68 18 113/56 99 Intake and Output 10/06/16 10/06/16 10/07/16 08:00 16:00 00:00 Intake Total 240 ml 1200 ml 1440 ml Balance 240 ml 1200 ml 1440 ml Assessment & Plan Problem List: (1) Schizoaffective disorder, bipolar type ICD Code: F25.0 Assessment & Plan Estimated LOS: days patient continues somewhat paranoid, isolating, though compliant medications. For now continue treatment Justification for Cont. Inpt. At this time patient will decompensate in place to the lower level of care Discharge Planning To be determined Request HC Surrog/Guard Advoc?: Phil Case MD Oct 07, 2016 17:12
[2016-10-07] MEDS: OLANZapine ODT 20 MG TAB SL SCH (20:57)
[2016-10-07] MEDS: ATORVASTATIN 10 MG TAB PO SCH (20:57)
[2016-10-08] MEDS: PHENYTOIN SODIUM 100 MG CAP PO SCH ×3 (05:34→20:35)
[2016-10-08 06:14] VITALS: BP 125/60; PULSE 54; RESP 17; TEMP 97.8; O2SAT 91
[2016-10-08] MEDS: CYANOCOBALAMIN 1,000 MCG TAB PO SCH (08:51)
[2016-10-08] MEDS: LISINOPRIL 20 MG TAB PO SCH (08:51)
[2016-10-08] MEDS: LORATADINE 10 MG TAB PO SCH (08:51)
[2016-10-08] MEDS: CITALOPRAM HYDROBROMIDE 20 MG TAB PO SCH (08:51)
[2016-10-08] MEDS: busPIRone HCL 5 MG TAB PO SCH ×2 (08:51→20:35)
[2016-10-08] MEDS: metFORMIN HCL 500 MG TAB PO SCH ×2 (08:51→17:54)
[2016-10-08] MEDS: MAGNESIUM OXIDE 400 MG TAB PO SCH ×2 (08:51→20:34)
[2016-10-08] MEDS: ASPIRIN EC 81 MG TABEC PO SCH (08:51)
[2016-10-08] MEDS: TIMOLOL MALEATE 0.5% OPHT SOLN 5 ML BTL EACH EYE SCH (08:52)
[2016-10-08] MEDS: METOPROLOL TARTRATE 50 MG TAB PO SCH ×2 (08:52→20:35)
[2016-10-08] MEDS: BETAMETHASONE/CLOTRIMAZOLE CREAM 15 GM TOPICAL SCH ×3 (08:52→20:36)
[2016-10-08] MEDS: LACTIC ACID (AMMONIUM LACTATE) 12% LOTION 225 GM BTL TOPICAL SCH ×3 (08:53→20:36)
--- NOTE | 2016-10-08 14:29 | HHI.PYPN ---
Subjective Remarks Patient seen in his room with nurse Rosemary, chart reviewed, patient overall continues to isolate, continuing to be somewhat vigilant however no behavioral problems noted, compliant medications. For now continue treatment Review of Systems Except as stated in HPI: all other systems reviewed are Neg Objective Alert: Yes [place]: Person, Place, Situation Mood: Calm Affect: Restricted Memory Intact: Comment (no significant impairment) Hallucinations: Other (none) Delusions: No Delusion Type: Other (no delusional content elicited today) Suicidal: Ideation (denies) Homicidal: Ideation (denies) Insight/Judgement Poor Vitals/IOs Vital Signs Date Time Temp Pulse Resp B/P Pulse Ox O2 Delivery O2 Flow Rate FiO2 10/08/16 06:14 97.8 54 17 125/60 91 Intake and Output 10/07/16 10/07/16 10/08/16 08:00 16:00 00:00 Intake Total 360 ml 1920 ml Balance 360 ml 1920 ml Assessment & Plan Problem List: (1) Schizoaffective disorder, bipolar type ICD Code: F25.0 Assessment & Plan Estimated LOS: days patient continues to isolate, somewhat vigilant, though no significant behavioral problems, and is compliant with medications. We continue to await word from the [facility] referral Justification for Cont. Inpt. At this time patient will decompensate if placed in a lower level of care Discharge Planning To be determined Request HC Surrog/Guard Advoc?: Phil Case MD Oct 08, 2016 14:28
[2016-10-08 18:14] VITALS: BP 101/57; PULSE 60; RESP 17; TEMP 98.9; O2SAT 95
[2016-10-08] MEDS: OLANZapine ODT 20 MG TAB SL SCH (20:35)
[2016-10-08] MEDS: ATORVASTATIN 10 MG TAB PO SCH (20:35)
[2016-10-09] MEDS: PHENYTOIN SODIUM 100 MG CAP PO SCH ×3 (05:45→21:20)
[2016-10-09 06:00] VITALS: BP 128/58; PULSE 56; RESP 18; TEMP 98.6; O2SAT 96
[2016-10-09] MEDS: LACTIC ACID (AMMONIUM LACTATE) 12% LOTION 225 GM BTL TOPICAL SCH ×2 (08:22→21:00)
[2016-10-09] MEDS: TIMOLOL MALEATE 0.5% OPHT SOLN 5 ML BTL EACH EYE SCH (08:22)
[2016-10-09] MEDS: BETAMETHASONE/CLOTRIMAZOLE CREAM 15 GM TOPICAL SCH ×2 (08:22→21:00)
[2016-10-09] MEDS: METOPROLOL TARTRATE 50 MG TAB PO SCH ×2 (08:24→21:00)
[2016-10-09] MEDS: CITALOPRAM HYDROBROMIDE 20 MG TAB PO SCH (08:24)
[2016-10-09] MEDS: CYANOCOBALAMIN 1,000 MCG TAB PO SCH (08:24)
[2016-10-09] MEDS: LORATADINE 10 MG TAB PO SCH (08:24)
[2016-10-09] MEDS: ASPIRIN EC 81 MG TABEC PO SCH (08:24)
[2016-10-09] MEDS: busPIRone HCL 5 MG TAB PO SCH ×2 (08:24→20:39)
[2016-10-09] MEDS: LISINOPRIL 20 MG TAB PO SCH (08:24)
[2016-10-09] MEDS: metFORMIN HCL 500 MG TAB PO SCH ×2 (08:24→17:01)
[2016-10-09] MEDS: MAGNESIUM OXIDE 400 MG TAB PO SCH ×2 (08:25→20:39)
--- NOTE | 2016-10-09 14:55 | HHI.PYPN ---
Subjective Remarks Patient discussed with treatment team, chart reviewed, patient seen on unit with nurse Guicho and counselor Jaleesa. Patient continues to isolate, vaguely vigilant, but no behavioral problems. We are still awaiting communications from state referral. However we will have Counselor recontact various placements to see if they may consider this patient Review of Systems Except as stated in HPI: all other systems reviewed are Neg Objective Alert: Yes [place]: Person, Place, Situation Mood: Calm Affect: Restricted Memory Intact: Comment (no significant impairment) Hallucinations: Other (none) Delusions: No Delusion Type: Other (no delusional content elicited today) Suicidal: Ideation (denies) Homicidal: Ideation (denies) Insight/Judgement Poor Vitals/IOs Vital Signs Date Time Temp Pulse Resp B/P Pulse Ox O2 Delivery O2 Flow Rate FiO2 10/09/16 06:00 98.6 56 18 128/58 96 Intake and Output 10/08/16 10/08/16 10/09/16 08:00 16:00 00:00 Intake Total 960 ml 480 ml Balance 960 ml 480 ml Assessment & Plan Problem List: (1) Schizoaffective disorder, bipolar type ICD Code: F25.0 Assessment & Plan Estimated LOS: days patient continues to isolate and be somewhat vigilant. The no behavioral problems, compliant medications. Justification for Cont. Inpt. At this time patient will decompensate if placed in a lower level of care Discharge Planning To be determined Request HC Surrog/Guard Advoc?: No Phil Mckee MD Oct 09, 2016 14:55
[2016-10-09 20:00] VITALS: BP 100/70; PULSE 65; RESP 16; TEMP 98; O2SAT 98
[2016-10-09] MEDS: ATORVASTATIN 10 MG TAB PO SCH (20:39)
[2016-10-09] MEDS: OLANZapine ODT 20 MG TAB SL SCH (20:40)
[2016-10-10 06:00] VITALS: BP 126/60; PULSE 60; RESP 17; TEMP 98.1; O2SAT 97
[2016-10-10] MEDS: PHENYTOIN SODIUM 100 MG CAP PO SCH ×3 (06:00→22:00)
[2016-10-10] MEDS: BETAMETHASONE/CLOTRIMAZOLE CREAM 15 GM TOPICAL SCH ×2 (09:00→21:00)
[2016-10-10] MEDS: TIMOLOL MALEATE 0.5% OPHT SOLN 5 ML BTL EACH EYE SCH (09:00)
[2016-10-10] MEDS: METOPROLOL TARTRATE 50 MG TAB PO SCH ×2 (09:00→20:43)
[2016-10-10] MEDS: metFORMIN HCL 500 MG TAB PO SCH ×2 (09:40→17:49)
[2016-10-10] MEDS: busPIRone HCL 5 MG TAB PO SCH ×2 (09:40→20:43)
[2016-10-10] MEDS: CYANOCOBALAMIN 1,000 MCG TAB PO SCH (09:41)
[2016-10-10] MEDS: CITALOPRAM HYDROBROMIDE 20 MG TAB PO SCH (09:41)
[2016-10-10] MEDS: LORATADINE 10 MG TAB PO SCH (09:41)
[2016-10-10] MEDS: ASPIRIN EC 81 MG TABEC PO SCH (09:41)
[2016-10-10] MEDS: LISINOPRIL 20 MG TAB PO SCH (09:41)
[2016-10-10] MEDS: MAGNESIUM OXIDE 400 MG TAB PO SCH ×2 (09:41→20:43)
[2016-10-10] MEDS: LACTIC ACID (AMMONIUM LACTATE) 12% LOTION 225 GM BTL TOPICAL SCH ×2 (09:42→21:00)
--- NOTE | 2016-10-10 09:53 | HHI.PYPN ---
Subjective Remarks Patient seen in his room with nurse Shyann, chart review, patient continues to isolate, now denies voices, though still somewhat vigilant. However his showing no behavior problems for an extended period of time, is compliant with his medications, we are still awaiting word from state referral however I did request the counselor to revisit some of the facilities that have rejected him in the past Review of Systems Except as stated in HPI: all other systems reviewed are Neg Objective Alert: Yes [place]: Person, Place, Situation Mood: Calm Affect: Restricted Memory Intact: Comment (no significant impairment) Hallucinations: Other (none) Delusions: No Delusion Type: Other (no delusional content elicited today) Suicidal: Ideation (denies) Homicidal: Ideation (denies) Insight/Judgement Poor Vitals/IOs Vital Signs Date Time Temp Pulse Resp B/P Pulse Ox O2 Delivery O2 Flow Rate FiO2 10/10/16 06:00 98.1 60 17 126/60 97 Intake and Output 10/09/16 10/09/16 10/10/16 08:00 16:00 00:00 Intake Total 1080 ml 1440 ml Balance 1080 ml 1440 ml Assessment & Plan Problem List: (1) Schizoaffective disorder, bipolar type ICD Code: F25.0 Assessment & Plan Estimated LOS: days patient continues to isolate, somewhat vigilant, though no behavioral problems. For now continue treatment Justification for Cont. Inpt. At this time the patient will decompensate placed in a lower level of care Discharge Planning To be determined Request HC Surrog/Guard Advoc?: No Phil Mckee MD Oct 10, 2016 09:52
[2016-10-10 19:49] VITALS: BP 135/71; PULSE 63; RESP 18; TEMP 97.9; O2SAT 98
[2016-10-10] MEDS: ATORVASTATIN 10 MG TAB PO SCH (20:43)
[2016-10-10] MEDS: OLANZapine ODT 20 MG TAB SL SCH (21:00)
[2016-10-11] MEDS: PHENYTOIN SODIUM 100 MG CAP PO SCH ×3 (05:57→21:39)
[2016-10-11 06:23] VITALS: BP 110/51; PULSE 55; RESP 16; TEMP 97.7
[2016-10-11] MEDS: METOPROLOL TARTRATE 50 MG TAB PO SCH ×2 (08:41→21:33)
[2016-10-11] MEDS: LISINOPRIL 20 MG TAB PO SCH (08:41)
[2016-10-11] MEDS: TIMOLOL MALEATE 0.5% OPHT SOLN 5 ML BTL EACH EYE SCH (09:00)
[2016-10-11] MEDS: BETAMETHASONE/CLOTRIMAZOLE CREAM 15 GM TOPICAL SCH ×2 (09:00→21:00)
[2016-10-11] MEDS: metFORMIN HCL 500 MG TAB PO SCH ×2 (10:03→18:00)
[2016-10-11] MEDS: MAGNESIUM OXIDE 400 MG TAB PO SCH ×2 (10:03→21:33)
[2016-10-11] MEDS: LORATADINE 10 MG TAB PO SCH (10:03)
[2016-10-11] MEDS: busPIRone HCL 5 MG TAB PO SCH ×2 (10:03→21:33)
[2016-10-11] MEDS: CITALOPRAM HYDROBROMIDE 20 MG TAB PO SCH (10:04)
[2016-10-11] MEDS: CYANOCOBALAMIN 1,000 MCG TAB PO SCH (10:04)
[2016-10-11] MEDS: ASPIRIN EC 81 MG TABEC PO SCH (10:05)
[2016-10-11] MEDS: LACTIC ACID (AMMONIUM LACTATE) 12% LOTION 225 GM BTL TOPICAL SCH ×2 (10:06→21:00)
[2016-10-11] MEDS: PALIPERIDONE PALMITATE 234 MG/1.5 ML SYRINGE IM SCH (10:09)
--- NOTE | 2016-10-11 16:54 | HHI.PYPN ---
Subjective Remarks Patient seen in his room with nurse Michael, chart review, patient compliant medications. He she continues to isolate showing some mild paranoia and vigilance. He continues to cope with placement issues Review of Systems Except as stated in HPI: all other systems reviewed are Neg Objective Alert: Yes [place]: Person, Place, Situation Mood: Calm Affect: Restricted Memory Intact: Comment (no significant impairment) Hallucinations: Other (none) Delusions: No Delusion Type: Other (no delusional content elicited today) Suicidal: Ideation (denies) Homicidal: Ideation (denies) Insight/Judgment Very poor Vitals/IOs Vital Signs Date Time Temp Pulse Resp B/P Pulse Ox O2 Delivery O2 Flow Rate FiO2 10/11/16 06:23 97.7 55 16 110/51 10/10/16 19:49 98 Intake and Output 10/10/16 10/10/16 10/11/16 08:00 16:00 00:00 Intake Total 480 ml 480 ml Balance 480 ml 480 ml Assessment & Plan Problem List: (1) Schizoaffective disorder, bipolar type ICD Code: F25.0 Assessment & Plan Estimated LOS: days patient remains vigilant, isolating, though compliant medications. Justification for Cont. Inpt. At this time patient will decompensate if placed in a lower level of care Discharge Planning To be determined Request HC Surrog/Guard Advoc?: No Phil Mckee MD Oct 11, 2016 16:54
[2016-10-11 19:22] VITALS: BP 159/97; PULSE 68; RESP 16; TEMP 98.2; O2SAT 96
[2016-10-11] MEDS: OLANZapine ODT 20 MG TAB SL SCH (21:00)
[2016-10-11] MEDS: ATORVASTATIN 10 MG TAB PO SCH (21:33)
[2016-10-12] MEDS: PHENYTOIN SODIUM 100 MG CAP PO SCH ×3 (06:00→21:20)
[2016-10-12 06:22] VITALS: BP 146/67; PULSE 53; RESP 18; TEMP 98; O2SAT 96
[2016-10-12] MEDS: LACTIC ACID (AMMONIUM LACTATE) 12% LOTION 225 GM BTL TOPICAL SCH ×2 (09:00→21:00)
[2016-10-12] MEDS: TIMOLOL MALEATE 0.5% OPHT SOLN 5 ML BTL EACH EYE SCH (09:00)
[2016-10-12] MEDS: ASPIRIN EC 81 MG TABEC PO SCH (09:30)
[2016-10-12] MEDS: LISINOPRIL 20 MG TAB PO SCH (09:30)
[2016-10-12] MEDS: metFORMIN HCL 500 MG TAB PO SCH ×2 (09:31→17:03)
[2016-10-12] MEDS: busPIRone HCL 5 MG TAB PO SCH ×2 (09:31→21:20)
[2016-10-12] MEDS: MAGNESIUM OXIDE 400 MG TAB PO SCH ×2 (09:31→21:20)
[2016-10-12] MEDS: CITALOPRAM HYDROBROMIDE 20 MG TAB PO SCH (09:31)
[2016-10-12] MEDS: METOPROLOL TARTRATE 50 MG TAB PO SCH ×2 (09:31→21:20)
[2016-10-12] MEDS: LORATADINE 10 MG TAB PO SCH (09:31)
[2016-10-12] MEDS: CYANOCOBALAMIN 1,000 MCG TAB PO SCH (09:31)
[2016-10-12] MEDS: BETAMETHASONE/CLOTRIMAZOLE CREAM 15 GM TOPICAL SCH ×2 (09:37→21:00)
--- NOTE | 2016-10-12 12:48 | HHI.PYPN ---
Subjective Remarks Patient was seen and case discussed with nursing. Patient is pleasant and cooperative with exam. Remains largely seclusive to room. Behaving well on the unit. Asking about placement. Objective Alert: Yes [place]: Person, Place, Situation Mood: Calm Affect: Blunted Memory Intact: Comment (no significant impairment) Hallucinations: Other (none) Delusions: No Delusion Type: Other (no delusional content elicited today) Suicidal: Ideation (denies) Homicidal: Ideation (denies) Insight/Judgment Improving Vitals/IOs Vital Signs Date Time Temp Pulse Resp B/P Pulse Ox O2 Delivery O2 Flow Rate FiO2 10/12/16 06:22 98.0 53 18 146/67 96 Intake and Output 10/11/16 10/11/16 10/12/16 08:00 16:00 00:00 Intake Total 0 ml 240 ml 1200 ml Balance 0 ml 240 ml 1200 ml Assessment & Plan Problem List: (1) Schizoaffective disorder, bipolar type ICD Code: F25.0 Assessment & Plan Continue current treatment plan Justification for Cont. Inpt. Patient will decompensate in a less restrictive setting Request HC Surrog/Guard Advoc?: No Vishnu Small DO Oct 12, 2016 12:48
[2016-10-12 18:00] VITALS: BP 115/42; PULSE 64; TEMP 99.2; O2SAT 92
[2016-10-12] MEDS: OLANZapine ODT 20 MG TAB SL SCH (21:00)
[2016-10-12] MEDS: ATORVASTATIN 10 MG TAB PO SCH (21:20)
[2016-10-13 06:31] VITALS: BP_SYST 104; BP_SYST 124; BP_DIAS 53; BP_DIAS 67; PULSE 100; PULSE 93; RESP 18; TEMP 98.5; TEMP 98.6; O2SAT 94
[2016-10-13] MEDS: PHENYTOIN SODIUM 100 MG CAP PO SCH ×2 (06:40→14:21)
[2016-10-13] MEDS: LACTIC ACID (AMMONIUM LACTATE) 12% LOTION 225 GM BTL TOPICAL SCH ×2 (09:00→21:00)
[2016-10-13] MEDS: BETAMETHASONE/CLOTRIMAZOLE CREAM 15 GM TOPICAL SCH ×2 (09:00→21:00)
[2016-10-13] MEDS: METOPROLOL TARTRATE 50 MG TAB PO SCH ×2 (09:00→21:00)
[2016-10-13] MEDS: TIMOLOL MALEATE 0.5% OPHT SOLN 5 ML BTL EACH EYE SCH (09:00)
[2016-10-13] MEDS: LISINOPRIL 20 MG TAB PO SCH (09:00)
[2016-10-13] MEDS: metFORMIN HCL 500 MG TAB PO SCH ×2 (10:19→17:39)
[2016-10-13] MEDS: CITALOPRAM HYDROBROMIDE 20 MG TAB PO SCH (10:20)
[2016-10-13] MEDS: CYANOCOBALAMIN 1,000 MCG TAB PO SCH (10:20)
[2016-10-13] MEDS: LORATADINE 10 MG TAB PO SCH (10:20)
[2016-10-13] MEDS: MAGNESIUM OXIDE 400 MG TAB PO SCH ×2 (10:22→21:00)
[2016-10-13] MEDS: busPIRone HCL 5 MG TAB PO SCH ×2 (10:22→21:00)
[2016-10-13] MEDS: ASPIRIN EC 81 MG TABEC PO SCH (10:23)
--- NOTE | 2016-10-13 15:11 | HHI.PYPN ---
Subjective Remarks Patient was seen and case discussed with nursing. Patient is pleasant and cooperative with exam. Asking for B12 shots. Alert and oriented 3. Behaving well on the unit. Continues to deny psychosis Objective Alert: Yes [place]: Person, Place, Date, Situation Mood: Calm Affect: Restricted Memory Intact: Comment (no significant impairment) Hallucinations: Other (none) Delusions: No Delusion Type: Other (no delusional content elicited today) Suicidal: Ideation (denies) Homicidal: Ideation (denies) Insight/Judgment Poor Vitals/IOs Vital Signs Date Time Temp Pulse Resp B/P Pulse Ox O2 Delivery O2 Flow Rate FiO2 10/13/16 06:31 98.5 93 18 104/53 94 Intake and Output 10/12/16 10/12/16 10/13/16 08:00 16:00 00:00 Intake Total 480 ml 550 ml Output Total 2 ml Balance 480 ml 548 ml Assessment & Plan Problem List: (1) Schizoaffective disorder, bipolar type ICD Code: F25.0 Assessment & Plan Continue current treatment plan Justification for Cont. Inpt. Patient will decompensate in a less restrictive setting Request HC Surrog/Guard Advoc?: No Vishnu Small DO Oct 13, 2016 15:11
[2016-10-13 20:35] VITALS: BP 132/78; PULSE 71; RESP 16; TEMP 98; O2SAT 96
[2016-10-13] MEDS: ATORVASTATIN 10 MG TAB PO SCH (21:00)
[2016-10-13] MEDS: OLANZapine ODT 20 MG TAB SL SCH (21:00)
[2016-10-14] MEDS: PHENYTOIN SODIUM 100 MG CAP PO SCH ×4 (06:34→21:09)
[2016-10-14 06:44] VITALS: BP 135/74; PULSE 55; RESP 15; TEMP 98.8; O2SAT 97
[2016-10-14] MEDS: METOPROLOL TARTRATE 50 MG TAB PO SCH ×2 (08:30→20:48)
[2016-10-14] MEDS: TIMOLOL MALEATE 0.5% OPHT SOLN 5 ML BTL EACH EYE SCH (09:00)
[2016-10-14] MEDS: BETAMETHASONE/CLOTRIMAZOLE CREAM 15 GM TOPICAL SCH ×2 (09:00→20:49)
[2016-10-14] MEDS: LORATADINE 10 MG TAB PO SCH (10:07)
[2016-10-14] MEDS: busPIRone HCL 5 MG TAB PO SCH ×2 (10:07→20:48)
[2016-10-14] MEDS: CYANOCOBALAMIN 1,000 MCG TAB PO SCH (10:07)
[2016-10-14] MEDS: ASPIRIN EC 81 MG TABEC PO SCH (10:08)
[2016-10-14] MEDS: CITALOPRAM HYDROBROMIDE 20 MG TAB PO SCH (10:08)
[2016-10-14] MEDS: MAGNESIUM OXIDE 400 MG TAB PO SCH ×2 (10:09→20:48)
[2016-10-14] MEDS: metFORMIN HCL 500 MG TAB PO SCH ×2 (10:09→17:22)
[2016-10-14] MEDS: LISINOPRIL 20 MG TAB PO SCH (10:10)
[2016-10-14] MEDS: LACTIC ACID (AMMONIUM LACTATE) 12% LOTION 225 GM BTL TOPICAL SCH ×2 (10:13→20:48)
--- NOTE | 2016-10-14 15:27 | HHI.PYPN ---
Subjective Remarks Patient discussed with treatment team, chart review, patient seen on unit. Compliant medications Patient continues to isolate at times somewhat vigilant however coping with issues related to placement. For now continue treatment Review of Systems Except as stated in HPI: all other systems reviewed are Neg Objective Alert: Yes [place]: Person, Place, Date, Situation Mood: Calm Affect: Restricted Memory Intact: Comment (no significant impairment) Hallucinations: Other (none) Delusions: No Delusion Type: Other (no delusional content elicited today) Suicidal: Ideation (denies) Homicidal: Ideation (denies) Insight/Judgment Very poor Vitals/IOs Vital Signs Date Time Temp Pulse Resp B/P Pulse Ox O2 Delivery O2 Flow Rate FiO2 10/14/16 06:44 98.8 55 15 135/74 97 Intake and Output 10/13/16 10/13/16 10/14/16 08:00 16:00 00:00 Intake Total 120 ml 480 ml 720 ml Balance 120 ml 480 ml 720 ml Assessment & Plan Problem List: (1) Schizoaffective disorder, bipolar type ICD Code: F25.0 Assessment & Plan Estimated LOS: days patient overall no behavior problems, though still isolates and somewhat vigilant. Placement remains an issue Justification for Cont. Inpt. At this time patient will decompensate if placed in a lower level of care Discharge Planning To be determined Request HC Surrog/Guard Advoc?: No Phil Mckee MD Oct 14, 2016 15:27
[2016-10-14 19:00] VITALS: BP 153/69; PULSE 63; RESP 18; TEMP 98.1
[2016-10-14] MEDS: ATORVASTATIN 10 MG TAB PO SCH (20:48)
[2016-10-14] MEDS: OLANZapine ODT 20 MG TAB SL SCH (20:48)
[2016-10-15 06:00] VITALS: BP 92/50; PULSE 60; RESP 18; TEMP 98.5; O2SAT 94
[2016-10-15] MEDS: PHENYTOIN SODIUM 100 MG CAP PO SCH ×3 (06:00→22:00)
[2016-10-15] MEDS: BETAMETHASONE/CLOTRIMAZOLE CREAM 15 GM TOPICAL SCH ×2 (09:00→21:00)
[2016-10-15] MEDS: TIMOLOL MALEATE 0.5% OPHT SOLN 5 ML BTL EACH EYE SCH (09:00)
[2016-10-15] MEDS: LACTIC ACID (AMMONIUM LACTATE) 12% LOTION 225 GM BTL TOPICAL SCH ×2 (09:00→21:00)
[2016-10-15] MEDS: ASPIRIN EC 81 MG TABEC PO SCH (09:14)
[2016-10-15] MEDS: METOPROLOL TARTRATE 50 MG TAB PO SCH ×2 (09:14→21:00)
[2016-10-15] MEDS: CITALOPRAM HYDROBROMIDE 20 MG TAB PO SCH (09:14)
[2016-10-15] MEDS: busPIRone HCL 5 MG TAB PO SCH ×2 (09:14→21:00)
[2016-10-15] MEDS: LISINOPRIL 20 MG TAB PO SCH (09:14)
[2016-10-15] MEDS: LORATADINE 10 MG TAB PO SCH (09:14)
[2016-10-15] MEDS: metFORMIN HCL 500 MG TAB PO SCH ×2 (09:15→18:47)
[2016-10-15] MEDS: MAGNESIUM OXIDE 400 MG TAB PO SCH ×2 (09:15→21:00)
[2016-10-15] MEDS: CYANOCOBALAMIN 1,000 MCG TAB PO SCH (09:15)
--- NOTE | 2016-10-15 13:43 | HHI.PYPN ---
Subjective Remarks Patient seen in his room with nurse Brisa, chart review, patient compliant medications, no behavioral problems patient continues to focus on discharge present were processed the fact that placement remains quite problematic considering his past history of failed placements. For now continue treatment Review of Systems Except as stated in HPI: all other systems reviewed are Neg Objective Alert: Yes [place]: Person, Place, Date, Situation Mood: Calm Affect: Restricted Memory Intact: Comment (no significant impairment) Hallucinations: Other (none) Delusions: No Delusion Type: Other (no delusional content elicited today) Suicidal: Ideation (denies) Homicidal: Ideation (denies) Insight/Judgment Poor Vitals/IOs Vital Signs Date Time Temp Pulse Resp B/P Pulse Ox O2 Delivery O2 Flow Rate FiO2 10/15/16 06:00 98.5 60 18 92/50 94 Intake and Output 10/14/16 10/14/16 10/15/16 08:00 16:00 00:00 Intake Total 600 ml Balance 600 ml Assessment & Plan Problem List: (1) Schizoaffective disorder, bipolar type ICD Code: F25.0 Assessment & Plan Estimated LOS: days patient remains isolative, somewhat vigilant, but no behavior problems. Compliant medications Justification for Cont. Inpt. At this time the patient will decompensate if placed in a lower level of care Discharge Planning To be determined Request HC Surrog/Guard Advoc?: No Phil Mckee MD Oct 15, 2016 13:43
[2016-10-15] MEDS: IBUPROFEN 600 MG TAB PO PRN (20:30)
[2016-10-15] MEDS: ATORVASTATIN 10 MG TAB PO SCH (21:00)
[2016-10-15] MEDS: OLANZapine ODT 20 MG TAB SL SCH (21:00)
[2016-10-16 05:30] VITALS: BP 112/62; PULSE 58; RESP 20; TEMP 98.5
[2016-10-16] MEDS: PHENYTOIN SODIUM 100 MG CAP PO SCH ×3 (06:00→21:22)
[2016-10-16] MEDS: LACTIC ACID (AMMONIUM LACTATE) 12% LOTION 225 GM BTL TOPICAL SCH ×2 (09:00→21:00)
[2016-10-16] MEDS: BETAMETHASONE/CLOTRIMAZOLE CREAM 15 GM TOPICAL SCH ×2 (09:00→21:00)
[2016-10-16] MEDS: TIMOLOL MALEATE 0.5% OPHT SOLN 5 ML BTL EACH EYE SCH (09:00)
[2016-10-16] MEDS: ASPIRIN EC 81 MG TABEC PO SCH (10:08)
[2016-10-16] MEDS: LISINOPRIL 20 MG TAB PO SCH (10:08)
[2016-10-16] MEDS: METOPROLOL TARTRATE 50 MG TAB PO SCH ×2 (10:09→21:00)
[2016-10-16] MEDS: metFORMIN HCL 500 MG TAB PO SCH ×2 (10:09→18:54)
[2016-10-16] MEDS: busPIRone HCL 5 MG TAB PO SCH ×2 (10:09→21:23)
[2016-10-16] MEDS: CYANOCOBALAMIN 1,000 MCG TAB PO SCH (10:09)
[2016-10-16] MEDS: CITALOPRAM HYDROBROMIDE 20 MG TAB PO SCH (10:09)
[2016-10-16] MEDS: MAGNESIUM OXIDE 400 MG TAB PO SCH ×2 (10:09→21:22)
[2016-10-16] MEDS: LORATADINE 10 MG TAB PO SCH (10:09)
--- NOTE | 2016-10-16 14:41 | HHI.PYPN ---
Subjective Remarks Patient discussed with treatment team, chart reviewed, patient seen on unit. Patient seen in his room he continues to isolate though no behavior problems, compliant medications, continues to cope with placement issues. For now continue treatment Review of Systems Except as stated in HPI: all other systems reviewed are Neg Objective Alert: Yes [place]: Person, Place, Date, Situation Mood: Calm Affect: Restricted Memory Intact: Comment (no significant impairment) Hallucinations: Other (none) Delusions: No Delusion Type: Other (no delusional content elicited today) Suicidal: Ideation (denies) Homicidal: Ideation (denies) Insight/Judgment Very poor Labs Test 10/16/16 08:20 Creatinine 0.49 MG/DL Estimat Glomerular Filtration 173 ML/MIN Rate Albumin 2.8 GM/DL Phenytoin (Dilantin) Level 11.9 MCG/ML Vitals/IOs Vital Signs Date Time Temp Pulse Resp B/P Pulse Ox O2 Delivery O2 Flow Rate FiO2 10/16/16 05:30 98.5 58 20 112/62 10/15/16 06:00 94 Intake and Output 10/15/16 10/15/16 10/16/16 08:00 16:00 00:00 Intake Total 420 ml Balance 420 ml Assessment & Plan Problem List: (1) Schizoaffective disorder, bipolar type ICD Code: F25.0 Assessment & Plan Estimated LOS: days patient continues to isolate, continue somewhat vigilant the no behavioral problems Justification for Cont. Inpt. At this time patient will decompensate if placed a lower level of care Discharge Planning To be determined Request HC Surrog/Guard Advoc?: No Phil Mckee MD Oct 16, 2016 14:41
[2016-10-16 18:00] VITALS: BP 106/56; PULSE 63; RESP 18; TEMP 98.5; O2SAT 95
[2016-10-16] MEDS: OLANZapine ODT 20 MG TAB SL SCH (21:00)
[2016-10-16] MEDS: ATORVASTATIN 10 MG TAB PO SCH (21:22)
[2016-10-16] MEDS: IBUPROFEN 600 MG TAB PO PRN (21:22)
[2016-10-17] MEDS: PHENYTOIN SODIUM 100 MG CAP PO SCH ×3 (06:23→22:07)
[2016-10-17] MEDS: LORATADINE 10 MG TAB PO SCH (09:00)
[2016-10-17] MEDS: BETAMETHASONE/CLOTRIMAZOLE CREAM 15 GM TOPICAL SCH ×2 (09:00→20:57)
[2016-10-17] MEDS: LACTIC ACID (AMMONIUM LACTATE) 12% LOTION 225 GM BTL TOPICAL SCH ×2 (09:00→20:57)
[2016-10-17] MEDS: TIMOLOL MALEATE 0.5% OPHT SOLN 5 ML BTL EACH EYE SCH (09:00)
[2016-10-17] MEDS: METOPROLOL TARTRATE 50 MG TAB PO SCH ×2 (09:01→20:58)
[2016-10-17] MEDS: LISINOPRIL 20 MG TAB PO SCH (09:01)
[2016-10-17] MEDS: CYANOCOBALAMIN 1,000 MCG TAB PO SCH (09:01)
[2016-10-17] MEDS: busPIRone HCL 5 MG TAB PO SCH ×2 (09:01→20:55)
[2016-10-17] MEDS: ASPIRIN EC 81 MG TABEC PO SCH (09:01)
[2016-10-17] MEDS: CITALOPRAM HYDROBROMIDE 20 MG TAB PO SCH (09:01)
[2016-10-17] MEDS: metFORMIN HCL 500 MG TAB PO SCH ×2 (09:01→17:00)
[2016-10-17] MEDS: MAGNESIUM OXIDE 400 MG TAB PO SCH ×2 (09:01→20:56)
--- NOTE | 2016-10-17 11:01 | HHI.PYPN ---
Subjective Remarks Patient seen in room with nurse Semaj, chart review, patient compliant medications. Continues to isolate though no behavioral problems. Continues to cope with placement issues Review of Systems Except as stated in HPI: all other systems reviewed are Neg Objective Alert: Yes [place]: Person, Place, Date, Situation Mood: Calm Affect: Restricted Memory Intact: Comment (no significant impairment) Hallucinations: Other (none) Delusions: No Delusion Type: Other (no delusional content elicited today) Suicidal: Ideation (denies) Homicidal: Ideation (denies) Insight/Judgment Very poor Vitals/IOs Vital Signs Date Time Temp Pulse Resp B/P Pulse Ox O2 Delivery O2 Flow Rate FiO2 10/16/16 18:00 98.5 63 18 106/56 95 Intake and Output 10/16/16 10/16/16 10/17/16 08:00 16:00 00:00 Intake Total 120 ml 270 ml 500 ml Output Total 960 ml Balance 120 ml -690 ml 500 ml Assessment & Plan Problem List: (1) Schizoaffective disorder, bipolar type ICD Code: F25.0 Assessment & Plan Estimated LOS: days patient continues to isolate, somewhat vigilant but no behavioral issues Justification for Cont. Inpt. At this time patient would decompensate if placed in a lower level of care Discharge Planning To be determined Request HC Surrog/Guard Advoc?: No Phil Mckee MD Oct 17, 2016 11:01
[2016-10-17] MEDS: MAGNESIUM HYDROXIDE SUSP 30 ML CUP PO PRN (12:06)
[2016-10-17 19:24] VITALS: BP 137/62; PULSE 57; RESP 17; TEMP 98.8
[2016-10-17] MEDS: IBUPROFEN 600 MG TAB PO PRN (20:55)
[2016-10-17] MEDS: ATORVASTATIN 10 MG TAB PO SCH (20:55)
[2016-10-17] MEDS: OLANZapine ODT 20 MG TAB SL SCH (20:57)
[2016-10-18] MEDS: PHENYTOIN SODIUM 100 MG CAP PO SCH ×3 (05:58→21:47)
[2016-10-18 06:17] VITALS: BP 105/51; PULSE 77; RESP 17; TEMP 98.3; O2SAT 97
[2016-10-18] MEDS: CYANOCOBALAMIN 1,000 MCG TAB PO SCH (09:00)
[2016-10-18] MEDS: LACTIC ACID (AMMONIUM LACTATE) 12% LOTION 225 GM BTL TOPICAL SCH ×2 (09:00→21:00)
[2016-10-18] MEDS: TIMOLOL MALEATE 0.5% OPHT SOLN 5 ML BTL EACH EYE SCH (09:00)
[2016-10-18] MEDS: BETAMETHASONE/CLOTRIMAZOLE CREAM 15 GM TOPICAL SCH ×2 (09:00→21:00)
--- NOTE | 2016-10-18 09:31 | HHI.PYPN ---
Subjective Remarks Patient seen in his room this morning. He is not a behavior problem but continues to isolate from others. Easily confused and unable to care for self. Review of Systems ROS Limitations: Clinical Condition Objective Alert: Yes [place]: Person, Place, Date, Situation Mood: Calm Affect: Restricted Memory Intact: Comment (no significant impairment) Hallucinations: Other (none) Delusions: No Delusion Type: Other (no delusional content elicited today) Suicidal: Ideation (denies) Homicidal: Ideation (denies) Insight/Judgment Impaired. Vitals/IOs Vital Signs Date Time Temp Pulse Resp B/P Pulse Ox O2 Delivery O2 Flow Rate FiO2 10/18/16 06:17 98.3 77 17 105/51 97 Intake and Output 10/17/16 10/17/16 10/18/16 08:00 16:00 00:00 Intake Total 720 ml Balance 720 ml Assessment & Plan Problem List: (1) Schizoaffective disorder, bipolar type ICD Code: F25.0 Assessment & Plan Estimated LOS: 7 days will continue to evaluate medication therapies and titrate mood stabilizing and antipsychotic medication as necessary. Justification for Cont. Inpt. Depressed and unable to care for self. Request HC Surrog/Guard Advoc?: No Jax Packer MD Oct 18, 2016 09:31
[2016-10-18] MEDS: MAGNESIUM OXIDE 400 MG TAB PO SCH ×2 (09:32→21:00)
[2016-10-18] MEDS: ASPIRIN EC 81 MG TABEC PO SCH (09:32)
[2016-10-18] MEDS: LORATADINE 10 MG TAB PO SCH (09:33)
[2016-10-18] MEDS: METOPROLOL TARTRATE 50 MG TAB PO SCH ×2 (09:33→21:00)
[2016-10-18] MEDS: LISINOPRIL 20 MG TAB PO SCH (09:33)
[2016-10-18] MEDS: busPIRone HCL 5 MG TAB PO SCH ×2 (09:33→21:00)
[2016-10-18] MEDS: CITALOPRAM HYDROBROMIDE 20 MG TAB PO SCH (09:33)
[2016-10-18] MEDS: metFORMIN HCL 500 MG TAB PO SCH ×2 (09:33→17:33)
[2016-10-18 18:00] VITALS: BP 125/58; PULSE 60; RESP 17; TEMP 98.6; O2SAT 97
[2016-10-18] MEDS: OLANZapine ODT 20 MG TAB SL SCH (21:00)
[2016-10-18] MEDS: ATORVASTATIN 10 MG TAB PO SCH (21:00)
[2016-10-19] MEDS: PHENYTOIN SODIUM 100 MG CAP PO SCH ×3 (06:00→21:22)
[2016-10-19] MEDS: METOPROLOL TARTRATE 50 MG TAB PO SCH ×2 (08:48→21:22)
[2016-10-19] MEDS: LISINOPRIL 20 MG TAB PO SCH (08:48)
[2016-10-19] MEDS: LACTIC ACID (AMMONIUM LACTATE) 12% LOTION 225 GM BTL TOPICAL SCH ×2 (09:00→21:00)
[2016-10-19] MEDS: TIMOLOL MALEATE 0.5% OPHT SOLN 5 ML BTL EACH EYE SCH (09:00)
[2016-10-19] MEDS: BETAMETHASONE/CLOTRIMAZOLE CREAM 15 GM TOPICAL SCH ×2 (09:00→21:00)
[2016-10-19] MEDS: metFORMIN HCL 500 MG TAB PO SCH ×2 (10:16→17:24)
[2016-10-19] MEDS: LORATADINE 10 MG TAB PO SCH (10:16)
[2016-10-19] MEDS: CITALOPRAM HYDROBROMIDE 20 MG TAB PO SCH (10:16)
[2016-10-19] MEDS: MAGNESIUM OXIDE 400 MG TAB PO SCH ×2 (10:17→21:22)
[2016-10-19] MEDS: CYANOCOBALAMIN 1,000 MCG TAB PO SCH (10:17)
[2016-10-19] MEDS: busPIRone HCL 5 MG TAB PO SCH ×2 (10:18→21:23)
[2016-10-19] MEDS: ASPIRIN EC 81 MG TABEC PO SCH (10:18)
[2016-10-19] MEDS: IBUPROFEN 600 MG TAB PO PRN (17:24)
--- NOTE | 2016-10-19 19:00 | HHI.PYPN ---
Subjective Remarks Pt seen and discussed with staff. Pt seen and discussed with staff. No agitation or behavioral problems. He remains isolative on unit. No medication side effects. NO SI/HI Objective Alert: Yes [place]: Person, Place, Date, Situation Mood: Calm Affect: Restricted Memory Intact: Comment (no significant impairment) Hallucinations: Other (none) Delusions: No Delusion Type: Other (no delusional content elicited today) Suicidal: Ideation (denies) Homicidal: Ideation (denies) Insight/Judgment poor Vitals/IOs Vital Signs Date Time Temp Pulse Resp B/P Pulse Ox O2 Delivery O2 Flow Rate FiO2 10/18/16 18:00 98.6 60 17 125/58 97 Intake and Output 10/18/16 10/18/16 10/19/16 08:00 16:00 00:00 Intake Total 0 ml 1560 ml 1440 ml Balance 0 ml 1560 ml 1440 ml Assessment & Plan Problem List: (1) Schizoaffective disorder, bipolar type ICD Code: F25.0 Assessment & Plan continue current tx plan. Estimated LOS: days Justification for Cont. Inpt. risk of decompensation Request HC Surrog/Guard Advoc?: No Carole Gold MD Oct 19, 2016 19:00
[2016-10-19 20:00] VITALS: BP 133/60; PULSE 77; TEMP 99.4; O2SAT 98
[2016-10-19] MEDS: OLANZapine ODT 20 MG TAB SL SCH (21:00)
[2016-10-19] MEDS: ATORVASTATIN 10 MG TAB PO SCH (21:22)
[2016-10-20 05:37] VITALS: BP 133/80; PULSE 56; RESP 16; TEMP 97.1
[2016-10-20] MEDS: PHENYTOIN SODIUM 100 MG CAP PO SCH ×3 (05:39→21:50)
[2016-10-20] MEDS: LACTIC ACID (AMMONIUM LACTATE) 12% LOTION 225 GM BTL TOPICAL SCH ×2 (09:00→21:00)
[2016-10-20] MEDS: TIMOLOL MALEATE 0.5% OPHT SOLN 5 ML BTL EACH EYE SCH (09:00)
[2016-10-20] MEDS: METOPROLOL TARTRATE 50 MG TAB PO SCH ×2 (09:00→21:49)
[2016-10-20] MEDS: BETAMETHASONE/CLOTRIMAZOLE CREAM 15 GM TOPICAL SCH ×2 (09:00→21:00)
[2016-10-20] MEDS: MAGNESIUM OXIDE 400 MG TAB PO SCH ×2 (10:13→21:49)
[2016-10-20] MEDS: LISINOPRIL 20 MG TAB PO SCH (10:13)
[2016-10-20] MEDS: busPIRone HCL 5 MG TAB PO SCH ×2 (10:13→21:49)
[2016-10-20] MEDS: LORATADINE 10 MG TAB PO SCH (10:14)
[2016-10-20] MEDS: ASPIRIN EC 81 MG TABEC PO SCH (10:14)
[2016-10-20] MEDS: CYANOCOBALAMIN 1,000 MCG TAB PO SCH (10:14)
[2016-10-20] MEDS: CITALOPRAM HYDROBROMIDE 20 MG TAB PO SCH (10:14)
[2016-10-20] MEDS: metFORMIN HCL 500 MG TAB PO SCH ×2 (10:14→18:55)
[2016-10-20] MEDS: IBUPROFEN 600 MG TAB PO PRN (14:34)
[2016-10-20 18:00] VITALS: BP 119/59; PULSE 70; RESP 16; TEMP 97.4; O2SAT 96
--- NOTE | 2016-10-20 20:27 | HHI.PYPN ---
Subjective Remarks Pt seen and discussed with staff. He has been making engaging in more odd bizarre behavior but no aggression/agitation. He remains isolative to room. No SI/HI Objective Alert: Yes [place]: Person, Place, Date, Situation Mood: Calm Affect: Restricted Memory Intact: Comment (no significant impairment) Hallucinations: Other (none) Delusions: No Delusion Type: Other (no delusional content elicited today) Suicidal: Ideation (denies) Homicidal: Ideation (denies) Insight/Judgment poor Vitals/IOs Vital Signs Date Time Temp Pulse Resp B/P Pulse Ox O2 Delivery O2 Flow Rate FiO2 10/20/16 18:00 97.4 70 16 119/59 96 Intake and Output 10/19/16 10/19/16 10/20/16 08:00 16:00 00:00 Intake Total 840 ml Balance 840 ml Assessment & Plan Problem List: (1) Schizoaffective disorder, bipolar type ICD Code: F25.0 Assessment & Plan Continue current tx plan. Estimated LOS: days Justification for Cont. Inpt. risk of decompensation Request HC Surrog/Guard Advoc?: Carole Vazquez MD Oct 20, 2016 20:27
[2016-10-20] MEDS: OLANZapine ODT 20 MG TAB SL SCH (21:00)
[2016-10-20] MEDS: ATORVASTATIN 10 MG TAB PO SCH (21:49)
[2016-10-20 22:52] VITALS: BP 113/56; PULSE 100; RESP 17; TEMP 98.6; O2SAT 95
[2016-10-20 23:55] VITALS: BP 120/58; PULSE 60; RESP 16; TEMP 98.7; O2SAT 94
[2016-10-21 05:30] VITALS: BP 124/57; PULSE 52; RESP 18; TEMP 97.2
[2016-10-21] MEDS: PHENYTOIN SODIUM 100 MG CAP PO SCH ×3 (06:18→21:18)
[2016-10-21] MEDS: METOPROLOL TARTRATE 50 MG TAB PO SCH ×2 (08:43→20:51)
[2016-10-21] MEDS: BETAMETHASONE/CLOTRIMAZOLE CREAM 15 GM TOPICAL SCH ×2 (09:00→20:54)
[2016-10-21] MEDS: TIMOLOL MALEATE 0.5% OPHT SOLN 5 ML BTL EACH EYE SCH (09:00)
[2016-10-21] MEDS: LACTIC ACID (AMMONIUM LACTATE) 12% LOTION 225 GM BTL TOPICAL SCH ×2 (09:00→20:52)
[2016-10-21] MEDS: metFORMIN HCL 500 MG TAB PO SCH ×2 (09:54→17:31)
[2016-10-21] MEDS: busPIRone HCL 5 MG TAB PO SCH ×2 (09:54→20:51)
[2016-10-21] MEDS: LORATADINE 10 MG TAB PO SCH (09:54)
[2016-10-21] MEDS: CYANOCOBALAMIN 1,000 MCG TAB PO SCH (09:54)
[2016-10-21] MEDS: MAGNESIUM OXIDE 400 MG TAB PO SCH ×2 (09:54→20:51)
[2016-10-21] MEDS: CITALOPRAM HYDROBROMIDE 20 MG TAB PO SCH (09:54)
[2016-10-21] MEDS: ASPIRIN EC 81 MG TABEC PO SCH (09:54)
[2016-10-21] MEDS: LISINOPRIL 20 MG TAB PO SCH (09:55)
--- NOTE | 2016-10-21 16:38 | HHI.PYPN ---
Subjective Remarks Patient discussed with treatment team, chart review, patient seen on unit with floor staff. It appears we have a about placement it at the [facility] for 10/28. Patient continues calm isolating the behavioral problems. Compliant medications Review of Systems Except as stated in HPI: all other systems reviewed are Neg Objective Alert: Yes [place]: Person, Place, Date, Situation Mood: Calm Affect: Restricted Memory Intact: Comment (no significant impairment) Hallucinations: Other (none) Delusions: No Delusion Type: Other (no delusional content elicited today) Suicidal: Ideation (denies) Homicidal: Ideation (denies) Insight/Judgment Very poor Vitals/IOs Vital Signs Date Time Temp Pulse Resp B/P Pulse Ox O2 Delivery O2 Flow Rate FiO2 10/21/16 05:30 97.2 52 18 124/57 10/20/16 23:55 94 Intake and Output 10/20/16 10/20/16 10/21/16 08:00 16:00 00:00 Intake Total 960 ml 480 ml Balance 960 ml 480 ml Assessment & Plan Problem List: (1) Schizoaffective disorder, bipolar type ICD Code: F25.0 Assessment & Plan Estimated LOS: days patient continues to isolate, is vigilant at times somewhat paranoid. State placement date now anticipated to be 10/28 Justification for Cont. Inpt. State placement date anticipated to be 10/28 Discharge Planning See above Request HC Surrog/Guard Advoc?: Phil Case MD Oct 21, 2016 16:38
[2016-10-21 18:00] VITALS: BP 122/64; PULSE 87; RESP 18; TEMP 97.2; O2SAT 100
[2016-10-21] MEDS: ATORVASTATIN 10 MG TAB PO SCH (20:51)
[2016-10-21] MEDS: OLANZapine ODT 20 MG TAB SL SCH (20:52)
[2016-10-22] MEDS: PHENYTOIN SODIUM 100 MG CAP PO SCH ×3 (05:11→20:36)
[2016-10-22 05:41] VITALS: BP 123/65; PULSE 60; RESP 17; TEMP 97.5; O2SAT 95
[2016-10-22] MEDS: METOPROLOL TARTRATE 50 MG TAB PO SCH ×2 (08:49→20:36)
[2016-10-22] MEDS: LORATADINE 10 MG TAB PO SCH (08:49)
[2016-10-22] MEDS: MAGNESIUM OXIDE 400 MG TAB PO SCH ×2 (08:49→20:36)
[2016-10-22] MEDS: CYANOCOBALAMIN 1,000 MCG TAB PO SCH (08:49)
[2016-10-22] MEDS: metFORMIN HCL 500 MG TAB PO SCH ×2 (08:50→17:27)
[2016-10-22] MEDS: LISINOPRIL 20 MG TAB PO SCH (08:50)
[2016-10-22] MEDS: TIMOLOL MALEATE 0.5% OPHT SOLN 5 ML BTL EACH EYE SCH (08:50)
[2016-10-22] MEDS: CITALOPRAM HYDROBROMIDE 20 MG TAB PO SCH (08:50)
[2016-10-22] MEDS: ASPIRIN EC 81 MG TABEC PO SCH (08:50)
[2016-10-22] MEDS: busPIRone HCL 5 MG TAB PO SCH ×2 (08:50→20:36)
[2016-10-22] MEDS: BETAMETHASONE/CLOTRIMAZOLE CREAM 15 GM TOPICAL SCH ×2 (08:51→21:00)
[2016-10-22] MEDS: LACTIC ACID (AMMONIUM LACTATE) 12% LOTION 225 GM BTL TOPICAL SCH ×2 (08:51→21:00)
--- NOTE | 2016-10-22 14:46 | HHI.PYPN ---
Subjective Remarks Patient seen in his room with nurse Montaño. Chart reviewed. Patient continues calm isolative at times somewhat vigilant. No behavioral problems compliant medication. State placement date appears to be 10/28 Review of Systems Except as stated in HPI: all other systems reviewed are Neg Objective Alert: Yes [place]: Person, Place, Date, Situation Mood: Calm Affect: Restricted Memory Intact: Comment (no significant impairment) Hallucinations: Other (none) Delusions: No Delusion Type: Other (no delusional content elicited today) Suicidal: Ideation (denies) Homicidal: Ideation (denies) Insight/Judgment Very poor Vitals/IOs Vital Signs Date Time Temp Pulse Resp B/P Pulse Ox O2 Delivery O2 Flow Rate FiO2 10/22/16 05:41 97.5 60 17 123/65 95 Intake and Output 10/21/16 10/21/16 10/22/16 08:00 16:00 00:00 Intake Total 0 ml 600 ml 840 ml Balance 0 ml 600 ml 840 ml Assessment & Plan Problem List: (1) Schizoaffective disorder, bipolar type ICD Code: F25.0 Assessment & Plan Estimated LOS: days patient remains vigilant, isolative, with little insight. Though he is compliant with medications. It appears take placement date is set for 10/28 Justification for Cont. Inpt. At this time patient will decompensate if placed in the lower level of care Discharge Planning To be determined Request HC Surrog/Guard Advoc?: No Phil Mckee MD Oct 22, 2016 14:46
[2016-10-22 18:04] VITALS: BP 117/58; PULSE 78; RESP 18; TEMP 98.6; O2SAT 96
[2016-10-22] MEDS: ATORVASTATIN 10 MG TAB PO SCH (20:36)
[2016-10-22] MEDS: OLANZapine ODT 20 MG TAB SL SCH (21:00)
[2016-10-23 05:18] VITALS: BP 144/69; PULSE 53; RESP 16; TEMP 97.8
[2016-10-23] MEDS: PHENYTOIN SODIUM 100 MG CAP PO SCH ×2 (05:25→22:00)
[2016-10-23] MEDS: BETAMETHASONE/CLOTRIMAZOLE CREAM 15 GM TOPICAL SCH ×2 (09:00→21:00)
[2016-10-23] MEDS: TIMOLOL MALEATE 0.5% OPHT SOLN 5 ML BTL EACH EYE SCH (09:00)
[2016-10-23] MEDS: LACTIC ACID (AMMONIUM LACTATE) 12% LOTION 225 GM BTL TOPICAL SCH ×2 (09:00→21:00)
[2016-10-23] MEDS: ASPIRIN EC 81 MG TABEC PO SCH (09:47)
[2016-10-23] MEDS: METOPROLOL TARTRATE 50 MG TAB PO SCH ×2 (09:47→20:27)
[2016-10-23] MEDS: busPIRone HCL 5 MG TAB PO SCH ×2 (09:48→20:27)
[2016-10-23] MEDS: MAGNESIUM OXIDE 400 MG TAB PO SCH ×2 (09:48→20:26)
[2016-10-23] MEDS: LISINOPRIL 20 MG TAB PO SCH (09:48)
[2016-10-23] MEDS: metFORMIN HCL 500 MG TAB PO SCH ×2 (09:48→17:17)
[2016-10-23] MEDS: CYANOCOBALAMIN 1,000 MCG TAB PO SCH (09:48)
[2016-10-23] MEDS: CITALOPRAM HYDROBROMIDE 20 MG TAB PO SCH (09:48)
[2016-10-23] MEDS: LORATADINE 10 MG TAB PO SCH (09:48)
--- NOTE | 2016-10-23 13:17 | HHI.PYPN ---
Subjective Remarks Patient seen in his room today it appears with staff's encouragement and assistance patient did shower this morning. He looks somewhat pleased to himself. He otherwise continues to isolate with some vigilance. Compliant medications. For now continue treatment it appears bed placement date is 11/02 at [facility] Review of Systems Except as stated in HPI: all other systems reviewed are Neg Objective Alert: Yes [place]: Person, Place, Date, Situation Mood: Calm Affect: Restricted Memory Intact: Comment (no significant impairment) Hallucinations: Other (none) Delusions: No Delusion Type: Other (no delusional content elicited today) Suicidal: Ideation (denies) Homicidal: Ideation (denies) Insight/Judgment Poor Labs Test 10/23/16 08:16 Albumin 2.6 GM/DL Phenytoin (Dilantin) Level 14.3 MCG/ML Vitals/IOs Vital Signs Date Time Temp Pulse Resp B/P Pulse Ox O2 Delivery O2 Flow Rate FiO2 10/23/16 05:18 97.8 53 16 144/69 10/22/16 18:04 96 Intake and Output 10/22/16 10/22/16 10/23/16 08:00 16:00 00:00 Intake Total 600 ml 480 ml Balance 600 ml 480 ml Assessment & Plan Problem List: (1) Schizoaffective disorder, bipolar type ICD Code: F25.0 Assessment & Plan Estimated LOS: days patient continues to isolate, continues with some vigilance , but overall directable with no behavioral problems. [facility] bed date continues to appear to be 10/28 Justification for Cont. Inpt. This point patient will decompensate if placed in a lower level of care. Discharge Planning To be determined Request HC Surrog/Guard Advoc?: Phil Case MD Oct 23, 2016 13:17
[2016-10-23 18:00] VITALS: BP 138/50; PULSE 63; RESP 16; TEMP 98.1; O2SAT 97
[2016-10-23] MEDS: ATORVASTATIN 10 MG TAB PO SCH (20:27)
[2016-10-23] MEDS: OLANZapine ODT 20 MG TAB SL SCH (20:27)
[2016-10-24] MEDS: PHENYTOIN SODIUM 100 MG CAP PO SCH ×3 (05:23→22:15)
[2016-10-24 05:51] VITALS: BP 124/75; PULSE 57; RESP 16; TEMP 97.2; O2SAT 96
[2016-10-24] MEDS: TIMOLOL MALEATE 0.5% OPHT SOLN 5 ML BTL EACH EYE SCH (09:00)
[2016-10-24] MEDS: LACTIC ACID (AMMONIUM LACTATE) 12% LOTION 225 GM BTL TOPICAL SCH ×2 (09:00→21:00)
[2016-10-24] MEDS: METOPROLOL TARTRATE 50 MG TAB PO SCH ×2 (09:00→21:40)
[2016-10-24] MEDS: BETAMETHASONE/CLOTRIMAZOLE CREAM 15 GM TOPICAL SCH ×2 (09:00→21:00)
[2016-10-24] MEDS: LORATADINE 10 MG TAB PO SCH (09:06)
[2016-10-24] MEDS: MAGNESIUM OXIDE 400 MG TAB PO SCH ×2 (09:06→21:40)
[2016-10-24] MEDS: ASPIRIN EC 81 MG TABEC PO SCH (09:07)
[2016-10-24] MEDS: LISINOPRIL 20 MG TAB PO SCH (09:07)
[2016-10-24] MEDS: CYANOCOBALAMIN 1,000 MCG TAB PO SCH (09:07)
[2016-10-24] MEDS: busPIRone HCL 5 MG TAB PO SCH ×2 (09:07→21:40)
[2016-10-24] MEDS: metFORMIN HCL 500 MG TAB PO SCH ×2 (09:07→18:36)
[2016-10-24] MEDS: CITALOPRAM HYDROBROMIDE 20 MG TAB PO SCH (09:07)
--- NOTE | 2016-10-24 11:49 | HHI.PYPN ---
Subjective Remarks Patient seen in his room with nurse Shyann, patient continues calm though somewhat confused, no behavioral issues. Compliant medications. Continues to ask about discharge plans. At this time I feel it would not be beneficial to share with him his discharge date to the [facility] which is scheduled for Review of Systems Except as stated in HPI: all other systems reviewed are Neg Objective Alert: Yes [place]: Person, Place, Date, Situation Mood: Calm Affect: Restricted Memory Intact: Comment (no significant impairment) Hallucinations: Other (none) Delusions: No Delusion Type: Other (no delusional content elicited today) Suicidal: Ideation (denies) Homicidal: Ideation (denies) Insight/Judgment Very poor Vitals/IOs Vital Signs Date Time Temp Pulse Resp B/P Pulse Ox O2 Delivery O2 Flow Rate FiO2 10/24/16 05:51 97.2 57 16 124/75 96 Intake and Output 10/23/16 10/23/16 10/24/16 08:00 16:00 00:00 Intake Total 240 ml 600 ml Balance 240 ml 600 ml Assessment & Plan Problem List: (1) Schizoaffective disorder, bipolar type ICD Code: F25.0 Assessment & Plan Estimated LOS: days patient continues somewhat guarded and vigilant, continues to isolate. No behavioral problems. Appears stated placement date remains 10/28 Justification for Cont. Inpt. At this time patient will decompensate the place a lower level of care appears transfer to [facility] occur 10/28 Discharge Planning To be determined Request HC Surrog/Guard Advoc?: No Phil Mckee MD Oct 24, 2016 11:49
[2016-10-24 19:38] VITALS: BP 127/64; PULSE 85; RESP 16; TEMP 97.6; O2SAT 96
[2016-10-24] MEDS: OLANZapine ODT 20 MG TAB SL SCH (21:00)
[2016-10-24] MEDS: ATORVASTATIN 10 MG TAB PO SCH (21:40)
[2016-10-25] MEDS: PHENYTOIN SODIUM 100 MG CAP PO SCH ×3 (05:58→21:12)
[2016-10-25 06:29] VITALS: BP 96/54; PULSE 53; RESP 16; TEMP 98; O2SAT 93
[2016-10-25] MEDS: TIMOLOL MALEATE 0.5% OPHT SOLN 5 ML BTL EACH EYE SCH (09:00)
[2016-10-25] MEDS: LACTIC ACID (AMMONIUM LACTATE) 12% LOTION 225 GM BTL TOPICAL SCH ×2 (09:00→21:00)
[2016-10-25] MEDS: LISINOPRIL 20 MG TAB PO SCH (09:00)
[2016-10-25] MEDS: METOPROLOL TARTRATE 50 MG TAB PO SCH ×2 (09:00→21:00)
[2016-10-25] MEDS: BETAMETHASONE/CLOTRIMAZOLE CREAM 15 GM TOPICAL SCH ×2 (09:00→21:00)
--- NOTE | 2016-10-25 09:05 | HHI.PYPN ---
Subjective Remarks Patient seen in his room with nurse Shyann, patient continues to isolate though no specific behavioral problems, he continues somewhat vigilant. He vaguely denies voices told some question she still is responding to internal stimuli. It appears the state placement date is not 10/28 but his 10/30 Review of Systems Except as stated in HPI: all other systems reviewed are Neg Objective Alert: Yes [place]: Person, Place, Date, Situation Mood: Calm Affect: Restricted Memory Intact: Comment (no significant impairment) Hallucinations: Other (none) Delusions: No Delusion Type: Other (no delusional content elicited today) Suicidal: Ideation (denies) Homicidal: Ideation (denies) Insight/Judgment Poor Vitals/IOs Vital Signs Date Time Temp Pulse Resp B/P Pulse Ox O2 Delivery O2 Flow Rate FiO2 10/25/16 06:29 98.0 53 16 96/54 93 Intake and Output 10/24/16 10/24/16 10/25/16 08:00 16:00 00:00 Intake Total 240 ml 240 ml 1320 ml Balance 240 ml 240 ml 1320 ml Assessment & Plan Problem List: (1) Schizoaffective disorder, bipolar type ICD Code: F25.0 Assessment & Plan Estimated LOS: days patient remains isolative and somewhat guarded no no behavioral problems. States placement date appears to be 10/30 Justification for Cont. Inpt. At this time patient will decompensate if placed in the lower level of care Discharge Planning To be determined Request HC Surrog/Guard Advoc?: No Phil Mckee MD Oct 25, 2016 09:05
[2016-10-25] MEDS: busPIRone HCL 5 MG TAB PO SCH ×2 (10:25→21:06)
[2016-10-25] MEDS: MAGNESIUM OXIDE 400 MG TAB PO SCH ×2 (10:26→21:06)
[2016-10-25] MEDS: LORATADINE 10 MG TAB PO SCH (10:26)
[2016-10-25] MEDS: metFORMIN HCL 500 MG TAB PO SCH ×2 (10:26→18:46)
[2016-10-25] MEDS: CYANOCOBALAMIN 1,000 MCG TAB PO SCH (10:26)
[2016-10-25] MEDS: ASPIRIN EC 81 MG TABEC PO SCH (10:26)
[2016-10-25] MEDS: CITALOPRAM HYDROBROMIDE 20 MG TAB PO SCH (10:32)
[2016-10-25] MEDS: MAGNESIUM HYDROXIDE SUSP 30 ML CUP PO PRN (13:44)
[2016-10-25 18:43] VITALS: BP 101/60; PULSE 64; RESP 17; TEMP 98.4; O2SAT 94
[2016-10-25] MEDS: OLANZapine ODT 20 MG TAB SL SCH (21:06)
[2016-10-25] MEDS: ATORVASTATIN 10 MG TAB PO SCH (21:06)
[2016-10-25] MEDS: ACETAMINOPHEN 325 MG TAB PO PRN (21:13)
[2016-10-26 06:28] VITALS: BP 146/73; PULSE 54; RESP 18; TEMP 98; O2SAT 94
[2016-10-26] MEDS: PHENYTOIN SODIUM 100 MG CAP PO SCH ×3 (06:33→21:57)
[2016-10-26] MEDS: LACTIC ACID (AMMONIUM LACTATE) 12% LOTION 225 GM BTL TOPICAL SCH ×2 (09:00→21:00)
[2016-10-26] MEDS: BETAMETHASONE/CLOTRIMAZOLE CREAM 15 GM TOPICAL SCH ×2 (09:00→21:00)
[2016-10-26] MEDS: MAGNESIUM OXIDE 400 MG TAB PO SCH ×2 (09:13→21:56)
[2016-10-26] MEDS: TIMOLOL MALEATE 0.5% OPHT SOLN 5 ML BTL EACH EYE SCH (09:13)
[2016-10-26] MEDS: LISINOPRIL 20 MG TAB PO SCH (09:13)
[2016-10-26] MEDS: metFORMIN HCL 500 MG TAB PO SCH ×2 (09:14→18:00)
[2016-10-26] MEDS: ASPIRIN EC 81 MG TABEC PO SCH (09:14)
[2016-10-26] MEDS: LORATADINE 10 MG TAB PO SCH (09:14)
[2016-10-26] MEDS: METOPROLOL TARTRATE 50 MG TAB PO SCH ×2 (09:14→21:56)
[2016-10-26] MEDS: busPIRone HCL 5 MG TAB PO SCH ×2 (09:14→21:57)
[2016-10-26] MEDS: CYANOCOBALAMIN 1,000 MCG TAB PO SCH (09:14)
[2016-10-26] MEDS: CITALOPRAM HYDROBROMIDE 20 MG TAB PO SCH (09:14)
--- NOTE | 2016-10-26 12:32 | HHI.PYPN ---
Subjective Remarks Patient was seen and case discussed with nursing. Patient is pleasant and cooperative with exam. Continues to behave well on the unit. Compliant with medications. Objective Alert: Yes [place]: Person, Place, Date, Situation Mood: Calm Affect: Blunted Memory Intact: Comment (no significant impairment) Hallucinations: Other (none) Delusions: No Delusion Type: Other (no delusional content elicited today) Suicidal: Ideation (denies) Homicidal: Ideation (denies) Insight/Judgment Improvement Labs Test 10/26/16 08:17 Albumin 2.8 GM/DL Phenytoin (Dilantin) Level 13.2 MCG/ML Vitals/IOs Vital Signs Date Time Temp Pulse Resp B/P Pulse Ox O2 Delivery O2 Flow Rate FiO2 10/26/16 06:28 98.0 54 18 146/73 94 Intake and Output 10/25/16 10/25/16 10/26/16 08:00 16:00 00:00 Intake Total 720 ml 480 ml Balance 720 ml 480 ml Assessment & Plan Problem List: (1) Schizoaffective disorder, bipolar type ICD Code: F25.0 Assessment & Plan Continue current treatment plan Justification for Cont. Inpt. Patient will decompensate in a less restrictive setting Request HC Surrog/Guard Advoc?: No Vishnu Small DO Oct 26, 2016 12:32
[2016-10-26 16:58] VITALS: BP 118/59; PULSE 78; RESP 19; TEMP 98.9; O2SAT 95
[2016-10-26] MEDS: OLANZapine ODT 20 MG TAB SL SCH (21:56)
[2016-10-26] MEDS: ATORVASTATIN 10 MG TAB PO SCH (21:57)
[2016-10-27] MEDS: PHENYTOIN SODIUM 100 MG CAP PO SCH ×2 (06:37→13:16)
[2016-10-27 06:42] VITALS: BP 100/60; PULSE 51; RESP 18; TEMP 98.7; O2SAT 96
[2016-10-27] MEDS: METOPROLOL TARTRATE 50 MG TAB PO SCH ×2 (07:49→21:00)
[2016-10-27] MEDS: LISINOPRIL 20 MG TAB PO SCH (07:49)
[2016-10-27] MEDS: BETAMETHASONE/CLOTRIMAZOLE CREAM 15 GM TOPICAL SCH ×2 (09:00→21:00)
[2016-10-27] MEDS: LACTIC ACID (AMMONIUM LACTATE) 12% LOTION 225 GM BTL TOPICAL SCH ×2 (09:00→21:00)
[2016-10-27] MEDS: TIMOLOL MALEATE 0.5% OPHT SOLN 5 ML BTL EACH EYE SCH (10:51)
[2016-10-27] MEDS: CITALOPRAM HYDROBROMIDE 20 MG TAB PO SCH (10:52)
[2016-10-27] MEDS: MAGNESIUM OXIDE 400 MG TAB PO SCH ×2 (10:52→21:59)
[2016-10-27] MEDS: LORATADINE 10 MG TAB PO SCH (10:52)
[2016-10-27] MEDS: metFORMIN HCL 500 MG TAB PO SCH ×2 (10:52→18:01)
[2016-10-27] MEDS: busPIRone HCL 5 MG TAB PO SCH ×2 (10:52→21:59)
[2016-10-27] MEDS: CYANOCOBALAMIN 1,000 MCG TAB PO SCH (10:52)
[2016-10-27] MEDS: ASPIRIN EC 81 MG TABEC PO SCH (10:53)
--- NOTE | 2016-10-27 12:21 | HHI.PYPN ---
Subjective Remarks Patient was seen and case discussed with nursing. Patient remains minimally interactive largely seclusive to self. Remains alert and oriented 3 today. Compliant with his medications and behaving well. Continues to be focused on being discharged to [place] Objective Alert: Yes [place]: Person, Place, Date, Situation Mood: Calm Affect: Flat Memory Intact: Comment (no significant impairment) Hallucinations: Other (none) Delusions: No Delusion Type: Other (no delusional content elicited today) Suicidal: Ideation (denies) Homicidal: Ideation (denies) Insight/Judgment Poor Vitals/IOs Vital Signs Date Time Temp Pulse Resp B/P Pulse Ox O2 Delivery O2 Flow Rate FiO2 10/27/16 06:42 98.7 51 18 100/60 96 Intake and Output 10/26/16 10/26/16 10/27/16 08:00 16:00 00:00 Intake Total 240 ml 1200 ml 720 ml Balance 240 ml 1200 ml 720 ml Assessment & Plan Problem List: (1) Schizoaffective disorder, bipolar type ICD Code: F25.0 Assessment & Plan Continue current treatment plan Justification for Cont. Inpt. Patient will decompensate in the less restrictive setting Request HC Surrog/Guard Advoc?: No Vishnu Small DO Oct 27, 2016 12:21
[2016-10-27 21:34] VITALS: BP 100/60; PULSE 51; RESP 18; TEMP 98.7; O2SAT 96
[2016-10-27] MEDS: OLANZapine ODT 20 MG TAB SL SCH (21:58)
[2016-10-27] MEDS: ATORVASTATIN 10 MG TAB PO SCH (21:58)
[2016-10-28] MEDS: PHENYTOIN SODIUM 100 MG CAP PO SCH ×4 (05:56→21:47)
[2016-10-28 06:09] VITALS: BP 102/58; PULSE 52; RESP 17; TEMP 97.4; O2SAT 93
[2016-10-28] MEDS: LISINOPRIL 20 MG TAB PO SCH (08:52)
[2016-10-28] MEDS: METOPROLOL TARTRATE 50 MG TAB PO SCH ×2 (08:52→21:47)
[2016-10-28] MEDS: LACTIC ACID (AMMONIUM LACTATE) 12% LOTION 225 GM BTL TOPICAL SCH ×2 (09:00→21:00)
[2016-10-28] MEDS: BETAMETHASONE/CLOTRIMAZOLE CREAM 15 GM TOPICAL SCH ×2 (09:00→21:00)
[2016-10-28] MEDS: CYANOCOBALAMIN 1,000 MCG TAB PO SCH (10:07)
[2016-10-28] MEDS: LORATADINE 10 MG TAB PO SCH (10:07)
[2016-10-28] MEDS: MAGNESIUM OXIDE 400 MG TAB PO SCH ×2 (10:08→21:47)
[2016-10-28] MEDS: busPIRone HCL 5 MG TAB PO SCH ×2 (10:08→21:00)
[2016-10-28] MEDS: TIMOLOL MALEATE 0.5% OPHT SOLN 5 ML BTL EACH EYE SCH (10:08)
[2016-10-28] MEDS: metFORMIN HCL 500 MG TAB PO SCH ×2 (10:09→18:23)
[2016-10-28] MEDS: ASPIRIN EC 81 MG TABEC PO SCH (10:09)
[2016-10-28] MEDS: CITALOPRAM HYDROBROMIDE 20 MG TAB PO SCH (10:09)
--- NOTE | 2016-10-28 16:15 | HHI.PYPN ---
Subjective Remarks Patient seen and examined with nurse. Chart reviewed. Case discussed with nursing staff reports patient has been a behavioral problem. On my examination today, the patient reports that he slept poorly overnight, although I see that he was charted as having slept 10 hours. He requests Klonopin for this reported poor sleep. He also would like his Zyprexa to be tapered back to 20 mg from the 40 mg he is currently receiving at bedtime. Denies any AVH. No SI or HI. Denies side effects from medications. No physical complaints at this time. Review of Systems ROS Limitations: Poor Historian Except as stated in HPI: all other systems reviewed are Neg Objective Alert: Yes Beeson: Person, Place, Date Mood: Calm Affect: Blunted Memory Intact: Comment (not formally assessed) Hallucinations: Other (no AVH) Delusions: No Delusion Type: Other (no delusional material) Suicidal: Ideation (no SI) Homicidal: Ideation (no HI) Insight/Judgment Poor Remarks No abnormal motor movements noted. Labs Labs reviewed. No new labs. Vitals/IOs Vital Signs Date Time Temp Pulse Resp B/P Pulse Ox O2 Delivery O2 Flow Rate FiO2 10/28/16 06:09 97.4 52 17 102/58 93 Intake and Output 10/27/16 10/27/16 10/28/16 08:00 16:00 00:00 Intake Total 360 ml 960 ml 480 ml Balance 360 ml 960 ml 480 ml Assessment & Plan Problem List: (1) Schizoaffective disorder, bipolar type ICD Code: F25.0 Assessment & Plan Continue current psychotropics as ordered. Continue to monitor on the inpatient unit. Continue other medications and care as ordered. Justification for Cont. Inpt. Final discharge planning Discharge Planning Counselor informs me that the patient is for transfer to the [facility] on October 30 Request HC Surrog/Guard Advoc?: No Rudy Amato MD Oct 28, 2016 16:15
[2016-10-28 20:00] VITALS: BP 151/87; PULSE 86; RESP 16; O2SAT 96
[2016-10-28] MEDS: ATORVASTATIN 10 MG TAB PO SCH (21:47)
[2016-10-28] MEDS: OLANZapine ODT 20 MG TAB SL SCH (21:47)
[2016-10-29] MEDS: PHENYTOIN SODIUM 100 MG CAP PO SCH ×3 (06:00→21:24)
[2016-10-29 06:06] VITALS: BP 125/60; PULSE 60; RESP 18; TEMP 98; O2SAT 96
[2016-10-29] MEDS: LACTIC ACID (AMMONIUM LACTATE) 12% LOTION 225 GM BTL TOPICAL SCH ×2 (09:00→21:00)
[2016-10-29] MEDS: LORATADINE 10 MG TAB PO SCH (09:00)
[2016-10-29] MEDS: BETAMETHASONE/CLOTRIMAZOLE CREAM 15 GM TOPICAL SCH ×2 (09:00→21:00)
[2016-10-29] MEDS: METOPROLOL TARTRATE 50 MG TAB PO SCH ×2 (09:00→21:24)
[2016-10-29] MEDS: metFORMIN HCL 500 MG TAB PO SCH ×2 (10:04→18:25)
[2016-10-29] MEDS: LISINOPRIL 20 MG TAB PO SCH (10:04)
[2016-10-29] MEDS: ASPIRIN EC 81 MG TABEC PO SCH (10:05)
[2016-10-29] MEDS: CYANOCOBALAMIN 1,000 MCG TAB PO SCH (10:05)
[2016-10-29] MEDS: TIMOLOL MALEATE 0.5% OPHT SOLN 5 ML BTL EACH EYE SCH (10:05)
[2016-10-29] MEDS: CITALOPRAM HYDROBROMIDE 20 MG TAB PO SCH (10:05)
[2016-10-29] MEDS: busPIRone HCL 5 MG TAB PO SCH ×2 (10:07→21:24)
[2016-10-29] MEDS: MAGNESIUM OXIDE 400 MG TAB PO SCH ×2 (10:07→21:24)
[2016-10-29] MEDS ORDERED: ASPI1TAB91 PO (15:32)
[2016-10-29] MEDS ORDERED: [UNRECOGNIZED DRUG - CODE] TOPICAL (15:32)
[2016-10-29] MEDS ORDERED: LORA-361 PO (15:32)
[2016-10-29] MEDS ORDERED: DILA100C PO (15:32)
[2016-10-29] MEDS ORDERED: BUSP5TAB PO (15:32)
[2016-10-29] MEDS ORDERED: METF1000 PO (15:32)
[2016-10-29] MEDS ORDERED: OLANZ20 SL (15:32)
[2016-10-29] MEDS ORDERED: ALBUAER3 INH (15:32)
[2016-10-29] MEDS ORDERED: LISI-515 PO (15:32)
[2016-10-29] MEDS ORDERED: VITA10002 PO (15:32)
[2016-10-29] MEDS ORDERED: CITA20TA4 PO (15:32)
[2016-10-29] MEDS ORDERED: PALI234P IM (15:32)
[2016-10-29] MEDS ORDERED: TIMO0.5S5 EACH EYE (15:32)
[2016-10-29] MEDS ORDERED: ATOR10TA15 PO (15:32)
[2016-10-29] MEDS ORDERED: METO50TA PO (15:32)
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
[2016-10-29 18:00] VITALS: BP 112/78; PULSE 79; RESP 18; O2SAT 97
[2016-10-29] MEDS: ATORVASTATIN 10 MG TAB PO SCH (21:24)
[2016-10-29] MEDS: OLANZapine ODT 20 MG TAB SL SCH (21:24)
[2016-10-30 05:29] VITALS: BP 116/63; PULSE 53; RESP 20; TEMP 97.9; O2SAT 95
[2016-10-30] MEDS ORDERED: LORazepam 1 MG TAB PO ONE (06:00)
[2016-10-30] MEDS: LISINOPRIL 20 MG TAB PO SCH (06:28)
[2016-10-30] MEDS: busPIRone HCL 5 MG TAB PO SCH (06:28)
[2016-10-30] MEDS: ASPIRIN EC 81 MG TABEC PO SCH (06:28)
[2016-10-30] MEDS: LORATADINE 10 MG TAB PO SCH (06:29)
[2016-10-30] MEDS: CITALOPRAM HYDROBROMIDE 20 MG TAB PO SCH (06:29)
[2016-10-30] MEDS: MAGNESIUM OXIDE 400 MG TAB PO SCH (06:29)
[2016-10-30] MEDS: METOPROLOL TARTRATE 50 MG TAB PO SCH (06:29)
[2016-10-30] MEDS: metFORMIN HCL 500 MG TAB PO SCH (06:29)
[2016-10-30] MEDS: CYANOCOBALAMIN 1,000 MCG TAB PO SCH (06:29)
[2016-10-30] MEDS: PHENYTOIN SODIUM 100 MG CAP PO SCH (06:29)
[2016-10-30] MEDS: TIMOLOL MALEATE 0.5% OPHT SOLN 5 ML BTL EACH EYE SCH (06:30)
[2016-10-30] MEDS: BETAMETHASONE/CLOTRIMAZOLE CREAM 15 GM TOPICAL SCH (06:30)
[2016-10-30] MEDS: LACTIC ACID (AMMONIUM LACTATE) 12% LOTION 225 GM BTL TOPICAL SCH (06:30)
== END 2016-10-30 07:15 | DRG 885 ==
LOC: NEPA 15:38 → NEDA 07-18 17:31 → H250 07-18 18:25 → H260 07-19 10:40 → H250 08-07 11:14 → H260 09-03 22:20 → H250 09-04 23:40
PROVIDERS: ADMIT Psychiatry & Neurology Psychiatry; ATTEND Psychiatry & Neurology Psychiatry
DX: F25.0 Schizoaffective disorder, bipolar type (principal); D61.818 Other pancytopenia; I48.92 Unspecified atrial flutter; N39.0 Urinary tract infection, site not specified; E11.9 Type 2 diabetes mellitus without complications; J44.9 Chronic obstructive pulmonary disease, unspecified; E53.8 Deficiency of other specified B group vitamins; I10 Essential (primary) hypertension; B95.2 Enterococcus as the cause of diseases classified elsewhere; E78.5 Hyperlipidemia, unspecified; G40.909 Epilepsy, unspecified, not intractable, without status epilepticus; M19.90 Unspecified osteoarthritis, unspecified site; B86 Scabies; H40.9 Unspecified glaucoma; J45.909 Unspecified asthma, uncomplicated; R11.2 Nausea with vomiting, unspecified; B35.3 Tinea pedis; I95.1 Orthostatic hypotension; R26.81 Unsteadiness on feet; I25.2 Old myocardial infarction; Z79.84 Long term (current) use of oral hypoglycemic drugs; Z91.14 Patient's other noncompliance with medication regimen; Z86.711 Personal history of pulmonary embolism; T42.0X5A Adverse effect of hydantoin derivatives, initial encounter
CPT/HCPCS: 80048; 80053; 80061; 80185; 80307; 80320; 81001; 82040; 82565; 82607; 82728; 82746; 82948; 83036; 83735; 85025; 87077; 87086; 87186; 93005; 99285; J1815; J2426; J3420